=== PATIENT | male | born 1955 | race Caucasian/White ===

== ENCOUNTER 2023-11-10 10:32 | Outpatient (RCR) | payer MEDICARE, OTHER, SELFPAY ==
[2023-10-20 09:09] VITALS: BP 113/46
[2023-10-20 09:33] VITALS: BP 116/47
[2023-10-20 12:27] VITALS: BP 119/51
[2023-10-25 10:07] LABS: % Basophils 0.5 % (0-2); Absolute Eosinophils 0.1 10^3/uL (0-0.7); Absolute Monocytes 0.4 10^3/uL (0.1-0.6); Nucleated Red Blood Cells % 0 % (-)
[2023-10-25 10:10] LABS: % Eosinophils 4.1 % (0-6); % Immature Granulocytes 3.6 % (0-0.5); % Lymphocytes 13.8 % (20.5-51.1); Absolute Immature Granulocytes 0.1 10^3/uL (0-0.05); Absolute Lymphocytes 0.3 10^3/uL (1.2-3.4); Absolute Neutrophils 1.2 10^3/uL (1.4-6.5); Hematocrit 21.3 % (39.0-52.0); Hemoglobin 7.5 g/dL (13.0-18.0); Mean Corp Hgb Conc. 35.2 g/dL (33.0-37.0); Mean Corpuscular Hgb 30.7 pg (27.0-31.0); Mean Corpuscular Volume 87.3 fL (80.0-94.0); Mean Platelet Volume 8.3 fL (7.4-10.4); Platelet Count 105 10^3/uL (130-400); Red Blood Cell Count 2.44 10^6/uL (4.70-6.10); Red Cell Dist. Width 17.2 % (11.5-14.5)
[2023-10-26 08:22] VITALS: BP 114/45
[2023-10-26 08:42] VITALS: BP 116/48
[2023-10-26 11:40] VITALS: BP 131/52
[2023-11-09 08:55] LABS: Hematocrit 22.6 % (39.0-52.0); Hemoglobin 7.7 g/dL (13.0-18.0); Mean Corp Hgb Conc. 34.1 g/dL (33.0-37.0); Mean Corpuscular Hgb 30.4 pg (27.0-31.0); Mean Corpuscular Volume 89.3 fL (80.0-94.0); Mean Platelet Volume 8.2 fL (7.4-10.4); Nucleated Red Blood Cells % 0 % (-); Platelet Count 107 10^3/uL (130-400); Red Blood Cell Count 2.53 10^6/uL (4.70-6.10); Red Cell Dist. Width 17.7 % (11.5-14.5); White Blood Cell Count 1.8 10^3/uL (4.8-10.8)
[2023-11-09 09:47] LABS: Band Neutrophils 1 % (0-3); Eosinophils 3 % (0-6); Lymphocytes 24 % (20-51); Monocytes 10 % (2-9); Segmented Neutrophils 56 % (42-75)
[2023-11-09 09:48] LABS: Atypical Lymphocytes 1 %; Metamyelocytes 5 % (-); Normal RBC Morphology Yes; Platelets Checked Yes; Total Cells Counted 100
[2023-11-09 09:59] LABS: Albumin 2.9 g/dl (3.5-5.0); Blood Urea Nitrogen 97 mg/dl (9-20); Calcium 8.6 mg/dl (8.4-10.2); Carbon Dioxide 25 mmol/L (22-30); Chloride 96 mmol/L (98-107); Glucose 148 mg/dl (70-99); Phosphorus 5.3 mg/dl (2.5-4.5); Potassium 5.1 mmol/L (3.5-5.1); Sodium 131 mmol/L (135-145); eGFR 10.24
[2023-11-10 11:19] VITALS: BP 120/45
[2023-11-10 11:37] VITALS: BP 118/45
[2023-11-10 15:06] VITALS: BP 160/58
== END 2023-11-15 23:59 | disposition home or self-care (01) ==
LOC: OID 10:32
PROVIDERS: ATTENDING PHYSICIAN Internal Medicine Hematology & Oncology; FAMILY PHYSICIAN Family Medicine
DX: N18.4 Chronic kidney disease, stage 4 (severe) (principal); D63.1 Anemia in chronic kidney disease; D50.9 Iron deficiency anemia, unspecified
CPT/HCPCS: 36415; 36430; 80069; 82306; 83735; 85025; 86850; 86900; 86901; 86920; P9016

== ENCOUNTER 2023-11-16 15:25 | Inpatient (IN) | payer MEDICARE, OTHER, SELFPAY ==
[2023-11-16] VITALS (12 sets, daily range): BP systolic 122–180; BP diastolic 54–80; BMI 23.0; BMI 22.9
[2023-11-16 11:58] LABS: Hematocrit 21.2 % (39.0-52.0); Hemoglobin 7.3 g/dL (13.0-18.0); Mean Corp Hgb Conc. 34.4 g/dL (33.0-37.0); Mean Corpuscular Hgb 29.9 pg (27.0-31.0); Mean Corpuscular Volume 86.9 fL (80.0-94.0); Nucleated Red Blood Cells % 0 % (-); Platelet Count 90 10^3/uL (130-400); Red Blood Cell Count 2.44 10^6/uL (4.70-6.10)
[2023-11-16 12:09] LABS: COVID-19 Antigen Negative (Negative)
[2023-11-16 12:15] LABS: ALT (SGPT) 10 U/L (0-50); AST (SGOT) 18 U/L (17-59); Albumin 3.4 g/dl (3.5-5.0); Alkaline Phosphatase 74 U/L (38-126); Blood Urea Nitrogen 94 mg/dl (9-20); Carbon Dioxide 27 mmol/L (22-30); Chloride 93 mmol/L (98-107); Estimated Creatinine Clearance 11 ml/min; Glucose 133 mg/dl (70-99); Potassium 4.8 mmol/L (3.5-5.1); Sodium 126 mmol/L (135-145); Total Bilirubin 0.7 mg/dl (0.2-1.3); Total Protein 5.9 g/dl (6.3-8.2)
[2023-11-16 12:22] LABS: White Blood Cell Count 1.4 10^3/uL (4.8-10.8)
[2023-11-16 12:48] LABS: Band Neutrophils 1 % (0-3); Eosinophils 4 % (0-6); Lymphocytes 27 % (20-51); Metamyelocytes 2 % (-); Monocytes 21 % (2-9); Segmented Neutrophils 45 % (42-75)
[2023-11-16 12:49] LABS: Absolute Neutrophils -Man Diff 0.6 10^3/uL (1.4-6.5); Anisocytosis 2+; Hypochromasia 1+; Normal RBC Morphology No; Platelets Checked Yes; Total Cells Counted 100
--- NOTE | 2023-11-16 13:28 | ED.GENMED ---
History of Present Illness
General
Chief Complaint: Breathing Problem
Time Seen by Provider: 11/16/23 11:07
Travel History
Have you had any contact with someone who has COVID-19?: No
Do you have any symptoms of coronavirus? Fever > 100 degrees, chills, cough, shortness of breath, sore throat, loss of taste or smell, muscle aches, or headache?: Yes
Symptoms:: SOB
History of Present Illness
History of Present Illness:
Progressive shortness of breath over the last few weeks. Also feels rundown. History of GI bleed. Stools have also been dark.
Past History
Past History
ED Past Medical History: HTN, NIDDM and Other (Liver transplant)
ED Past Surgical History: Other (Liver transplant)
Phy Exam
Physical Exam
Physical Exam:
GENERAL: Alert and oriented mild tachypnea shunt left arm
EYE: Orbits normal.
NECK: Supple, no significant adenopathy.
ENT: Pharynx without erythema
CARDIAC: Regular rate and rhythm without any obvious murmurs.
LUNGS: Mild tachypnea. Rales in both bases
ABDOMEN: Soft, without focal tenderness or distention. Brown but test positive
NEUROLOGICAL: Alert and oriented , grossly non-focal
SKIN: Warm and dry, no rash or lesion, no discoloration, skin intact.
MUSCULOSKELETAL: Mild bilateral lower extremity edema
PSYCH: Normal and appropriate interaction.
Scores
Heart Failure Risk
Heart Failure Risk Score: Yes
History of Stroke or TIA: No
History of intubation for respiratory distress: No
Heart rate on ED arrival >/= 110: No
SaO2 <90% on arrival on room air: Yes
HR >/=110 during 3min walk test (or too ill to perform test): Yes
ECG has acute ischemic changes: No
Urea >/=12mmol/L (BUN 33.6mg/dL): Yes
Serum CO2>/=35mmol/L: No
Troponin I or T elevated to MN Level (0.4mg/dL): No
NT-proBNP >/=5,000ng/L (5,000pg/ml): Yes
HF Risk Score: 5
Admission Status: VERY HIGH RISK 39.8% Consider admission to hospital
Course
Orders/Labs/Results
Orders:
Orders
11/16/23 10:28
Electrocardiogram (*1) Urgent
Reason for Study: Shortness of Breath
EKG- Treatment ONCE
11/16/23 11:19
Cardiac Monitoring- Treatment ONCE
IV Insert/Care/Rem.- Treatment PRN
CR Chest - 2 Views Urgent
Comment:
Reason For Exam: sob
Pulse Ox/cont/shift [RESP] Stat
Quantity: 1
11/16/23 11:43
COVID-19 Antigen Urgent
Source: Nasal Swab
Complete Blood Count/With Diff Urgent
Comprehensive Metabolic Panel Urgent
Manual Differential Urgent
Influenza A+B Rapid Molecular Urgent
TABATHA Source: Nasal Swab
Specimen Description:
11/16/23 13:30
Pantoprazole [Protonix IV] 40 mg IV NOW STA
11/16/23 13:33
Furosemide [Lasix] 40 mg IV NOW STA
11/16/23 13:35
Add On- LAB Urgent
Tests Added?: probnp
Abnormal Lab Results
11/16/23
11:43
WBC 1.4 L* 10^3/uL
(4.8-10.8)
RBC 2.44 L 10^6/uL
(4.70-6.10)
Hgb 7.3 L g/dL
(13.0-18.0)
Hct 21.2 L %
(39.0-52.0)
RDW 18.0 H %
(11.5-14.5)
Plt Count 90 L 10^3/uL
(130-400)
Abs Neuts (Manual) 0.6 L* 10^3/uL
(1.4-6.5)
Monocytes (Manual) 21 H %
(2-9)
Sodium 126 L mmol/L
(135-145)
Chloride 93 L mmol/L
(98-107)
BUN 94 H mg/dl
(9-20)
Creatinine 5.2 H* mg/dL
(0.7-1.3)
Glucose 133 H mg/dl
(70-99)
Calcium 8.0 L mg/dl
(8.4-10.2)
Total Protein 5.9 L g/dl
(6.3-8.2)
Albumin 3.4 L g/dl
(3.5-5.0)
11/16/23 11:43
11/16/23 11:43
Vital Signs
Initial and Last Documented VS:
Initial Vital Signs
Temp Pulse Resp BP Pulse Ox
97.3 F 58 18 123/54 93
11/16/23 10:23 11/16/23 10:23 11/16/23 10:23 11/16/23 10:23 11/16/23 10:23
Last Documented Vital Signs
Temp Pulse Resp BP Pulse Ox
97.3 F 59 10 153/69 100
11/16/23 10:23 11/16/23 12:45 11/16/23 12:45 11/16/23 12:00 11/16/23 12:45
MDM/Problems Addressed
Differential Diagnosis Includes:
Patient with multiple issues including CHF, hyponatremia, fluid overload, chronic significant renal insufficiency, GI bleed. Nephrology contacted. Hospitalist contacted.
*Radiology
Radiology exam reviewed: preliminary read by ED provider (CHF)
*Pulse Oximetry
Patient hypoxic: yes
*EKG
Interpreted by ED Provider?: Yes
Interpretation: abnormal
Comparison EKG: changes noted
Heart Rate: 61
Rate: normal
Rhythm: sinus
Ramona: normal axis
Interval: normal interval
QRS Pattern: normal QRS
Ischemia: non-specific ST changes
*Web Marketing Specialist Interpretation
Rate: normal
Interpretation: normal
Heart Rate: 62
Rhythm: sinus
*Critical Care Note
Total Time (30-74mins, 75-104mins- exclusive of procedures): Not Applicable
Data Reviewed
Review of Other/Old Records Reveals: Labs, Records, Radiology Studies, Testing and Discharge Summary
Update Note
Update Note:
Discussed with nephrology. Will give a dose of Lasix. Referred to hospitalist.
ED Attending Note
-
Portions of this chart may have been created with voice recognition software.� Occasional wrong word or��sound alike� substitutions may have occurred due to the inherent limitations of voice recognition software.
Discharge Plan
Departure
Patient Disposition: Admit
Date of Disposition: 11/16/23
Time of Disposition: 13:36
Presentation/result/management discussed w/ accepting MD/DO: Hospitalist
Discharge Problem:
CHF, Renal failure, Hyponatremia, Anemia, GI bleed
Prescriptions:
No Action
tacrolimus 1 mg Capsule
2 mg PO DAILY
carvedilol 25 mg Tablet
25 mg PO BID
atorvastatin 20 mg Tablet
20 mg PO QPM
mycophenolate mofetil 500 mg Tablet
500 mg PO BID
Rx Instructions:
11/16/2023, take with 250 mg for a total of 750 mg.
Centrum Adult 50 Plus 80 mcg Tablet,Chewable
1 tab PO DAILY
ascorbic acid (vitamin C) [Vitamin C] 500 mg Tablet
500 mg PO DAILY
mycophenolate mofetil [CellCept] 250 mg Capsule
250 mg PO BID
Rx Instructions:
11/16/2023, take with 500 mg for a total of 750 mg.
cyanocobalamin (vitamin B-12) [Vitamin B-12] 1,000 mcg Tablet
1,000 mcg PO DAILY
aspirin 81 mg Tablet,Delayed Release (Dr/Ec)
81 mg PO DAILY
tacrolimus [Prograf] 1 mg Capsule
1 mg PO QPM
torsemide 20 mg tablet
40 mg PO DAILY
torsemide 20 mg Tablet
20 mg PO QPM
amlodipine 5 mg Tablet
5 mg PO DAILY
omeprazole magnesium [Prilosec OTC] 20 mg Tablet,Delayed Release (Dr/Ec)
20 mg PO DAILY
cholecalciferol (vitamin D3) 50 mcg (2,000 unit) Tablet
50 mcg PO DAILY
magnesium oxide 400 mg magnesium Tablet
400 mg PO BID
calcium acetate 667 mg Tablet
667 mg PO MEALS
Referrals:
Pepe Hi MD [Family Provider] -
Interventions
Interventions:
*Risk Screen - Suicide Last Done: 11/16/23 11:11
*General Assessment Last Done: 11/16/23 10:23
*Neglect/Abuse Screening Last Done: 11/16/23 11:11
ED- Fall Risk Assessment Last Done: 11/16/23 11:50
*ED COVID-19 Vaccine History Last Done: 11/16/23 10:23
ED- Cardiac Assessment Last Done: 11/16/23 11:09
ED- Pulmonary Assessment Last Done: 11/16/23 11:09
[2023-11-16] MEDS: PROTONIX IV 40 MG IV (14:19)
[2023-11-16] MEDS: LASIX 40 MG IV ×2 (14:20→15:41)
[2023-11-16 15:22] LABS: NT-proBNP 10100 pg/ml
--- NOTE | 2023-11-16 15:28 | HPS.HSE ---
Family Physician
-
Family Physician: Pepe Hi
Chief Complaint
-
Shortness of breath
History of Present Illness
Patient is a 68 years old male with extensive medical history including chronic diastolic CHF, chronic kidney disease stage V, paroxysmal atrial fibrillation, status post liver transplant for hepatitis C and hepatocellular carcinoma on
immunosuppression, chronic pancytopenia presents to the emergency room with worsening of shortness of breath over the last few weeks. Patient reports dyspnea with minimal exertion, not able to sleep at night with attempt to assume upright position.
With chronic anemia and requiring weekly transfusions he did not report improvement of dyspnea with recent PRBC transfusion. He denies syncope, palpitations, chest pain. Denies fever. While his hemoglobin noted trending down to sevens, patient
reports dark stools.
Medical History
Past Medical History
Past Medical History: Reports CHF, NIDDM and Other (CKD, liver transplant on immunosuppression, chronic pancytopenia)
Past Surgical History: Reports Other (Liver transplant. Left upper extremity AV fistula)
Social History
Tobacco: Non-smoker
Alcohol: None
Drug: None
Personal:
Living: With Family
Employment: Not Employed
Family History
Family History: Not pertinent
Allergies / Home Medications
Allergies reflects when Allergies were last updated in [facility].
Home Medications with original date entered in [facility]
Allergy/Medication List:
Allergies
Allergy/AdvReac Type Severity Reaction Status Date / Time
oxycodone AdvReac GI upset Verified 11/16/23 10:27
Home Medications
ascorbic acid (vitamin C) 500 mg tablet (Vitamin C) 500 mg PO DAILY Supplement 05/05/23
atorvastatin 20 mg tablet 20 mg PO QPM High Cholesterol 05/05/23
carvedilol 25 mg tablet 25 mg PO BID Blood Pressure 05/05/23
multivitamin with minerals-folic acid 80 mcg chewable tablet (Centrum Adult 50 Plus) 1 tab PO DAILY Supplement 05/05/23
mycophenolate mofetil 500 mg tablet 500 mg PO BID Transplant 05/05/23
tacrolimus 1 mg capsule, immediate-release 2 mg PO DAILY Transplant 05/05/23
aspirin 81 mg tablet,delayed release 81 mg PO DAILY Blood Clot Prevention/Tx 06/20/23
cyanocobalamin (vitamin B-12) 1,000 mcg tablet (Vitamin B-12) 1,000 mcg PO DAILY Supplement 06/20/23
mycophenolate mofetil 250 mg capsule (CellCept) 250 mg PO BID Transplant 06/20/23
tacrolimus 1 mg capsule, immediate-release (Prograf) 1 mg PO QPM Transplant 06/20/23
torsemide 20 mg tablet 40 mg PO DAILY Fluid Retention/Swelling 07/21/23
amlodipine 5 mg tablet 5 mg PO DAILY Blood Pressure 11/16/23
calcium acetate 667 mg tablet 667 mg PO MEALS Kidney Disease 11/16/23
cholecalciferol (vitamin D3) 50 mcg (2,000 unit) tablet 50 mcg PO DAILY Supplement 11/16/23
magnesium oxide 400 mg PO BID Supplement 11/16/23
omeprazole magnesium 20 mg tablet,delayed release (Prilosec OTC) 20 mg PO DAILY Gastrointestinal Issue 11/16/23
torsemide 20 mg tablet 20 mg PO QPM Fluid Retention/Swelling 11/16/23
Review of Systems
-
A 12 point ROS was completed and negative except as noted: Yes
Physical Exam
Vital Signs
Vital Signs
Temp Pulse Resp BP Pulse Ox
97.3 F 60 12 134/80 100
11/16/23 10:23 11/16/23 14:15 11/16/23 14:15 11/16/23 14:00 11/16/23 14:15
Physical Exam
General: Well Developed, Well Nourished and No Apparent Distress
HEENT: NormoCephalic, Moist mucous membranes and Atraumatic
Respiratory: Wheezes and Rales
Cardiac: S1/S2, Regular Rhythm and JVD; No Murmur or Rub
GI: Soft, Non Tender, Non Distended and Normal Bowel Sounds; No Organomegaly
Rectal: Deferred by Provider
Musculoskeletal: No Clubbing, No Cyanosis and No Edema
Skin: No Rash
Neuro: Awake, Alert, Oriented and Nonfocal/grossly intact
Laboratory Results
-
11/16/23 11:43
11/16/23 11:43
Laboratory Results
Total Bilirubin 0.7 mg/dl (0.2-1.3) 11/16/23 11:43
AST 18 U/L (17-59) 11/16/23 11:43
ALT 10 U/L (0-50) 11/16/23 11:43
Alkaline Phosphatase 74 U/L (38-126) 11/16/23 11:43
Impression/Plan
-
IMPRESSION:
Acute CHF preserved EF.
Acute pulmonary edema
Acute hypoxic respiratory failure due to above.
Acute on chronic anemia
CKD 5
Conditions prior to admission:
Chronic diastolic CHF
� Echocardiogram 09/07 with LVEF of 55% mitral stenosis severe.
Paroxysmal atrial fibrillation
Hypertension.
CKD stage V.
Status post left upper extremity AV fistula placed.
Chronic pancytopenia
Transfusion dependent anemia of chronic disease/CKD
Liver cancer status post transplant 2019 at [facility]
Hepatitis C treated.
Diabetes, currently diet controlled
PLAN:
Presents with dyspnea and acute hypoxic respiratory failure likely multifactorial in the settings of decompensated diastolic CHF and volume overload with progressive CKD 5 as well as worsening of chronic anemia.
Continue oxygen supplementation
Currently on 2 L of nasal cannula comfortable, although noted JVD and increased work of breathing.
Acute CHF preserved EF.
Acute pulmonary edema secondary to above.
Attempt of diuresis Lasix 80 mg IV twice daily.
Continue Coreg and amlodipine
CKD 5.
Nephrology evaluation.
Given marked volume overload may required initiation of hemodialysis for volume control if not responding to IV f IV diuresis
Follow BMP
Pancytopenia, chronic
Acute on chronic anemia. Anemia of chronic disease, transfusion dependent. Also suspect chronic bone marrow suppression with antirejection regimen.
Reports dark stool.
Rectal examination heme positive brown stool.
No clinical evidence of acute brisk blood loss.
Transfuse 1 unit of packed red blood cells and follow hemoglobin
IV PPI
GI evaluation
Status post liver transplant patient
Compensated
Monitor closely
Continue immunosuppression including mycophenolate, tacrolimus
Type 2 diabetes.
Currently not on insulin or oral glucose lowering medication
Update hemoglobin A1c
Basal bolus protocol with serial Accu-Cheks
--- NOTE | 2023-11-16 16:45 | CON.GI ---
Addendum entered and electronically signed by Candelaria Baird MD 11/16/23 20:21:
I saw and examined the patient.
The UI PROGRAMMER or PA's note was reviewed and I agree with the note.
Comment: 68-year-old male with history of hepatitis C status posttreatment, history of HCC with liver transplant at [facility] in 2019, currently on immunosuppression-follows with Dr. Box, followed by Dr. Webster
[place],history of A-fib, CHF, pancytopenia, chronic kidney disease presenting with increasing shortness of breath, ? Dark stool and GI consult was called in. In the ER he had brown heme positive stool without any hemodynamic instability. He does
take omeprazole on a daily basis. Does not take any NSAIDs.He does follow-up with [facility] and gets periodic PRBC transfusions. Recently had issues with diarrhea as well but flexible sigmoidoscopy In June 2023 without any
evidence of CMV with history of immunocompromised state. He has had history of chronic elevation in his creatinine between 3 and 4.5 but now it is rising and is about 5.2.
In the ER, chest x-ray showing mild pulmonary edema with moderate bilateral pleural effusions.
-Anemia with heme positive stool
Multiple etiologies for anemia including chronic renal insufficiency, pancytopenia
No evidence of overt GI bleeding at this time.
Has been on PPI.
At this time, with shortness of breath, pancytopenia, not a candidate for upper endoscopy.
Once he is optimized from a medical standpoint, consider upper endoscopy if hemoglobin continues to drop.
Continue PPI and monitor H&H closely.
Will check abdominal ultrasound to rule out ascites
-History of HCC status post liver transplant with underlying history of hepatitis C
Currently does not seem to be decompensated
Follows up with Dr. Box at [place]
Continue immunosuppression
-Acute on chronic renal insufficiency
Nephrology following, noted possible need for hemodialysis
Will follow
Original Note:
Consultation
-
Date/Time Consultation Requested: 11/16/23 1600
Date/Time Consultation Performed: 11/16/23 1645
Requesting Provider: Charles Garcia MD
Performing Provider: KELLEN Pedersen, Candelaria Baird MD
Reason for Consultation: anemia
Medical History
Chief Complaint / HPI
Chief Complaint: anemia
History of Present Illness:
Pt is a 68yo with hx hep C with prior treatment/ HCC with prior liver transplant at [facility] around 2019 with chronic immunosuppression, skin CA with radiation, CHF, Afib Pt recall hx EV and ascites pre transplant. He was seen in
hospital a few months ago with diarrhea with flex sig completed with hemorrhoids and erythema in sigmoid with normal rectum. Noted acute colitis and CMV and lymphocytic colitis neg . He now presents with worsening shortness of breath. He has
been dealing with worsening renal issues with discussion of dialysis and effusion with thoracentesis in August. In ER he also states recent black stool for a few days with several stools per day. In ER heme + brown stool and hbg 7.3 with
pancytopenia and asked to evaluate. Last full colonoscopy with Dr. Webster [id number] recall as ? normal with EGD around that time.
Pt admits to constipation a few days ago. He otherwise denies dysphagia, odynophagia, GERD, nausea, vomiting, abdominal pain, diarrhea, or red blood in stool. follow with Dr. Box.
Past Medical History
Past Medical History: Arrhythmias (PAF), Cancer (skin CA with radiation), CHF, NIDDM, Renal Failure (CKD) and Other (OTLT for hep C and HCC on chronic immunosuppression, chronic pancytopenia)
Past Surgical History: Other (liver transplant, b/l hernia repair)
Social History
Tobacco: Former Smoker
Alcohol: Other (social years ago)
Drug: Marijuana (in s)
Personal:
Living: With Family
Employment: Retired
Family History
Family History: Other (no family hx colon cA or polyps)
Allergies / Home Medications
Allergy/AdvReac Type Severity Reaction Status Date / Time
oxycodone AdvReac GI upset Verified 11/16/23 10:27
Medication Instructions Recorded
ascorbic acid (vitamin C) 500 mg 500 mg PO DAILY Supplement 05/05/23
tablet (Vitamin C)
atorvastatin 20 mg tablet 20 mg PO QPM High Cholesterol 05/05/23
carvedilol 25 mg tablet 25 mg PO BID Blood Pressure 05/05/23
multivitamin with minerals-folic 1 tab PO DAILY Supplement 05/05/23
acid 80 mcg chewable tablet
(Centrum Adult 50 Plus)
mycophenolate mofetil 500 mg tablet 500 mg PO BID Transplant 05/05/23
tacrolimus 1 mg capsule, 2 mg PO DAILY Transplant 05/05/23
immediate-release
aspirin 81 mg tablet,delayed 81 mg PO DAILY Blood Clot 06/20/23
release Prevention/Tx
cyanocobalamin (vitamin B-12) 1,000 mcg PO DAILY Supplement 06/20/23
1,000 mcg tablet (Vitamin B-12)
mycophenolate mofetil 250 mg 250 mg PO BID Transplant 06/20/23
capsule (CellCept)
tacrolimus 1 mg capsule, 1 mg PO QPM Transplant 06/20/23
immediate-release (Prograf)
torsemide 20 mg tablet 40 mg PO DAILY Fluid 07/21/23
Retention/Swelling
amlodipine 5 mg tablet 5 mg PO DAILY Blood Pressure 11/16/23
calcium acetate 667 mg tablet 667 mg PO MEALS Kidney Disease 11/16/23
cholecalciferol (vitamin D3) 50 50 mcg PO DAILY Supplement 11/16/23
mcg (2,000 unit) tablet
magnesium oxide 400 mg PO BID Supplement 11/16/23
omeprazole magnesium 20 mg 20 mg PO DAILY Gastrointestinal 11/16/23
tablet,delayed release (Prilosec Issue
OTC)
torsemide 20 mg tablet 20 mg PO QPM Fluid 11/16/23
Retention/Swelling
Review of Systems
-
History Source: Patient
Constitutional: Reports Weight Gain
EENT: Reports No Symptoms
Respiratory: Reports Trouble Breathing (on current O2 in ER)
Cardiac: Reports No Symptoms
Abdomen/GI: Reports Constipated (few days ago) and Black Stools
: Reports No Symptoms
Musculoskeletal: Reports No Symptoms
Neurological: Reports Weakness
Endocrine: Reports No Symptoms
Hematologic/Lymphatic: Reports No Symptoms
Vital Signs
Temp Pulse Resp BP Pulse Ox
97.3 F 71 17 147/59 97
11/16/23 10:23 11/16/23 16:00 11/16/23 16:00 11/16/23 15:00 11/16/23 16:00
Physical Exam
Exam
General: Well Developed, Well Nourished and Other (some distress with shortness of breath )
HEENT: Normocephalic and Anicteric
Respiratory: Clear
Cardiac: Regular Rhythm
GI: Soft, Non Tender, Distended (mild) and Other (old umbilical hernia with scarring around site )
Musculoskeletal: No Clubbing, No Cyanosis and Edema
Skin: Warm and Dry
Neuro: Awake, Alert and AO x 3
Psych: Calm
Results
WBC 1.4 10^3/uL (4.8-10.8) L* 11/16/23 11:43
Hgb 7.3 g/dL (13.0-18.0) L 11/16/23 11:43
Hct 21.2 % (39.0-52.0) L 11/16/23 11:43
MCV 86.9 fL (80.0-94.0) 11/16/23 11:43
Plt Count 90 10^3/uL (130-400) L 11/16/23 11:43
Sodium 126 mmol/L (135-145) L 11/16/23 11:43
Potassium 4.8 mmol/L (3.5-5.1) 11/16/23 11:43
Chloride 93 mmol/L (98-107) L 11/16/23 11:43
Carbon Dioxide 27 mmol/L (22-30) 11/16/23 11:43
BUN 94 mg/dl (9-20) H 11/16/23 11:43
Creatinine 5.2 mg/dL (0.7-1.3) H* 11/16/23 11:43
Calcium 8.0 mg/dl (8.4-10.2) L 11/16/23 11:43
Total Bilirubin 0.7 mg/dl (0.2-1.3) 11/16/23 11:43
AST 18 U/L (17-59) 11/16/23 11:43
ALT 10 U/L (0-50) 11/16/23 11:43
Alkaline Phosphatase 74 U/L (38-126) 11/16/23 11:43
Diagnostic Image Results:
Prior GI Procedures:
EGD: last 2019 recall normal
Colonoscopy: last 2019 recall normal
06/22/23 flex sig do� - Hemorrhoids found on perianal exam.
�� � � � � � � � � � � - Erythematous mucosa in the sigmoid colon. Biopsied.
�� � � � � � � � � � � - The rectum is normal. Biopsied.
�� � � � � � � � � � � - The descending colon is normal. Biopsied.
bx neg
Assessment / Plan
-
Pt is a 68yo with hx hep C with prior treatment/ HCC with prior liver transplant at [facility] around 2019 with chronic immunosuppression, skin CA with radiation, CHF, Afib Pt recall hx EV and ascites pre transplant. He was seen in
hospital a few months ago with diarrhea with flex sig completed with hemorrhoids and erythema in sigmoid with normal rectum. Noted acute colitis and CMV and lymphocytic colitis neg . He now presents with worsening shortness of breath. He has
been dealing with worsening renal issues with discussion of dialysis and effusion with thoracentesis in August. In ER he also states recent black stool for a few days with several stools per day. In ER heme + brown stool and hbg 7.3 with
pancytopenia and asked to evaluate. Last full colonoscopy with Dr. Webster [id number] recall as ? normal with EGD around that time.
06/22 flex hemorrhoids, erythema in sigmoid colon, rectum and descending colon normal
-worsening dypsnea on admission -- multifactorial with CHF, CKD, anemia
-heme + brown stool with recent black stools
-pancytopenia
-neutropenia
-worsening chronic renal disease
-pleural effusion
-hx liver Ca with transplant [facility] with chronic immunosuppression
-hyponatremia
other medical problems:
-skin CA
-afib
-CHF
-DM
PLAN:
etiology of anemia multifactorial with pancytopenia, worsening renal function, heme + stools vs other
review with labs with hbg around recent baseline 7-8 over last few months
trend labs and stools
cont to optimize from medical standpoint with CHF, shortness of breath along with pancytopenia and neutropenia high risk for GI procedures
can consider EGD if continued black stool or sooner if signs of aggressive bleeding but will need to be optimized to proceed
OP follow up with Dr. Box who pt has spoke to today and aware of admission
check US abdomen to ensure no ascites with mild distention on exam
cont PPI
cont Immunosuppression
agree with heme eval for pancytopenia and renal with slowly worsening renal functio
updated family
-
-
Thank you for consultation and allowing me to participate in the patient's care. Please call the public relations sales marketing GI physician during the after hours with any questions or concerns.
--- NOTE | 2023-11-16 17:07 | CON.MD ---
Consultation - Medical
-
IMP:
Acute on chronic CHF preserved EF.
Acute hypoxic respiratory failure due to above.
Bilat pleural effusion, prior thoracentesis in Aug
Acute on chronic anemia
CKD 5
Hyponatremia
mitral stenosis severe.-no surg planned
Paroxysmal atrial fibrillation
Hypertension.
Status post left upper extremity AV fistula placed 10/18/23
Chronic pancytopenia
Transfusion dependent anemia of chronic disease/CKD
Orthotopic liver transplant 2020 at [facility]
Hepatitis C treated.
Diabetes, currently diet controlled
Hyperphosphatemia
Plan:
A/w sob multifactorial-CKD5, CHF, anemia
he probably approached ESRD and need of HD, he deferred decision to
CHF-cotn IV lasix 80 BID , FR 40ounces/day
BP are stable , hold BP meds pre HD
transfusion dependant anemia -heme follows, prn trasnfusion
heme +ve stool GI follows, cotn IS for liver txp
may benefit from thoracentesis
spoke with in detail on phone about all comorbidities and she understands the poor chcf prognosis
she is ok to start him on HD , AVF not mature yet hence place catheter -IR notified
we also reviewed that with severe MS and no surg plan in the future has risk of hemodynamic instability with HD
hope HD will give him some quality of life
knows if pt can not handle HD and we have nothing else to offer him
[id number]
[2023-11-16] MEDS: PHOSLO 667 MG PO (18:34)
[2023-11-16] MEDS: LIPITOR 20 MG PO (18:37)
[2023-11-16] MEDS: PROGRAF 1 MG PO (18:38)
[2023-11-16 18:45] LABS: Glucose - Point of Care 208 mg/dl (70-99)
[2023-11-16] MEDS: CELLCEPT 500 MG PO (19:34)
[2023-11-16] MEDS: COREG 25 MG PO (19:34)
[2023-11-16] MEDS: NOVOLOG FLEXPEN-LOW RESISTANCE 2 UNITS SC (19:35)
[2023-11-16] MEDS: CELLCEPT 250 MG PO (19:36)
[2023-11-17] VITALS (39 sets, daily range): BP systolic 68–146; BP diastolic 44–134; BMI 22.5
[2023-11-17 07:17] LABS: Glucose - Point of Care 135 mg/dl (70-99)
--- NOTE | 2023-11-17 08:32 | VNURNOTE ---
Patient is current with [facility] since 08/29 w/SN only, patient has refused PT/OT at home, will monitor progress and plan at discharge.
[2023-11-17] MEDS: THERAGRAN 1 TABLET PO (08:37)
[2023-11-17] MEDS: PROGRAF 2 MG PO (08:37)
[2023-11-17] MEDS: CELLCEPT 250 MG PO ×2 (08:37→20:07)
[2023-11-17] MEDS: CELLCEPT 500 MG PO ×2 (08:37→20:06)
[2023-11-17] MEDS: NOVOLOG FLEXPEN-LOW RESISTANCE SC ×3 (08:37→18:32)
[2023-11-17] MEDS: PHOSLO 667 MG PO ×2 (08:37→18:27)
[2023-11-17] MEDS: LASIX 80 MG IV ×2 (08:38→18:26)
[2023-11-17] MEDS: VITAMIN B-12 1000 MCG PO (08:38)
[2023-11-17] MEDS: ASPIR LOW (ENTERIC COATED) 81 MG PO (08:38)
[2023-11-17] MEDS: COREG 25 MG PO ×2 (08:38→20:07)
[2023-11-17] MEDS: PROTONIX IV 40 MG IV (08:39)
[2023-11-17 09:05] LABS: % Basophils 0.7 % (0-2); % Immature Granulocytes 7.1 % (0-0.5); % Lymphocytes 19.1 % (20.5-51.1); % Monocytes 17.7 % (1.7-9.3); % Neutrophils 50.4 % (42.2-75.2); Absolute Eosinophils 0.1 10^3/uL (0-0.7); Absolute Immature Granulocytes 0.1 10^3/uL (0-0.05); Absolute Lymphocytes 0.3 10^3/uL (1.2-3.4); Absolute Monocytes 0.3 10^3/uL (0.1-0.6); Hematocrit 24.7 % (39.0-52.0); Hemoglobin 8.3 g/dL (13.0-18.0); Mean Corp Hgb Conc. 33.6 g/dL (33.0-37.0); Mean Corpuscular Hgb 29.6 pg (27.0-31.0); Mean Corpuscular Volume 88.2 fL (80.0-94.0); Mean Platelet Volume 8.3 fL (7.4-10.4); Nucleated Red Blood Cells % 0 % (-); Platelet Count 85 10^3/uL (130-400); Red Cell Dist. Width 17.7 % (11.5-14.5)
[2023-11-17 09:07] LABS: White Blood Cell Count 1.4 10^3/uL (4.8-10.8)
[2023-11-17 09:08] LABS: PT 15.1 Sec (11.4-14.6)
[2023-11-17 09:31] LABS: ALT (SGPT) < 10 U/L (0-50); AST (SGOT) 20 U/L (17-59); Albumin 3.2 g/dl (3.5-5.0); Alkaline Phosphatase 73 U/L (38-126); Blood Urea Nitrogen 100 mg/dl (9-20); Calcium 7.9 mg/dl (8.4-10.2); Carbon Dioxide 25 mmol/L (22-30); Chloride 94 mmol/L (98-107); Direct Bilirubin 0.6 mg/dl (0.0-0.4); Estimated Creatinine Clearance 11 ml/min; Glucose 108 mg/dl (70-99); Potassium 5.1 mmol/L (3.5-5.1); Sodium 127 mmol/L (135-145); Total Bilirubin 1.1 mg/dl (0.2-1.3); Total Protein 5.6 g/dl (6.3-8.2); eGFR 10.24
[2023-11-17 09:53] LABS: Glucose - Point of Care 138 mg/dl (70-99)
[2023-11-17 10:05] LABS: Absolute Neutrophils 0.7 10^3/uL (1.4-6.5)
--- NOTE | 2023-11-17 10:16 | W.PN.HOSP.TC ---
Today's Communication/Plan
-
Episode of presyncope with transient hypoxia oxygen saturation at 89 and hypertension
Quickly recovered.
Interventional radiology consultation for chest ultrasound and therapeutic thoracentesis of the largest pleural effusion
Pending HD catheter placement and HD initiation
Monitor hemoglobin.
Continue antihypertensive regimen with Coreg/amlodipine
Continue Lasix.
Monitor in IMU.
Discussed with nursing.
Discussed with nephrology
Discussed with patient's spouse at the bedside.
Assessment / Plan
Assessment / Plan
IMPRESSION:
Acute CHF preserved EF.
Acute pulmonary edema
Acute hypoxic respiratory failure due to above.
Acute on chronic anemia
CKD 5
Conditions prior to admission:
Chronic diastolic CHF
� Echocardiogram 09/07 with LVEF of 55% mitral stenosis severe.
Paroxysmal atrial fibrillation
Hypertension.
CKD stage V.
Status post left upper extremity AV fistula placed.
Chronic pancytopenia
Transfusion dependent anemia of chronic disease/CKD
Liver cancer status post transplant 2019 at [facility] [place]
Hepatitis C treated.
Diabetes, currently diet controlled
PLAN:�
Presents with dyspnea and acute hypoxic respiratory failure likely multifactorial in the settings of decompensated diastolic CHF and volume overload with progressive CKD 5 as well as worsening of chronic anemia, bilateral pleural effusion
Continue oxygen supplementation
Currently on 2 L of nasal cannula comfortable, although noted JVD and increased work of breathing.
Bilateral pleural effusion.
Chest x-ray with at least moderate bilateral pleural effusion.
Interventional radiology consultation for therapeutic thoracentesis.
Acute CHF preserved EF.
Acute pulmonary edema secondary to above.
Attempt of diuresis Lasix 80 mg IV twice daily.
Continue Coreg and amlodipine with caution for hypotension
CKD 5.
Nephrology input appreciated.
Plan is for HD catheter placement and HD initiation
Pancytopenia, chronic
Acute on chronic anemia.� Anemia of chronic disease, transfusion dependent.� Also suspect chronic bone marrow suppression with antirejection regimen.
Reports dark stool.
Rectal examination heme positive brown stool.
No clinical evidence of acute brisk blood loss.
Status post 1 unit of PRBC transfused on 11/16 with appropriate response.
IV PPI
GI evaluation
Status post liver transplant patient
Compensated
Monitor closely
Continue immunosuppression including mycophenolate, tacrolimus
Type 2 diabetes.
Currently not on insulin or oral glucose lowering medication
Update hemoglobin A1c
Basal bolus protocol with serial Accu-Cheks
Anticipated Discharge: > 48 hours
Subjective/Interval History
-
Date of Service: November 17, 2023
Objective Data
-
Labs:
Laboratory Results
11/17/23
07:42
WBC 1.4 L*
Hgb 8.3 L
Hct 24.7 L
Plt Count 85 L
PT 15.1 H
INR 1.20
Sodium 127 L
Potassium 5.1
Chloride 94 L
Carbon Dioxide 25
BUN 100 H
Creatinine 5.6 H*
Glucose 108 H
Calcium 7.9 L
Total Bilirubin 1.1
AST 20
ALT < 10
Alkaline Phosphatase 73
Vital Signs:
Vital Signs
Temp Pulse Resp BP Pulse Ox
97.5 F 70 17 144/75 98
11/17/23 07:15 11/17/23 07:15 11/17/23 07:15 11/17/23 07:15 11/17/23 08:05
I&O
11/16/23 11/17/23 11/18/23
06:59 06:59 06:59
Intake Total 500 / 500
Output Total 100 / 100
Balance 400 / 400
Physical Exam
-
General: Well Developed and No Apparent Distress
HEENT: Normocephalic, Atraumatic and Moist Mucous Membranes
Respiratory: Clear to Auscultation
Cardiac: Regular Rhythm and S1/S2; Negative Murmur, Rub or Gallop
GI: Soft, Nontender, Nondistended and Normal Bowel Sounds; Negative Organomegaly
Rectal: Deferred by Provider
Musculoskeletal: No Clubbing, No Cyanosis and No Edema
Skin: Negative Rash
Neuro: Awake, Alert, Oriented and Nonfocal/Grossly Intact
--- NOTE | 2023-11-17 10:17 | W.PN.GI.CBS2 ---
Addendum entered and electronically signed by Amber Paige MD 11/17/23 16:59:
I saw and examined the patient.
The AREA SUPERVISOR's note was reviewed and I agree with the note.
Comment: Anemia likely multifactorial from GI blood loss and also likely related to CKD and anemia of chronic disease and immunosuppression/pancytopenia, as per he did have an episode of dark stools earlier today morning but he is high risk for
endoscopy given his multiple comorbidities discussed with at bedside she would like to hold off on endoscopy unless he has brisk bleeding. Continue supportive care with transfusions as needed and PPI. Noted events was started on hemodialysis
today and also had thoracenteses with 1800 cc drained from left.
Original Note:
Today's Communication / Plan
-
Monitor H/H. Monitor stools and for signs of bleeding. Continue PPI. Follow abdominal US.
Assessment / Plan
-
The pt is a 68yo with a PMG significant for Hepatitis C with prior treatment/HCC with prior liver transplant at [facility] ~2019 with chronic immunosuppression, skin CA with radiation, CHF, paroxysmla atrial fibrillation, hx EV and ascites
pre transplant. who presented to the ER with worsening shortness of breath. He has been dealing with worsening renal issues with discussion of dialysis and effusion with thoracentesis in August. In ER he also states recent black stool for a few
days with several stools per day. In ER heme + brown stool and hbg 7.3 with pancytopenia and asked to evaluate. Last full colonoscopy with Dr. Webster [phone] recall as ? normal with EGD around that time. No active bleeding upon admission.
S/p 1 unit PRBC. He is pending placement of a permacath for initiation of HD.
06/22 flex hemorrhoids, erythema in sigmoid colon, rectum and descending colon normal
Problem list:
-hypoxia/worsening dyspnea on admission -- multifactorial with CHF, CKD, anemia
-acute/chronic anemia
-heme + brown stool with recent black stools, none since admission
-near syncope, hypotension
-pancytopenia
-neutropenia
-worsening chronic renal disease
-pleural effusion
-hx liver Ca with transplant [facility] with chronic immunosuppression
-hyponatremia
Other pertinent medical problems:
-skin CA
-afib
-CHF
-DM
Recommendations:
-Etiology of anemia likely multifactorial with pancytopenia v worsening renal function v possible slow GI source of blood loss with heme + stools v other
--currently with no signs of bleeding and stable hgb. Rapid response events noted, improved at this time.
-Monitor for signs of bleeding
-Follow stool output
-Continue to trend H/H and transfuse as needed for hgb less than 7
-Needs to be optimized medically prior to endoscopic evaluation unless brisk bleeding were to occur. He is high risk for GI procedures at this time with his ongoing medical problems.
-Follow abdominal US imaging
-Continue PPI daily
-Heme evaluation
-Nephrology following pending initiation of HD
-Will follow
Subjective
Subjective
Date of Service: November 17, 2023
The pt was seen and examined at the bedside. A rapid response in progress at the time of my evaluation. Per nursing he had a low blood pressure in 80's/40's and he felt near syncopal. Also hypoxic in the upper 80's. Appeared pale on exam. No reports
of bleeding. The pt denies any pain or abdominal discomfort.
Objective
Data Reviewed
Laboratory Data:
Laboratory Results
11/17/23 07:42
11/17/23 07:42
Laboratory Results
PT 15.1 Sec (11.4-14.6) H 11/17/23 07:42
INR 1.20 11/17/23 07:42
Total Bilirubin 1.1 mg/dl (0.2-1.3) 11/17/23 07:42
AST 20 U/L (17-59) 11/17/23 07:42
ALT < 10 U/L (0-50) 11/17/23 07:42
Alkaline Phosphatase 73 U/L (38-126) 11/17/23 07:42
Vital Signs and I&O:
Vital Signs
Temp Pulse Resp BP Pulse Ox
97.5 F 70 17 144/75 98
11/17/23 07:15 11/17/23 07:15 11/17/23 07:15 11/17/23 07:15 11/17/23 08:05
I&O
11/16/23 11/17/23 11/18/23
06:59 06:59 06:59
Intake Total 500 / 500
Output Total 100 / 100
Balance 400 / 400
Physical Exam
Physical Exam
HEENT: Anicteric
Cardiology: S1, S2 and Irregular Rate/Rhythm
Pulmonary: Clear
GI: Soft, Non Distended, Non Tender and Normal Bowel Sounds
Awake, alert, pale appearing
--- NOTE | 2023-11-17 10:47 | CON.ONC ---
Addendum entered and electronically signed by Kamran Figueroa MD 11/17/23 12:02:
Hematology Addendum:
Patient seen and evaluated - agree w/ MANAGER CHINESE note and plan as outlined
-chronic pancytopenia in the setting of chronic immunosuppression s/p liver tx
-now w/ progressive renal failure - w/ HD planned
-check tacrolimus level
-hemoglobin improved - s/p 1 unit PRBCs
-plts stable at baseline
-neutropenic precautions - if spikes - james-culture/ cover w/ broad spectrum abx
-follow CBC and tranfuse prn
Original Note:
Impression
Impression
Hypoxia/worsening dyspnea
Pleural effusions
Acute on chronic multifactorial anemia
CKD stage V
Acute CHF, preserved EF
Hypotension, near syncope
Chronic pancytopenia - transfusion dependent
Liver transplant on chronic immunosuppression
Plan
Plan
Neutropenic precautions
CBC w/ diff daily. Trend H/H.
2/2 Hgb 8.3 s/p 1unit PRBCs
Bleeding precautions
Transfusion support as needed to maintain Hgb >7.5
1 unit is typically transfused for him over 4 hours
Last Aranesp administered: 10/19/23
Supportive care, monitor for fevers, initiate antibiotics if febrile
IR consult for therapeutic thoracentesis
GI and Nephrology following
HD tunneled cath placement and Abd US pending
We will follow.
Patient History
History of Present Illness
Tommy Long is a 68 year old well known to [place] who presented to the ER yesterday 11/16 with complaints of shortness of breath, generalized weakness, and dark stools. He requires weekly transfusions due to multifactorial anemia. His
shortness of breath did not improve following most recent transfusion. He states he needs to sleep in the upright position. It was recommended that he proceed to the ER for further evaluation. His stools were Heme+ in the ER with Hgb 7.3. He
received 1 unit of blood in the ER and no active bleeding was noted. He is pending placement of HD permacath.
Past-Medical/Surgical History
Chronic pancytopenia
Anemia of chronic disease
Transfusion dependent
Liver transplant on Tacrolimus (2020)
Hx HepC/HCC
Immunosuppression
CKD stage V
Former smoker (quit 2002)
Bilateral hernia repair
Hx GIB
Hypertension
Chronic diastolic CHF
Patient Medication
Medication Instructions Recorded Confirmed Last Taken Type
ascorbic acid (vitamin C) 500 mg 500 mg PO DAILY Supplement 05/05/23 11/16/23 11/16/23 History
tablet (Vitamin C)
atorvastatin 20 mg tablet 20 mg PO QPM High Cholesterol 05/05/23 11/16/23 11/15/23 History
carvedilol 25 mg tablet 25 mg PO BID Blood Pressure 05/05/23 11/16/23 11/16/23 History
multivitamin with minerals-folic 1 tab PO DAILY Supplement 05/05/23 11/16/23 11/16/23 History
acid 80 mcg chewable tablet
(Centrum Adult 50 Plus)
mycophenolate mofetil 500 mg tablet 500 mg PO BID Transplant 05/05/23 11/16/23 11/16/23 History
tacrolimus 1 mg capsule, 2 mg PO DAILY Transplant 05/05/23 11/16/23 11/16/23 History
immediate-release
aspirin 81 mg tablet,delayed 81 mg PO DAILY Blood Clot 06/20/23 11/16/23 11/16/23 History
release Prevention/Tx
cyanocobalamin (vitamin B-12) 1,000 mcg PO DAILY Supplement 06/20/23 11/16/23 11/16/23 History
1,000 mcg tablet (Vitamin B-12)
mycophenolate mofetil 250 mg 250 mg PO BID Transplant 06/20/23 11/16/23 11/16/23 History
capsule (CellCept)
tacrolimus 1 mg capsule, 1 mg PO QPM Transplant 06/20/23 11/16/23 11/15/23 History
immediate-release (Prograf)
torsemide 20 mg tablet 40 mg PO DAILY Fluid 07/21/23 11/16/23 11/16/23 History
Retention/Swelling
amlodipine 5 mg tablet 5 mg PO DAILY Blood Pressure 11/16/23 11/16/23 11/16/23 History
calcium acetate 667 mg tablet 667 mg PO MEALS Kidney Disease 11/16/23 11/16/23 11/16/23 History
cholecalciferol (vitamin D3) 50 50 mcg PO DAILY Supplement 11/16/23 11/16/23 11/16/23 History
mcg (2,000 unit) tablet
magnesium oxide 400 mg PO BID Supplement 11/16/23 11/16/23 11/16/23 History
omeprazole magnesium 20 mg 20 mg PO DAILY Gastrointestinal 11/16/23 11/16/23 11/16/23 History
tablet,delayed release (Prilosec Issue
OTC)
torsemide 20 mg tablet 20 mg PO QPM Fluid 11/16/23 11/16/23 11/15/23 History
Retention/Swelling
Active Medications
Generic Name Dose Route Start Last Admin
Trade Name Freq PRN Reason Stop Dose Admin
Amlodipine Besylate 5 mg 11/16/23 17:47 11/16/23 18:39
Amlodipine 5 Mg Tablet PO 12/14/23 17:46 Not Given
DAILY DICK
Aspirin 81 mg 11/17/23 08:00 11/17/23 08:38
Aspirin 81 Mg (Enteric Coated) Tablet PO 12/15/23 07:59 81 mg
DAILY DICK Administration
Atorvastatin Calcium 20 mg 11/16/23 18:00 11/16/23 18:37
Atorvastatin (Lipitor) 20 Mg Tablet PO 12/14/23 17:59 20 mg
QPM DICK Administration
Calcium Acetate 667 mg 11/16/23 17:47 11/17/23 08:37
Calcium Acetate 667 Mg Tablet PO 12/14/23 17:46 667 mg
MEALS DICK Administration
Carvedilol 25 mg 11/16/23 20:00 11/17/23 08:38
Carvedilol 25 Mg Tablet PO 25 mg
BID DICK Administration
Cyanocobalamin 1,000 mcg 11/17/23 08:00 11/17/23 08:38
Cyanocobalamin 1,000 Mcg Tablet PO 12/15/23 07:59 1,000 mcg
DAILY DICK Administration
Dextrose 12.5 grams 11/16/23 17:47
Dextrose 50% (0.5 Grams/Ml) 50 Ml Syringe IV 12/14/23 17:46
[id number] PRN
hypoglycemia
Protocol
Furosemide 80 mg 11/17/23 08:00 11/17/23 08:38
Furosemide 100 Mg (10 Mg/Ml) 10 Ml Vial IV 12/15/23 07:59 80 mg
BID AT 0800,1600 DICK Administration
Glucagon 1 mg 11/16/23 17:47
Glucagon 1 Mg Vial IM 12/14/23 17:46
PRN PRN
hypoglycemia
Protocol
Insulin Aspart 0 units 11/16/23 17:47 11/17/23 08:37
Insulin Aspart Low Resistance 300 Units/3 Ml Pen.Injctr SC 12/14/23 17:46 Not Given
AC DICK
Protocol
Multivitamins Therapeutic 1 tablet 11/17/23 08:00 11/17/23 08:37
Multivitamin Tablet PO 12/15/23 07:59 1 tablet
DAILY DICK Administration
Mycophenolate Mofetil 500 mg 11/16/23 20:00 11/17/23 08:37
Mycophenolate 500 Mg Tablet PO 12/14/23 19:59 500 mg
BID DICK Administration
Mycophenolate Mofetil 250 mg 11/16/23 20:00 11/17/23 08:37
Mycophenolate 250 Mg Capsule PO 12/14/23 19:59 250 mg
BID DICK Administration
Pantoprazole Sodium 40 mg 11/17/23 08:00 11/17/23 08:39
Pantoprazole Sodium 40 Mg/10 Ml Vial IV 12/15/23 07:59 40 mg
DAILY DICK Administration
Sodium Chloride 0 flush 11/16/23 18:00
Sodium Chloride 0.9% (Flush) Syringe IV 12/14/23 17:59
PER PROTOCOL DICK
Sodium Chloride 10 ml 11/18/23 08:00
Sodium Chloride 0.9% (Preservative Free) 10 Ml Vial IV 12/16/23 07:59
DAILY DICK
Tacrolimus 2 mg 11/17/23 08:00 11/17/23 08:37
Tacrolimus 1 Mg Capsule PO 12/15/23 07:59 2 mg
DAILY DICK Administration
Tacrolimus 1 mg 11/16/23 18:00 11/16/23 18:38
Tacrolimus 1 Mg Capsule PO 12/14/23 17:59 1 mg
QPM DICK Administration
Review of Systems
-
History Source: Patient, Family, Physician, Coordinated Provider and Records
Constitutional: Reports Fatigue; Denies Fever or Chills
EENT: Reports No Symptoms
Respiratory: Reports Trouble Breathing
Cardiac: Reports Orthopnea
GI: Reports Nausea
Breast: Reports N/A
: Reports No Symptoms
Musculoskeletal: Reports No Symptoms
Skin: Reports No Symptoms
Neuro: Reports No Symptoms
Endocrine: Reports No Symptoms
Hematologic/Lymphatic: Reports No Symptoms
Allergy / Immunology: Reports No Symptoms
Psych: Reports No Symptoms
Physical Exam
-
Upon entering the room this morning, patient was sitting in the chair next to the bed. His stated he 'doesn't look good'. Patient reported acute nausea and felt like he was going to vomit as well as trouble breathing and began to lean forward.
He appeared pale. Nursing was made aware and PROVIDER RELATIONS MANAGER was called. BP 86/43, pox 80s however recovered quickly on 4L. He reported feeling better lying flat with improvement of BP. Transferring to IMU when bed available. Patient denies acute pain.
General: Appears in Distress, Conversant, Appears Chronically Ill and Cachetic; Negative Fever
Cardiology: Normal Sinus Rhythm
Pulmonary: Other (coarse/diminished, nasal cannula )
GI: Normal Bowel Sounds
Genito-Urinary: Deferred by me
Musculoskeletal: No Edema
Extremities: Pulses Present
Skin: Warm, Dry, No Ecchymosis (scattered ecchymosis) and Other (pallor)
Hematologic / Lymphatic: No Lymphadenopathy
Psych: Anxious
Labs
Lab Results
WBC 1.4 10^3/uL (4.8-10.8) L* 11/17/23 07:42
RBC 2.80 10^6/uL (4.70-6.10) L 11/17/23 07:42
Hgb 8.3 g/dL (13.0-18.0) L 11/17/23 07:42
Hct 24.7 % (39.0-52.0) L 11/17/23 07:42
MCV 88.2 fL (80.0-94.0) 11/17/23 07:42
MCH 29.6 pg (27.0-31.0) 11/17/23 07:42
MCHC 33.6 g/dL (33.0-37.0) 11/17/23 07:42
RDW 17.7 % (11.5-14.5) H 11/17/23 07:42
Plt Count 85 10^3/uL (130-400) L 11/17/23 07:42
MPV 8.3 fL (7.4-10.4) 11/17/23 07:42
Abs Immat Gran (auto) 0.1 10^3/uL (0-0.05) H 11/17/23 07:42
Absolute Neuts (auto) 0.7 10^3/uL (1.4-6.5) L* 11/17/23 07:42
Absolute Lymphs (auto) 0.3 10^3/uL (1.2-3.4) L 11/17/23 07:42
Absolute Monos (auto) 0.3 10^3/uL (0.1-0.6) 11/17/23 07:42
Absolute Eos (auto) 0.1 10^3/uL (0-0.7) 11/17/23 07:42
Absolute Basos (auto) 0.0 10^3/uL (0-0.2) 11/17/23 07:42
Immature Gran % 7.1 % (0-0.5) H 11/17/23 07:42
Neutrophils % 50.4 % (42.2-75.2) 11/17/23 07:42
Lymphocytes % 19.1 % (20.5-51.1) L 11/17/23 07:42
Monocytes % 17.7 % (1.7-9.3) H 11/17/23 07:42
Eosinophils % 5.0 % (0-6) 11/17/23 07:42
Basophils % 0.7 % (0-2) 11/17/23 07:42
Creatinine 5.6 mg/dL (0.7-1.3) H* 11/17/23 07:42
11/16/23 CXR: Mild pulmonary edema with moderate bilateral pleural effusions larger on the left than the right
Vital Signs
Vital Signs
Temp Pulse Resp BP Pulse Ox
97.5 F 70 17 144/75 98
11/17/23 07:15 11/17/23 07:15 11/17/23 07:15 11/17/23 07:15 11/17/23 08:05
[2023-11-17 11:35] LABS: Glucose - Point of Care 133 mg/dl (70-99)
--- NOTE | 2023-11-17 11:40 | RR ---
Pt was sitting in chair and was looking very hypoxic, nearly tipping over while sitting up. Rapid response was called. Pt was then put back in bed, vitals read at 83/46, pulse 86, pulse ox 89% at 2L. EKG was done, blood sugar was checked resulting
in 138. BP was rechecked and it came back up to 102/55, pulse 89, respirations 18. Pt was bumped up to 4L of O2 which brought his sat levels back to 100%.Dr. Garcia ordered patient to be transferred to IMU for closer monitoring. Report called to
Dana and patient will transfer as soon as bed is ready. Pt is now stable and laying in bed and told to stay in bed.
[2023-11-17 12:29] LABS: Glycohemoglobin (HgbA1c) 5.1 % (4.0-5.6)
--- NOTE | 2023-11-17 13:06 | CM ---
CM following re: d/c planning
Chart reviewed
CM met with patient & his spouse at bedside; IA completed
Pt & his spouse reside in a [facility] with no CHITO and have 1st floor set up
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
Pt has no previous hx of SNF/DME and is [facility] with [facility] for [facility]
Pt does haver confirmed prescription coverage and rx's are filled at [facility] on [address] [place]
Pt PCP-Dr. Hi
Pt does not appear to have any skilled needs and anticipates d/c home when stable
Pt was just transferred to IMU secondary to rapid response call
CM will continue to follow patient and assist with any needs at d/c as indicated
PLAN; CM following for needs
[2023-11-17 13:25] LABS: Hepatitis B Surface Antigen Negative (Negative)
[2023-11-17 13:43] LABS: Hepatitis B Core Ab, Total Reactive (Negative); Hepatitis C Antibody Reactive (Negative)
[2023-11-17] MEDS: ANCEF 10 IV (14:06)
[2023-11-17 15:52] LABS: Hepatitis B Surface Antibody Indeterminate
--- NOTE | 2023-11-17 16:04 | W.PN.NEPH.HD ---
Assessment
-
Seen on HD. no new complaints. VSS, access tunnelled CVC
s/p 1800ml thoracentesis left
HD tomorrow
Progress Note - Hemodialysis
-
Date of Service: November 17, 2023
Duration: 15 minutes and 2 hours
Potassium Bath: 2
Calcium Bath: 2.5
Opti-Dialyzer: 160
Ultrafiltration: Other (1kg)
Blood Flow: 250
Dialysate Flow: 600
Heparin: no
EPO: 09014 units
[2023-11-17] MEDS: FLEXBUMIN 25% FOR HEMODIALYSIS 12.5 GRAMS IV ×2 (16:12→17:12)
[2023-11-17] MEDS: EPOGEN 10000 UNITS IV (16:12)
[2023-11-17] MEDS: MANNITOL 12.5 GRAMS IV ×2 (16:13→17:12)
[2023-11-17] MEDS: PROGRAF 1 MG PO (18:26)
[2023-11-17] MEDS: LIPITOR 20 MG PO (18:26)
[2023-11-17] MEDS: PHOSLO PO (18:27)
[2023-11-17 18:40] LABS: Glucose - Point of Care 102 mg/dl (70-99)
--- NOTE | 2023-11-17 19:31 | PTCARENOTE ---
Late entry : received from 4th floor but IRAD ready at that time so IMU monitors placed, remained on 4L NC, SR on tele BP noted and sent down to IRAD.
Returned this afternoon in AF (converted in IRAD and has hx PAF) Bandaid noted CDI left side, RCW HD cath intact- HD RN here ready to initiate.
He is AAO, drowsy- 100% on 4L NC. at bedside. This pm after HD he was able to tolerate dinner. Monitoring VS and some oozing on HD site dressing.
[2023-11-17 21:50] LABS: Glucose - Point of Care 139 mg/dl (70-99)
[2023-11-18] VITALS (50 sets, daily range): BP systolic 79–156; BP diastolic 49–83; BMI 21.9
--- NOTE | 2023-11-18 06:40 | PTCARENOTE ---
Pt AAOx2, but forgetful, frequently pulling at wires and sometimes removing oxygen tubing inadvertently. SaO2 maintained at 95-99% on 4L. Pt did c/o SOB throughout shift. This RN alerted [employer], who placed an order for nebs. Pt has been in and out of
afib overnight with only very short periods of rate up to 130. Rate mostly maintained 90-100 with SR 70s. N[employer] aware. HD catheter dressing saturated, pink. IVT assessed and denied replacing. Call watkins placed within reach. Bed alarm maintained for pt
safety.
[2023-11-18 07:54] LABS: Glucose - Point of Care 104 mg/dl (70-99)
[2023-11-18] MEDS: THERAGRAN 1 TABLET PO (09:13)
[2023-11-18] MEDS: LASIX 80 MG IV ×2 (09:13→18:11)
[2023-11-18] MEDS: PROGRAF 2 MG PO (09:13)
[2023-11-18] MEDS: PROTONIX IV 40 MG IV (09:14)
[2023-11-18] MEDS: NSS (PRESERVATIVE FREE) 10 ML IV (09:14)
[2023-11-18] MEDS: PHOSLO 667 MG PO ×2 (09:14→18:16)
[2023-11-18] MEDS: VITAMIN B-12 1000 MCG PO (09:15)
[2023-11-18] MEDS: COREG 25 MG PO ×2 (09:15→20:57)
[2023-11-18] MEDS: ASPIR LOW (ENTERIC COATED) 81 MG PO (09:15)
[2023-11-18] MEDS: CELLCEPT 500 MG PO ×2 (09:15→20:57)
[2023-11-18] MEDS: CELLCEPT 250 MG PO ×2 (09:15→20:57)
[2023-11-18] MEDS: NOVOLOG FLEXPEN-LOW RESISTANCE SC ×3 (09:15→18:15)
[2023-11-18 09:56] LABS: Hematocrit 21.4 % (39.0-52.0); Hemoglobin 7.4 g/dL (13.0-18.0); Mean Corp Hgb Conc. 34.6 g/dL (33.0-37.0); Mean Corpuscular Hgb 29.8 pg (27.0-31.0); Mean Corpuscular Volume 86.3 fL (80.0-94.0); Platelet Count 79 10^3/uL (130-400); Red Blood Cell Count 2.48 10^6/uL (4.70-6.10); Red Cell Dist. Width 18.1 % (11.5-14.5)
[2023-11-18 10:00] LABS: White Blood Cell Count 1.7 10^3/uL (4.8-10.8)
[2023-11-18 10:09] LABS: Carbon Dioxide 23 mmol/L (22-30); Chloride 96 mmol/L (98-107); Potassium 4.7 mmol/L (3.5-5.1); Sodium 128 mmol/L (135-145)
--- NOTE | 2023-11-18 10:38 | W.PN.GI.CBS2 ---
Today's Communication / Plan
-
Continue supportive care
Assessment / Plan
-
The pt is a 68yo with a PMG significant for Hepatitis C with prior treatment/HCC with prior liver transplant at [facility] ~2019 with chronic immunosuppression, skin CA with radiation, CHF, paroxysmla atrial fibrillation, hx EV and ascites
pre transplant. who presented to the ER with worsening shortness of breath. He has been dealing with worsening renal issues with discussion of dialysis and effusion with thoracentesis in August. In ER he also states recent black stool for a few
days with several stools per day. In ER heme + brown stool and hbg 7.3 with pancytopenia and asked to evaluate. Last full colonoscopy with Dr. Webster [phone] recall as ? normal with EGD around that time. No active bleeding upon admission.
S/p 1 unit PRBC. He is pending placement of a permacath for initiation of HD.
06/22 flex hemorrhoids, erythema in sigmoid colon, rectum and descending colon normal
Problem list:
-hypoxia/worsening dyspnea on admission -- multifactorial with CHF, CKD, anemia
-acute/chronic anemia
-heme + brown stool with recent black stools, none since admission
-near syncope, hypotension
-pancytopenia
-neutropenia
-worsening chronic renal disease
-pleural effusion
-hx liver Ca with transplant [facility] with chronic immunosuppression
-hyponatremia
Other pertinent medical problems:
-skin CA
-afib
-CHF
-DM
Recommendations:
-Etiology of anemia likely multifactorial with pancytopenia v worsening renal function v possible slow GI source of blood loss with heme + stools v other
--currently with no signs of bleeding and stable hgb. Rapid response events noted, improved at this time.
-Monitor for signs of bleeding
-Follow stool output
-Continue to trend H/H and transfuse as needed for hgb less than 7
-Needs to be optimized medically prior to endoscopic evaluation unless brisk bleeding were to occur. He is high risk for GI procedures at this time with his ongoing medical problems.
-Continue PPI daily
-he is high risk for endoscopy given his multiple comorbidities discussed with at bedside 11/17 she would like to hold off on endoscopy unless he has brisk bleeding.� Continue supportive care with transfusions as needed and PPI.� Noted events was
started on hemodialysis and also had thoracenteses with 1800 cc drained from left 11/17.
will s/o and will be available as needed.
Subjective
Subjective
Date of Service: November 18, 2023
No further bleeding since yesterday no bowel movement. Breathing has markedly improved since the thoracenteses and also received hemodialysis yesterday
Objective
Data Reviewed
Laboratory Data:
Laboratory Results
11/18/23 09:45
11/18/23 09:45
Laboratory Results
PT 15.1 Sec (11.4-14.6) H 11/17/23 07:42
INR 1.20 11/17/23 07:42
Total Bilirubin 1.1 mg/dl (0.2-1.3) 11/17/23 07:42
AST 20 U/L (17-59) 11/17/23 07:42
ALT < 10 U/L (0-50) 11/17/23 07:42
Alkaline Phosphatase 73 U/L (38-126) 11/17/23 07:42
Vital Signs and I&O:
Vital Signs
Temp Pulse Resp BP Pulse Ox
98.3 F 69 17 133/65 95
11/18/23 07:00 11/18/23 09:00 11/18/23 09:00 11/18/23 09:00 11/18/23 08:00
I&O
11/17/23 11/18/23 11/19/23
06:59 06:59 06:59
Intake Total 500 / 500 120 / 120
Output Total 100 / 100 100 / 100
Balance 400 / 400 120 / 120 -100 / -100
Physical Exam
Physical Exam
Cardiology: Normal Sinus Rhythm
Pulmonary: Clear and Other (Decreased breath sounds at bases)
GI: Soft, Non Distended, Non Tender and Normal Bowel Sounds
[2023-11-18 11:57] LABS: Glucose - Point of Care 251 mg/dl (70-99)
--- NOTE | 2023-11-18 11:59 | W.PN.HOSP.TC ---
Today's Communication/Plan
-
Monitor vitals
See plan
Another session of HD today
Would avoid transfusion unless hemoglobin less than 7
tac level pending
Assessment / Plan
Assessment / Plan
IMPRESSION:
Acute CHF preserved EF.
Acute pulmonary edema
Acute hypoxic respiratory failure due to above.
Acute on chronic anemia
CKD 5
Hyponatremia
Conditions prior to admission:
Chronic diastolic CHF
� Echocardiogram 09/07 with LVEF of 55% mitral stenosis severe.
Paroxysmal atrial fibrillation
Hypertension.
CKD stage V.
Status post left upper extremity AV fistula placed.
Chronic pancytopenia
Transfusion dependent anemia of chronic disease/CKD
Liver cancer status post transplant 2019 at [facility]
Hepatitis C treated.
Diabetes, currently diet controlled
PLAN:�
Presents with dyspnea and acute hypoxic respiratory failure likely multifactorial in the settings of decompensated diastolic CHF and volume overload with progressive CKD 5 as well as worsening of chronic anemia, bilateral pleural effusion
Continue oxygen supplementation
Currently on 4 L of nasal cannula; wean O2 as tolerated
Bilateral pleural effusion.
Chest x-ray with at least moderate bilateral pleural effusion.
Status post Thora 11/17. Removed 1800 cc
Acute CHF preserved EF.
Acute pulmonary edema secondary to above.
Attempt of diuresis Lasix 80 mg IV twice daily.
Continue Coreg and amlodipine with caution for hypotension
Now on HD
CKD 5.
Nephrology input appreciated.
Status post HD catheter placement, now on HD
Pancytopenia, chronic
Acute on chronic anemia.� Anemia of chronic disease, transfusion dependent.� Also suspect chronic bone marrow suppression with antirejection regimen.
Reports dark stool.
Rectal examination heme positive brown stool.
No clinical evidence of acute brisk blood loss.
Status post 1 unit of PRBC transfused on 11/16 with appropriate response.
IV PPI
GI following. No plans for for any scope at this time. Would only transfuse if hemoglobin less than 7. Avoid volume overload
Status post liver transplant patient
Compensated
Monitor closely
Continue immunosuppression including mycophenolate, tacrolimus
Type 2 diabetes.
Currently not on insulin or oral glucose lowering medication
hemoglobin A1c 5.1
Basal bolus protocol with serial Accu-Cheks
General: Well Developed and No Apparent Distress,frail
HEENT: Normocephalic, Atraumatic and Moist Mucous Membranes
Respiratory: Clear to Auscultation
Cardiac: Regular Rhythm and S1/S2; Negative Murmur, Rub or Gallop
GI: Soft, Nontender, Nondistended and Normal Bowel Sounds; Negative Organomegaly
Rectal: Deferred by Provider
Musculoskeletal: No Clubbing, No Cyanosis and No Edema
Skin: Negative Rash
Neuro: Awake, Alert, Oriented and Nonfocal/Grossly Intact
Anticipated Discharge: > 48 hours
Subjective/Interval History
-
Date of Service: November 18, 2023
denies pain
Objective Data
-
Labs:
Laboratory Results
11/18/23
09:45
WBC 1.7 L*
Hgb 7.4 L
Hct 21.4 L
Plt Count 79 L
Sodium 128 L
Potassium 4.7
Chloride 96 L
Carbon Dioxide 23
Vital Signs:
Vital Signs
Temp Pulse Resp BP Pulse Ox
98.3 F 69 17 133/65 95
11/18/23 11:00 11/18/23 09:00 11/18/23 09:00 11/18/23 09:00 11/18/23 08:00
I&O
11/17/23 11/18/23 11/19/23
06:59 06:59 06:59
Intake Total 500 / 500 120 / 120 240 / 240
Output Total 100 / 100 100 / 100
Balance 400 / 400 120 / 120 140 / 140
[2023-11-18] MEDS: HEPARIN 500 UNITS IV (12:15)
[2023-11-18] MEDS: MANNITOL 12.5 GRAMS IV ×2 (12:30→13:29)
[2023-11-18] MEDS: PHOSLO PO (12:36)
[2023-11-18] MEDS: LOPRESSOR 5 MG IV (14:26)
--- NOTE | 2023-11-18 14:31 | STATUS ---
SITUATION:
On HD, c/o chest 'heaviness' rates 02/22 telemetry shows frequent PAF BP 128/56
BACKGROUND:
New HD 2nd treatment, mm Hx.
ASSESSMENT:
Vague, apprehensive, pale. Tele rates AF 110-120s convert to SR 60-70s freq in/out. Bp 111/63
RECOMMENDATION:
EKG x2 completed 1 AF/ 1 SR. D/w Dr. Shipman/ Dr. Armstrong aware - Labs sent as ordered, IV Lopressor given very slowly over 5 min for sustained Af 110s. Also now has mild nausea- comes and goes- cool cloth placed on forehead and lying flatter.
Currently still c/o discomfort in his chest 02/22. HD treatment almost completed per HD RN.
[2023-11-18 14:36] LABS: Magnesium 2.6 mg/dl (1.6-2.3)
[2023-11-18 14:46] LABS: Troponin I 0.126 ng/ml
[2023-11-18] MEDS: NITROSTAT (SUBLINGUAL) 0.400000000000000022 MG SL (15:04)
--- NOTE | 2023-11-18 15:06 | W.PN.NEPH.HD ---
Assessment
-
Seen on HD. no complaints. VSS, access ok. limit UF if BP drops
Progress Note - Hemodialysis
-
Date of Service: November 18, 2023
Duration: 30 minutes and 2 hours
Potassium Bath: 2
Calcium Bath: 2.5
Opti-Dialyzer: 160
Ultrafiltration: Other (0.5kg)
Blood Flow: 250
Dialysate Flow: 600
Heparin: 500x1
EPO: no
[2023-11-18] MEDS: HEPARIN 4300 UNITS INTRACATH (15:17)
[2023-11-18] MEDS: DILAUDID 0.5 MG IV (15:18)
--- NOTE | 2023-11-18 15:51 | PTCARENOTE ---
SL NTG given at 1455 with no relief after 10min- remains 02/22. Relayed to Dr. Shipman- IV Dilaudid administered at 1518, currently sleeping, arousable and chest discomfort is currently gone. Tele shows SR 73, BP 96/63.
[2023-11-18 17:00] LABS: Glucose - Point of Care 142 mg/dl (70-99)
[2023-11-18] MEDS: LIPITOR 20 MG PO (18:15)
[2023-11-18] MEDS: PROGRAF 1 MG PO (18:16)
--- NOTE | 2023-11-18 19:13 | PTCARENOTE ---
Slept well after IV Dilaudid- woke up for pm meds and dinner. Chest discomfort completely resolved, currently in NSR 60s, BP 128/64. Sitting up eating dinner.
--- NOTE | 2023-11-18 19:45 | PTCARENOTE ---
aaox3 but forgetful at times. pt remains in nsr. vss. pulse ox 100% on 4l. pt ambulated to bathroom. no bm. pt updated on plan of care. Will monitor.
[2023-11-18 22:34] LABS: Glucose - Point of Care 233 mg/dl (70-99)
[2023-11-19] VITALS (48 sets, daily range): BP systolic 103–167; BP diastolic 39–78; BMI 21.4
[2023-11-19 04:18] LABS: Hemoglobin 7.2 g/dL (13.0-18.0); Mean Corp Hgb Conc. 32.7 g/dL (33.0-37.0); Mean Corpuscular Volume 91.7 fL (80.0-94.0); Mean Platelet Volume 8.1 fL (7.4-10.4); Platelet Count 71 10^3/uL (130-400); Red Cell Dist. Width 17.4 % (11.5-14.5)
[2023-11-19 04:19] LABS: White Blood Cell Count 1.3 10^3/uL (4.8-10.8)
[2023-11-19 04:33] LABS: Blood Urea Nitrogen 47 mg/dl (9-20); Calcium 7.8 mg/dl (8.4-10.2); Carbon Dioxide 30 mmol/L (22-30); Chloride 100 mmol/L (98-107); Estimated Creatinine Clearance 16 ml/min; Glucose 132 mg/dl (70-99); Sodium 131 mmol/L (135-145); eGFR 17.41
[2023-11-19 04:43] LABS: Troponin I 0.092 ng/ml
[2023-11-19 07:16] LABS: Band Neutrophils 3 % (0-3); Segmented Neutrophils 46 % (42-75)
[2023-11-19 07:17] LABS: Absolute Neutrophils -Man Diff 0.6 10^3/uL (1.4-6.5); Eosinophils 7 % (0-6); Lymphocytes 21 % (20-51); Monocytes 23 % (2-9); Platelets Checked Yes
[2023-11-19 07:18] LABS: Anisocytosis 1+; Normal RBC Morphology No; Total Cells Counted 100
[2023-11-19 07:19] LABS: Basophilic Stippling 1+; Hypochromasia 1+; Polychromasia Occasional; Target Cells Occasional
[2023-11-19 07:20] LABS: Ovalocytes Occasional
[2023-11-19] MEDS: HEPARIN 500 UNITS IV (07:50)
[2023-11-19 07:52] LABS: Glucose - Point of Care 137 mg/dl (70-99)
[2023-11-19] MEDS: PROGRAF 2 MG PO (08:03)
[2023-11-19] MEDS: CELLCEPT 250 MG PO ×2 (08:03→19:58)
[2023-11-19] MEDS: NOVOLOG FLEXPEN-LOW RESISTANCE SC ×2 (08:03→11:57)
[2023-11-19] MEDS: CELLCEPT 500 MG PO ×2 (08:03→19:58)
[2023-11-19] MEDS: EPOGEN 10000 UNITS IV (08:35)
--- NOTE | 2023-11-19 10:17 | W.PN.NEPH.HD ---
Assessment
-
Seen on HD. no complaints. VSS, access ok held coreg this am
Progress Note - Hemodialysis
-
Date of Service: November 19, 2023
Duration: 45 minutes and 2 hours
Potassium Bath: 2
Calcium Bath: 2.5
Opti-Dialyzer: 160
Ultrafiltration: Other (1kg)
Blood Flow: 400
Dialysate Flow: 600
Heparin: 500x1
EPO: [id number] units
[2023-11-19] MEDS: HEPARIN 4300 UNITS INTRACATH (10:28)
[2023-11-19] MEDS: PHOSLO PO (11:08)
[2023-11-19 11:42] LABS: Glucose - Point of Care 116 mg/dl (70-99)
--- NOTE | 2023-11-19 11:46 | W.PN.HOSP.TC ---
Today's Communication/Plan
-
Monitor vital signs and see plan
Wean oxygen as tolerated
HD per nephrology
Monitor hemoglobin
Transfuse hemoglobin less than 7
Monitor pancytopenia
Assessment / Plan
Assessment / Plan
IMPRESSION:
Acute CHF preserved EF.
Acute pulmonary edema
Acute hypoxic respiratory failure due to above.
Acute on chronic anemia
CKD 5
Hyponatremia
Suspect non-[place] related troponin elevation
Conditions prior to admission:
Chronic diastolic CHF
� Echocardiogram 09/07 with LVEF of 55% mitral stenosis severe.
Paroxysmal atrial fibrillation
Hypertension.
CKD stage V.
Status post left upper extremity AV fistula placed.
Chronic pancytopenia
Transfusion dependent anemia of chronic disease/CKD
Liver cancer status post transplant 2019 at [facility]
Hepatitis C treated.
Diabetes, currently diet controlled
PLAN:�
Presents with dyspnea and acute hypoxic respiratory failure likely multifactorial in the settings of decompensated diastolic CHF and volume overload with progressive CKD 5 as well as worsening of chronic anemia, bilateral pleural effusion
Continue oxygen supplementation
Currently on 4 L of nasal cannula; wean O2 as tolerated
new to HD; 3rd session today
Bilateral pleural effusion.
Chest x-ray with at least moderate bilateral pleural effusion.
Status post Thora 11/17. Removed 1800 cc
Goes in and out sometimes of afib
monitor
replete electrolytes
Acute CHF preserved EF.
Acute pulmonary edema secondary to above.
Attempt of diuresis Lasix 80 mg IV twice daily.
Continue Coreg and amlodipine with caution for hypotension
Now on HD
CKD 5.
Nephrology input appreciated.
Status post HD catheter placement, now on HD; 3rd session today
Pancytopenia, chronic
Acute on chronic anemia.� Anemia of chronic disease, transfusion dependent.� Also suspect chronic bone marrow suppression with antirejection regimen.
Reports dark stool.
Rectal examination heme positive brown stool.
No clinical evidence of acute brisk blood loss.
Status post 1 unit of PRBC transfused on 11/16 with appropriate response.
IV PPI
GI following. No plans for for any scope at this time. Would only transfuse if hemoglobin less than 7. Avoid volume overload
Status post liver transplant around 3 years ago
Compensated
Monitor closely
Continue immunosuppression including mycophenolate, tacrolimus
Type 2 diabetes.
Currently not on insulin or oral glucose lowering medication
hemoglobin A1c 5.1
Basal bolus protocol with serial Accu-Cheks
General: Well Developed and No Apparent Distress,frail
HEENT: Normocephalic, Atraumatic and Moist Mucous Membranes
Respiratory: Clear to Auscultation
Cardiac: Regular Rhythm and S1/S2; Negative Murmur, Rub or Gallop
GI: Soft, Nontender, Nondistended and Normal Bowel Sounds
Rectal: Deferred by Provider
Musculoskeletal: No Clubbing, No Cyanosis and No Edema
Skin: Negative Rash
Neuro: Awake, Alert, Oriented and Nonfocal/Grossly Intact
I spent a total of 52 minutes with the patient or on the floor. More than 50% of this time involved counseling and coordination of care.
Anticipated Discharge: > 48 hours
Subjective/Interval History
-
Date of Service: November 19, 2023
denies pain
Objective Data
-
Labs:
Laboratory Results
11/19/23
04:06
WBC 1.3 L*
Hgb 7.2 L
Hct 22.0 L
Plt Count 71 L
Sodium 131 L
Potassium 4.0
Chloride 100
Carbon Dioxide 30
BUN 47 H
Creatinine 3.6 H
Glucose 132 H
Calcium 7.8 L
Vital Signs:
Vital Signs
Temp Pulse Resp BP Pulse Ox
98.3 F 63 11 133/61 100
11/19/23 11:25 11/19/23 10:30 11/19/23 10:30 11/19/23 10:30 11/19/23 10:30
I&O
11/18/23 11/19/23 11/20/23
06:59 06:59 06:59
Intake Total 120 / 120 600 / 600
Output Total 100 / 100
Balance 120 / 120 500 / 500
[2023-11-19] MEDS: PROTONIX IV 40 MG IV (11:55)
[2023-11-19] MEDS: NSS (PRESERVATIVE FREE) 10 ML IV (11:55)
[2023-11-19] MEDS: VITAMIN B-12 1000 MCG PO (11:56)
[2023-11-19] MEDS: PHOSLO 667 MG PO ×2 (11:56→17:41)
[2023-11-19] MEDS: LASIX 80 MG IV ×2 (11:56→16:12)
[2023-11-19] MEDS: THERAGRAN 1 TABLET PO (11:56)
[2023-11-19] MEDS: COREG 25 MG PO ×2 (11:56→19:58)
[2023-11-19] MEDS: ASPIR LOW (ENTERIC COATED) 81 MG PO (11:56)
[2023-11-19] MEDS: NOVOLOG FLEXPEN-LOW RESISTANCE 2 UNITS SC (16:12)
[2023-11-19 16:25] LABS: Glucose - Point of Care 227 mg/dl (70-99)
--- NOTE | 2023-11-19 16:51 | PTCARENOTE ---
Patient AAOx3, occasionally forgetful, bed alarm on for safety. Attempted to wean off of oxygen but sats were 86% on RA, maintaining sats >92% on 1L NC. VSS. NSR on monitor. at bedside. Continuing to closely monitor patient.
--- NOTE | 2023-11-19 17:11 | CM ---
Patient with Dx Acute CHF, Acute pulmonary edema, Acute hypoxic respiratory failure due, Acute on chronic anemia, CKD 5. O2 1L. Patient initiated on HD.
Message from Dr Armstrong; patient's diagnosis for HD is ESRD.
Spoke with patient's Maxine; discussed outpatient HD - she agrees to a referral to [facility] and prefers M-W-F 2pm schedule, and says her will agree.
states patient has been struggling to walk while here ---> message to Dr Shipman requesting PT/OT.
Plan follow up after seen by PT/OT.
Plan referral to [facility] tomorrow for outpatient HD.
[2023-11-19] MEDS: LIPITOR 20 MG PO (17:38)
[2023-11-19] MEDS: PROGRAF 1 MG PO (17:41)
[2023-11-19] MEDS: LOPRESSOR 5 MG IV (19:31)
--- NOTE | 2023-11-19 19:45 | PTCARENOTE ---
aaox3. hr 120's @ times while resting in bed. In and out of afib. iv lopressor admin w/ + response. all of signs stable. pt denies cp/ palpitations. Will monitor.
[2023-11-19 22:34] LABS: Glucose - Point of Care 162 mg/dl (70-99)
[2023-11-20] VITALS (17 sets, daily range): BP systolic 99–166; BP diastolic 50–80; PULSE 62–65; O2SAT 92; BMI 21.5
[2023-11-20] MEDS: LOPRESSOR 5 MG IV (02:03)
[2023-11-20 04:49] LABS: Hematocrit 22.4 % (39.0-52.0); Hemoglobin 7.5 g/dL (13.0-18.0); Mean Corp Hgb Conc. 33.5 g/dL (33.0-37.0); Mean Corpuscular Hgb 30.1 pg (27.0-31.0); Mean Platelet Volume 8.5 fL (7.4-10.4); Platelet Count 90 10^3/uL (130-400); Red Blood Cell Count 2.49 10^6/uL (4.70-6.10); Red Cell Dist. Width 17.6 % (11.5-14.5)
[2023-11-20 04:52] LABS: White Blood Cell Count 1.8 10^3/uL (4.8-10.8)
[2023-11-20 05:20] LABS: Blood Urea Nitrogen 36 mg/dl (9-20); Carbon Dioxide 27 mmol/L (22-30); Chloride 98 mmol/L (98-107); Estimated Creatinine Clearance 20 ml/min; Glucose 138 mg/dl (70-99); Potassium 4.1 mmol/L (3.5-5.1); Sodium 132 mmol/L (135-145); eGFR 22.56
[2023-11-20 07:27] LABS: Band Neutrophils 0 % (0-3); Eosinophils 3 % (0-6); Lymphocytes 29 % (20-51); Monocytes 21 % (2-9); Normal RBC Morphology No; Platelets Checked Yes; Segmented Neutrophils 47 % (42-75)
[2023-11-20 07:28] LABS: Anisocytosis 1+; Hypochromasia 1+; Polychromasia 1+; Total Cells Counted 100
[2023-11-20 07:29] LABS: Absolute Neutrophils -Man Diff 0.8 10^3/uL (1.4-6.5)
[2023-11-20 08:14] LABS: Glucose - Point of Care 138 mg/dl (70-99)
[2023-11-20] MEDS: NOVOLOG FLEXPEN-LOW RESISTANCE SC (08:39)
[2023-11-20] MEDS: CELLCEPT 250 MG PO ×2 (08:39→19:50)
[2023-11-20] MEDS: VITAMIN B-12 1000 MCG PO (08:39)
[2023-11-20] MEDS: THERAGRAN 1 TABLET PO (08:39)
[2023-11-20] MEDS: PHOSLO 667 MG PO ×3 (08:39→16:31)
[2023-11-20] MEDS: PROGRAF 2 MG PO (08:40)
[2023-11-20] MEDS: LASIX 80 MG IV ×2 (08:40→16:31)
[2023-11-20] MEDS: PROTONIX IV 40 MG IV (08:40)
[2023-11-20] MEDS: CELLCEPT 500 MG PO ×2 (08:40→19:50)
[2023-11-20] MEDS: ASPIR LOW (ENTERIC COATED) 81 MG PO (08:40)
[2023-11-20] MEDS: NSS (PRESERVATIVE FREE) 10 ML IV (08:40)
[2023-11-20] MEDS: COREG 25 MG PO ×2 (08:41→19:50)
[2023-11-20] MEDS: FLUSH (NSS) 4 FLUSH IV (08:44)
--- NOTE | 2023-11-20 09:04 | W.PN.NEPH.PH ---
Today's Communication / Plan
-
Hd tomorrow
Assessment/Plan
-
IMP:
Acute on chronic CHF preserved EF.
Acute hypoxic respiratory failure due to above.
Bilateral pleural effusion, prior thoracentesis in Aug
Acute on chronic anemia
CKD 5
Hyponatremia
mitral stenosis severe.-no surgery planned
Paroxysmal atrial fibrillation
Hypertension.
Status post left upper extremity AV fistula placed 10/18/23
Chronic pancytopenia
Transfusion dependent anemia of chronic disease/CKD
Orthotopic liver transplant [address] [facility]
Hepatitis C treated.
Diabetes, currently diet controlled
Hyperphosphatemia
Plan:
A/w sob multifactorial-CKD5, CHF, anemia
d/c IV lasix ,little to no uop
BP are stable , holding BP meds pre HD
pancytopenia persists
transfusion dependant anemia -heme follows, prn transfusions
heme +ve stool GI follows
now on HD but AVF not mature yet hence placed catheter
it was also previously reviewed that with severe MS and no surgical plan in the future has risk of hemodynamic instability with HD
knows if pt can not handle HD and we have nothing else to offer him
Hd tomorrow, no heparin on HD
-
-
Date of Service: November 20, 2023
CC / HPI / ROS
-
Chief Complaint:
KURTIS/CKD
History of Present Illness:
now on HD for ESRD
hemodynamically labile
pancytopenia persists
remains on tacrolimus and MMF for liver transplant
Review of Systems:
oliguric
no fevers
no chest pain or sob
Labs
-
Labs:
WBC 1.8 10^3/uL (4.8-10.8) L* 11/20/23 04:24
RBC 2.49 10^6/uL (4.70-6.10) L 11/20/23 04:24
Hgb 7.5 g/dL (13.0-18.0) L 11/20/23 04:24
Hct 22.4 % (39.0-52.0) L 11/20/23 04:24
Plt Count 90 10^3/uL (130-400) L D 11/20/23 04:24
Sodium 132 mmol/L (135-145) L 11/20/23 04:24
Potassium 4.1 mmol/L (3.5-5.1) 11/20/23 04:24
Chloride 98 mmol/L (98-107) 11/20/23 04:24
Carbon Dioxide 27 mmol/L (22-30) 11/20/23 04:24
BUN 36 mg/dl (9-20) H 11/20/23 04:24
Creatinine 2.9 mg/dL (0.7-1.3) H 11/20/23 04:24
eGFR 22.56 11/20/23 04:24
Glucose 138 mg/dl (70-99) H 11/20/23 04:24
Calcium 8.0 mg/dl (8.4-10.2) L 11/20/23 04:24
Ukw-V-Xicmtmlhzkr Pept 86380 pg/ml 11/16/23 11:43
Albumin 3.2 g/dl (3.5-5.0) L 11/17/23 07:42
Physical Exam
-
Vital Signs:
Vital Signs
Temp Pulse Resp BP Pulse Ox
98.0 F 106 23 110/50 99
11/20/23 07:30 11/20/23 06:00 11/20/23 06:00 11/20/23 06:00 11/20/23 06:00
Cardiovascular:: Regular rate and rhythm
Respiratory:: Bilateral: Coarse
Lung Excursion:: Normal
Abdomen:: Nontender
Bowel Sounds:: Normal
Extremity Edema:: None: Bilateral:
Taveras Catheter: No
--- NOTE | 2023-11-20 11:10 | CM ---
Addendum entered by Leah Carlisle RN 11/20/23 14:08:
Received callback from Mariama [facility] [place]; she offered scheduled options and patient/ chose MWF 4:20pm.
Met with patient and ; offered T-Th Sat 6am, 12N, 12:15pm or MWF 4:20pm and they chose MWF 4:20pm.
Original Note:
Patient with Hx liver transplant with Dx Acute CHF, Acute pulmonary edema, Acute hypoxic respiratory failure, Acute on chronic anemia, CKD 5. Room air. Receiving IV Lasix. PT & OT recommend HH.
[email or web address] [place]; requested outpatient HD at [facility] with preferred schedule -- 2pm. Clinical info sent via [facility].
Plan follow up with [facility] for confirmation HD chair.
Plan watch for home O2 needs.
Plan offer VN to patient.
Plan home with outpatient HD, with VN.
[2023-11-20 12:05] LABS: Glucose - Point of Care 171 mg/dl (70-99)
[2023-11-20] MEDS: NOVOLOG FLEXPEN-LOW RESISTANCE 1 UNITS SC (12:34)
--- NOTE | 2023-11-20 12:40 | W.PN.ONC ---
Today's Communication / Plan
-
Neutropenic precautions: ANC 800
Follow CBC w/ diff daily
2/5 Hgb 7.5 s/p 1unit PRBCs
Transfusion support as needed to maintain Hgb >7.5, PLT >20 (1 unit over 4 hours)
Tacrolimus level pending
Supportive care
HD scheduled tomorrow
We will follow.
Impression
Impression
Pleural effusions s/p thoracentesis
Acute on chronic multifactorial anemia
CKD stage V s/p HD tunneled catheter placement
Acute CHF, preserved EF
Hypotension, near syncope
Chronic pancytopenia - transfusion dependent
Liver transplant on chronic immunosuppression
Subjective/Objective
Subjective/Objective
patient states he is doing much better today than he was last week. He states tolerated dialysis over the weekend.. notes he had low BP after lasix. He is requesting assistance to the bathroom to have a BM and eager to discharge home. denies
pain.
Vital Signs:
Vital Signs
Temp Pulse Resp BP Pulse Ox
98.0 F 62 21 114/55 93
11/20/23 07:30 11/20/23 10:00 11/20/23 10:00 11/20/23 10:00 11/20/23 09:17
physical exam
aaox3, pallor
Right IJ tunneled cath
HR irreg, lungs diminished
incontinent of stool
OOB x1 assist
Lab Results:
Laboratory Data
WBC 1.8 10^3/uL (4.8-10.8) L* 11/20/23 04:24
Hgb 7.5 g/dL (13.0-18.0) L 11/20/23 04:24
Plt Count 90 10^3/uL (130-400) L D 11/20/23 04:24
PT 15.1 Sec (11.4-14.6) H 11/17/23 07:42
INR 1.20 11/17/23 07:42
eGFR 22.56 11/20/23 04:24
2 CXR: Mild pulmonary edema with moderate bilateral pleural effusions larger on the left than the right.
2 IRAD: Successful ultrasound-guided left thoracentesis, yielding 1800 cc of clear donna pleural fluid.
--- NOTE | 2023-11-20 15:24 | VNURNOTE ---
VN resumption of care completed in [facility] after review of chart and discussion with patient's Maxine. Maxine confirmed having [facility] contact number.
--- NOTE | 2023-11-20 15:33 | W.PN.HOSP.TC ---
Today's Communication/Plan
-
HD.
Monitor CBC
Transfuse required
Neutropenic precautions
Assessment / Plan
Assessment / Plan
IMPRESSION:
Acute CHF preserved EF.
Acute pulmonary edema
Acute hypoxic respiratory failure due to above.
Acute on chronic anemia
CKD 5
Hyponatremia
Suspect non-[place] related troponin elevation
Conditions prior to admission:
Chronic diastolic CHF
� Echocardiogram 09/07 with LVEF of 55% mitral stenosis severe.
Paroxysmal atrial fibrillation
Hypertension.
CKD stage V.
Status post left upper extremity AV fistula placed.
Chronic pancytopenia
Transfusion dependent anemia of chronic disease/CKD
Liver cancer status post transplant 2019 at [facility]
Hepatitis C treated.
Diabetes, currently diet controlled
PLAN:�
Presents with dyspnea and acute hypoxic respiratory failure likely multifactorial in the settings of decompensated diastolic CHF and volume overload with progressive CKD 5 as well as worsening of chronic anemia, bilateral pleural effusion
Continue oxygen supplementation
Currently on 4 L of nasal cannula; wean O2 as tolerated
new to HD; 3rd session today
Bilateral pleural effusion.
Chest x-ray with at least moderate bilateral pleural effusion.
Status post Thora 11/17. Removed 1800 cc
Goes in and out sometimes of afib
monitor
replete electrolytes
Acute CHF preserved EF.
Acute pulmonary edema secondary to above.
Attempt of diuresis Lasix 80 mg IV twice daily.
Continue Coreg and amlodipine with caution for hypotension
Now on HD
CKD 5.
Nephrology input appreciated.
Status post HD catheter placement, now on HD; 3rd session today
Pancytopenia, chronic
Acute on chronic anemia.� Anemia of chronic disease, transfusion dependent.� Also suspect chronic bone marrow suppression with antirejection regimen.
Reports dark stool.
Rectal examination heme positive brown stool.
No clinical evidence of acute brisk blood loss.
Status post 1 unit of PRBC transfused on 11/16 with appropriate response.
IV PPI
GI following. No plans for for any scope at this time. Would only transfuse if hemoglobin less than 7. Avoid volume overload
Status post liver transplant around 3 years ago
Compensated
Monitor closely
Continue immunosuppression including mycophenolate, tacrolimus
Type 2 diabetes.
Currently not on insulin or oral glucose lowering medication
hemoglobin A1c 5.1
Basal bolus protocol with serial Accu-Cheks
Anticipated Discharge: > 48 hours
Subjective/Interval History
-
Date of Service: November 20, 2023
Objective Data
-
Labs:
Laboratory Results
11/20/23
04:24
WBC 1.8 L*
Hgb 7.5 L
Hct 22.4 L
Plt Count 90 L D
Sodium 132 L
Potassium 4.1
Chloride 98
Carbon Dioxide 27
BUN 36 H
Creatinine 2.9 H
Glucose 138 H
Calcium 8.0 L
Vital Signs:
Vital Signs
Temp Pulse Resp BP Pulse Ox
97.6 F 62 21 114/55 93
11/20/23 11:40 11/20/23 10:00 11/20/23 10:00 11/20/23 10:00 11/20/23 09:17
I&O
11/19/23 11/20/23 11/21/23
06:59 06:59 06:59
Intake Total 600 / 600 300 / 300 240 / 240
Output Total 100 / 100
Balance 500 / 500 300 / 300 240 / 240
Physical Exam
-
General: Well Developed and No Apparent Distress
HEENT: Normocephalic, Atraumatic and Moist Mucous Membranes
Respiratory: Clear to Auscultation
Cardiac: Regular Rhythm and S1/S2; Negative Murmur, Rub or Gallop
GI: Soft, Nontender, Nondistended and Normal Bowel Sounds; Negative Organomegaly
Rectal: Deferred by Provider
Musculoskeletal: No Clubbing, No Cyanosis and No Edema
Skin: Negative Rash
Neuro: Nonfocal/Grossly Intact
[2023-11-20 16:25] LABS: Glucose - Point of Care 258 mg/dl (70-99)
[2023-11-20] MEDS: LIPITOR 20 MG PO (16:31)
[2023-11-20] MEDS: NOVOLOG FLEXPEN-LOW RESISTANCE 3 UNITS SC (16:32)
[2023-11-20] MEDS: PROGRAF 1 MG PO (16:36)
--- NOTE | 2023-11-20 19:21 | PTCARENOTE ---
NSR/ SB on tele today, BP variable see flowsheet VS. OOB most of the day ambulated to bathroom with assistance. Small amt of urine produced today - not seen by this news writer stated by pt. +BM today as well. Appetite fair- following fluid
restriction/ diet well. RCW access CDI/ LAV fistula +B/T
[2023-11-20 21:58] LABS: Glucose - Point of Care 175 mg/dl (70-99)
[2023-11-21] VITALS (44 sets, daily range): BP systolic 76–176; BP diastolic 44–92; BMI 21.6
--- NOTE | 2023-11-21 02:32 | PTCARENOTE ---
No acute events overnight. Plan for HD at 0700 this am.
[2023-11-21 08:17] LABS: Hematocrit 21.3 % (39.0-52.0); Hemoglobin 7.2 g/dL (13.0-18.0)
[2023-11-21] MEDS: CELLCEPT 250 MG PO ×2 (08:19→19:58)
[2023-11-21] MEDS: CELLCEPT 500 MG PO ×2 (08:19→19:58)
[2023-11-21] MEDS: PROGRAF 2 MG PO (08:19)
[2023-11-21] MEDS: NOVOLOG FLEXPEN-LOW RESISTANCE SC ×2 (08:25→13:53)
[2023-11-21] MEDS: EPOGEN 10000 UNITS IV (08:31)
[2023-11-21 08:35] LABS: Glucose - Point of Care 126 mg/dl (70-99)
[2023-11-21 08:35] LABS: Blood Urea Nitrogen 48 mg/dl (9-20); Calcium 7.8 mg/dl (8.4-10.2); Carbon Dioxide 26 mmol/L (22-30); Chloride 98 mmol/L (98-107); Estimated Creatinine Clearance 14 ml/min; Glucose 124 mg/dl (70-99); Sodium 129 mmol/L (135-145); eGFR 15.34
[2023-11-21 08:46] LABS: Potassium 3.8 mmol/L (3.5-5.1)
--- NOTE | 2023-11-21 09:00 | PTCARENOTE ---
Addendum entered by Raza Melgar RN 11/21/23 16:02:
1015: During HD patient went in afib, HR 120s, accompanied by chest heaviness. PRN lopressor given. Symptoms progressed to nausea and hypotension. PRN compazine given, dilaudid given. Troponin drawn. Cardiology consulted. 1u PRBCs ordered and
currently transfusing. As of 1299 patient back in NSR, HR 60s and all prior symptoms resolved. VSS. Patient drowsy but arousable with some forgetfulness. Bed alarm activated for safety. at bedside. Continuing to closely monitor patient.
Original Note:
Patient AAOx3, on HD. RA 99%. VSS. NSR on monitor. No complaints. at bedside. Continuing to monitor patient.
--- NOTE | 2023-11-21 09:14 | W.PN.NEPH.HD ---
Assessment
-
Patient seen on HD
sbp 148 at current u/f ~1kg
O2 requirement dropping
Progress Note - Hemodialysis
-
Date of Service: November 21, 2023
Duration: 15 minutes and 3 hours
Potassium Bath: 3
Calcium Bath: 2.5
Opti-Dialyzer: 160
Ultrafiltration: Other (1kg)
Blood Flow: 400
Dialysate Flow: 600
Heparin: none
EPO: 10K
--- NOTE | 2023-11-21 09:43 | W.PN.ONC ---
Addendum entered and electronically signed by Jody Duron MD 11/21/23 16:27:
Agree w/ A&P as below
He's been getting Aranesp in our office, will likely transition to Mircera with HD moving forward
Original Note:
Today's Communication / Plan
-
Neutropenic precautions
Monitor CBC w/ diff daily
2/6 Hgb 7.2
s/p 1unit PRBCs
Transfusion support as needed to maintain Hgb >7 (1 unit over 4 hours)
Last Aranesp administered: 10/19/23
HD as scheduled
We will follow.
Impression
Impression
Pleural effusions s/p thoracentesis
Acute on chronic multifactorial anemia
CKD stage 5, dialysis
Acute CHF, preserved EF
Acute hypotension, near syncope (resolved)
Chronic pancytopenia - transfusion dependent
Liver transplant on chronic immunosuppression
Subjective/Objective
Subjective/Objective
Patient evaluated on HD. patient states he feels fine and tolerating it well.
Vital Signs:
Vital Signs
Temp Pulse Resp BP Pulse Ox
97.4 F 60 21 151/69 90
11/21/23 07:30 11/21/23 06:00 11/21/23 06:00 11/21/23 06:00 11/21/23 03:31
physical exam unchanged.
Lab Results:
Laboratory Data
WBC 1.8 10^3/uL (4.8-10.8) L* 11/20/23 04:24
Hgb 7.2 g/dL (13.0-18.0) L 11/21/23 07:40
Plt Count 90 10^3/uL (130-400) L D 11/20/23 04:24
PT 15.1 Sec (11.4-14.6) H 11/17/23 07:42
INR 1.20 11/17/23 07:42
eGFR 15.34 11/21/23 07:40
[2023-11-21] MEDS: LOPRESSOR 5 MG IV (10:21)
[2023-11-21] MEDS: COMPAZINE 10 MG IV (11:38)
[2023-11-21] MEDS: DILAUDID 0.25 MG IV (11:38)
[2023-11-21 12:15] LABS: Troponin I 0.031 ng/ml
[2023-11-21 12:46] LABS: Glucose - Point of Care 151 mg/dl (70-99)
[2023-11-21] MEDS: LASIX IV ×2 (13:51→15:28)
[2023-11-21] MEDS: PHOSLO PO (13:52)
[2023-11-21] MEDS: PROTONIX 40 MG PO (14:22)
[2023-11-21] MEDS: VITAMIN B-12 1000 MCG PO (14:23)
[2023-11-21] MEDS: PHOSLO 667 MG PO ×2 (14:23→18:08)
[2023-11-21] MEDS: COREG 25 MG PO ×2 (14:23→20:02)
[2023-11-21] MEDS: ASPIR LOW (ENTERIC COATED) 81 MG PO (14:23)
[2023-11-21] MEDS: THERAGRAN 1 TABLET PO (14:23)
--- NOTE | 2023-11-21 15:15 | CON.CAR ---
Addendum entered and electronically signed by Talia Singleton MD 11/21/23 17:12:
I saw and examined the patient.
The Tire Care Manager's note was reviewed and I agree with the note.
Comment: Tommy is known to me from recent outpatient visits after his last hospitalization. He has an extensive past medical history including hypertension, mhw-[id number] diabetes, hepatitis C and hepatocellular carcinoma status post
orthotopic liver transplant at [facility] in 2020 on chronic immunosuppression therapy, chronic pancytopenia, followed by hematology with recurrent need for transfusions, paroxysmal atrial fibrillation, not on full anticoagulation
due to chronic anemia, hyperlipidemia, severe mitral stenosis secondary to mitral annular calcification, last echocardiogram from August 2023 showing a transmitral mean gradient of 10 mmHg at a heart rate of 57 bpm, chronic heart failure with
preserved ejection fraction, recurrent pleural effusions status post multiple prior thoracentesis, most recently left-sided thoracentesis on November 17, 2023, end-stage renal disease now recently initiated on dialysis this admission. He tolerated
the first session well however with the last 2 dialysis session he goes into episode of rapid atrial fibrillation becoming extremely symptomatic with shortness of breath and hypotension limiting dialysis.
Lab work and vital signs reviewed. Discussed at length with at bedside. Exam notable for real gentleman who looks older than stated age, chronically ill-appearing, thin, sleeping comfortably in no acute distress, normal S1 and S2, 2 out of 6
diastolic murmur at the apex, reduced breath sounds at the right base, Rales on the other side, warm extremities with trace to 1+ edema, abdomen is soft, nontender with active bowel sounds, old scar well-healed.
Recommendations:
1. Given his significant comorbid conditions, very challenging situation with limited treatment options. Unfortunately patient is not deemed to be a good candidate in regards to surgical or percutaneous intervention for his mitral valve (mitral
stenosis secondary to MAC has very limited treatment options to begin with). As we have discussed with patient and his and multiple occasions now, his valve disease unfortunately is going to be progressive. They received similar input when
they used to follow with Dr. Bib Bee at [place] from cardiology that no interventions were possible for his mitral valve.
2. For now given paroxysmal atrial fibrillation episodes with RVR in the setting of dialysis and fluid shift, would focus on attempting rhythm control and maintaining sinus rhythm. Even with the options of antiarrhythmic medications, very limited
options are present. After discussion with my EP partners, we are recommending cautious use of low-dose amiodarone with very close monitoring of his liver function test. We have also reached out to his transplant team to help coordinate and have a
discussion with them and get their input. The goal of using this would be to try and maintain sinus rhythm especially during dialysis so he can tolerate his sessions to help maintain his fluid balance and electrolytes.
3. Patient remains not a candidate for anticoagulation given his pancytopenia.
Overall a very challenging case given his significant comorbid conditions with guarded prognosis. Discussed all of the above in detail with primary hospitalist team as well as with at bedside.
Talia Singleton MD, [facility], [facility]
Original Note:
Consultation
Consultation Request
Date/Time Consultation Requested: 11/21/2023
Date/Time Consultation Performed: 11/21/2023
Requesting Provider: Dr. Garcia
Performing Provider: Tatyana De La Vega PA-C for Dr. Ross
Reason for Consultation: Symptomatic atrial fibrillation
Medical History
-
History of Present Illness:
Patient is a 68-year-old gentleman with complex comorbid conditions including hypertension, iij-jwtmohn-etxlvczcl type 2 diabetes mellitus, hepatitis C and HCC status post orthotopic liver transplant at [facility] in 2020, chronic
immunosuppression therapy with chronic pancytopenia, follows with hematology, severe mitral stenosis, chronic heart failure with preserved ejection fraction, paroxysmal atrial fibrillation not on full anticoagulation due to pancytopenia from chronic
immunosuppressive therapy, hyperlipidemia, chronic kidney disease, ESRD now on HD, blood transfusions dependent anemia who presented 11/16/2023 with progressively worsening shortness of breath with minimal activity, orthopnea/PND. Shortness of breath
was felt to be multifactorial secondary to acute on chronic heart failure with preserved ejection fraction, bilateral pleural effusions, acute anemia, progressively worsening CKD stage V. Patient was noted to have progressively worsening renal
function and was initiated on hemodialysis. He was also noted to have acute anemia and underwent 1 unit of blood transfusion 11/16/2023 with repeat transfusion 11/21/2023. He underwent left-sided thoracentesis 11/17/2023. Patient's reports he has
had 3 dialysis sessions. During his 2nd dialysis session and again today and developed atrial fibrillation with rapid ventricular response associated with hypotension and chest pain during dialysis causing his session to be cut short. Cardiology
being consulted due to paroxysmal atrial fibrillation.
At time of this evaluation patient resting comfortably in bed on oxygen getting blood transfusion. He is now back in sinus rhythm. He currently denies chest pain or shortness of breath.
PMH:
Bilateral pleural effusions
s/p left thoracentesis 11/17/2023 1800 ml removed
prior thoracentesis August 2023
KURTIS/ESRD initiated dialysis
paroxysmal atrial fibrillation (does not appear chronically anticoagulated due to pancytopenia)
mitral stenosis, severe not surgical candidate
PAD
hypertension
hyperlipidemia
diabetes
Orthotopic liver cancer status post liver transplant 11/2020 at [place]
Hepatitis C, treated
pancytopenia
Transfusion dependent anemia of chronic disease
ESRD-HD started 11/16
s/p LUE AV fistula 10/18/23
chronic hyponatremia
History of L CEA
Former smoker
Hypoalbuminemia
Past Medical History
Past Medical History: Other (See HPI)
Past Surgical History: Other ((Liver transplant 2020. Left upper extremity AV fistula 10/2023. Thoracentesis. Bilateral hernia repair)
Social History
Tobacco: Former Smoker
Alcohol: None
Drug: None
Living: With Family
Allergies / Home Medications
Allergy/AdvReac Type Severity Reaction Status Date / Time
oxycodone Allergy GI upset Verified 11/17/23 21:44
Medication Instructions Recorded Confirmed Type
ascorbic acid (vitamin C) 500 mg 500 mg PO DAILY Supplement 05/05/23 11/16/23 History
tablet (Vitamin C)
atorvastatin 20 mg tablet 20 mg PO QPM High Cholesterol 05/05/23 11/16/23 History
carvedilol 25 mg tablet 25 mg PO BID Blood Pressure 05/05/23 11/16/23 History
multivitamin with minerals-folic 1 tab PO DAILY Supplement 05/05/23 11/16/23 History
acid 80 mcg chewable tablet
(Centrum Adult 50 Plus)
mycophenolate mofetil 500 mg tablet 500 mg PO BID Transplant 05/05/23 11/16/23 History
tacrolimus 1 mg capsule, 2 mg PO DAILY Transplant 05/05/23 11/16/23 History
immediate-release
aspirin 81 mg tablet,delayed 81 mg PO DAILY Blood Clot 06/20/23 11/16/23 History
release Prevention/Tx
cyanocobalamin (vitamin B-12) 1,000 mcg PO DAILY Supplement 06/20/23 11/16/23 History
1,000 mcg tablet (Vitamin B-12)
mycophenolate mofetil 250 mg 250 mg PO BID Transplant 06/20/23 11/16/23 History
capsule (CellCept)
tacrolimus 1 mg capsule, 1 mg PO QPM Transplant 06/20/23 11/16/23 History
immediate-release (Prograf)
torsemide 20 mg tablet 40 mg PO DAILY Fluid 07/21/23 11/16/23 History
Retention/Swelling
amlodipine 5 mg tablet 5 mg PO DAILY Blood Pressure 11/16/23 11/16/23 History
calcium acetate 667 mg tablet 667 mg PO MEALS Kidney Disease 11/16/23 11/16/23 History
cholecalciferol (vitamin D3) 50 50 mcg PO DAILY Supplement 11/16/23 11/16/23 History
mcg (2,000 unit) tablet
magnesium oxide 400 mg PO BID Supplement 11/16/23 11/16/23 History
omeprazole magnesium 20 mg 20 mg PO DAILY Gastrointestinal 11/16/23 11/16/23 History
tablet,delayed release (Prilosec Issue
OTC)
torsemide 20 mg tablet 20 mg PO QPM Fluid 11/16/23 11/16/23 History
Retention/Swelling
Review of Systems
-
History Source: Patient and Family ()
All other systems: Negative unless noted
Physical Exam
Vital Signs
Temp Pulse Resp BP Pulse Ox
98.0 F 68 14 154/55 98
11/21/23 14:35 11/21/23 14:35 11/21/23 14:35 11/21/23 14:35 11/21/23 14:35
GEN: No distress, awake, Ox3, lying in getting blood transfusion, appears chronically ill
HEENT: supple, anicteric, mmm
LUNGS:Absent breath sounds 1/2 way up on right, few crackles left base CTA; wearing oxygen
CV: Reg, S1/S2, 1/6 syst LSB, no rub or gallop
ABD: firm, BS+, NT/ND
EXT: No edema, clubbing, cyanosis; +thrill
NEURO: Gross non-focal
SKIN: No rash, warm, dry
Lab Results
11/21/23 07:40
11/21/23 07:40
Troponin I 0.031 ng/ml 11/21/23 11:20
Cws-A-Mknpwjbztbr Pept 61062 pg/ml 11/16/23 11:43
Impression / Plan
-
PCP: [facility]
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 Singleton
Impressions:
Presented 11/16/2023 with SOB, multifactorial
Acute on chronic heart failure with preserved ejection fraction
Bilateral pleural effusions
s/p left thoracentesis 11/17/2023 1800 ml removed
prior thoracentesis August 2023
KURTIS/ESRD initiated dialysis
Acute on chronic anemia
Symptomatic PAF
abnormal troponin, peaked 0.126 suspect non-ischemic myocardial injury to above (HF, anemia, CKD stageV, pleural effusions)
paroxysmal atrial fibrillation (does not appear chronically anticoagulated due to pancytopenia)
mitral stenosis, severe not surgical candidate
PAD
hypertension
hyperlipidemia
diabetes
Orthotopic liver cancer status post liver transplant 11/2020 at [place]
Hepatitis C, treated
pancytopenia
Transfusion dependent anemia of chronic disease
ESRD-HD started 11/16
s/p LUE AV fistula 10/18/23
chronic hyponatremia
History of L CEA
Former smoker
Hypoalbuminemia
ECHO 08/24/23: EF 55 to 60%, mild concentric LVH, stage II diastolic dysfunction, severely dilated left atrium, peak/mean gradient 25/10 mmHg, NIKKO 1.4 cm� consistent with severe MS, trace MR, trace TR, PAP 30 mmHg, small pericardial effusion, large
pleural effusion, large echodense mass of unclear etiology in pleural space
Plan:
Patient is a 68-year-old gentleman with complex comorbid conditions including hypertension, yva-gvxbiqy-gxsozxuha type 2 diabetes mellitus, hepatitis C and HCC status post orthotopic liver transplant at [facility] in 2020, chronic
immunosuppression therapy with chronic pancytopenia, follows with hematology, severe mitral stenosis, chronic heart failure with preserved ejection fraction, paroxysmal atrial fibrillation not on full anticoagulation due to pancytopenia from chronic
immunosuppressive therapy, hyperlipidemia, chronic kidney disease, ESRD now on HD, blood transfusions dependent anemia who presented 11/16/2023 with progressively worsening shortness of breath with minimal activity, orthopnea/PND. Shortness of breath
was felt to be multifactorial secondary to acute on chronic heart failure with preserved ejection fraction, bilateral pleural effusions, acute anemia, progressively worsening CKD stage V. Patient was noted to have progressively worsening renal
function and was initiated on hemodialysis. He was also noted to have acute anemia and underwent 1 unit of blood transfusion 11/16/2023 with repeat transfusion 11/21/2023. He underwent left-sided thoracentesis 11/17/2023. Patient's reports he has
had 3 dialysis sessions. During his 2nd dialysis session and again today and developed atrial fibrillation with rapid ventricular response associated with hypotension and chest pain during dialysis causing his session to be cut short. Cardiology
being consulted due to paroxysmal atrial fibrillation.
At time of this evaluation patient resting comfortably in bed on oxygen getting blood transfusion. He is now back in sinus rhythm. He currently denies chest pain or shortness of breath.
Presented 11/16/2023 with acute shortness of breath, acute hypoxic respiratory insufficiency likely multifactorial due to acute HF, CKD-5, anemia, bilateral pleural effusions
Acute on chronic heart failure with preserved ejection fraction, proBNP 10,100. Volume status has improved with initiation of dialysis. Weight down 8 lbs prior to 3rd dialysis session
Paroxysmal atrial fibrillation, currently in sinus rhythm/bradycardia and is asymptomatic but he has had symptomatic PAF w/ RVR associated with hypotension and chest pain on two different occasions this admission near end of dialysis session. He was
able to tolerate dialysis without chest pain or hypotension when he was in sinus rhythm.
-Very difficult situation as patient has underlying bradycardia. He has history of liver transplant and is on Tacrolimus which may limit use of anti-arrhythmic agents.
-Will have further discussion with electrophysiology regarding options.
-Continue Coreg 25 mg BID for now. May need to be adjusted with there is initiation of AAD.
-Not good candidate for OAC due to transfusion dependent anemia and pancytopenia
Bilateral Pleural effusions s/p left thoracentesis 11/17/23 1800 cc removed. Absent BS at base up 1/2 up on right. Consider repeating CXR at some point. T/c right thoracentesis
Transfusion dependent anemia of chronic disease, hgb 7.2. Goal is to keep hgb >8.
-s/p 1 u pRBC 11/16, additional unit pRBC 11/21/23
-Continue to monitor and trend hgb
Data Reviewed
-
EKG: Report Reviewed by me, Discussed with Physician, Discussed with Nurse, Discussed with Patient and Discussed with Family
Radiology: Report Reviewed by me, Discussed with Physician, Discussed with Nurse, Discussed with Patient and Discussed with Family
Labs: Labs Reviewed by me, Discussed with Physician, Discussed with Nurse, Discussed with Patient and Discussed with Family
Old Records: Reviewed
--- NOTE | 2023-11-21 15:33 | W.PN.HOSP.TC ---
Today's Communication/Plan
-
HD.
Transfuse to keep hemoglobin above 8.
Cardiology consultation.
Assessment / Plan
Assessment / Plan
IMPRESSION:
Acute CHF preserved EF.
Acute pulmonary edema
Acute hypoxic respiratory failure due to above.
Acute on chronic anemia
CKD 5
Hyponatremia
Suspect non-OH related troponin elevation
Conditions prior to admission:
Chronic diastolic CHF
� Echocardiogram 09/07 with LVEF of 55% mitral stenosis severe.
Paroxysmal atrial fibrillation
Hypertension.
CKD stage V.
Status post left upper extremity AV fistula placed.
Chronic pancytopenia
Transfusion dependent anemia of chronic disease/CKD
Liver cancer status post transplant 2019 at [facility]
Hepatitis C treated.
Diabetes, currently diet controlled
PLAN:�
Presents with dyspnea and acute hypoxic respiratory failure likely multifactorial in the settings of decompensated diastolic CHF and volume overload with progressive CKD 5 as well as worsening of chronic anemia, bilateral pleural effusion
Continue oxygen supplementation
Currently on 4 L of nasal cannula; wean O2 as tolerated
new to HD; 3rd session today
Bilateral pleural effusion.
Chest x-ray with at least moderate bilateral pleural effusion.
Status post Thora 11/17. Removed 1800 cc
Paroxysmal atrial fibrillation with rapid reticular response.
Rate remains fluctuant with blood pressure variations while on HD.
Patient complains of chest pain at that time.
Troponin in the negative range.
Cardiology consultation.
Continue Coreg and aspirin.
Monitor rate and rhythm closely in the settings of HD and hemodynamics.
Transfuse to keep hemoglobin above 8
Acute CHF preserved EF.
Acute pulmonary edema secondary to above.
Attempt of diuresis Lasix 80 mg IV twice daily.
Continue Coreg and amlodipine with caution for hypotension
Now on HD
CKD 5.
Nephrology input appreciated.
Status post HD catheter placement, now on HD; 3rd session today
Pancytopenia, chronic
Acute on chronic anemia.� Anemia of chronic disease, transfusion dependent.� Also suspect chronic bone marrow suppression with antirejection regimen.
Reports dark stool.
Rectal examination heme positive brown stool.
No clinical evidence of acute brisk blood loss.
Status post 1 unit of PRBC transfused on 11/16 with appropriate response.
IV PPI
GI following. No plans for for any scope at this time. Would only transfuse if hemoglobin less than 7. Avoid volume overload
Status post liver transplant around 3 years ago
Compensated
Monitor closely
Continue immunosuppression including mycophenolate, tacrolimus
Type 2 diabetes.
Currently not on insulin or oral glucose lowering medication
hemoglobin A1c 5.1
Basal bolus protocol with serial Accu-Cheks
Anticipated Discharge: > 48 hours
Subjective/Interval History
-
Date of Service: November 21, 2023
Objective Data
-
Labs:
Laboratory Results
11/21/23
07:40
Hgb 7.2 L
Hct 21.3 L
Sodium 129 L
Potassium 3.8
Chloride 98
Carbon Dioxide 26
BUN 48 H
Creatinine 4.0 H
Glucose 124 H
Calcium 7.8 L
Vital Signs:
Vital Signs
Temp Pulse Resp BP Pulse Ox
98.0 F 65 15 167/68 95
11/21/23 14:35 11/21/23 15:00 11/21/23 15:00 11/21/23 15:00 11/21/23 15:00
I&O
11/20/23 11/21/23 11/22/23
06:59 06:59 06:59
Intake Total 300 / 300 1080 / 1080 0 / 0
Output Total 0 / 0
Balance 300 / 300 1080 / 1080 0 / 0
Physical Exam
-
General: Well Developed and No Apparent Distress
HEENT: Normocephalic, Atraumatic and Moist Mucous Membranes
Respiratory: Clear to Auscultation
Cardiac: Regular Rhythm and S1/S2; Negative Murmur, Rub or Gallop
GI: Soft, Nontender, Nondistended and Normal Bowel Sounds; Negative Organomegaly
Rectal: Deferred by Provider
Musculoskeletal: No Clubbing, No Cyanosis and No Edema
Skin: Negative Rash
Neuro: Nonfocal/Grossly Intact
[2023-11-21] MEDS: NOVOLOG FLEXPEN-LOW RESISTANCE 2 UNITS SC (16:44)
[2023-11-21 16:53] LABS: Glucose - Point of Care 213 mg/dl (70-99)
[2023-11-21 17:15] LABS: ALT (SGPT) < 10 U/L (0-50); AST (SGOT) 22 U/L (17-59); Albumin 2.9 g/dl (3.5-5.0); Alkaline Phosphatase 55 U/L (38-126); Direct Bilirubin 0.6 mg/dl (0.0-0.4); Total Bilirubin 0.7 mg/dl (0.2-1.3); Total Protein 5.4 g/dl (6.3-8.2)
[2023-11-21] MEDS: PROGRAF 1 MG PO (18:08)
[2023-11-21] MEDS: LIPITOR 20 MG PO (18:08)
[2023-11-21 18:15] LABS: Free T4 0.61 ng/dl (0.78-2.19)
[2023-11-21 18:35] LABS: Tacrolimus (Prograft - FK506) 4.1 ng/mL
--- NOTE | 2023-11-21 20:00 | PTCARENOTE ---
Resumed care of pt laying in bed AAOx3. Pt drowsy, arousable to voice, slightly forgetful. HR in the 50's 60's in SB on the monitor. POX 95% on RA. Lungs with scattered ex wheezes t/o. [facility]/ Orthopneic. Left lower bandaid intact post thoracentesis.
Hyper bowel, round abd. Pt for HD in am, Oliguric. B/L UE with noted ecchymosis. LUE AV fistula in place with + B/T. Right IJ HD cath in place, dressing intact. Rt AC/ Rt forearm int capped. Palpable peripheral pulses present. Pt denies any
complaints at this time. Vital signs stable. Will continue to monitor.
[2023-11-21] MEDS: PACERONE 200 MG PO (20:03)
[2023-11-21 21:28] LABS: Glucose - Point of Care 170 mg/dl (70-99)
[2023-11-22] VITALS (23 sets, daily range): BP systolic 106–173; BP diastolic 54–84; PULSE 58; O2SAT 100; BMI 21.8
[2023-11-22 04:32] LABS: Hematocrit 25.6 % (39.0-52.0); Hemoglobin 8.6 g/dL (13.0-18.0); Mean Corp Hgb Conc. 33.6 g/dL (33.0-37.0); Mean Corpuscular Hgb 30.4 pg (27.0-31.0); Mean Corpuscular Volume 90.5 fL (80.0-94.0); Mean Platelet Volume 7.8 fL (7.4-10.4); Nucleated Red Blood Cells % 0 % (-); Platelet Count 135 10^3/uL (130-400); Red Blood Cell Count 2.83 10^6/uL (4.70-6.10); Red Cell Dist. Width 17.6 % (11.5-14.5)
[2023-11-22 04:45] LABS: White Blood Cell Count 1.3 10^3/uL (4.8-10.8)
[2023-11-22 05:05] LABS: Blood Urea Nitrogen 31 mg/dl (9-20); Calcium 7.8 mg/dl (8.4-10.2); Carbon Dioxide 29 mmol/L (22-30); Chloride 97 mmol/L (98-107); Estimated Creatinine Clearance 18 ml/min; Glucose 123 mg/dl (70-99); Sodium 133 mmol/L (135-145); eGFR 20.05
[2023-11-22 05:08] LABS: Eosinophils 8 % (0-6); Lymphocytes 24 % (20-51); Monocytes 20 % (2-9); Normal RBC Morphology Yes; Platelets Checked Yes; Segmented Neutrophils 48 % (42-75); Total Cells Counted 100
[2023-11-22 05:10] LABS: Band Neutrophils 0 % (0-3)
[2023-11-22 05:11] LABS: Absolute Neutrophils -Man Diff 0.6 10^3/uL (1.4-6.5)
--- NOTE | 2023-11-22 06:03 | PTCARENOTE ---
Pt desaturating overnight while sleeping pox 87% then up to 92%. 2 LO2 NC applied. No other changes noted overnight. Pt denies any complaints. Will continue to monitor.
[2023-11-22] MEDS: THERAGRAN 1 TABLET PO (08:41)
[2023-11-22] MEDS: PROTONIX 40 MG PO (08:41)
[2023-11-22] MEDS: PHOSLO 667 MG PO ×3 (08:41→17:03)
[2023-11-22] MEDS: NOVOLOG FLEXPEN-LOW RESISTANCE SC ×2 (08:41→19:02)
[2023-11-22] MEDS: COREG 25 MG PO ×2 (08:41→20:12)
[2023-11-22] MEDS: CELLCEPT 500 MG PO ×2 (08:42→20:12)
[2023-11-22] MEDS: CELLCEPT 250 MG PO ×2 (08:42→20:12)
[2023-11-22] MEDS: ASPIR LOW (ENTERIC COATED) 81 MG PO (08:42)
[2023-11-22] MEDS: VITAMIN B-12 1000 MCG PO (08:42)
[2023-11-22] MEDS: PROGRAF 2 MG PO (08:42)
[2023-11-22] MEDS: PACERONE 200 MG PO ×2 (08:42→20:12)
[2023-11-22 08:51] LABS: Glucose - Point of Care 127 mg/dl (70-99)
--- NOTE | 2023-11-22 09:30 | W.PN.CARDCBS ---
Addendum entered and electronically signed by Talia Singleton MD 11/22/23 17:37:
I saw and examined the patient.
The Room Service Manager's note was reviewed and I agree with the note.
Comment: Patient appears to be slightly better than yesterday. He is out of bed into a chair and tells me that his breathing has improved since admission. he denies any further chest pain.
Lab work and vital signs reviewed. Exam notable for real gentleman who looks older than stated age, chronically ill-appearing, thin, out of bed into a chair in no acute distress, normal S1 and S2, 2 out of 6 diastolic murmur at the apex, no breath
sounds appreciated over right and left lung bases, Rales in the mid younger, warm extremities with trace to 1+ edema, abdomen is soft, nontender with active bowel sounds, old scar well-healed.
Recommendations:
1.� Again, had a long discussion with patient and his . Given his significant comorbid conditions, very challenging situation with limited treatment options.� Unfortunately patient is not a good candidate in regards to surgical or percutaneous
intervention for his mitral valve (mitral stenosis secondary to MAC has very limited treatment options to begin with).� As we have discussed on multiple occasions now with patient and his , his valve disease unfortunately is going to be
progressive.� They tell me they received similar input when they used to follow with Dr. Bib Bee at [facility] that no interventions were possible for his mitral valve especially in the light of his significant other comorbid conditions.
2.� For now given paroxysmal atrial fibrillation episodes with RVR in the setting of dialysis and fluid shift, we are attempting rhythm control with goal of maintaining sinus rhythm.� We are cautiously using of low-dose amiodarone with close
monitoring of his liver function test.� We had also reached out to his transplant team at [facility] to help coordinate and have a discussion with them and get their input.� My PA heard from the human service coordinator at [facility] late this afternoon and was
updated in regards to ongoing issues that patient is dealing with this admission. Plan is for her to get input from transplant shadowgraph operator, Dr. Box and Dr. Bee from cardiology at [facility] and reach back out to us. One of the things we
will also discuss is given multitude of ongoing issues, most of them being chronic, being exacerbated by progressively worsening renal function and need for dialysis, to potentially discuss a transfer down there in case they are able to offer any
more interventions that we would be able to here.
3.� Patient remains not a candidate for anticoagulation given his chronic pancytopenia which is thought to be related to his immunosuppressive therapy for his transplanted liver.
Overall Tommy continues to be a very challenging case given his significant comorbid conditions with guarded prognosis.� Discussed all of the above in detail with patient and at bedside.
Talia Singleton MD, [facility], [facility]
Addendum entered and electronically signed by Tatyana De La Vega PA-C 11/22/23 17:06:
survey coordinator Bonnie Portillo called late this afternoon. Updated her on ongoing medical issues, concerns and treatment. She is reaching out to the transplant shadowgraph operator Dr. Box and Dr. Bee form tamper at [facility] to discuss and
get back to us.
Updated Dr. Singleton and Dr. Garcia
Original Note:
Today's Communication / Plan
-
New to Amiodarone 200 mg BID 11/21/2023
Monitor QTc
Check ECG
Obtain CXR
Phone call into [facility] transplant center awaiting call back
Impression / Plan
-
PCP: [facility]
Brine Purifier: Previously followed by Dr. Antoine Bee of [facility], now follows locally by Dr. Singleton
Impressions:
Presented 11/16/2023 with SOB, multifactorial
Acute on chronic heart failure with preserved ejection fraction
Bilateral pleural effusions
s/p left thoracentesis 11/17/2023 1800 ml removed
prior thoracentesis August 2023
KURTIS/ESRD initiated dialysis
Acute on chronic anemia
Symptomatic PAF
abnormal troponin, peaked 0.126 suspect non-ischemic myocardial injury to above (HF, anemia, CKD stageV, pleural effusions)
paroxysmal atrial fibrillation (does not appear chronically anticoagulated due to pancytopenia)
mitral stenosis, severe not surgical candidate
PAD
hypertension
hyperlipidemia
diabetes
Orthotopic liver cancer status post liver transplant 11/2020 at [facility]
Hepatitis C, treated
pancytopenia
Transfusion dependent anemia of chronic disease
ESRD-HD started 11/16
s/p LUE AV fistula 10/18/23
chronic hyponatremia
History of L CEA
Former smoker
Hypoalbuminemia
ECHO 08/24/23: EF 55 to 60%, mild concentric LVH, stage II diastolic dysfunction, severely dilated left atrium, peak/mean gradient 25/10 mmHg, NIKKO 1.4 cm� consistent with severe MS, trace MR, trace TR, PAP 30 mmHg, small pericardial effusion, large
pleural effusion, large echodense mass of unclear etiology in pleural space
Plan:
Presented 11/16/2023 with acute shortness of breath, acute hypoxic respiratory insufficiency likely multifactorial due to acute HF, CKD-5, anemia, bilateral pleural effusions
Acute on chronic heart failure with preserved ejection fraction, proBNP 10,100. Volume status has improving with initiation of dialysis. Weight down 7 lbs after 3rd dialysis session.
Paroxysmal atrial fibrillation, currently in sinus rhythm/bradycardia and is asymptomatic but he had symptomatic PAF w/ RVR associated with hypotension and chest pain on two different occasions this admission near end of dialysis session. He was
able to tolerate dialysis without chest pain or hypotension when he was in sinus rhythm.
-Very difficult situation as patient has underlying bradycardia, history of liver transplant and is on Tacrolimus which may limit use of anti-arrhythmic agents.
-Plan is to focus on attempting rhythm control and maintaining sinus rhythm so he can tolerate his sessions to help maintain his fluid balance and electrolytes.
-After discussion with EP patient started on low-dose amiodarone with 200 mg BID (started 11/21/2023 in PM).
-We have also reached out to his transplant team at [facility] (towel folder Bonnie Portillo and Dr. Cali Box, Transplant Rn Diabetes Educator [phone]) to help coordinate and have a discussion with them and get their input.�We are awaiting
call back from them
-Check LFTs 11/23/23
-Monitor QTc. Baseline QTc 453 ms on ECG 11/18/23. Will repeat.
-Continue Coreg 25 mg BID for now. May need to be adjusted with there is initiation of AAD.
-Not good candidate for OAC due to transfusion dependent anemia and pancytopenia
Severe mitral stenosis
-Unfortunately patient is not deemed to be a good candidate in regards to surgical or percutaneous intervention for his mitral valve (mitral stenosis secondary to MAC has very limited treatment options to begin with).�Multiple discussions with
patient and his that his valve disease unfortunately is going to be progressive.� They received similar input when they used to follow with Dr. Bib Bee at [facility] from cardiology that no interventions were possible for his mitral valve.
Bilateral Pleural effusions s/p left thoracentesis 11/17/23 1800 cc removed. Absent BS at base up / up on right and now absent again at left base. Repeat CXR today.
ESRD now on HD, had 3 sessions this admission; Next dialysis session for 11/23/23; nephro following; had ultrasound of AV fistula - pending
Transfusion dependent anemia of chronic disease, hgb 8.6. Goal is to keep hgb >8.
-s/p 1 u pRBC 11/16, s/p 1 unit pRBC 11/21/23
-Continue to monitor and trend hgb
I personally reached out to [facility] [phone] to review patient's complicated case. Awaiting callback from human service coordinator and/or Dr. Box. Discussed this with patient's whom is at bedside, attending form tamper,
hospitalist.
Admit data/HPI 11/21/2023:
Patient is a 68-year-old gentleman with complex comorbid conditions including hypertension, [id number] type 2 diabetes mellitus, hepatitis C and HCC status post orthotopic liver transplant at [facility] in 2020, chronic
immunosuppression therapy with chronic pancytopenia, follows with hematology, severe mitral stenosis, chronic heart failure with preserved ejection fraction, paroxysmal atrial fibrillation not on full anticoagulation due to pancytopenia from chronic
immunosuppressive therapy, hyperlipidemia, chronic kidney disease, ESRD now on HD, blood transfusions dependent anemia who presented 11/16/2023 with progressively worsening shortness of breath with minimal activity, orthopnea/PND. Shortness of breath
was felt to be multifactorial secondary to acute on chronic heart failure with preserved ejection fraction, bilateral pleural effusions, acute anemia, progressively worsening CKD stage V. Patient was noted to have progressively worsening renal
function and was initiated on hemodialysis. He was also noted to have acute anemia and underwent 1 unit of blood transfusion 11/16/2023 with repeat transfusion 11/21/2023. He underwent left-sided thoracentesis 11/17/2023. Patient's reports he has
had 3 dialysis sessions. During his 2nd dialysis session and again today and developed atrial fibrillation with rapid ventricular response associated with hypotension and chest pain during dialysis causing his session to be cut short. Cardiology
being consulted due to paroxysmal atrial fibrillation.
At time of this evaluation patient resting comfortably in bed on oxygen getting blood transfusion. He is now back in sinus rhythm. He currently denies chest pain or shortness of breath.
Progress Note - Brine Purifier
Subjective
Date of Service: November 22, 2023
Patient seen and examined. Patient sitting up in chair. Patient awake but falling asleep easily. He reports he is feeling tired but denies chest pain or shortness of breath.
at bedside. Reports he ate a very good breakfast but is tired as he had multiple test earlier today.
Objective
Labs:
11/22/23 04:19
11/22/23 04:19
Labs
Hgb 8.6 g/dL (13.0-18.0) L 11/22/23 04:19
Hct 25.6 % (39.0-52.0) L 11/22/23 04:19
Plt Count 135 10^3/uL (130-400) D 11/22/23 04:19
PT 15.1 Sec (11.4-14.6) H 11/17/23 07:42
INR 1.20 11/17/23 07:42
Sodium 133 mmol/L (135-145) L 11/22/23 04:19
Potassium 4.0 mmol/L (3.5-5.1) 11/22/23 04:19
BUN 31 mg/dl (9-20) H 11/22/23 04:19
Creatinine 3.2 mg/dL (0.7-1.3) H 11/22/23 04:19
Glucose 123 mg/dl (70-99) H 11/22/23 04:19
Troponins
11/21/23
11:20
Troponin I 0.031
Vital Signs and I&O:
Vital Signs
Temp Pulse Resp BP Pulse Ox
97.9 F 60 14 171/70 93
11/22/23 07:19 11/22/23 05:00 11/22/23 05:00 11/22/23 05:00 11/22/23 05:00
Vital Signs
Temp Pulse Resp BP Pulse Ox
97.9 F 60 14 171/70 93
11/22/23 07:19 11/22/23 05:00 11/22/23 05:00 11/22/23 05:00 11/22/23 05:00
Intake & Output
11/20/23 11/21/23 11/22/23 11/23/23
06:59 06:59 06:59 06:59
Intake Total 300 / 300 1080 / 1080 370 / 370
Output Total 0 / 0
Balance 300 / 300 1080 / 1080 370 / 370
Physical Exam
Physical Exam
GEN: No distress, awake, Ox3, appears chronically ill, sitting in chair
HEENT: supple, anicteric, mmm
LUNGS:Absent breath sounds 1/2 way up on right, absent at left base; wearing oxygen
CV: Reg, S1/S2, 1/6 syst LSB, no rub or gallop
ABD: firm, BS+, NT/ND
EXT: No edema, clubbing, cyanosis; +thrill
NEURO: Gross non-focal
SKIN: No rash, warm, dry
--- NOTE | 2023-11-22 09:43 | W.PN.NEPH.PH ---
Today's Communication / Plan
-
HD tomorrow
Assessment/Plan
-
IMP:
Acute on chronic CHF preserved EF.
Acute hypoxic respiratory failure due to above.
Bilateral pleural effusion, prior thoracentesis in Aug
Acute on chronic anemia
CKD 5
Hyponatremia
mitral stenosis severe.-no surgery planned
Paroxysmal atrial fibrillation
Hypertension.
Status post left upper extremity AV fistula placed 10/18/23
Chronic pancytopenia
Transfusion dependent anemia of chronic disease/CKD
Orthotopic liver transplant 2020 at [facility]
Hepatitis C treated.
Diabetes, currently diet controlled
Hyperphosphatemia
Plan:
-HD tomorrow
-for amiodarone
-it was also previously reviewed that with severe MS and no surgical plan in the future has risk of hemodynamic instability with HD
- knows if pt can not handle HD and we have nothing else to offer him
-
-
Date of Service: November 22, 2023
CC / HPI / ROS
-
Chief Complaint:
KURTIS/CKD
History of Present Illness:
now on HD for ESRD
hemodynamically labile
pancytopenia persists
remains on tacrolimus and MMF for liver transplant
CO/Afib on HD yesterday
Review of Systems:
oliguric
no fevers
no chest pain or sob
Labs
-
Labs:
WBC 1.3 10^3/uL (4.8-10.8) L* 11/22/23 04:19
RBC 2.83 10^6/uL (4.70-6.10) L 11/22/23 04:19
Hgb 8.6 g/dL (13.0-18.0) L 11/22/23 04:19
Hct 25.6 % (39.0-52.0) L 11/22/23 04:19
Plt Count 135 10^3/uL (130-400) D 11/22/23 04:19
Sodium 133 mmol/L (135-145) L 11/22/23 04:19
Potassium 4.0 mmol/L (3.5-5.1) 11/22/23 04:19
Chloride 97 mmol/L (98-107) L 11/22/23 04:19
Carbon Dioxide 29 mmol/L (22-30) 11/22/23 04:19
BUN 31 mg/dl (9-20) H 11/22/23 04:19
Creatinine 3.2 mg/dL (0.7-1.3) H 11/22/23 04:19
eGFR 20.05 11/22/23 04:19
Glucose 123 mg/dl (70-99) H 11/22/23 04:19
Calcium 7.8 mg/dl (8.4-10.2) L 11/22/23 04:19
Gvf-Z-Ybzqasulmzy Pept 38642 pg/ml 11/16/23 11:43
Albumin 2.9 g/dl (3.5-5.0) L 11/21/23 07:40
Physical Exam
-
Vital Signs:
Vital Signs
Temp Pulse Resp BP Pulse Ox
97.9 F 60 14 171/70 93
11/22/23 07:19 11/22/23 05:00 11/22/23 05:00 11/22/23 05:00 11/22/23 05:00
Cardiovascular:: Regular rate and rhythm
Respiratory:: Bilateral: Coarse
Lung Excursion:: Normal
Abdomen:: Nontender and Soft
Bowel Sounds:: Normal
Extremity Edema:: None: Bilateral:
[2023-11-22 11:41] LABS: Glucose - Point of Care 264 mg/dl (70-99)
[2023-11-22] MEDS: NOVOLOG FLEXPEN-LOW RESISTANCE 2 UNITS SC (13:33)
[2023-11-22 13:41] LABS: Glucose - Point of Care 206 mg/dl (70-99)
--- NOTE | 2023-11-22 14:33 | CM ---
patient has chosen [facility] in [facility] at 4:20pm. i have called facility to find out if patient has been officially accepted-
start date of .i have asked for a call back to confirm acceptance. patient is for hd tomorrow.patient is currently on 4 liters nc o2.he will have a home o2 eval before being dc home.he is being followed by [facility] for resumption of care.
Plan is for discharge home with [facility].patient may have home o2 needs.
--- NOTE | 2023-11-22 16:33 | W.PN.HOSP.TC ---
Today's Communication/Plan
-
Amiodarone as per cardiology for better A-fib rate/rhythm control.
Monitor hemoglobin and transfuse to keep above 8.
HD in a.m.
Assessment / Plan
Assessment / Plan
IMPRESSION:
Acute CHF preserved EF.
Acute pulmonary edema
Acute hypoxic respiratory failure due to above.
Acute on chronic anemia
CKD 5
Hyponatremia
Suspect non-RI related troponin elevation
Conditions prior to admission:
Chronic diastolic CHF
� Echocardiogram 09/07 with LVEF of 55% mitral stenosis severe.
Severe calcific mitral stenosis
Paroxysmal atrial fibrillation
Hypertension.
CKD stage V.
Status post left upper extremity AV fistula placed.
Chronic pancytopenia
Transfusion dependent anemia of chronic disease/CKD
Liver cancer status post transplant 2019 at [facility]
Hepatitis C treated.
Diabetes, currently diet controlled
PLAN:�
Presents with dyspnea and acute hypoxic respiratory failure likely multifactorial in the settings of decompensated diastolic CHF and volume overload with progressive CKD 5 as well as worsening of chronic anemia, bilateral pleural effusion
Continue oxygen supplementation
Currently on 4 L of nasal cannula; wean O2 as tolerated
new to HD; 3rd session today
Bilateral pleural effusion.
Chest x-ray with at least moderate bilateral pleural effusion.
Status post Thora 11/17. Removed 1800 cc
Paroxysmal atrial fibrillation with rapid reticular response.
Patient with severe mitral stenosis
Rate remains fluctuant with blood pressure variations while on HD.
Patient complains of chest pain at that time.
Troponin in the negative range.
Discussed with cardiology: Limited options for mitral stenosis treatment as well as for atrial fibrillation rhythm control given the multiple comorbidities.
Initiated on amiodarone with close monitoring of liver function in patient with liver transplant
Continue Coreg and aspirin.
Monitor rate and rhythm closely in the settings of HD and hemodynamics.
Transfuse to keep hemoglobin above 8
Acute CHF preserved EF.
Acute pulmonary edema secondary to above.
Attempt of diuresis Lasix 80 mg IV twice daily.
Continue Coreg and amlodipine with caution for hypotension
Now on HD
CKD 5.
Nephrology input appreciated.
Status post HD catheter placement, now on HD; 3rd session today
Pancytopenia, chronic
Acute on chronic anemia.� Anemia of chronic disease, transfusion dependent.� Also suspect chronic bone marrow suppression with antirejection regimen.
Reports dark stool.
Rectal examination heme positive brown stool.
No clinical evidence of acute brisk blood loss.
Status post 1 unit of PRBC transfused on 11/16 with appropriate response.
IV PPI
GI following. No plans for for any scope at this time. Would only transfuse if hemoglobin less than 7. Avoid volume overload
Status post liver transplant around 3 years ago
Compensated
Monitor closely
Continue immunosuppression including mycophenolate, tacrolimus
Type 2 diabetes.
Currently not on insulin or oral glucose lowering medication
hemoglobin A1c 5.1
Basal bolus protocol with serial Accu-Cheks
Anticipated Discharge: > 48 hours
Subjective/Interval History
-
Date of Service: November 22, 2023
Objective Data
-
Labs:
Laboratory Results
11/22/23
04:19
WBC 1.3 L*
Hgb 8.6 L
Hct 25.6 L
Plt Count 135 D
Sodium 133 L
Potassium 4.0
Chloride 97 L
Carbon Dioxide 29
BUN 31 H
Creatinine 3.2 H
Glucose 123 H
Calcium 7.8 L
Vital Signs:
Vital Signs
Temp Pulse Resp BP Pulse Ox
97.2 F 54 17 114/55 94
11/22/23 16:30 11/22/23 12:03 11/22/23 12:03 11/22/23 12:03 11/22/23 12:03
I&O
11/21/23 11/22/23 11/23/23
06:59 06:59 06:59
Intake Total 1080 / 1080 370 / 370
Output Total 0 / 0
Balance 1080 / 1080 370 / 370
Physical Exam
-
General: Well Developed and No Apparent Distress
HEENT: Normocephalic, Atraumatic and Moist Mucous Membranes
Respiratory: Clear to Auscultation
Cardiac: Regular Rhythm and S1/S2; Negative Murmur, Rub or Gallop
GI: Soft, Nontender, Nondistended and Normal Bowel Sounds; Negative Organomegaly
Rectal: Deferred by Provider
Musculoskeletal: No Clubbing, No Cyanosis and No Edema
Skin: Negative Rash
Neuro: Nonfocal/Grossly Intact
[2023-11-22] MEDS: PROGRAF 1 MG PO (17:03)
[2023-11-22] MEDS: LIPITOR 20 MG PO (17:03)
[2023-11-22 17:30] LABS: Glucose - Point of Care 215 mg/dl (70-99)
--- NOTE | 2023-11-22 20:57 | PTCARENOTE ---
Received pt from [facility]. Pt is AAOx3, forgetful @ times. Sinus adiel on the monitor. On 2L NC O2 sat 100%, lungs diminished. BRPx1, oliguric. VSS. Pt is laying comfortable in bed with call watkins in reach.
[2023-11-22 21:56] LABS: Glucose - Point of Care 176 mg/dl (70-99)
[2023-11-23] VITALS (31 sets, daily range): BP systolic 119–180; BP diastolic 48–125; BMI 21.9
[2023-11-23 07:35] LABS: Glucose - Point of Care 119 mg/dl (70-99)
[2023-11-23] MEDS: ASPIR LOW (ENTERIC COATED) 81 MG PO (07:40)
[2023-11-23] MEDS: PHOSLO PO ×2 (07:40→08:00)
[2023-11-23] MEDS: VITAMIN B-12 PO (07:40)
[2023-11-23] MEDS: CELLCEPT 500 MG PO ×2 (07:40→19:27)
[2023-11-23] MEDS: PROGRAF 2 MG PO (07:40)
[2023-11-23] MEDS: CELLCEPT 250 MG PO ×2 (07:40→19:27)
[2023-11-23] MEDS: NOVOLOG FLEXPEN-LOW RESISTANCE SC ×2 (07:40→12:50)
[2023-11-23] MEDS: COREG PO (07:41)
[2023-11-23] MEDS: PACERONE 200 MG PO ×2 (07:41→19:27)
[2023-11-23] MEDS: PROTONIX PO (07:41)
[2023-11-23] MEDS: THERAGRAN PO (07:41)
[2023-11-23 08:10] LABS: Hematocrit 23.5 % (39.0-52.0); Hemoglobin 7.9 g/dL (13.0-18.0); Mean Corp Hgb Conc. 33.6 g/dL (33.0-37.0); Mean Corpuscular Hgb 30.3 pg (27.0-31.0); Nucleated Red Blood Cells % 0 % (-); Red Blood Cell Count 2.61 10^6/uL (4.70-6.10); Red Cell Dist. Width 17.4 % (11.5-14.5)
[2023-11-23 08:16] LABS: White Blood Cell Count 1.3 10^3/uL (4.8-10.8)
[2023-11-23 08:30] LABS: ALT (SGPT) < 10 U/L (0-50); AST (SGOT) 21 U/L (17-59); Alkaline Phosphatase 57 U/L (38-126); Blood Urea Nitrogen 51 mg/dl (9-20); Calcium 7.8 mg/dl (8.4-10.2); Carbon Dioxide 25 mmol/L (22-30); Chloride 97 mmol/L (98-107); Estimated Creatinine Clearance 14 ml/min; Glucose 143 mg/dl (70-99); Potassium 4.1 mmol/L (3.5-5.1); Sodium 128 mmol/L (135-145); Total Bilirubin 0.8 mg/dl (0.2-1.3); Total Protein 5.5 g/dl (6.3-8.2); eGFR 14.47
[2023-11-23] MEDS: EPOGEN 10000 UNITS IV (08:55)
[2023-11-23 09:52] LABS: Band Neutrophils 0 % (0-3); Eosinophils 5 % (0-6); Lymphocytes 27 % (20-51); Monocytes 18 % (2-9); Normal RBC Morphology Yes; Platelet Count 96 10^3/uL (130-400); Platelets Checked Yes; Segmented Neutrophils 50 % (42-75); Total Cells Counted 100
[2023-11-23 09:53] LABS: Absolute Neutrophils -Man Diff 0.6 10^3/uL (1.4-6.5)
--- NOTE | 2023-11-23 10:36 | W.PN.UPDATE ---
Update Note
Progress Note Update
Asked to see patient and to discuss recommendations about transfer to [place], as I have had a long standing relationship with them over the years. Discussed with the at length, that cardiology believes likely not much else to offer here
given his complexity, in terms of treatment for his mitral stenosis. He has been tolerating dialysis today with no A-fib so far, after starting low-dose amiodarone. We discussed that liver stokes has been doing very well with no rejection of his
transplant and has been functioning well. We discussed that I would have no objection to him being transferred, though she needs to do which she feels comfortable with, and ultimately there may not be any specific right or wrong decision. I
discussed with the that I will reach out to Dr. Box, his primary warehouse attendant, to see if he has any differing opinions.
--- NOTE | 2023-11-23 10:47 | W.PN.UPDATE ---
Update Note
Progress Note Update
I discussed with Dr. Box, would have no reservation with him being at [facility]. He will reach out and discuss with the further. We will sign off for now, please call back with any further questions.
[2023-11-23] MEDS: HEPARIN 4200 UNITS INTRACATH (10:49)
--- NOTE | 2023-11-23 10:55 | W.PN.NEPH.HD ---
Assessment
-
Seen on HD. no complaints. VSS, access ok
potential transfer to [facility] transplant team to be determined
can try to UF more next HD
Progress Note - Hemodialysis
-
Date of Service: November 23, 2023
Duration: 15 minutes and 3 hours
Potassium Bath: 3
Calcium Bath: 2.5
Opti-Dialyzer: 160
Ultrafiltration: Other (1kg)
Blood Flow: 400
Dialysate Flow: 600
Heparin: no
EPO: 83515 units
[2023-11-23] MEDS: PROTONIX 40 MG PO (11:38)
[2023-11-23] MEDS: THERAGRAN 1 TABLET PO (11:38)
[2023-11-23] MEDS: VITAMIN B-12 1000 MCG PO (11:38)
[2023-11-23] MEDS: COREG 25 MG PO ×2 (11:39→19:28)
[2023-11-23] MEDS: PHOSLO 667 MG PO ×2 (11:41→16:15)
[2023-11-23 11:51] LABS: Glucose - Point of Care 113 mg/dl (70-99)
--- NOTE | 2023-11-23 12:09 | W.PN.ONC ---
Today's Communication / Plan
-
CBC w/ diff daily differential pending hemoglobin 7.9
Transfusion support as needed to maintain Hgb >7.5 with dialysis
Given erythropoietin 10,000 units w/ dialysis
Supportive care, monitor for fevers, initiate antibiotics if febrile
Impression
Impression
Pleural effusions s/p thoracentesis
Acute on chronic multifactorial anemia
CKD stage 5, dialysis
Acute CHF, preserved EF
Acute hypotension, near syncope (resolved)
Chronic pancytopenia - transfusion dependent
Liver transplant on chronic immunosuppression
Plan
Plan
Subjective/Objective
Subjective/Objective
Without new complaints
Vital Signs:
Vital Signs
Temp Pulse Resp BP Pulse Ox
97.6 F 57 14 164/57 100
11/23/23 07:25 11/23/23 11:00 11/23/23 11:00 11/23/23 11:00 11/23/23 11:00
Unchanged physical exam
Lab Results:
Laboratory Data
WBC 1.3 10^3/uL (4.8-10.8) L* 11/23/23 07:49
Hgb 7.9 g/dL (13.0-18.0) L 11/23/23 07:49
Plt Count 96 10^3/uL (130-400) L D 11/23/23 07:49
PT 15.1 Sec (11.4-14.6) H 11/17/23 07:42
INR 1.20 11/17/23 07:42
eGFR 14.47 11/23/23 07:49
--- NOTE | 2023-11-23 12:30 | W.PN.CARDCBS ---
Addendum entered and electronically signed by Theron Grey MD 11/23/23 13:19:
Patient feels well. Dyspnea is much improved. He had dialysis today which he tolerated well without atrial fibrillation
Business Management Analyst at [facility] had initially wanted patient transferred down. However after discussed with him, is agreed he will remain here since he is doing better.
allergies: Oxycodone
Outpatient meds amlodipine 5 mg a day, aspirin 81 mg a day, atorvastatin 20 mg a day, carvedilol 25 twice daily, magnesium, CellCept, tacrolimus, torsemide 40 mg a day a.m. and 20 p.m.
Inpatient medications: As per outpatient meds, plus amiodarone 200 mg twice daily just added, torsemide now DC'd
PMH/PSH/SH/FH: Reviewed
Review of systems: Negative except as above
164/57, 132/67, pulse 50s, afebrile, intake and output incomplete, weight is 59.7 kg which is stable
Lungs are relatively clear, head neck exam unremarkable, no distress, regular rate and rhythm, aortic stenosis murmur, neck veins are elevated, abdomen distended not much edema, neuro nonfocal
White count is 1.3, hemoglobin 7.9, overall fairly stable platelets are 96, sodium 128, potassium 4.1, BUN and creatinine 51 and 4.2, troponin had been 0.031 with proBNP 10,100 on November 16
Chest x-ray yesterday, effusions, vascular congestion, hemodialysis catheter
Thoracentesis on November 17 6 1.8 L from left
Impressions:
Acute on chronic heart failure with preserved ejection fraction
Bilateral pleural effusions
prior thoracentesis August 2023
s/p left thoracentesis 1800 ml removed 11/17/2023KI/ESRD initiated dialysis 11/17/23
Acute on chronic anemia
Symptomatic PAF
Elevated Troponin
Paroxysmal atrial fibrillation
Not chronically anticoagulated due to pancytopenia
mitral stenosis, severe not surgical candidate
PAD
HTN
hyperlipidemia
DM 2
Orthotopic liver cancer status post liver transplant 11/2020 at [facility]
Hepatitis C, treated
pancytopenia
Transfusion dependent anemia of chronic disease
ESRD-HD started 11/16
s/p LUE AV fistula 10/18/23chronic hyponatremia
History of L CEA
Former smoker
Hypoalbuminemia
ECHO 08/24/23: EF 55 to 60%, mild concentric LVH, stage II diastolic dysfunction, severely dilated left atrium, peak/mean gradient 25/10 mmHg, NIKKO 1.4 cm� consistent with severe MS, trace MR, trace TR, PAP 30 mmHg, small pericardial effusion, large
pleural effusion, large echodense mass of unclear etiology in pleural space
Plan:
Acute on chronic HFpEF related to mitral stenosis paroxysmal atrial fibrillation and CKD 5 progressing to end-stage renal disease: Patient is still volume overloaded but substantially improved. With continued hemodialysis, and provided that
paroxysmal atrial fibrillation prevented and heart rate remains controlled, it is likely that his heart failure will become compensated and he will be able to tolerate his mitral stenosis without heart failure.
Paroxysmal atrial fibrillation: Thus far tolerating low-dose
Mitral stenosis: No surgical options, with optimization of heart rate and control of atrial fibrillation it is likely that he will continue to tolerate
Agree that there is not a current indication to transfer to the [facility]
End-stage renal disease: Hemodialysis per nephrology suspect patient may still be 5 to 10 pounds above dry weight
Hypertensive, manage per nephrology
Anticipate discharge after next hemodialysis session. Defer to nephrology as to whether hemodialysis can be delayed for 48 hours.
Original Note:
Today's Communication / Plan
-
No recurrence of rapid Afib with HD thus far today
Holding off on transfer for now
Impression / Plan
-
PCP: Pepe Hi
Phthalic Acid Purifier: Previously followed by Dr. Antoine Bee of [facility], now follows locally by Dr. Singleton
Impressions:
Presented 11/16/2023 with SOB, multifactorial
Acute on chronic heart failure with preserved ejection fraction
Bilateral pleural effusions
prior thoracentesis August 2023
s/p left thoracentesis 1800 ml removed 11/17/2023
KURTIS/ESRD initiated dialysis 11/17/23
Acute on chronic anemia
Symptomatic PAF
Elevated Troponin
Paroxysmal atrial fibrillation
Not chronically anticoagulated due to pancytopenia
mitral stenosis, severe not surgical candidate
PAD
HTN
hyperlipidemia
DM 2
Orthotopic liver cancer status post liver transplant 11/2020 at [facility]
Hepatitis C, treated
pancytopenia
Transfusion dependent anemia of chronic disease
ESRD-HD started 11/16
s/p LUE AV fistula 10/18/23
chronic hyponatremia
History of L CEA
Former smoker
Hypoalbuminemia
ECHO 08/24/23: EF 55 to 60%, mild concentric LVH, stage II diastolic dysfunction, severely dilated left atrium, peak/mean gradient 25/10 mmHg, NIKKO 1.4 cm� consistent with severe MS, trace MR, trace TR, PAP 30 mmHg, small pericardial effusion, large
pleural effusion, large echodense mass of unclear etiology in pleural space
Plan:
-Patient seen earlier by Dr. Grey and cardiology team (Dr. Singleton primarily) has been communicating with patient's Business Management Analyst at [facility] since 11/22/23. The issue at hand is the patient's hemodynamic stability during HD with paroxysms of rapid Afib.
After discussion with EP the decision was made to add amiodarone 200 mg BID starting 11/21/23.
-Overall burden of Afib appears to be improving and no Afib during HD session 11/23/23.
-Given complexity of liver disease, ESRD with new HD and arrhythmia the patient was offered transfer to [facility]. Dr. Box reported to Dr. Singleton that he talked with patient's and that at this point will hold off on transfer as of 11/23/23.
-From a CV perspective, cont amiodarone 200 mg BID. Patient has received an 800 mg load as of 11/23/23 AM.
-QTc 429 ms by ECG 11/23/23 AM.
-HR and BP stable enough to continue with Coreg 25 mg BID.
-Patient is not a candidate for OAC due to transfusion dependent anemia and pancytopenia.
-Weight is down 6-7 lbs from admission with HD. Outpatient dose of torsemide has been stopped
-Patient is not a candidate for repair of known severe mitral stenosis and mitral stenosis secondary to MAC has very limited treatment options to begin with.�Valve disease is going to be progressive.�Previous evaluation at [facility] with Dr. Bee
with similar opinion that unfortunately no interventions were possible for his mitral valve.
-Troponin was 0.126 on admission and trended down thereafter. Will manage as a nonischemic myocardial injury Troponin elevation due to KURTIS, arrhythmia and HF.
HPI: Patient is a 68-year-old gentleman with complex comorbid conditions including hypertension, psm-rojvlvz-ckhlthbfb type 2 diabetes mellitus, hepatitis C and HCC status post orthotopic liver transplant at [facility] in 2020,
chronic immunosuppression therapy with chronic pancytopenia, follows with hematology, severe mitral stenosis, chronic heart failure with preserved ejection fraction, paroxysmal atrial fibrillation not on full anticoagulation due to pancytopenia from
chronic immunosuppressive therapy, hyperlipidemia, chronic kidney disease, ESRD now on HD, blood transfusions dependent anemia who presented 11/16/2023 with progressively worsening shortness of breath with minimal activity, orthopnea/PND. Shortness
of breath was felt to be multifactorial secondary to acute on chronic heart failure with preserved ejection fraction, bilateral pleural effusions, acute anemia, progressively worsening CKD stage V. Patient was noted to have progressively worsening
renal function and was initiated on hemodialysis. He was also noted to have acute anemia and underwent 1 unit of blood transfusion 11/16/2023 with repeat transfusion 11/21/2023. He underwent left-sided thoracentesis 11/17/2023. Patient's reports
he has had 3 dialysis sessions. During his 2nd dialysis session and again today and developed atrial fibrillation with rapid ventricular response associated with hypotension and chest pain during dialysis causing his session to be cut short.
Cardiology being consulted due to paroxysmal atrial fibrillation.
At time of this evaluation patient resting comfortably in bed on oxygen getting blood transfusion. He is now back in sinus rhythm. He currently denies chest pain or shortness of breath.
Progress Note - Phthalic Acid Purifier
Subjective
Date of Service: November 23, 2023
No Afib with HD so far today
Objective
Labs:
11/23/23 07:49
11/23/23 07:49
Labs
Hgb 7.9 g/dL (13.0-18.0) L 11/23/23 07:49
Hct 23.5 % (39.0-52.0) L 11/23/23 07:49
Plt Count 96 10^3/uL (130-400) L D 11/23/23 07:49
PT 15.1 Sec (11.4-14.6) H 11/17/23 07:42
INR 1.20 11/17/23 07:42
Sodium 128 mmol/L (135-145) L 11/23/23 07:49
Potassium 4.1 mmol/L (3.5-5.1) 11/23/23 07:49
BUN 51 mg/dl (9-20) H 11/23/23 07:49
Creatinine 4.2 mg/dL (0.7-1.3) H* 11/23/23 07:49
Glucose 143 mg/dl (70-99) H 11/23/23 07:49
Troponins
11/21/23
11:20
Troponin I 0.031
Vital Signs and I&O:
Vital Signs
Temp Pulse Resp BP Pulse Ox
97.6 F 57 14 164/57 100
11/23/23 07:25 11/23/23 11:00 11/23/23 11:00 11/23/23 11:00 11/23/23 11:00
Vital Signs
Temp Pulse Resp BP Pulse Ox
97.6 F 57 14 164/57 100
11/23/23 07:25 11/23/23 11:00 11/23/23 11:00 11/23/23 11:00 11/23/23 11:00
Intake & Output
11/21/23 11/22/23 11/23/23 11/24/23
06:59 06:59 06:59 06:59
Intake Total 1080 / 1080 370 / 370 780 / 780
Output Total 0 / 0
Balance 1080 / 1080 370 / 370 780 / 780
--- NOTE | 2023-11-23 15:30 | W.PN.HOSP.TC ---
Today's Communication/Plan
-
HD.
Monitor hemodynamics and tolerance with addition of amiodarone
Monitor CBC
Assessment / Plan
Assessment / Plan
IMPRESSION:
Acute CHF preserved EF.
Acute pulmonary edema
Acute hypoxic respiratory failure due to above.
Acute on chronic anemia
CKD 5
Hyponatremia
Suspect non-AR related troponin elevation
Conditions prior to admission:
Chronic diastolic CHF
� Echocardiogram 09/07 with LVEF of 55% mitral stenosis severe.
Severe calcific mitral stenosis
Paroxysmal atrial fibrillation
Hypertension.
CKD stage V.
Status post left upper extremity AV fistula placed.
Chronic pancytopenia
Transfusion dependent anemia of chronic disease/CKD
Liver cancer status post transplant 2019 at [facility]
Hepatitis C treated.
Diabetes, currently diet controlled
PLAN:�
Presents with dyspnea and acute hypoxic respiratory failure likely multifactorial in the settings of decompensated diastolic CHF and volume overload with progressive CKD 5 as well as worsening of chronic anemia, bilateral pleural effusion
Continue oxygen supplementation
Currently on 4 L of nasal cannula; wean O2 as tolerated
new to HD; 3rd session today
Bilateral pleural effusion.
Chest x-ray with at least moderate bilateral pleural effusion.
Status post Thora 11/17. Removed 1800 cc
Paroxysmal atrial fibrillation with rapid reticular response.
Patient with severe mitral stenosis
Rate remains fluctuant with blood pressure variations while on HD.
Patient complains of chest pain at that time.
Troponin in the negative range.
Discussed with cardiology: Limited options for mitral stenosis treatment as well as for atrial fibrillation rhythm control given the multiple comorbidities.
Initiated on amiodarone with close monitoring of liver function in patient with liver transplant
Continue Coreg and aspirin.
Monitor rate and rhythm closely in the settings of HD and hemodynamics.
Transfuse to keep hemoglobin above 8
Acute CHF preserved EF.
Acute pulmonary edema secondary to above.
Attempt of diuresis Lasix 80 mg IV twice daily.
Continue Coreg and amlodipine with caution for hypotension
Now on HD
CKD 5.
Nephrology input appreciated.
Status post HD catheter placement, now on HD; 3rd session today
Pancytopenia, chronic
Acute on chronic anemia.� Anemia of chronic disease, transfusion dependent.� Also suspect chronic bone marrow suppression with antirejection regimen.
Reports dark stool.
Rectal examination heme positive brown stool.
No clinical evidence of acute brisk blood loss.
Status post 1 unit of PRBC transfused on 11/16 with appropriate response.
IV PPI
GI following. No plans for for any scope at this time. Would only transfuse if hemoglobin less than 7. Avoid volume overload
Status post liver transplant around 3 years ago
Compensated
Monitor closely
Continue immunosuppression including mycophenolate, tacrolimus
Type 2 diabetes.
Currently not on insulin or oral glucose lowering medication
hemoglobin A1c 5.1
Basal bolus protocol with serial Accu-Cheks
Disposition:
Discussed extensively with cardiology, nephrology. 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. Given complexity of situation in patient with liver transplant, offered transfer to [facility] for close monitoring of the liver transplant
team. Patient's declined at this point. Will readdress as clinical progress.
Anticipated Discharge: > 48 hours
Subjective/Interval History
-
Date of Service: November 23, 2023
Objective Data
-
Labs:
Laboratory Results
11/23/23
07:49
WBC 1.3 L*
Hgb 7.9 L
Hct 23.5 L
Plt Count 96 L D
Sodium 128 L
Potassium 4.1
Chloride 97 L
Carbon Dioxide 25
BUN 51 H
Creatinine 4.2 H*
Glucose 143 H
Calcium 7.8 L
Total Bilirubin 0.8
AST 21
ALT < 10
Alkaline Phosphatase 57
Vital Signs:
Vital Signs
Temp Pulse Resp BP Pulse Ox
97.6 F 57 14 164/57 100
11/23/23 11:55 11/23/23 11:00 11/23/23 11:00 11/23/23 11:00 11/23/23 11:00
I&O
11/22/23 11/23/23 11/24/23
06:59 06:59 06:59
Intake Total 370 / 370 780 / 780
Balance 370 / 370 780 / 780
Physical Exam
-
General: Well Developed and No Apparent Distress
HEENT: Normocephalic, Atraumatic and Moist Mucous Membranes
Respiratory: Clear to Auscultation
Cardiac: Regular Rhythm and S1/S2; Negative Murmur, Rub or Gallop
GI: Soft, Nontender, Nondistended and Normal Bowel Sounds; Negative Organomegaly
Rectal: Deferred by Provider
Musculoskeletal: No Clubbing, No Cyanosis and No Edema
Skin: Negative Rash
Neuro: Awake, Alert, Oriented and Nonfocal/Grossly Intact
[2023-11-23 15:42] LABS: Glucose - Point of Care 264 mg/dl (70-99)
[2023-11-23] MEDS: NOVOLOG FLEXPEN-LOW RESISTANCE 3 UNITS SC (16:14)
[2023-11-23] MEDS: LIPITOR 20 MG PO (16:16)
[2023-11-23] MEDS: PROGRAF 1 MG PO (17:51)
[2023-11-23 23:01] LABS: Glucose - Point of Care 131 mg/dl (70-99)
[2023-11-24] VITALS (14 sets, daily range): BP systolic 117–187; BP diastolic 52–85; BMI 22.3
[2023-11-24 04:56] LABS: Hematocrit 23.2 % (39.0-52.0); Hemoglobin 7.8 g/dL (13.0-18.0); Mean Corp Hgb Conc. 33.6 g/dL (33.0-37.0); Mean Corpuscular Hgb 30.4 pg (27.0-31.0); Mean Corpuscular Volume 90.3 fL (80.0-94.0); Mean Platelet Volume 8.1 fL (7.4-10.4); Platelet Count 96 10^3/uL (130-400); Red Blood Cell Count 2.57 10^6/uL (4.70-6.10); Red Cell Dist. Width 17.5 % (11.5-14.5)
[2023-11-24 05:18] LABS: ALT (SGPT) < 10 U/L (0-50); AST (SGOT) 18 U/L (17-59); Albumin 2.7 g/dl (3.5-5.0); Alkaline Phosphatase 59 U/L (38-126); Blood Urea Nitrogen 36 mg/dl (9-20); Calcium 7.3 mg/dl (8.4-10.2); Carbon Dioxide 29 mmol/L (22-30); Chloride 98 mmol/L (98-107); Estimated Creatinine Clearance 19 ml/min; Glucose 114 mg/dl (70-99); Sodium 128 mmol/L (135-145); Total Bilirubin 0.8 mg/dl (0.2-1.3); eGFR 20.05
[2023-11-24 05:22] LABS: White Blood Cell Count 1.4 10^3/uL (4.8-10.8)
--- NOTE | 2023-11-24 08:25 | PTCARENOTE ---
Patient received from night clerk. Patient resting comfortably in bed. AAO, VSS. No events noted over night. No complaints of pain but of nausea, PRN Compazine. Call watkins in reach.
[2023-11-24] MEDS: COMPAZINE 10 MG IV (08:34)
[2023-11-24] MEDS: VITAMIN B-12 1000 MCG PO (08:42)
[2023-11-24] MEDS: COREG 25 MG PO (08:42)
[2023-11-24] MEDS: PROGRAF 2 MG PO (08:42)
[2023-11-24] MEDS: PHOSLO 667 MG PO ×3 (08:42→16:48)
[2023-11-24] MEDS: THERAGRAN 1 TABLET PO (08:42)
[2023-11-24] MEDS: CELLCEPT 500 MG PO ×2 (08:42→19:57)
[2023-11-24] MEDS: CELLCEPT 250 MG PO ×2 (08:43→19:57)
[2023-11-24] MEDS: PACERONE 200 MG PO ×2 (08:43→19:57)
[2023-11-24] MEDS: ASPIR LOW (ENTERIC COATED) 81 MG PO (08:43)
[2023-11-24] MEDS: NOVOLOG FLEXPEN-LOW RESISTANCE SC (08:43)
[2023-11-24] MEDS: PROTONIX 40 MG PO (08:43)
[2023-11-24 08:47] LABS: Band Neutrophils 0 % (0-3); Lymphocytes 30 % (20-51); Segmented Neutrophils 41 % (42-75)
[2023-11-24 08:48] LABS: Acanthocytes Occasional; Anisocytosis 1+; Atypical Lymphocytes 1 %; Eosinophils 7 % (0-6); Microcytosis 2+; Monocytes 20 % (2-9); Normal RBC Morphology No; Nucleated Red Blood Cells 1 (-); Ovalocytes 1+; Platelets Checked Yes; Poikilocytosis Occasional; Spherocytes 1+
[2023-11-24 08:49] LABS: Hypochromasia Slight; Smudge Cells Occasional; Total Cells Counted 100
[2023-11-24 08:50] LABS: Absolute Neutrophils -Man Diff 0.5 10^3/uL (1.4-6.5)
[2023-11-24 08:50] LABS: Glucose - Point of Care 126 mg/dl (70-99)
--- NOTE | 2023-11-24 10:44 | W.PN.CARDCBS ---
Today's Communication / Plan
-
Stable cardiac status
Hemodialysis tomorrow
Impression / Plan
-
PCP: Pepe Hi
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 Antoine Bee of [place], now follows locally by Dr. Singleton
Impressions:
Acute on chronic heart failure with preserved ejection fraction
Bilateral pleural effusions
prior thoracentesis August 2023
s/p left thoracentesis 1800 ml removed 11/17/2023
KURTIS/ESRD initiated dialysis 11/17/23
Acute on chronic anemia
Symptomatic PAF
Elevated Troponin
Paroxysmal atrial fibrillation
Not chronically anticoagulated due to pancytopenia
mitral stenosis, severe not surgical candidate
PAD
HTN
hyperlipidemia
DM 2
Orthotopic liver cancer status post liver transplant 11/2020 at [place]
Hepatitis C, treated
pancytopenia
Transfusion dependent anemia of chronic disease
ESRD-HD started 11/16
s/p LUE AV fistula 10/18/23
chronic hyponatremia
History of L CEA
Former smoker
Hypoalbuminemia
ECHO 08/24/23: EF 55 to 60%, mild concentric LVH, stage II diastolic dysfunction, severely dilated left atrium, peak/mean gradient 25/10 mmHg, NIKKO 1.4 cm� consistent with severe MS, trace MR, trace TR, PAP 30 mmHg, small pericardial effusion, large
pleural effusion, large echodense mass of unclear etiology in pleural space
Plan:
Acute on chronic HFpEF: Improved with hemodialysis, still volume overloaded, hopefully volume status will approach euvolemia over the next 3 to 5 days
Paroxysmal atrial fibrillation: Improved with amiodarone. If we are successful in preventing atrial fibrillation, mitral stenosis should not include successful management of HFpEF. Not a candidate for anticoagulation related to anemia and
thrombocytopenia
Mitral stenosis: Related to mitral annular calcification, no good options for therapy other than prevention of atrial fibrillation and control of ventricular rate. With prevention of atrial fibrillation, suspect patient will tolerate mitral
stenosis hemodynamically.
End-stage renal disease: Now on hemodialysis
Orthotopic hepatic transplantation 2020, Diabetes, hyperlipidemia, hypertension, PAD, hepatitis C, cerebral vascular disease: Noted
HPI: Patient is a 68-year-old gentleman with complex comorbid conditions including hypertension, cph-ymdygnn-ffeebhciw type 2 diabetes mellitus, hepatitis C and HCC status post orthotopic liver transplant at [facility] in 2020,
chronic immunosuppression therapy with chronic pancytopenia, follows with hematology, severe mitral stenosis, chronic heart failure with preserved ejection fraction, paroxysmal atrial fibrillation not on full anticoagulation due to pancytopenia from
chronic immunosuppressive therapy, hyperlipidemia, chronic kidney disease, ESRD now on HD, blood transfusions dependent anemia who presented 11/16/2023 with progressively worsening shortness of breath with minimal activity, orthopnea/PND. Shortness
of breath was felt to be multifactorial secondary to acute on chronic heart failure with preserved ejection fraction, bilateral pleural effusions, acute anemia, progressively worsening CKD stage V. Patient was noted to have progressively worsening
renal function and was initiated on hemodialysis. He was also noted to have acute anemia and underwent 1 unit of blood transfusion 11/16/2023 with repeat transfusion 11/21/2023. He underwent left-sided thoracentesis 11/17/2023. Patient's reports
he has had 3 dialysis sessions. During his 2nd dialysis session and again today and developed atrial fibrillation with rapid ventricular response associated with hypotension and chest pain during dialysis causing his session to be cut short.
Cardiology being consulted due to paroxysmal atrial fibrillation.
At time of this evaluation patient resting comfortably in bed on oxygen getting blood transfusion. He is now back in sinus rhythm. He currently denies chest pain or shortness of breath.
Progress Note - Tray Casting Machine Operator
Subjective
Date of Service: November 24, 2023:
Allergies: Oxycodone
Home medications: Amlodipine 5 mg a day, aspirin 81 mg a day, atorvastatin 20 mg a day, carvedilol 25 mg twice daily, magnesium, CellCept, omeprazole, tacrolimus, torsemide 40 mg a.m. and 20 mg p.m.
Inpatient medications: Amlodipine 5 mg a day, aspirin 81 mg a day, atorvastatin 20 mg a day, carvedilol 25 mg twice daily, CellCept, tacrolimus, amiodarone 200 twice daily, new, torsemide has been stopped
PMH/PSH/SH/FH: Reviewed
Review of systems negative except as above
White count 1.4, hemoglobin 7.8, hemoglobin had been 7.9, BUN and creatinine 36 and 3.2, troponin 0.031, peak had been 0.126, proBNP had been 10,100 on November 16
Objective
Labs:
11/24/23 04:17
11/24/23 04:17
Labs
Hgb 7.8 g/dL (13.0-18.0) L 11/24/23 04:17
Hct 23.2 % (39.0-52.0) L 11/24/23 04:17
Plt Count 96 10^3/uL (130-400) L 11/24/23 04:17
PT 15.1 Sec (11.4-14.6) H 11/17/23 07:42
INR 1.20 11/17/23 07:42
Sodium 128 mmol/L (135-145) L 11/24/23 04:17
Potassium 4.0 mmol/L (3.5-5.1) 11/24/23 04:17
BUN 36 mg/dl (9-20) H 11/24/23 04:17
Creatinine 3.2 mg/dL (0.7-1.3) H 11/24/23 04:17
Glucose 114 mg/dl (70-99) H 11/24/23 04:17
Troponins
11/21/23
11:20
Troponin I 0.031
Vital Signs and I&O:
Vital Signs
Temp Pulse Resp BP Pulse Ox
36.9 C 59 17 180/71 95
11/24/23 05:13 11/24/23 08:42 11/24/23 06:00 11/24/23 08:42 11/24/23 06:00
Vital Signs
Temp Pulse Resp BP Pulse Ox
36.9 C 59 17 180/71 95
11/24/23 05:13 11/24/23 08:42 11/24/23 06:00 11/24/23 08:42 11/24/23 06:00
Intake & Output
11/22/23 11/23/23 11/24/23 11/25/23
07:59 07:59 07:59 07:59
Intake Total 370 / 370 780 / 780 600 / 600
Balance 370 / 370 780 / 780 600 / 600
Physical Exam
Physical Exam
Pulse 60, 180/71, 140s/71 weight is 60.9 kg up 1.2 kg
Head neck exam unremarkable, lungs diminished right greater than left, still tachypneic, cardiac with aortic stenosis murmur JVD elevated, abdomen benign, remedies without much edema, neuro nonfocal, pulses palpable, musculoskeletal intact's
--- NOTE | 2023-11-24 11:15 | W.PN.NEPH.PH ---
Today's Communication / Plan
-
Hd tomorrow
will push u/f harder for reduction of volume status
Assessment/Plan
-
IMP:
Acute on chronic CHF preserved EF.
Acute hypoxic respiratory failure due to above.
Bilateral pleural effusion, prior thoracentesis in Aug
Acute on chronic anemia
CKD 5
Hyponatremia
mitral stenosis severe.-no surgery planned
Paroxysmal atrial fibrillation
Hypertension.
Status post left upper extremity AV fistula placed 10/18/23
Chronic pancytopenia
Transfusion dependent anemia of chronic disease/CKD
Orthotopic liver transplant 2020 at [facility]
Hepatitis C treated.
Diabetes, currently diet controlled
Hyperphosphatemia
Plan:
-HD tomorrow, orders provide
-Maintain fluid restriction in setting of hyponatremia
-We will attempt to lower dry weight on dialysis in setting of ongoing hyponatremia and hypertension, however hemodynamic instabililtyn may complicate more aggressive u/f
-it was also previously reviewed that with severe MS and no surgical plan in the future has risk of hemodynamic instability with HD
- knows if pt can not handle HD and we have nothing else to offer him
-
-
Date of Service: November 24, 2023
CC / HPI / ROS
-
Chief Complaint:
KURTIS/CKD
History of Present Illness:
now on HD for ESRD
hemodynamically stable, adiel on amiodarone
pancytopenia persists
remains on tacrolimus and MMF for liver transplant
CO/Afib on HD yesterday
Review of Systems:
oliguric
no fevers
no chest pain or sob
Labs
-
Labs:
WBC 1.4 10^3/uL (4.8-10.8) L* 11/24/23 04:17
RBC 2.57 10^6/uL (4.70-6.10) L 11/24/23 04:17
Hgb 7.8 g/dL (13.0-18.0) L 11/24/23 04:17
Hct 23.2 % (39.0-52.0) L 11/24/23 04:17
Plt Count 96 10^3/uL (130-400) L 11/24/23 04:17
Sodium 128 mmol/L (135-145) L 11/24/23 04:17
Potassium 4.0 mmol/L (3.5-5.1) 11/24/23 04:17
Chloride 98 mmol/L (98-107) 11/24/23 04:17
Carbon Dioxide 29 mmol/L (22-30) 11/24/23 04:17
BUN 36 mg/dl (9-20) H 11/24/23 04:17
Creatinine 3.2 mg/dL (0.7-1.3) H 11/24/23 04:17
eGFR 20.05 11/24/23 04:17
Glucose 114 mg/dl (70-99) H 11/24/23 04:17
Calcium 7.3 mg/dl (8.4-10.2) L 11/24/23 04:17
Rtw-Q-Plwcgyxiogg Pept 66745 pg/ml 11/16/23 11:43
Albumin 2.7 g/dl (3.5-5.0) L 11/24/23 04:17
Physical Exam
-
Vital Signs:
Vital Signs
Temp Pulse Resp BP Pulse Ox
98.4 F 59 17 180/71 95
11/24/23 05:13 11/24/23 08:42 11/24/23 06:00 11/24/23 08:42 11/24/23 06:00
Cardiovascular:: Regular rate and rhythm (adiel)
Respiratory:: Bilateral: Coarse (decreased breath sounds at bases)
Lung Excursion:: Normal
Abdomen:: Nontender and Soft
Bowel Sounds:: Decreased
Extremity Edema:: None: Bilateral:
Taveras Catheter: No
[2023-11-24] MEDS: NOVOLOG FLEXPEN-LOW RESISTANCE 2 UNITS SC (12:05)
[2023-11-24 12:08] LABS: Glucose - Point of Care 234 mg/dl (70-99)
--- NOTE | 2023-11-24 12:33 | W.HF.CON ---
Heart Failure
- LV Function
Left ventricular function study result: LV Ejection fraction >40% (ECHO 08/24/23)
Ejection Fraction Percentage: 55-60
- ARNI
Patient already on ARNI: No
Heart Failure ARNI Not Indicated: LV Ejection Fraction >/= 40%
- ACEI/ARB
Patient already on ACEI/ARB: No
Heart Failure ACEI/ARB Not Indicated: LV Ejection Fraction > 40%
- Beta Erlinda
Patient already on Evidence Based Beta Erlinda: Yes
- Mineralocorticord Receptor Antagonist
Patient already on MRA: No
Heart Failure MRA Not Indicated: LV Ejection Fraction > 40%
- SGLT-2 Inhibitor
Patient already on SGLT-2 Inhibitor: No
Heart Failure SGLT-2 Inhibitor Not Indicated: LV Ejection Fraction >40%
- Afib Anticoagulation
Patient already on Anticoagulation for Afib: No
Heart Failure Afib Anticoagulation Contraindication: Blood Dyscrasias (pancytopneia)
- NYHA CHF Classification
NYHA CHF Classification Level: Class III - Symptoms w/ min exertion, interferes w/ nml daily activity (initiated HD)
- ACC/AHA Stage
ACC/AHA Stage: Stage C: Symptomatic Heart Failure
--- NOTE | 2023-11-24 13:58 | W.PN.HOSP.TC ---
Addendum entered and electronically signed by Charles Garcia MD 11/24/23 17:26:
Per discussion with primary interventional pain physician due to potential of amiodarone hepatotoxicity and potential interaction with Lipitor and tacrolimus, plan is to monitor tacrolimus level as well as signs of myopathy with monitoring of CPK.
Original Note:
Today's Communication/Plan
-
Continue hemodialysis with close monitoring of hemodynamics in patient with severe mitral stenosis and A-fib.
Overall improved since addition of amiodarone.
Monitor LFTs in patient with liver transplantation while on amiodarone.
Physical therapy
Discharge planning likely home early next week if tolerates HD.
Assessment / Plan
Assessment / Plan
IMPRESSION:
Acute CHF preserved EF.
Acute pulmonary edema
Acute hypoxic respiratory failure due to above.
Acute on chronic anemia
CKD 5
Hyponatremia
Suspect non-[place] related troponin elevation
Conditions prior to admission:
Chronic diastolic CHF
� Echocardiogram 09/07 with LVEF of 55% mitral stenosis severe.
Severe calcific mitral stenosis
Paroxysmal atrial fibrillation
Hypertension.
CKD stage V.
Status post left upper extremity AV fistula placed.
Chronic pancytopenia
Transfusion dependent anemia of chronic disease/CKD
Liver cancer status post transplant 2019 at [facility]
Hepatitis C treated.
Diabetes, currently diet controlled
PLAN:�
Presents with dyspnea and acute hypoxic respiratory failure likely multifactorial in the settings of decompensated diastolic CHF and volume overload with progressive CKD 5 as well as worsening of chronic anemia, bilateral pleural effusion
Continue oxygen supplementation
Currently on 4 L of nasal cannula; wean O2 as tolerated
Nocturnal O2 assessment
Recurrent left pleural effusion
Status post Thora 11/17. Removed 1800 cc
Paroxysmal atrial fibrillation with rapid reticular response.
Patient with severe mitral stenosis
Rate remains fluctuant with blood pressure variations while on HD.
Patient complains of chest pain at that time.
Troponin in the negative range.
Discussed with cardiology: Limited options for mitral stenosis treatment as well as for atrial fibrillation rhythm control given the multiple comorbidities.
Initiated on amiodarone with close monitoring of liver function in patient with liver transplant
Continue Coreg and aspirin.
Monitor rate and rhythm closely in the settings of HD and hemodynamics.
Transfuse to keep hemoglobin above 8
Acute CHF preserved EF.
Acute pulmonary edema secondary to above.
Attempt of diuresis Lasix 80 mg IV twice daily.
Continue Coreg and amlodipine with caution for hypotension
Now on HD
CKD 5.
Nephrology input appreciated.
Status post HD catheter placement,
Continue HD monitoring hemodynamics.
Pancytopenia, chronic
Acute on chronic anemia.� Anemia of chronic disease, transfusion dependent.� Also suspect chronic bone marrow suppression with antirejection regimen.
Reports dark stool.
Rectal examination heme positive brown stool.
No clinical evidence of acute brisk blood loss.
Status post 1 unit of PRBC transfused on 11/16 with appropriate response.
IV PPI
GI following. No plans for for any scope at this time. Would only transfuse if hemoglobin less than 7. Avoid volume overload
Status post liver transplant around 3 years ago
Compensated
Monitor closely
Continue immunosuppression including mycophenolate, tacrolimus
Type 2 diabetes.
Currently not on insulin or oral glucose lowering medication
hemoglobin A1c 5.1
Basal bolus protocol with serial Accu-Cheks
Disposition:
Discussed extensively with cardiology, nephrology. Cardiology be in contact with patient's interventional pain physician from [facility]. Given complexity of situation in patient with liver transplant, offered transfer to [facility] for close monitoring of the liver transplant
team. Patient's declined at this point. Will readdress as clinical progress.
Anticipated Discharge: > 48 hours
Subjective/Interval History
-
Date of Service: November 24, 2023
Objective Data
-
Labs:
Laboratory Results
11/24/23
04:17
WBC 1.4 L*
Hgb 7.8 L
Hct 23.2 L
Plt Count 96 L
Sodium 128 L
Potassium 4.0
Chloride 98
Carbon Dioxide 29
BUN 36 H
Creatinine 3.2 H
Glucose 114 H
Calcium 7.3 L
Total Bilirubin 0.8
AST 18
ALT < 10
Alkaline Phosphatase 59
Vital Signs:
Vital Signs
Temp Pulse Resp BP Pulse Ox
97.7 F 59 17 180/71 99
11/24/23 11:20 11/24/23 08:42 11/24/23 06:00 11/24/23 08:42 11/24/23 11:38
I&O
11/23/23 11/24/23 11/25/23
06:59 06:59 06:59
Intake Total 780 / 780 600 / 600
Balance 780 / 780 600 / 600
Physical Exam
-
General: Well Developed and No Apparent Distress
HEENT: Normocephalic, Atraumatic and Moist Mucous Membranes
Respiratory: Clear to Auscultation
Cardiac: Regular Rhythm and S1/S2; Negative Murmur, Rub or Gallop
GI: Soft, Nontender, Nondistended and Normal Bowel Sounds; Negative Organomegaly
Rectal: Deferred by Provider
Musculoskeletal: No Clubbing, No Cyanosis and No Edema
Skin: Negative Rash
Neuro: Nonfocal/Grossly Intact
[2023-11-24 15:54] LABS: Glucose - Point of Care 262 mg/dl (70-99)
--- NOTE | 2023-11-24 16:47 | CM ---
Patient with Hx liver transplant with Dx Acute CHF, Acute pulmonary edema, Acute hypoxic respiratory failure, Acute on chronic anemia, CKD 5. O2 2L. PT & OT recommend HH.
Spoke with [facility]; she does not have the hepatitis labs that were previously faxed to [facility] ---> faxed to [phone].
Spoke with [place]; the patient is cleared to start HD at [facility] on 11/29- first day start time is 3:50pm. They will send schedule letter.
Spoke with Maxine, patient's ; provided update accepted to start at [facility] at 3:50pm next Mon. is aware that he was accepted by [facility]. She expressed concern whether patient might need home O2.
Plan watch for home O2 needs.
Plan home with outpatient [facility], with [facility].
[2023-11-24] MEDS: NOVOLOG FLEXPEN-LOW RESISTANCE 3 UNITS SC (16:48)
[2023-11-24] MEDS: LIPITOR 20 MG PO (17:10)
[2023-11-24] MEDS: PROGRAF 1 MG PO (17:10)
[2023-11-24 22:46] LABS: Glucose - Point of Care 141 mg/dl (70-99)
[2023-11-25] VITALS (27 sets, daily range): BP systolic 125–191; BP diastolic 56–138; BMI 22.4
[2023-11-25 04:34] LABS: ALT (SGPT) < 10 U/L (0-50); AST (SGOT) 20 U/L (17-59); Albumin 2.8 g/dl (3.5-5.0); Alkaline Phosphatase 62 U/L (38-126); Blood Urea Nitrogen 52 mg/dl (9-20); Calcium 7.8 mg/dl (8.4-10.2); Carbon Dioxide 24 mmol/L (22-30); Chloride 98 mmol/L (98-107); Creatine Phosphokinase 28 U/L (55-170); Estimated Creatinine Clearance 15 ml/min; Glucose 115 mg/dl (70-99); Sodium 126 mmol/L (135-145); Total Bilirubin 0.8 mg/dl (0.2-1.3); Total Protein 5.2 g/dl (6.3-8.2); eGFR 15.34
--- NOTE | 2023-11-25 05:44 | RESPNOTE ---
nocturnal study on ra completed. pulse oximeter #1 used in testing. data scanned into chart
--- NOTE | 2023-11-25 06:25 | PTCARENOTE ---
No acute events overnight. Plan for dialysis at 0700.
[2023-11-25] MEDS: ASPIR LOW (ENTERIC COATED) 81 MG PO (07:31)
[2023-11-25] MEDS: CELLCEPT 250 MG PO ×2 (07:31→20:03)
[2023-11-25] MEDS: NOVOLOG FLEXPEN-LOW RESISTANCE SC ×2 (07:31→11:37)
[2023-11-25] MEDS: CELLCEPT 500 MG PO ×2 (07:32→20:03)
[2023-11-25] MEDS: PROTONIX 40 MG PO (07:32)
[2023-11-25] MEDS: PROGRAF 2 MG PO (07:32)
[2023-11-25] MEDS: PACERONE 200 MG PO ×2 (07:32→20:03)
[2023-11-25] MEDS: PHOSLO 667 MG PO ×3 (07:32→16:44)
[2023-11-25 07:41] LABS: Glucose - Point of Care 125 mg/dl (70-99)
[2023-11-25 08:07] LABS: Hematocrit 25.7 % (39.0-52.0); Hemoglobin 8.7 g/dL (13.0-18.0)
--- NOTE | 2023-11-25 08:38 | PTCARENOTE ---
Patient received from maintenance supervisor 2nd shift. Patient resting comfortably in bed. AAO, VSS. No events noted over night. No complaints of pain or nausea this AM. To receive HD this AM. Nocturnal POX study performed overnight to assess possible need for
home O2 HS, currently on Room Air. Call watkins in reach.
[2023-11-25] MEDS: EPOGEN 10000 UNITS IV (08:59)
[2023-11-25] MEDS: MANNITOL 12.5 GRAMS IV ×2 (09:00→10:04)
--- NOTE | 2023-11-25 09:36 | W.PN.NEPH.HD ---
Assessment
-
Patient seen on HD
sbp 144, sinus adiel at current 2kg U/F
next Hd Monday (to change to [facility])
Progress Note - Hemodialysis
-
Date of Service: November 25, 2023
Duration: 30 minutes and 3 hours
Potassium Bath: 3
Calcium Bath: 2.5
Opti-Dialyzer: 160
Ultrafiltration: Other (2kg)
Blood Flow: 400
Dialysate Flow: 600
Heparin: none
EPO: 10K
--- NOTE | 2023-11-25 10:31 | W.PN.CARDCBS ---
Today's Communication / Plan
-
Heart rate better with discontinuation of carvedilol
Continue amiodarone, no recurrent A-fib
Volume status improved with hemodialysis
Tentative discharge Monday after hemodialysis
Impression / Plan
-
PCP: [facility]
Housing Manager: Previously followed by Dr. Antoine Bee of [place], now follows locally by Dr. Singleton
Impressions:
Acute on chronic heart failure with preserved ejection fraction
Bilateral pleural effusions
prior thoracentesis August 2023
s/p left thoracentesis 1800 ml removed 11/17/2023
KURTIS/ESRD initiated dialysis 11/17/23
Acute on chronic anemia
Symptomatic PAF
Elevated Troponin
Paroxysmal atrial fibrillation
Not chronically anticoagulated due to pancytopenia
mitral stenosis, severe not surgical candidate
PAD
HTN
hyperlipidemia
DM 2
Orthotopic liver cancer status post liver transplant 11/2020 at [place]
Hepatitis C, treated
pancytopenia
Transfusion dependent anemia of chronic disease
ESRD-HD started 11/16
s/p LUE AV fistula 10/18/23
chronic hyponatremia
History of L CEA
Former smoker
Hypoalbuminemia
ECHO 08/24/23: EF 55 to 60%, mild concentric LVH, stage II diastolic dysfunction, severely dilated left atrium, peak/mean gradient 25/10 mmHg, NIKKO 1.4 cm� consistent with severe MS, trace MR, trace TR, PAP 30 mmHg, small pericardial effusion, large
pleural effusion, large echodense mass of unclear etiology in pleural space
Plan:
Acute HFpEF: Volume status is continuing to improve. He appears well, currently on dialysis and tolerating it without evidence of recurrent A-fib. Hopefully will reach dry weight over the next 1-2 sessions.
Paroxysmal atrial fibrillation: Thus far controlled on low-dose amiodarone. He had been relatively bradycardic, carvedilol was stopped heart rate now around 60. Continue amiodarone 200 mg twice daily. Not anticoagulated
Hypertension: Defer to renal
Mitral stenosis related to mitral annular calcification: Currently not an active issue with control of heart rate with amiodarone
End-stage renal disease: On hemodialysis
Acute on chronic HFpEF: Improved with hemodialysis, still volume overloaded, hopefully volume status will approach euvolemia over the next 3 to 5 days
Paroxysmal atrial fibrillation: Improved with amiodarone. If we are successful in preventing atrial fibrillation, mitral stenosis should not include successful management of HFpEF. Not a candidate for anticoagulation related to anemia and
thrombocytopenia
Mitral stenosis: Related to mitral annular calcification, no good options for therapy other than prevention of atrial fibrillation and control of ventricular rate. With prevention of atrial fibrillation, suspect patient will tolerate mitral
stenosis hemodynamically.
End-stage renal disease: Now on hemodialysis
Orthotopic liver transplantation: Stable
Diabetes, hyperlipidemia, hypertension, PAD, hepatitis C, cerebral vascular disease: Noted
HPI: Patient is a 68-year-old gentleman with complex comorbid conditions including hypertension, fhk-wqffudz-miojpqlob type 2 diabetes mellitus, hepatitis C and HCC status post orthotopic liver transplant at [facility] in 2020,
chronic immunosuppression therapy with chronic pancytopenia, follows with hematology, severe mitral stenosis, chronic heart failure with preserved ejection fraction, paroxysmal atrial fibrillation not on full anticoagulation due to pancytopenia from
chronic immunosuppressive therapy, hyperlipidemia, chronic kidney disease, ESRD now on HD, blood transfusions dependent anemia who presented 11/16/2023 with progressively worsening shortness of breath with minimal activity, orthopnea/PND. Shortness
of breath was felt to be multifactorial secondary to acute on chronic heart failure with preserved ejection fraction, bilateral pleural effusions, acute anemia, progressively worsening CKD stage V. Patient was noted to have progressively worsening
renal function and was initiated on hemodialysis. He was also noted to have acute anemia and underwent 1 unit of blood transfusion 11/16/2023 with repeat transfusion 11/21/2023. He underwent left-sided thoracentesis 11/17/2023. Patient's reports
he has had 3 dialysis sessions. During his 2nd dialysis session and again today and developed atrial fibrillation with rapid ventricular response associated with hypotension and chest pain during dialysis causing his session to be cut short.
Cardiology being consulted due to paroxysmal atrial fibrillation.
At time of this evaluation patient resting comfortably in bed on oxygen getting blood transfusion. He is now back in sinus rhythm. He currently denies chest pain or shortness of breath.
Progress Note - Housing Manager
Subjective
Date of Service: November 25, 2023:
Patient currently on hemodialysis
allergies oxycodone
Outpatient meds: Amlodipine 5 mg a day, aspirin 81 mg a day atorvastatin 20 mg a day, carvedilol 25 mg twice daily, magnesium, CellCept, omeprazole, tacrolimus, torsemide 60 mg daily
Current medications: Amlodipine 5 mg daily on hold, aspirin 81 mg a day, atorvastatin 20 mg a day, vitamin B12, CellCept, tacrolimus, insulin, amiodarone 200 twice daily, carvedilol has been stopped
PMH/PSH/SH/FH: Reviewed
Review of systems: Negative except as above
Nocturnal pulse ox, numerous desaturations to low 80s
Hemoglobin 8.7
Sodium 126, potassium 4.0, BUN and creatinine 52 and 4
Objective
Labs:
11/25/23 07:39
11/25/23 03:37
Labs
Hgb 8.7 g/dL (13.0-18.0) L 11/25/23 07:39
Hct 25.7 % (39.0-52.0) L 11/25/23 07:39
Plt Count 96 10^3/uL (130-400) L 11/24/23 04:17
PT 15.1 Sec (11.4-14.6) H 11/17/23 07:42
INR 1.20 11/17/23 07:42
Sodium 126 mmol/L (135-145) L 11/25/23 03:37
Potassium 4.0 mmol/L (3.5-5.1) 11/25/23 03:37
BUN 52 mg/dl (9-20) H 11/25/23 03:37
Creatinine 4.0 mg/dL (0.7-1.3) H 11/25/23 03:37
Glucose 115 mg/dl (70-99) H 11/25/23 03:37
Vital Signs and I&O:
Vital Signs
Temp Pulse Resp BP Pulse Ox
36.8 C 63 17 188/73 93
11/25/23 07:19 11/25/23 07:32 11/25/23 06:00 11/25/23 07:32 11/25/23 09:24
Vital Signs
Temp Pulse Resp BP Pulse Ox
36.8 C 63 17 188/73 93
11/25/23 07:19 11/25/23 07:32 11/25/23 06:00 11/25/23 07:32 11/25/23 09:24
Intake & Output
11/23/23 11/24/23 11/25/23 11/26/23
07:59 07:59 07:59 07:59
Intake Total 780 / 780 600 / 600 870 / 870
Balance 780 / 780 600 / 600 870 / 870
Physical Exam
Physical Exam
188/73, pulse 63, respirate 17, afebrile, sats 93%'s, Weight is 61.1 kg, had been 59.7 kg on the eighth, head neck exam is unremarkable, aeration of lung bases is improved, occasional extrasystoles, aortic stenosis murmur, JVD is improving, abdomen
benign, no edema, neuro nonfocal
[2023-11-25] MEDS: HEPARIN 4300 UNITS INTRACATH (11:13)
[2023-11-25] MEDS: THERAGRAN 1 TABLET PO (11:36)
[2023-11-25] MEDS: VITAMIN B-12 1000 MCG PO (11:36)
[2023-11-25 11:46] LABS: Glucose - Point of Care 115 mg/dl (70-99)
--- NOTE | 2023-11-25 13:10 | W.PN.HOSP.TC ---
Today's Communication/Plan
-
HD per nephro
monitor LFT
earliest discharge on Mon after HD
Assessment / Plan
Assessment / Plan
IMPRESSION:
Acute CHF preserved EF.
Acute pulmonary edema
Acute hypoxic respiratory failure due to above.
Acute on chronic anemia
CKD 5
Hyponatremia
Suspect non-[place] related troponin elevation
Conditions prior to admission:
Chronic diastolic CHF
� Echocardiogram 09/07 with LVEF of 55% mitral stenosis severe.
Severe calcific mitral stenosis
Paroxysmal atrial fibrillation
Hypertension.
CKD stage V.
Status post left upper extremity AV fistula placed.
Chronic pancytopenia
Transfusion dependent anemia of chronic disease/CKD
Liver cancer status post transplant 2019 at [facility]
Hepatitis C treated.
Diabetes, currently diet controlled
PLAN:�
Presents with dyspnea and acute hypoxic respiratory failure likely multifactorial in the settings of decompensated diastolic CHF and volume overload with progressive CKD 5 as well as worsening of chronic anemia, bilateral pleural effusion
Continue oxygen supplementation, currently on 2L NC
Nocturnal o2 did not show any desaturation/apnea episode of 30sec
Recurrent left pleural effusion
Status post Thora 11/17. Removed 1800 cc - transudative in nature
Paroxysmal atrial fibrillation with rapid reticular response.
Patient with severe mitral stenosis
Rate remains fluctuant with blood pressure variations while on HD.
Patient complains of chest pain at that time.
Troponin in the negative range.
Discussed with cardiology: Limited options for mitral stenosis treatment as well as for atrial fibrillation rhythm control given the multiple comorbidities.
Initiated on amiodarone with close monitoring of liver function in patient with liver transplant
Monitor rate and rhythm closely in the settings of HD and hemodynamics.
LFT remains normal, continue monitoring.
Acute CHF preserved EF.
Acute pulmonary edema secondary to above.
Attempted of diuresis Lasix 80 mg IV twice daily.
Continue Coreg and amlodipine with caution for hypotension
Now on HD
CKD 5.
Nephrology input appreciated.
Status post HD catheter placement,
Continue HD monitoring hemodynamics.
Pancytopenia, chronic
Acute on chronic anemia.� Anemia of chronic disease, transfusion dependent.� Also suspect chronic bone marrow suppression with antirejection regimen.
Rectal examination heme positive brown stool.
No clinical evidence of acute brisk blood loss.
Status post 1 unit of PRBC transfused on 11/16 with appropriate response.
IV PPI
GI following. No plans for for any scope at this time. Would only transfuse if hemoglobin less than 7.
Status post liver transplant around 3 years ago
Compensated
Monitor closely
Continue immunosuppression including mycophenolate, tacrolimus
Type 2 diabetes.
Currently not on insulin or oral glucose lowering medication
hemoglobin A1c 5.1
Basal bolus protocol with serial Accu-Cheks
Patient HD chair time arranged starting next monday, patient could likely be discharged home post HD on Monday
Anticipated Discharge: 24 - 48 hours
Subjective/Interval History
-
Date of Service: November 25, 2023
resting comfortable in bed
no acute issues overnight
Objective Data
-
Labs:
Laboratory Results
11/25/23 11/25/23
03:37 07:39
Hgb 8.7 L
Hct 25.7 L
Sodium 126 L
Potassium 4.0
Chloride 98
Carbon Dioxide 24
BUN 52 H
Creatinine 4.0 H
Glucose 115 H
Calcium 7.8 L
Total Bilirubin 0.8
AST 20
ALT < 10
Alkaline Phosphatase 62
Vital Signs:
Vital Signs
Temp Pulse Resp BP Pulse Ox
98.2 F 59 17 148/69 95
11/25/23 07:19 11/25/23 11:00 11/25/23 11:00 11/25/23 11:00 11/25/23 11:00
I&O
11/24/23 11/25/23 11/26/23
06:59 06:59 06:59
Intake Total 600 / 600 870 / 870
Balance 600 / 600 870 / 870
Review of Systems
-
Respiratory: Reports No Symptoms
Cardiac: Reports No Symptoms
Abdomen/GI: Reports No Symptoms
Physical Exam
-
General: No Apparent Distress
HEENT: Oxygen (2L NC)
Respiratory: Clear to Auscultation
Cardiac: Regular Rhythm and S1/S2; Negative Murmur, Rub or Gallop
GI: Soft, Nontender and Nondistended
Musculoskeletal: No Edema
Skin: Negative Rash
Neuro: Awake, Alert, Oriented, No Motor Deficits and Nonfocal/Grossly Intact
[2023-11-25] MEDS: NOVOLOG FLEXPEN-LOW RESISTANCE 1 UNITS SC (16:43)
[2023-11-25 16:44] LABS: Glucose - Point of Care 169 mg/dl (70-99)
--- NOTE | 2023-11-25 18:13 | PTCARENOTE ---
Report given to Angelique ALSTON , 2S
[2023-11-25] MEDS: LIPITOR 20 MG PO (18:26)
[2023-11-25] MEDS: PROGRAF 1 MG PO (18:26)
[2023-11-25 21:44] LABS: Glucose - Point of Care 167 mg/dl (70-99)
--- NOTE | 2023-11-25 23:18 | PTCARENOTE ---
Addendum entered by Faina Pickett RN 11/26/23 03:44:
Patient's BP 198/94 HR 75. Pt asymptomatic. Adolfo FOREMAN notified via TT. Order received to adm Norvasc 5mg X1 NOW. See MAR.
Original Note:
Patient's manual BP 192/76 HR 77. NSR on nuclear monitoring technician. Pt asymptomatic. Adolfo FOREMAN notified. No new orders at this time. Plan of care ongoing.
[2023-11-26] VITALS (8 sets, daily range): BP systolic 128–199; BP diastolic 64–94; PULSE 62; O2SAT 94; BMI 22.2; BMI 22.1
[2023-11-26] MEDS: NORVASC 5 MG PO (03:40)
[2023-11-26 07:48] LABS: Glucose - Point of Care 124 mg/dl (70-99)
[2023-11-26] MEDS: THERAGRAN 1 TABLET PO (09:00)
[2023-11-26] MEDS: NOVOLOG FLEXPEN-LOW RESISTANCE SC ×2 (09:00→16:27)
[2023-11-26] MEDS: PHOSLO 667 MG PO ×3 (09:01→17:05)
[2023-11-26] MEDS: VITAMIN B-12 1000 MCG PO (09:01)
[2023-11-26] MEDS: PROTONIX 40 MG PO (09:02)
[2023-11-26] MEDS: CELLCEPT 250 MG PO ×2 (09:02→20:05)
[2023-11-26] MEDS: CELLCEPT 500 MG PO ×2 (09:02→20:05)
[2023-11-26] MEDS: PROGRAF 2 MG PO (09:03)
[2023-11-26] MEDS: ASPIR LOW (ENTERIC COATED) 81 MG PO (09:03)
[2023-11-26] MEDS: PACERONE 200 MG PO ×2 (09:04→20:00)
--- NOTE | 2023-11-26 11:06 | W.PN.NEPH.PH ---
Today's Communication / Plan
-
Dialysis tomorrow
Assessment/Plan
-
IMP:
Acute on chronic CHF preserved EF.
Acute hypoxic respiratory failure due to above.
Bilateral pleural effusion, prior thoracentesis in Aug
Acute on chronic anemia
CKD 5
Hyponatremia
mitral stenosis severe.-no surgery planned
Paroxysmal atrial fibrillation
Hypertension.
Status post left upper extremity AV fistula placed 10/18/23
Chronic pancytopenia
Transfusion dependent anemia of chronic disease/CKD
Orthotopic liver transplant 2020 at [facility]
Hepatitis C treated.
Diabetes, currently diet controlled
Hyperphosphatemia
Plan:
-HD tomorrow, orders provided, pushing u/f
-Maintain fluid restriction in setting of hyponatremia
-We will attempt to lower dry weight on dialysis in setting of ongoing hyponatremia and hypertension, however hemodynamic instability may complicate more aggressive u/f
-it was also previously reviewed that with severe MS and no surgical plan in the future has risk of hemodynamic instability with HD
-Patient for discharge after dialysis tomorrow to [facility] unit on Monday
-
-
Date of Service: November 26, 2023
CC / HPI / ROS
-
Chief Complaint:
KURTIS/CKD
History of Present Illness:
now on HD for ESRD
hemodynamically stable, adiel on amiodarone
pancytopenia persists
remains on tacrolimus and MMF for liver transplant
No issues with atrial fibrillation on dialysis 11/25/2023
Review of Systems:
oliguric
no fevers
no chest pain or sob
Labs
-
Labs:
WBC 1.4 10^3/uL (4.8-10.8) L* 11/24/23 04:17
RBC 2.57 10^6/uL (4.70-6.10) L 11/24/23 04:17
Hgb 8.7 g/dL (13.0-18.0) L 11/25/23 07:39
Hct 25.7 % (39.0-52.0) L 11/25/23 07:39
Plt Count 96 10^3/uL (130-400) L 11/24/23 04:17
eGFR 15.34 11/25/23 03:37
Cbj-A-Lsxvqobetju Pept 73860 pg/ml 11/16/23 11:43
Physical Exam
-
Vital Signs:
Vital Signs
Temp Pulse Resp BP Pulse Ox
97.7 F 112 16 128/78 98
11/26/23 07:27 11/26/23 09:04 11/26/23 07:27 11/26/23 09:04 11/26/23 09:11
Cardiovascular:: Regular rate and rhythm
Respiratory:: Bilateral: Coarse
Lung Excursion:: Normal
Abdomen:: Distended, Nontender and Soft
Bowel Sounds:: Normal
Extremity Edema:: None: Bilateral:
Taveras Catheter: No
--- NOTE | 2023-11-26 11:20 | W.PN.HOSP.TC ---
Today's Communication/Plan
-
home o2 arrangement
check LFT
discharge tomorrow after HD
Assessment / Plan
Assessment / Plan
IMPRESSION:
Acute CHF preserved EF.
Acute pulmonary edema
Acute hypoxic respiratory failure due to above.
Acute on chronic anemia
CKD 5
Hyponatremia
Suspect non-VT related troponin elevation
Conditions prior to admission:
Chronic diastolic CHF
� Echocardiogram 09/07 with LVEF of 55% mitral stenosis severe.
Severe calcific mitral stenosis
Paroxysmal atrial fibrillation
Hypertension.
CKD stage V.
Status post left upper extremity AV fistula placed.
Chronic pancytopenia
Transfusion dependent anemia of chronic disease/CKD
Liver cancer status post transplant 2019 at [facility]
Hepatitis C treated.
Diabetes, currently diet controlled
PLAN:�
Presents with dyspnea and acute hypoxic respiratory failure likely multifactorial in the settings of decompensated diastolic CHF and volume overload with progressive CKD 5 as well as worsening of chronic anemia, bilateral pleural effusion
Continue oxygen supplementation, currently on 2L NC
Nocturnal o2 did not show any desaturation/apnea episode of 30sec
Home o2 assessment ordered for discharge planning for tomorrow
Recurrent left pleural effusion
Status post Thora 11/17. Removed 1800 cc - transudative in nature
Paroxysmal atrial fibrillation with rapid reticular response.
Patient with severe mitral stenosis
Rate remains fluctuant with blood pressure variations while on HD.
Patient complains of chest pain at that time.
Troponin in the negative range.
Discussed with cardiology: Limited options for mitral stenosis treatment as well as for atrial fibrillation rhythm control given the multiple comorbidities.
Initiated on amiodarone with close monitoring of liver function in patient with liver transplant
Monitor rate and rhythm closely in the settings of HD and hemodynamics.
LFT remains normal, continue monitoring.
Acute CHF preserved EF.
Acute pulmonary edema secondary to above.
Attempted of diuresis Lasix 80 mg IV twice daily.
Continue Coreg and amlodipine with caution for hypotension
Now on HD
CKD 5.
Nephrology input appreciated.
Status post HD catheter placement,
Continue HD monitoring hemodynamics.
Pancytopenia, chronic
Acute on chronic anemia.� Anemia of chronic disease, transfusion dependent.� Also suspect chronic bone marrow suppression with antirejection regimen.
Rectal examination heme positive brown stool.
No clinical evidence of acute brisk blood loss.
Status post 1 unit of PRBC transfused on 11/16 with appropriate response.
IV PPI
GI following. No plans for for any scope at this time. Would only transfuse if hemoglobin less than 7.
Status post liver transplant around 3 years ago
Compensated
Monitor closely
Continue immunosuppression including mycophenolate, tacrolimus
Type 2 diabetes.
Currently not on insulin or oral glucose lowering medication
hemoglobin A1c 5.1
Basal bolus protocol with serial Accu-Cheks
Patient HD chair time arranged starting next monday, patient could likely be discharged home post HD on Monday
Anticipated Discharge: Within 24 hours
Subjective/Interval History
-
Date of Service: November 26, 2023
reported sob
on o2 through NC
Objective Data
-
Labs:
Laboratory Results
11/26/23
11:00
Sodium Pending
Potassium Pending
Chloride Pending
Carbon Dioxide Pending
BUN Pending
Creatinine Pending
Glucose Pending
Calcium Pending
Total Bilirubin Pending
AST Pending
ALT Pending
Alkaline Phosphatase Pending
Vital Signs:
Vital Signs
Temp Pulse Resp BP Pulse Ox
97.7 F 112 16 128/78 98
11/26/23 07:27 11/26/23 09:04 11/26/23 07:27 11/26/23 09:04 11/26/23 09:11
I&O
11/25/23 11/26/2324
06:59 06:59 06:59
Intake Total 870 / 870 240 / 240 300 / 300
Balance 870 / 870 240 / 240 300 / 300
Review of Systems
-
Respiratory: Reports Trouble Breathing; Denies Cough or Hemoptysis
Cardiac: Reports No Symptoms
Abdomen/GI: Reports No Symptoms
Physical Exam
-
General: No Apparent Distress
HEENT: Oxygen (2L NC)
Respiratory: Clear to Auscultation
Cardiac: Regular Rhythm and S1/S2; Negative Murmur, Rub or Gallop
GI: Soft, Nontender and Nondistended
Musculoskeletal: No Edema
Skin: Negative Rash
Neuro: Awake, Alert, Oriented, No Motor Deficits and Nonfocal/Grossly Intact
[2023-11-26 11:22] LABS: ALT (SGPT) < 10 U/L (0-50); AST (SGOT) 21 U/L (17-59); Albumin 2.6 g/dl (3.5-5.0); Alkaline Phosphatase 58 U/L (38-126); Blood Urea Nitrogen 44 mg/dl (9-20); Carbon Dioxide 28 mmol/L (22-30); Chloride 93 mmol/L (98-107); Estimated Creatinine Clearance 18 ml/min; Glucose 206 mg/dl (70-99); Potassium 3.7 mmol/L (3.5-5.1); Sodium 130 mmol/L (135-145); Total Bilirubin 0.8 mg/dl (0.2-1.3); eGFR 20.05
[2023-11-26 11:31] LABS: Glucose - Point of Care 221 mg/dl (70-99)
[2023-11-26] MEDS: NOVOLOG FLEXPEN-LOW RESISTANCE 2 UNITS SC (11:39)
[2023-11-26 16:18] LABS: Glucose - Point of Care 138 mg/dl (70-99)
--- NOTE | 2023-11-26 16:28 | VATNOTE ---
Upon routine assessment it was noted that both of pt's existing PIVs were leaking, this RN discontinued both IVs. Discussed need for Peripheral IV with Dr. Valladares via [employer]. Pt on telemetry but not receiving any medications IV. Per Dr. Valladares, OK
to discontinue telemetry and there is no need for additional PIV stick. Angelique Castro, RN (primary care nurse) aware.
[2023-11-26] MEDS: LIPITOR 20 MG PO (17:05)
[2023-11-26] MEDS: PROGRAF 1 MG PO (17:06)
--- NOTE | 2023-11-26 18:05 | W.PN.CARDCBS ---
Today's Communication / Plan
-
Thoracentesis tomorrow
Still not at dry weight
Impression / Plan
-
PCP: Pepe Hi
Grants Assistant: Previously followed by Dr. Antoine Bee of [place], now follows locally by Dr. Singleton
Impressions:
Acute on chronic heart failure with preserved ejection fraction
Bilateral pleural effusions
prior thoracentesis August 2023
s/p left thoracentesis 1800 ml removed 11/17/2023
KURTIS/ESRD initiated dialysis 11/17/23
Acute on chronic anemia
Symptomatic PAF
Elevated Troponin
Paroxysmal atrial fibrillation
Not chronically anticoagulated due to pancytopenia
mitral stenosis, severe not surgical candidate
PAD
HTN
hyperlipidemia
DM 2
Orthotopic liver cancer status post liver transplant 11/2020 at [place]
Hepatitis C, treated
pancytopenia
Transfusion dependent anemia of chronic disease
ESRD-HD started 11/16
s/p LUE AV fistula 10/18/23
chronic hyponatremia
History of L CEA
Former smoker
Hypoalbuminemia
ECHO 08/24/23: EF 55 to 60%, mild concentric LVH, stage II diastolic dysfunction, severely dilated left atrium, peak/mean gradient 25/10 mmHg, NIKKO 1.4 cm� consistent with severe MS, trace MR, trace TR, PAP 30 mmHg, small pericardial effusion, large
pleural effusion, large echodense mass of unclear etiology in pleural space
Plan:
Episode of what could have been PAF earlier today, now in sinus rhythm. Rate was not terribly high.
Patient for hemodialysis tomorrow. Still with some evidence of volume overload on exam.
Last chest x-ray on November 24 suggested large effusion.
Will repeat chest ultrasound tomorrow and consider thoracentesis prior to discharge.
Keep on telemetry for now to see if as needed metoprolol is needed.
Treatment of hypertension per nephrology. Hospitalist has ordered clonidine.
HPI: Patient is a 68-year-old gentleman with complex comorbid conditions including hypertension, [id number] type 2 diabetes mellitus, hepatitis C and HCC status post orthotopic liver transplant at [facility] in 2020,
chronic immunosuppression therapy with chronic pancytopenia, follows with hematology, severe mitral stenosis, chronic heart failure with preserved ejection fraction, paroxysmal atrial fibrillation not on full anticoagulation due to pancytopenia from
chronic immunosuppressive therapy, hyperlipidemia, chronic kidney disease, ESRD now on HD, blood transfusions dependent anemia who presented 11/16/2023 with progressively worsening shortness of breath with minimal activity, orthopnea/PND. Shortness
of breath was felt to be multifactorial secondary to acute on chronic heart failure with preserved ejection fraction, bilateral pleural effusions, acute anemia, progressively worsening CKD stage V. Patient was noted to have progressively worsening
renal function and was initiated on hemodialysis. He was also noted to have acute anemia and underwent 1 unit of blood transfusion 11/16/2023 with repeat transfusion 11/21/2023. He underwent left-sided thoracentesis 11/17/2023. Patient's reports
he has had 3 dialysis sessions. During his 2nd dialysis session and again today and developed atrial fibrillation with rapid ventricular response associated with hypotension and chest pain during dialysis causing his session to be cut short.
Cardiology being consulted due to paroxysmal atrial fibrillation.
At time of this evaluation patient resting comfortably in bed on oxygen getting blood transfusion. He is now back in sinus rhythm. He currently denies chest pain or shortness of breath.
Progress Note - Grants Assistant
Subjective
Date of Service: November 26, 2023:
Still some shortness of breath, tachycardic earlier today now in sinus rhythm
174/73 resp 16, afebrile
allergies: Oxycodone
Outpatient meds, amlodipine 5 mg a day, aspirin 81 mg a day, atorvastatin 20 mg a day, carvedilol 25 mg twice daily, magnesium, CellCept, tacrolimus, torsemide 40 mg a.m. and 20 p.m.
Inpatient Meds: Carvedilol has been stopped, amiodarone 200 twice daily is new, torsemide has been stopped
PMH/PSH/FH/SH: Reviewed
Review of systems: Negative except as above
Sodium 130, BUN and creatinine 44 and 3.2, glucose 206
Objective
Labs:
11/25/23 07:39
11/26/23 11:00
Labs
Hgb 8.7 g/dL (13.0-18.0) L 11/25/23 07:39
Hct 25.7 % (39.0-52.0) L 11/25/23 07:39
Plt Count 96 10^3/uL (130-400) L 11/24/23 04:17
PT 15.1 Sec (11.4-14.6) H 11/17/23 07:42
INR 1.20 11/17/23 07:42
Sodium 130 mmol/L (135-145) L 11/26/23 11:00
Potassium 3.7 mmol/L (3.5-5.1) 11/26/23 11:00
BUN 44 mg/dl (9-20) H 11/26/23 11:00
Creatinine 3.2 mg/dL (0.7-1.3) H 11/26/23 11:00
Glucose 206 mg/dl (70-99) H 11/26/23 11:00
Vital Signs and I&O:
Vital Signs
Temp Pulse Resp BP Pulse Ox
36.5 C 66 15 174/73 98
11/26/23 16:50 11/26/23 16:50 11/26/23 16:50 11/26/23 16:50 11/26/23 16:50
Vital Signs
Temp Pulse Resp BP Pulse Ox
36.5 C 66 15 174/73 98
11/26/23 16:50 11/26/23 16:50 11/26/23 16:50 11/26/23 16:50 11/26/23 16:50
Intake & Output
02/09/24 02/10/24 02/11/24 02/12/24
07:59 07:59 07:59 07:59
Intake Total 600 / 600 870 / 870 240 / 240 680 / 680
Balance 600 / 600 870 / 870 240 / 240 680 / 680
Physical Exam
Physical Exam
Head neck exam unremarkable, diminished breath sounds in bases, regular rate and rhythm with S4 and systolic murmur, not much edema, neck veins may be slightly elevated, abdomen benign
[2023-11-26] MEDS: CATAPRES 0.200000000000000011 MG PO (18:55)
--- NOTE | 2023-11-26 19:34 | PTCARENOTE ---
Pt BP 174/73. Notified yeast washer/hospitalist. replied to give Clonidine 0.2mg x1 PO. Returned Materials Inspector then came to floor asked for tele to be replaced. and ok'd medications but stated to contact nephrology for BP issues. BP 175/85 (70) at
time of administration 1954.
[2023-11-26 21:45] LABS: Glucose - Point of Care 155 mg/dl (70-99)
[2023-11-27] VITALS (9 sets, daily range): BP systolic 74–173; BP diastolic 60–75; BMI 22.6
--- NOTE | 2023-11-27 03:41 | PTCARENOTE ---
TT house PAINT COATING MACHINE OPERATOR regarding recent vitals; BP 170/75 manually HR 59. NO new orders at this time. Pt w/o complaints. Pt resting comfortably, respirations even, unlabored. Assessment ongoing.
[2023-11-27 06:26] LABS: NT-proBNP 18700 pg/ml
[2023-11-27 06:36] LABS: ALT (SGPT) < 10 U/L (0-50); AST (SGOT) 20 U/L (17-59); Albumin 2.7 g/dl (3.5-5.0); Alkaline Phosphatase 61 U/L (38-126); Blood Urea Nitrogen 54 mg/dl (9-20); Calcium 8.1 mg/dl (8.4-10.2); Carbon Dioxide 29 mmol/L (22-30); Chloride 92 mmol/L (98-107); Estimated Creatinine Clearance 14 ml/min; Glucose 122 mg/dl (70-99); Sodium 128 mmol/L (135-145); Total Bilirubin 0.8 mg/dl (0.2-1.3); Total Protein 5.1 g/dl (6.3-8.2); eGFR 14.47
[2023-11-27 06:46] LABS: Potassium 4.4 mmol/L (3.5-5.1)
[2023-11-27] MEDS: PACERONE 200 MG PO (07:45)
--- NOTE | 2023-11-27 08:35 | W.PN.CARDCBS ---
Today's Communication / Plan
-
Remains sinus rhythm. He is not anticoagulated due to hx of anemia and thrombocytopenia
Remains on Amiodarone. Coreg was stopped due to bradycardia this admit. Consider resuming as outpt.
With rate control effects of MS on HF are under control.
Cont HD for volume control.
Tx of HTN and HF with HD as per nephrology.
Hx liver transplant, stable.
Outpt follow up to be arranged.
Please recall if needed.
Impression / Plan
-
.
PCP: Pepe Hi
Puppy Trainer: Previously followed by Dr. Antoine Bee of [place], now follows locally by Dr. Singleton
Impressions:
Acute on chronic heart failure with preserved ejection fraction
Bilateral pleural effusions
prior thoracentesis August 2023
s/p left thoracentesis 1800 ml removed 11/17/2023
KURTIS/ESRD initiated dialysis 11/17/23
Acute on chronic anemia
Symptomatic PAF
Elevated Troponin
Paroxysmal atrial fibrillation
Not chronically anticoagulated due to pancytopenia
mitral stenosis, severe not surgical candidate
PAD
HTN
hyperlipidemia
DM 2
Orthotopic liver cancer status post liver transplant 11/2020 at [place]
Hepatitis C, treated
pancytopenia
Transfusion dependent anemia of chronic disease
ESRD-HD started 11/16
s/p LUE AV fistula 10/18/23
chronic hyponatremia
History of L CEA
Former smoker
Hypoalbuminemia
ECHO 08/24/23: EF 55 to 60%, mild concentric LVH, stage II diastolic dysfunction, severely dilated left atrium, peak/mean gradient 25/10 mmHg, NIKKO 1.4 cm� consistent with severe MS, trace MR, trace TR, PAP 30 mmHg, small pericardial effusion, large
pleural effusion, large echodense mass of unclear etiology in pleural space
Plan:
Remains sinus rhythm. He is not anticoagulated due to hx of anemia and thrombocytopenia
Remains on Amiodarone. Coreg was stopped due to bradycardia this admit. Consider resuming as outpt.
With rate control effects of MS on HF are under control.
Cont HD for volume control.
Tx of HTN and HF with HD as per nephrology.
Hx liver transplant, stable.
Outpt follow up to be arranged.
Please recall if needed.
HPI: Patient is a 68-year-old gentleman with complex comorbid conditions including hypertension, rnp-iiuspjc-pavzzndxs type 2 diabetes mellitus, hepatitis C and HCC status post orthotopic liver transplant at [facility] in 2020,
chronic immunosuppression therapy with chronic pancytopenia, follows with hematology, severe mitral stenosis, chronic heart failure with preserved ejection fraction, paroxysmal atrial fibrillation not on full anticoagulation due to pancytopenia from
chronic immunosuppressive therapy, hyperlipidemia, chronic kidney disease, ESRD now on HD, blood transfusions dependent anemia who presented 11/16/2023 with progressively worsening shortness of breath with minimal activity, orthopnea/PND. Shortness
of breath was felt to be multifactorial secondary to acute on chronic heart failure with preserved ejection fraction, bilateral pleural effusions, acute anemia, progressively worsening CKD stage V. Patient was noted to have progressively worsening
renal function and was initiated on hemodialysis. He was also noted to have acute anemia and underwent 1 unit of blood transfusion 11/16/2023 with repeat transfusion 11/21/2023. He underwent left-sided thoracentesis 11/17/2023. Patient's reports
he has had 3 dialysis sessions. During his 2nd dialysis session and again today and developed atrial fibrillation with rapid ventricular response associated with hypotension and chest pain during dialysis causing his session to be cut short.
Cardiology being consulted due to paroxysmal atrial fibrillation.
At time of this evaluation patient resting comfortably in bed on oxygen getting blood transfusion. He is now back in sinus rhythm. He currently denies chest pain or shortness of breath.
Progress Note - Puppy Trainer
Subjective
Date of Service: November 27, 2023
Pt seen and examined. No complaints. No chest pain or shortness of breath.
Objective
Labs:
11/25/23 07:39
11/27/23 05:23
Labs
Hgb 8.7 g/dL (13.0-18.0) L 11/25/23 07:39
Hct 25.7 % (39.0-52.0) L 11/25/23 07:39
Plt Count 96 10^3/uL (130-400) L 11/24/23 04:17
PT 15.1 Sec (11.4-14.6) H 11/17/23 07:42
INR 1.20 11/17/23 07:42
Sodium 128 mmol/L (135-145) L 11/27/23 05:23
Potassium 4.4 mmol/L (3.5-5.1) 11/27/23 05:23
BUN 54 mg/dl (9-20) H 11/27/23 05:23
Creatinine 4.2 mg/dL (0.7-1.3) H* 11/27/23 05:23
Glucose 122 mg/dl (70-99) H 11/27/23 05:23
Vital Signs and I&O:
Vital Signs
Temp Pulse Resp BP Pulse Ox
97.8 F 67 20 173/68 96
11/27/23 07:18 11/27/23 07:18 11/27/23 07:18 11/27/23 07:18 11/27/23 07:18
Vital Signs
Temp Pulse Resp BP Pulse Ox
97.8 F 67 20 173/68 96
11/27/23 07:18 11/27/23 07:18 11/27/23 07:18 11/27/23 07:18 11/27/23 07:18
Intake & Output
11/25/23 11/26/23 11/27/23 11/28/23
06:59 06:59 06:59 06:59
Intake Total 870 / 870 240 / 240 800 / 800
Balance 870 / 870 240 / 240 800 / 800
Physical Exam
Physical Exam
General: No acute distress, AAOX3
Neck: Negative JVD
Heart: Regular, Negative S3 positive S1/S2, Negative S4, No murmur
Lungs: CTA b/l, negative wheezes/rales/rhonchi
Abd: Positive BS, NT/ND, neg rebound/rigidity/guarding
Ext: Negative cyanosis/clubbing/edema
Neuro: nonfocal
[2023-11-27] MEDS: EPOGEN 10000 UNITS IV (08:36)
[2023-11-27] MEDS: NOVOLOG FLEXPEN-LOW RESISTANCE SC ×2 (08:42→11:42)
--- NOTE | 2023-11-27 10:57 | PTCARENOTE ---
Flipped into afib during HD, HR 80-100s. Asymptomatic. No cardiac or respiratory complaints. BP 134/70.
--- NOTE | 2023-11-27 11:07 | W.PN.HOSP.TC ---
Addendum entered and electronically signed by Charles Garcia MD 11/27/23 16:19:
Patient seen and examined
Discussed with resident
Discussed with patient's at the bedside.
Impression and plan:
Progressive CKD with initiation of hemodialysis.
Paroxysmal atrial fibrillation and severe mitral stenosis.
Status post liver transplant. Immunosuppressive
Recurrent bilateral pleural effusion.
Tolerance to HD improved with better A-fib rate control with introduction of amiodarone.
Tolerated HD over the past 2 sessions.
Follow-up chest ultrasound today with bilateral large pleural effusion
Status post right thoracentesis today 1900 mL removed.
Assess for home O2
Monitor respiratory status over the next 1 to 4 hours, may require thoracentesis on the left would be second over this admission
Original Note:
Today's Communication/Plan
-
- Monitor LFTs.
- Chest ultrasound indicated progressed bilateral pleural effusions.
- Likely needs another thoracentesis.
Assessment / Plan
Assessment / Plan
Impressions:
* Acute on chronic heart failure with preserved ejection fraction
* Bilateral pleural effusions
* Acute hypoxic respiratory failure
* Acute on chronic anemia
* End-stage renal disease
* Hyponatremia
* Suspect non-[place] related troponin elevation
* Paroxysmal atrial fibrillation with rapid reticular response
Conditions prior to admission:
* Heart failure with preserved ejection fraction
* Severe calcific mitral stenosis
* Paroxysmal atrial fibrillation
* Hypertension
* CKD
* Status post left upper extremity AV fistula placed.
* Chronic pancytopenia
* Transfusion dependent anemia of chronic disease
* Liver cancer status post orthotopic transplant 2019 at [facility]
* Hepatitis C treated
* Diabetes, currently diet controlled
Plan:
Acute hypoxic respiratory failure
- Presented to the emergency with dyspnea and acute hypoxic respiratory failure likely multifactorial in the settings of decompensated diastolic CHF and volume overload with progressive end-stage renal disease, as well as worsening of chronic anemia
and bilateral pleural effusion.
- Improved, and now on room air.
Recurrent bilateral pleural effusion
- Status post Thora 11/17.
- Removed 1800 cc - transudative in nature.
- Chest ultrasound on 11-27-23 showed 'large bilateral pleural effusions, both progressed.'.
- Likely needs another thoracentesis.
Paroxysmal atrial fibrillation with rapid reticular response.
- Patient with severe mitral stenosis
- Rate remains fluctuant with blood pressure variations while on HD.
- Patient complains of chest pain at that time.
- Troponin in the negative range.
- Discussed with cardiology: Limited options for mitral stenosis treatment as well as for atrial fibrillation rhythm control given the multiple comorbidities.
- Initiated on amiodarone with close monitoring of liver function in patient with liver transplant
- Monitor rate and rhythm closely in the settings of HD and hemodynamics.
- LFT remains normal, continue monitoring.
Acute on chronic heart failure with preserved ejection fraction
- Acute pulmonary edema secondary to above.
- Attempted of diuresis Lasix 80 mg IV twice daily.
- Continue amlodipine with caution for hypotension
End-stage renal disease
- Nephrology following.
- Status post HD catheter placement.
- Continue HD monitoring hemodynamics.
Pancytopenia, chronic
- Acute on chronic anemia.�
- Anemia of chronic disease, transfusion dependent.
- Also suspect chronic bone marrow suppression with antirejection regimen.
- No clinical evidence of acute brisk blood loss.
- Status post 1 unit of PRBC transfused on 11/16 with appropriate response.
- IV PPI; GI following; no plans for for any scope at this time.
- Would only transfuse if hemoglobin less than 7.
Status post liver transplant around 3 years ago
- Compensated.
- Monitor LFTs; have been unremarkable so far.
- Continue immunosuppression including mycophenolate, tacrolimus
Type 2 diabetes.
- Currently not on insulin or oral glucose lowering medication
- HbA1c 5.1 on 11-17-23.
- Basal bolus protocol with serial Accu-Cheks
Anticipated Discharge: 24 - 48 hours
Subjective/Interval History
-
Date of Service: November 27, 2023
Objective Data
-
Labs:
Laboratory Results
11/27/23
05:23
Sodium 128 L
Potassium 4.4
Chloride 92 L
Carbon Dioxide 29
BUN 54 H
Creatinine 4.2 H*
Glucose 122 H
Calcium 8.1 L
Total Bilirubin 0.8
AST 20
ALT < 10
Alkaline Phosphatase 61
Vital Signs:
Vital Signs
Temp Pulse Resp BP Pulse Ox
97.3 F 92 20 134/70 100
11/27/23 10:56 11/27/23 10:56 11/27/23 10:56 11/27/23 10:56 11/27/23 10:56
I&O
11/26/23 11/27/23 11/28/23
06:59 06:59 06:59
Intake Total 240 / 240 800 / 800
Balance 240 / 240 800 / 800
Review of Systems
-
History Source: Patient
Constitutional: Reports Fatigue
Respiratory: Reports No Symptoms
Cardiac: Reports No Symptoms
Abdomen/GI: Reports No Symptoms
Physical Exam
-
General: No Apparent Distress and Comfortable
HEENT: Normocephalic, Atraumatic and Moist Mucous Membranes
Respiratory: Clear to Auscultation
Cardiac: Regular Rhythm and S1/S2
GI: Soft, Nondistended and No Hepatosplenomegaly
Genito-urinary: No Costovertebral Tender
Musculoskeletal: No Clubbing, No Cyanosis and No Edema
Skin: IV Access / Catheter Site
Neuro: Other (somnolent)
--- NOTE | 2023-11-27 11:34 | W.PN.NEPH.HD ---
Assessment
-
planned for d/c today
no complaints on HD
tolerating UF well
Progress Note - Hemodialysis
-
Date of Service: November 27, 2023
Duration: 30 minutes and 3 hours
Potassium Bath: 3
Calcium Bath: 2.5
Opti-Dialyzer: 160
Ultrafiltration: Other
Blood Flow: 400
Dialysate Flow: 600
EPO: 10K
[2023-11-27 11:40] LABS: Glucose - Point of Care 106 mg/dl (70-99)
[2023-11-27] MEDS: VITAMIN B-12 1000 MCG PO (11:41)
[2023-11-27] MEDS: PROTONIX 40 MG PO (11:41)
[2023-11-27] MEDS: ASPIR LOW (ENTERIC COATED) 81 MG PO (11:41)
[2023-11-27] MEDS: PHOSLO 667 MG PO (11:41)
[2023-11-27] MEDS: CELLCEPT 500 MG PO (11:41)
[2023-11-27] MEDS: CELLCEPT 250 MG PO (11:41)
[2023-11-27] MEDS: PROGRAF 2 MG PO (11:41)
[2023-11-27] MEDS: THERAGRAN 1 TABLET PO (11:41)
[2023-11-27] MEDS: PHOSLO PO (12:00)
--- NOTE | 2023-11-27 12:36 | PTCARENOTE ---
Weaned to room air. SaO2 95% on room air at rest.
--- NOTE | 2023-11-27 16:17 | CM ---
[facility] faxed over instructions and chair time. Provided to .
Plan: Case management will continue to follow and assist with discharge planning. Home with dialysis.
--- NOTE | 2023-11-27 16:59 | W.DS.TRANS ---
DC Summary - [employer]
-
Discharge Instructions:
Discharge Diagnosis/Procedures IMPRESSION:
Acute CHF preserved EF.
Acute pulmonary edema
Acute hypoxic respiratory failure due to above.
Acute on chronic anemia
CKD 5
Hyponatremia
Suspect non-IN related troponin elevation
Conditions prior to admission:
Chronic diastolic CHF
� Echocardiogram 09/07 with LVEF of 55% mitral
stenosis severe.
Severe calcific mitral stenosis
Paroxysmal atrial fibrillation
Hypertension.
CKD stage V.
Status post left upper extremity AV fistula
placed.
Chronic pancytopenia
Transfusion dependent anemia of chronic disease/
CKD
Liver cancer status post transplant 2020 at [facility]
Hepatitis C treated.
Diabetes, currently diet controlled
Diet 2 Gram Sodium
Blood Work bmp in one week
Instructions: *[facility]CA Heart Failure Instructions
Stand-Alone Forms:
Changes to Home Medications: Yes
Discharge Medications:
DC Medications w/original date entered in [facility]
ascorbic acid (vitamin C) 500 mg tablet (Vitamin C) 500 mg PO DAILY Supplement 05/05/23
atorvastatin 20 mg tablet 20 mg PO QPM High Cholesterol 05/05/23
multivitamin with minerals-folic acid 80 mcg chewable tablet (Centrum Adult 50 Plus) 1 tab PO DAILY Supplement 05/05/23
mycophenolate mofetil 500 mg tablet 500 mg PO BID Transplant 05/05/23
tacrolimus 1 mg capsule, immediate-release 2 mg PO DAILY Transplant 05/05/23
aspirin 81 mg tablet,delayed release 81 mg PO DAILY Blood Clot Prevention/Tx 06/20/23
cyanocobalamin (vitamin B-12) 1,000 mcg tablet (Vitamin B-12) 1,000 mcg PO DAILY Supplement 06/20/23
mycophenolate mofetil 250 mg capsule (CellCept) 250 mg PO BID Transplant 06/20/23
tacrolimus 1 mg capsule, immediate-release (Prograf) 1 mg PO QPM Transplant 09/05/23
calcium acetate 667 mg tablet 667 mg PO MEALS Kidney Disease 11/16/23
cholecalciferol (vitamin D3) 50 mcg (2,000 unit) tablet 50 mcg PO DAILY Supplement 11/16/23
magnesium oxide 400 mg PO BID Supplement 11/16/23
omeprazole magnesium 20 mg tablet,delayed release (Prilosec OTC) 20 mg PO DAILY Gastrointestinal Issue 11/16/23
amiodarone 200 mg tablet (Pacerone) 200 mg PO BID #60 tabs 11/27/23
Home Medication Changes
Started on amiodarone
Coreg, Amlodipine, Torsemide stopped
Pending Results: No
--- NOTE | 2023-11-28 12:53 | CM ---
Received call from [facility] inquiring if patient discharged home- informed him d/c yesterday and gave Meron Shepherd CM as contact for additional questions.
== END 2023-11-27 17:42 | disposition home or self-care (01) | DRG 291 ==
LOC: 2 SOUTH 15:25
PROVIDERS: Hospitalist; Internal Medicine; Internal Medicine Cardiovascular Disease; Nurse Practitioner Adult Health; Physician Assistant Medical; Radiology Diagnostic Radiology; Radiology Vascular & Interventional Radiology; Specialist; Student in an Organized Health Care Education/Training Program; ADMITTING PHYSICIAN Internal Medicine; CONSULT PHYSICIAN Internal Medicine; CONSULT PHYSICIAN Internal Medicine Gastroenterology; EMERGENCY PHYSICIAN Emergency Medicine; FAMILY PHYSICIAN Family Medicine; OTHER PHYSICIAN Internal Medicine Hematology & Oncology; OTHER PHYSICIAN Internal Medicine Interventional Cardiology
PROC: 30233N1 Transfusion of Nonautologous Red Blood Cells into Peripheral Vein, Percutaneous Approach (ICD-10-PCS; 2023-11-16)
PROC: 05HM33Z Insertion of Infusion Device into Right Internal Jugular Vein, Percutaneous Approach (ICD-10-PCS; 2023-11-17)
PROC: 5A1D70Z Performance of Urinary Filtration, Intermittent, Less than 6 Hours Per Day (ICD-10-PCS; 2023-11-17)
PROC: 0W9B3ZX Drainage of Left Pleural Cavity, Percutaneous Approach, Diagnostic (ICD-10-PCS; 2023-11-17)
PROC: 0W993ZX Drainage of Right Pleural Cavity, Percutaneous Approach, Diagnostic (ICD-10-PCS; 2023-11-27)
DX: I13.2 Hypertensive heart and chronic kidney disease with heart failure and with stage 5 chronic kidney disease, or end stage renal disease (principal); D61.811 Other drug-induced pancytopenia; I50.33 Acute on chronic diastolic (congestive) heart failure; N18.6 End stage renal disease; J96.01 Acute respiratory failure with hypoxia; Z94.4 Liver transplant status; E87.1 Hypo-osmolality and hyponatremia; N17.9 Acute kidney failure, unspecified; D84.9 Immunodeficiency, unspecified; E11.22 Type 2 diabetes mellitus with diabetic chronic kidney disease; I48.0 Paroxysmal atrial fibrillation; Z87.891 Personal history of nicotine dependence; Z11.52 Encounter for screening for COVID-19; E83.39 Other disorders of phosphorus metabolism; E11.649 Type 2 diabetes mellitus with hypoglycemia without coma; E78.5 Hyperlipidemia, unspecified; D63.1 Anemia in chronic kidney disease; I05.0 Rheumatic mitral stenosis
CPT/HCPCS: 32555; 36415; 36558; 71045; 71046; 76604; 76705; 76937; 77001; 80048; 80051; 80053; 80197; 82248; 82550; 82962; 83036; 83735; 83880; 84439; 84443; 84484; 85014; 85018; 85025; 85027; 85610; 86704; 86706; 86803; 86850; 86900; 86901; 86920; 87340; 87502; 87811; 93005; 93990; 94762; 96374; 96375; 97116; 97162; 97167; 97530; 99152; 99153; 99285; C1750; G0257; J0885; P9016; P9047

== ENCOUNTER 2023-12-03 10:34 | Inpatient (IN) | payer MEDICARE, OTHER, SELFPAY ==
[2023-12-03] VITALS (63 sets, daily range): BP systolic 97–214; BP diastolic 55–101; BMI 22.9; BMI 22.3
[2023-12-03 08:14] LABS: Hematocrit 25.5 % (39.0-52.0); Hemoglobin 8.6 g/dL (13.0-18.0); Mean Corp Hgb Conc. 33.7 g/dL (33.0-37.0); Mean Corpuscular Hgb 30.2 pg (27.0-31.0); Mean Corpuscular Volume 89.5 fL (80.0-94.0); Mean Platelet Volume 7.7 fL (7.4-10.4); Nucleated Red Blood Cells % 0 % (-); Platelet Count 169 10^3/uL (130-400); Red Blood Cell Count 2.85 10^6/uL (4.70-6.10); Red Cell Dist. Width 17.4 % (11.5-14.5)
[2023-12-03 08:21] LABS: White Blood Cell Count 1.7 10^3/uL (4.8-10.8)
[2023-12-03] MEDS: NITROSTAT (SUBLINGUAL) 0.400000000000000022 MG SL (08:24)
--- NOTE | 2023-12-03 08:26 | ED.GENMED ---
History of Present Illness
General
Chief Complaint: Breathing Problem
Source: patient and spouse
Time Seen by Provider: 12/03/23 08:04
Travel History
Have you had any contact with someone who has COVID-19?: No
Do you have any symptoms of coronavirus? Fever > 100 degrees, chills, cough, shortness of breath, sore throat, loss of taste or smell, muscle aches, or headache?: Yes
Symptoms:: SOB, cough
History of Present Illness
History of Present Illness:
68-year-old male presents to the emergency room complaining of shortness of breath. Patient began feeling short of breath during the night and has become progressively worse. He has noted peripheral edema. Patient was hospitalized here recently
for worsening renal failure and pulmonary edema. He was here for several days and was started on dialysis. He was discharged with plan for dialysis Monday. He did receive dialysis 2 days ago. Patient states he 'tries' to
restrict his fluid intake. Patient also had a right-sided thoracentesis performed while he was in the hospital.
Past History
Past History
ED Past Medical History: HTN, NIDDM and Other (Liver transplant)
ED Past Surgical History: Other (Liver transplant)
Phy Exam
Physical Exam
Physical Exam:
General: Awake, Alert, Oriented X3. Chronically ill-appearing. Thin to cachectic
Vitals: Hypoxic on room air
Head: Atraumatic
Eyes: Pupils equal, EOMI
Throat: Airway intact, no exudates
Neck: Trachea midline
Lungs: Crackles bilaterally
Heart: Regular rate, no murmurs
Abd: Soft, Nontender, No pulsatile mass
Neuro: Grossly nonfocal
Skin: Warm, dry, no rash
Extremities: pulses equal b/l, 2+ edema
Scores
Heart Failure Risk
Heart Failure Risk Score: Yes
History of Stroke or TIA: No
History of intubation for respiratory distress: No
Heart rate on ED arrival >/= 110: Yes
SaO2 <90% on arrival on room air: Yes
HR >/=110 during 3min walk test (or too ill to perform test): Yes
ECG has acute ischemic changes: No
Urea >/=12mmol/L (BUN 33.6mg/dL): Yes
Serum CO2>/=35mmol/L: No
Troponin I or T elevated to IL Level (0.4mg/dL): No
NT-proBNP >/=5,000ng/L (5,000pg/ml): No
HF Risk Score: 4
Admission Status: HIGH RISK 26.1% Consider SNF treatment or admission to hospital
Course
Orders/Labs/Results
Orders:
Orders
12/03/23 07:29
Electrocardiogram (*1) Urgent
Reason for Study: Chest Pain
EKG- Treatment ONCE
12/03/23 07:32
CR Chest - 2 Views Urgent
Comment:
Reason For Exam: shortness of breath, audible wheezing.
12/03/23 08:03
COVID-19 Antigen Urgent
Source: Nasal Swab
Complete Blood Count/With Diff Urgent
Comprehensive Metabolic Panel Urgent
Manual Differential Urgent
Troponin I Urgent
Influenza A+B Rapid Molecular Urgent
TABATHA Source: Nasal Swab
Specimen Description:
12/03/23 08:20
Nitroglycerin 100 mg/250 ml [Nitroglycerin Premix] 100 mg in 250 ml .ROUTE .STK-MED
Nitroglycerin Sublingual [Nitrostat (Sublingual)] 0.4 mg .ROUTE .STK-MED ONE
12/03/23 08:23
Nitroglycerin Sublingual [Nitrostat (Sublingual)] 0.4 mg SL NOW STA
12/03/23 08:26
Nitroglycerin 100 mg/250 ml [Nitroglycerin Premix] 100 mg in 250 ml IV NOW
Initial dose in mcg/min, then titrate:: 100
Titrate to keep:: Other
Titrate to keep other:: SBP less than 140 mmHg
Titrate by mcg/min:: 20 mcg/min
Frequency of titrations (minutes):: every 1 minute (after initial bolus)
Additional Titration Instructions:: Bolus 400 mcg/min x 2 min. Decrease to 100 mcg/min & titrate
Maximum dose in mcg/min:: 200
Begin to taper infusion when:: Remained at goal for 2hrs
Taper by mcg/min:: 5 mcg/min
Frequency of taper (minutes) if patient maintains goal:: 30
Taper to off?: Yes
If infusion off & no longer maintaining goal:: Contact Provider
12/03/23 09:33
Albumin Human 25% 50 ml [Flexbumin 25% For Hemodialysis] 12.5 grams IV HD-Q1HPRN PRN
Mannitol 12.5 grams IV HD-Q1HPRN PRN
Hemodialysis treatment As Directed
Treatment date:: 12/03/23
Treatment type: Ultrafiltration only
Ultrafiltration (kg): 2
Treatment time (duration): 2 hours
Use dialysis access:: Tunneled Cath
Dialyzer:: Optiflux 160
Blood flow rate minimum: 350
Blood flow rate maximum: 400
12/03/23 Lunch
Cholesterol Lowering
At Your Request: Full Participation
Fluid Restriction: 1500 mL/day (50 oz)
Cholesterol Lowering: Sodium, 2 Gram
Potassium, 2 gram
12/03/23 10:11
Admit/Transfer Patient As Directed
Co-Sign Provider:
Level of Care: Inpatient admission
Assign to:: IMU- Intermediate Care
Physician / Group: hospitalist-Neal
Diagnosis: acute hypoxic resp failure
Reason for Hospitalization: needs urgent ultrafiltration, cards/pulm evals
Expected length of stay greater than two midnights?: Yes
ELOS- Estimated Length of Stay in days: 4
I certify the patient meets the requirements for IP care: Yes
12/03/23 10:16
Code Status As Directed
Resuscitation Status: Full Code
12/03/23 10:29
US Chest - Bilateral Routine
Comment:
Reason For Exam: see if needs thoracentesis with pleural effusion
12/03/23 12:30
Electrocardiogram (*1) Q6H
Reason for Study: Chest Pain
Comment: at admission and Q6H x 2 (3 total), to be done with each troponin
Acetaminophen [Tylenol] 650 mg PO Q6HPRN PRN
Calcium Acetate [Phoslo] 667 mg PO MEALS
Dextrose 50%-Water [Dextrose 50% Syringe] 12.5 grams IV M54THMI PRN
Glucagon [GlucaGen] 1 mg IM PRN PRN
Insulin Aspart Corrective Low [Novolog Flexpen-Low Resistance] See Protocol SC AC
Nitroglycerin 100 mg/250 ml [Nitroglycerin Premix] 100 mg in 250 ml IV PER PROTOCOL
Currently infusing. Continue current dose and titrate:: Yes
Titrate to keep:: MAP 70-100 mmHg
Titrate by mcg/min:: 5 mcg/min, may increase by 10 mcg/min if dose > 20 mcg/min
Frequency of titrations (minutes):: every 3-5 minutes
Maximum dose in mcg/min:: 200
Begin to taper infusion when:: Remained at goal for 2hrs
Taper by mcg/min:: 5 mcg/min
Frequency of taper (minutes) if patient maintains goal:: 30
Taper to off?: Yes
If infusion off & no longer maintaining goal:: Contact Provider
12/03/23 12:30
CARDIOLOGY CONSULT Routine
Consulting Provider: Dana Mejia
Was physician already notified: Yes
HF DIETARY CONSULT Routine
HF EDUCATOR CONSULT Routine
Comment:
NEPHROLOGY CONSULT Urgent
Consulting Provider: Shruti Bowman
Was physician already notified: Yes
PULMONARY CONSULT Routine
Consulting Provider: Scott Ashley
Was physician already notified: Yes
Activity As Directed
Activity Level: As Tolerated
Bedside Glucose Monitoring As Directed
Frequency: AC&HS
Comment: Change to q6h if pt on TPN, tube feeding or not eating
Intake/ Output As Directed
Frequency: Per unit guidelines
Patient Education As Directed
Type: CHF folder
Comment: give on admission. Document in Interdisciplinary Education record
Precautions As Directed
Type of Precautions: Neutropenic
Sleep Apnea Assessment by RN As Directed
Comment:
Physician Instructions:
Vital Signs As Directed
Frequency: Other
Additional Instructions:: Q12 or per unit guidelines if more frequent.
Weight As Directed
Frequency: Daily
Type of Scale: Standing Scale
Comment: Daily morning weight. If unable to stand, use balanced bed scale.
Weight As Directed
Frequency: Once
Type of Scale: Standing Scale
Comment: Upon Admission. If unable to stand, use balanced bed scale.
Pulse Ox/cont/shift [RESP] Routine
Quantity: 1
Special Instructions: Daily pulse oximetry at rest. If greater than 92% at rest also obtain pulse oximetry
while ambulating as tolerated.
Ot Eval And Treat Routine
Pt Eval And Treat Routine
Activity Level: Out of Bed-Early Mobility
DX Deep Vein Thrombosis Video Routine
12/03/23 12:39
Troponin I Q6H
Comment: at admission & every 6 hours x 2 (3 total), ECG to be done with each level
12/03/23 18:00
Atorvastatin [Lipitor] 20 mg PO QPM
Tacrolimus [Prograf] 1 mg PO QPM
12/03/23 18:30
Electrocardiogram (*1) Q6H
Reason for Study: Chest Pain
Comment: at admission and Q6H x 2 (3 total), to be done with each troponin
12/03/23 20:00
Amiodarone [Pacerone] 200 mg PO BID
Heparin 5,000 units SC Q12
Mycophenolate [Cellcept] 250 mg PO BID
12/04/23 00:30
Electrocardiogram (*1) Q6H
Reason for Study: Chest Pain
Comment: at admission and Q6H x 2 (3 total), to be done with each troponin
12/04/23 06:00
Echo 2D MMode Color/Doppler IN AM
Reason for Study: heart failure
Cardiovascular Evaluation IN AM
Complete Blood Count/With Diff IN AM
Comprehensive Metabolic Panel IN AM
Glycohemoglobin (HgbA1c) IN AM
Magnesium IN AM
TSH Reflex To Free T4 IN AM
12/04/23 08:00
Ascorbic Acid [Vitamin C] 500 mg PO DAILY
Aspirin Low Dose EC [Aspir Low (Enteric Coated)] 81 mg PO DAILY
Cholecalciferol (Vitamin D3) [VITAMIN D3 (cholecalciferol)] 50 mcg PO DAILY
Cyanocobalamin [Vitamin B-12] 1,000 mcg PO DAILY
Tacrolimus [Prograf] 2 mg PO DAILY
Abnormal Lab Results
12/03/23
08:03
WBC 1.7 L* 10^3/uL
(4.8-10.8)
RBC 2.85 L 10^6/uL
(4.70-6.10)
Hgb 8.6 L g/dL
(13.0-18.0)
Hct 25.5 L %
(39.0-52.0)
RDW 17.4 H %
(11.5-14.5)
Abs Neuts (Manual) 0.7 L* 10^3/uL
(1.4-6.5)
Segmented Neutrophils 37 L %
(42-75)
Band Neutrophils 5 H %
(0-3)
Monocytes (Manual) 15 H %
(2-9)
Sodium 129 L mmol/L
(135-145)
Chloride 91 L mmol/L
(98-107)
Carbon Dioxide 34 H mmol/L
(22-30)
BUN 24 H mg/dl
(9-20)
Creatinine 3.6 H mg/dL
(0.7-1.3)
Glucose 248 H mg/dl
(70-99)
Calcium 8.0 L mg/dl
(8.4-10.2)
Total Protein 6.2 L g/dl
(6.3-8.2)
12/03/23 08:03
12/03/23 08:03
Vital Signs
Initial and Last Documented VS:
Initial Vital Signs
Temp Pulse Resp BP Pulse Ox
98.3 F 91 22 157/78 84
12/03/23 07:23 12/03/23 07:23 12/03/23 07:23 12/03/23 07:23 12/03/23 07:23
Last Documented Vital Signs
Temp Pulse Resp BP Pulse Ox
98.3 F 71 17 152/78 100
12/03/23 12:54 12/03/23 13:15 12/03/23 13:15 12/03/23 13:15 12/03/23 13:15
MDM/Problems Addressed
Differential Diagnosis Includes:
Pneumonia, anemia, pulmonary edema
MDM/Problems Addressed:
Patient presents with increasing shortness of breath. Patient was started on dialysis recently. This is the first time he is going to days without dialysis as he is now scheduled for dialysis Monday. Patient arrives quite
hypertensive. Treated initially with nitrates. Nephrology contacted as I feel the patient needs emergent dialysis today for removal of fluid. Dr. Bowman came to the emergency room to evaluate the patient and agrees with dialysis. Dialysis nurse
called in. Patient admitted to the hospitalist service to IMU.
Chronic conditions affecting care: HTN and Kidney disease (End-stage renal disease)
Acute Exacerbation and/or Progression of Chronic Illness: Kidney disease (End-stage renal disease with pulmonary edema)
*Radiology
Radiology exam reviewed: preliminary read by ED provider (Bilateral pleural effusions with pulmonary edema)
*Pulse Oximetry
Patient hypoxic: yes
*EKG
Interpreted by ED Provider?: Yes
Heart Rate: 92
Rate: normal
Rhythm: sinus
[place]: normal axis
Interval: first degree heart block
QRS Pattern: normal QRS
Ischemia: no ischemia
*[employer] Interpretation
Rate: normal
Interpretation: normal
Rhythm: sinus
*Critical Care Note
Total Time (30-74mins, 75-104mins- exclusive of procedures): 40 min
comment:
Critical care statement: A total of 40 minutes of critical care time was provided for this patient. This includes management of unstable vital signs, evaluation of the patient at bedside, reviewing the patient's pertinent medical records, discussion
with consultants, review of old EKGs and review of pertinent medical records. This time with separate from time utilized to perform the aforementioned documented procedures
Data Reviewed
Review of Other/Old Records Reveals: Discharge Summary
Patient Management
Social determinants of health affecting care: Living situation
ED Attending Note
-
Portions of this chart may have been created with voice recognition software.� Occasional wrong word or��sound alike� substitutions may have occurred due to the inherent limitations of voice recognition software.
Discharge Plan
Departure
Patient Disposition: Admit
Date of Disposition: 12/03/23
Time of Disposition: 09:05
Presentation/result/management discussed w/ accepting MD/DO: Hospitalist
Condition: Fair
Discharge Problem:
Pulmonary edema, ESRD (end stage renal disease) on dialysis
Interventions
Interventions:
*Risk Screen - Suicide Last Done: 12/03/23 07:51
*General Assessment Last Done: 12/03/23 07:51
*Neglect/Abuse Screening Last Done: 12/03/23 07:51
ED- Fall Risk Assessment Last Done: 12/03/23 12:03
*ED COVID-19 Vaccine History Last Done: 12/03/23 12:46
*Nursing Disposition Last Done: 12/03/23 12:36
ED- Cardiac Assessment Last Done: 12/03/23 07:51
ED- Pulmonary Assessment Last Done: 12/03/23 07:51
Discharge Date and Time
Discharge Date/Time: 12/03/23 12:36
[2023-12-03] MEDS: NITROGLYCERIN PREMIX 250 IV (08:30)
[2023-12-03 08:32] LABS: ALT (SGPT) 10 U/L (0-50); AST (SGOT) 28 U/L (17-59); Albumin 3.5 g/dl (3.5-5.0); Alkaline Phosphatase 88 U/L (38-126); Blood Urea Nitrogen 24 mg/dl (9-20); Carbon Dioxide 34 mmol/L (22-30); Chloride 91 mmol/L (98-107); Estimated Creatinine Clearance 17 ml/min; Glucose 248 mg/dl (70-99); Potassium 4.6 mmol/L (3.5-5.1); Sodium 129 mmol/L (135-145); Total Bilirubin 0.7 mg/dl (0.2-1.3); Total Protein 6.2 g/dl (6.3-8.2); eGFR 17.41
[2023-12-03 08:36] LABS: COVID-19 Antigen Negative (Negative)
[2023-12-03 08:43] LABS: Troponin I 0.016 ng/ml
[2023-12-03 09:19] LABS: Band Neutrophils 5 % (0-3); Eosinophils 4 % (0-6); Lymphocytes 37 % (20-51); Monocytes 15 % (2-9); Segmented Neutrophils 37 % (42-75)
[2023-12-03 09:20] LABS: Anisocytosis Slight; Hypochromasia Slight; Metamyelocytes 1 % (-); Normal RBC Morphology No; Platelets Checked YES
[2023-12-03 09:22] LABS: Absolute Neutrophils -Man Diff 0.7 10^3/uL (1.4-6.5); Total Cells Counted 100
--- NOTE | 2023-12-03 09:37 | W.CON.NEPH ---
Consultation
-
Requesting Provider: Nandini De Jesus
Performing Provider: Shruti Bowman
Reason for Consultation: ESRD on HD
Medical History
-
Chief Complaint: ESRD on HD
History of Present Illness:
Mr. Long is a 68YOM with PMH of CKD 5 (now intitated on HD), CHF, orthotopic liver txp (2020 at [facility]), pAfib, hyperphos, anemia who presents to the hospital after being discharged on 11/27 with 7lb weight gain and shortness of breath.
Past Medical History
1. CKD V on HD
2. Orthotopic liver transplant 2020.
3. Hypertension.
4. Severe mitral stenosis.
5. Peripheral arterial disease.
6. Hypertension.
7. Hyperlipidemia.
8. History of liver cancer.
9. Pancytopenia, transfusion-dependent anemia.
10. Left carotid endarterectomy.
11. Hepatitis C treated.
12. Hyponatremia.
13. Hyperphosphatemia.
Past Surgical History: Other (liver txp 2020)
Social History
Tobacco: Former Smoker
Alcohol: None
Drug: None
Personal:
Living: With Family
Family History
Family History: Not Pertinent
Allergies / Home Medications
Allergy/AdvReac Type Severity Reaction Status Date / Time
oxycodone Allergy GI upset Verified 12/03/23 07:21
Medication Instructions Recorded Confirmed Type
ascorbic acid (vitamin C) 500 mg 500 mg PO DAILY Supplement 05/05/23 11/16/23 History
tablet (Vitamin C)
atorvastatin 20 mg tablet 20 mg PO QPM High Cholesterol 05/05/23 11/16/23 History
multivitamin with minerals-folic 1 tab PO DAILY Supplement 05/05/23 11/16/23 History
acid 80 mcg chewable tablet
(Centrum Adult 50 Plus)
mycophenolate mofetil 500 mg tablet 500 mg PO BID Transplant 05/05/23 11/16/23 History
tacrolimus 1 mg capsule, 2 mg PO DAILY Transplant 05/05/23 11/16/23 History
immediate-release
aspirin 81 mg tablet,delayed 81 mg PO DAILY Blood Clot 06/20/23 11/16/23 History
release Prevention/Tx
cyanocobalamin (vitamin B-12) 1,000 mcg PO DAILY Supplement 06/20/23 11/16/23 History
1,000 mcg tablet (Vitamin B-12)
mycophenolate mofetil 250 mg 250 mg PO BID Transplant 06/20/23 11/16/23 History
capsule (CellCept)
tacrolimus 1 mg capsule, 1 mg PO QPM Transplant 06/20/23 11/16/23 History
immediate-release (Prograf)
calcium acetate 667 mg tablet 667 mg PO MEALS Kidney Disease 11/16/23 11/16/23 History
cholecalciferol (vitamin D3) 50 50 mcg PO DAILY Supplement 11/16/23 11/16/23 History
mcg (2,000 unit) tablet
magnesium oxide 400 mg PO BID Supplement 11/16/23 11/16/23 History
omeprazole magnesium 20 mg 20 mg PO DAILY Gastrointestinal 11/16/23 11/16/23 History
tablet,delayed release (Prilosec Issue
OTC)
amiodarone 200 mg tablet (Pacerone) 200 mg PO BID #60 tabs 11/27/23 Rx
Review of Systems
-
History Source: Patient and Family
All other systems: Negative unless noted
Constitutional: Weight Gain (acutely gained 7lb), Weight Loss (over time) and Fatigue
EENT: No Symptoms
Respiratory: Cough and Trouble Breathing
Cardiac: No Symptoms
Abdomen/GI: No Symptoms
: No Symptoms
Musculoskeletal: Edema
Skin: No Symptoms
Neurological: No Symptoms
Endocrine: No Symptoms
Hematologic/Lymphatic: No Symptoms
Physical Exam
Vital Signs
Vital Signs
Temp Pulse Resp BP Pulse Ox
98.3 F 82 15 151/95 99
12/03/23 07:23 12/03/23 09:15 12/03/23 09:15 12/03/23 09:15 12/03/23 09:15
Lab Results
WBC 1.7 10^3/uL (4.8-10.8) L* 12/03/23 08:03
RBC 2.85 10^6/uL (4.70-6.10) L 12/03/23 08:03
Hgb 8.6 g/dL (13.0-18.0) L 12/03/23 08:03
Hct 25.5 % (39.0-52.0) L 12/03/23 08:03
Plt Count 169 10^3/uL (130-400) 12/03/23 08:03
Sodium 129 mmol/L (135-145) L 12/03/23 08:03
Potassium 4.6 mmol/L (3.5-5.1) 12/03/23 08:03
Chloride 91 mmol/L (98-107) L 12/03/23 08:03
Carbon Dioxide 34 mmol/L (22-30) H 12/03/23 08:03
BUN 24 mg/dl (9-20) H 12/03/23 08:03
Creatinine 3.6 mg/dL (0.7-1.3) H 12/03/23 08:03
eGFR 17.41 12/03/23 08:03
Glucose 248 mg/dl (70-99) H 12/03/23 08:03
Calcium 8.0 mg/dl (8.4-10.2) L 12/03/23 08:03
Albumin 3.5 g/dl (3.5-5.0) 12/03/23 08:03
Physical Exam
General: Awake, Alert and Oriented
HEENT: PERRL and EOMI
Respiratory: Wheezes, Crackels and Rhonchi
Cardiac: S1/S2 and Regular Rate/Rhythm
Breast: N/A
Abdomen: Soft, Nontender, Nondistended and Normal Bowel Sounds
Rectal: Deferred by Provider
Musculoskeletal: Edema
Skin: Other (bruising noted)
Neuro: Nonfocal/Grossly Intact
Psych: Mood/afflect pleasant and Insight/judgement good
Assessment/Plan
-
Assessment:
ESRD on HD MWF at [facility]/p E AVF (not matured), has TDC in place now
Acute on chronic heart failure with preserved ejection fraction
Bilateral pleural effusions
Acute hypoxic respiratory failure
Acute on chronic anemia
Hyponatremia
Paroxysmal atrial fibrillation
Pancyopenia (gets recurrent transfusions)
s/p Liver txp
hepatitis C (treated)
T2DM
hyperphos
Plan:
- plan for 2 hour, 2L UF today as patient appears to be volume overloaded
- plan for HD tomorrow as per usual schedule
- previously difficulty with volume removal due to hemodynamic lability
- Continue with calcium acetate, vitamin D 3 for hyperphos
Data Reviewed
-
Radiology: Image Personally Visualized and interpreted
Labs: Labs Reviewed by me, Discussed with Physician and Discussed with Patient
Old Records: Reviewed
--- NOTE | 2023-12-03 09:47 | HPS.HSE ---
Family Physician
-
Family Physician: Pepe Hi
Chief Complaint
-
Shortness of breath
History of Present Illness
Patient is a 68-year-old male with a history of severe mitral stenosis, chronic diastolic congestive heart failure, paroxysmal atrial fibrillation, liver transplant on chronic immunosuppressive therapy and end-stage renal disease progressing to
dialysis which was started on the last admission discharged on November 27. Patient had his usual dialysis session Monday but it is unknown how much fluid was taken off at that time. Since discharge, patient has been complaining of fluid buildup
along with labored shortness of breath. He denied chest pain. He does not wear oxygen but is requiring it here in the hospital. His weights are up normally he runs 130 to 133 pounds and he is up to 137 pounds at this time. Workup in the
emergency department finds him to be wheezing with mild respiratory distress and asynchronous breathing patterns with volume overload. Patient is being admitted for urgent ultrafiltration treatment.
Medical History
Past Medical History
Past Medical History: Reports Other
Additional Past Medical History:
Chronic diastolic congestive heart failure
End-stage renal disease started on dialysis
Paroxysmal atrial fibrillation
Liver transplant for hepatitis C and hepatocellular carcinoma on immunosuppression
Chronic pancytopenia
Past Surgical History: Reports Other
Additional Past Surgical History:
Double hernia repair
Liver transplant
Left upper extremity AV fistula
Social History
Tobacco: Former Smoker (Years ago)
Alcohol: None
Drug: None
Personal:
Living: With Family
Employment: Not Employed
Family History
Family History: Not pertinent
Allergies / Home Medications
Allergies reflects when Allergies were last updated in [employer].
Home Medications with original date entered in [employer]
Allergy/Medication List:
Allergies
Allergy/AdvReac Type Severity Reaction Status Date / Time
oxycodone Allergy GI upset Verified 12/03/23 07:21
Home Medications
ascorbic acid (vitamin C) 500 mg tablet (Vitamin C) 500 mg PO DAILY Supplement 05/05/23
atorvastatin 20 mg tablet 20 mg PO QPM High Cholesterol 05/05/23
multivitamin with minerals-folic acid 80 mcg chewable tablet (Centrum Adult 50 Plus) 1 tab PO DAILY Supplement 05/05/23
mycophenolate mofetil 500 mg tablet 500 mg PO BID Transplant 05/05/23
tacrolimus 1 mg capsule, immediate-release 2 mg PO DAILY Transplant 05/05/23
aspirin 81 mg tablet,delayed release 81 mg PO DAILY Blood Clot Prevention/Tx 06/20/23
cyanocobalamin (vitamin B-12) 1,000 mcg tablet (Vitamin B-12) 1,000 mcg PO DAILY Supplement 06/20/23
mycophenolate mofetil 250 mg capsule (CellCept) 250 mg PO BID Transplant 06/20/23
tacrolimus 1 mg capsule, immediate-release (Prograf) 1 mg PO QPM Transplant 06/20/23
calcium acetate 667 mg tablet 667 mg PO MEALS Kidney Disease 11/16/23
cholecalciferol (vitamin D3) 50 mcg (2,000 unit) tablet 50 mcg PO DAILY Supplement 11/16/23
magnesium oxide 400 mg PO BID Supplement 11/16/23
omeprazole magnesium 20 mg tablet,delayed release (Prilosec OTC) 20 mg PO DAILY Gastrointestinal Issue 11/16/23
amiodarone 200 mg tablet (Pacerone) 200 mg PO BID #60 tabs 11/27/23
Medication list not reconciled
However, will continue medications as they are not changed from his discharge medication list on November 27, 2023 as reviewed with his at bedside
If medication reconciliation has not been performed, why?: Other
If Other, explain: Unknown
Review of Systems
-
History Source: Patient and Family
A 12 point ROS was completed and negative except as noted: Yes
Constitutional: Reports Weight Gain (Baseline dry weight approximately 130 to 133 pounds--he tells me he is up to 137 pounds); Denies Fever or Chills
EENT: Reports No Symptoms
Respiratory: Reports Trouble Breathing
Cardiac: Denies Chest Pain
Abdomen/GI: Denies Abdominal Pain, Nausea, Vomiting or Diarrhea
: Denies Dysuria (Does make some urine)
Musculoskeletal: Reports Edema (Worsening since discharge)
Skin: Reports No Symptoms
Neurological: Reports Dizzy (Lightheaded)
Endocrine: Reports No Symptoms
Hematologic/Lymphatic: Reports No Symptoms
Psych: Reports No Symptoms
Physical Exam
Vital Signs
Vital Signs
Temp Pulse Resp BP Pulse Ox
98.3 F 83 16 134/71 98
12/03/23 07:23 12/03/23 09:30 12/03/23 09:30 12/03/23 09:30 12/03/23 09:30
Physical Exam
General: Well Developed, Well Nourished and Respiratory Distress (Mild with dyssynchronous breathing pattern)
HEENT: NormoCephalic, Anicteric, Atraumatic and Oxygen (2 L)
Respiratory: Wheezes (Diffuse and tight); No Rhonchi, Crackles or Non Labored Respirations (Labored)
Cardiac: S1/S2, Regular Rhythm and Murmur (Diastolic murmur- tight)
GI: Soft, Non Tender, Non Distended and Normal Bowel Sounds
Musculoskeletal: No Clubbing and No Cyanosis; No No Edema (4+ pitting in feet 2+ in calf--cannot see any further as pt has pajama pants on)
Skin: Warm and Dry
Neuro: Awake and Alert
Psych: Calm
Laboratory Results
-
12/03/23 08:03
12/03/23 08:03
Laboratory Results
Total Bilirubin 0.7 mg/dl (0.2-1.3) 12/03/23 08:03
AST 28 U/L (17-59) 12/03/23 08:03
ALT 10 U/L (0-50) 12/03/23 08:03
Alkaline Phosphatase 88 U/L (38-126) 12/03/23 08:03
Troponin I 0.016 ng/ml 12/03/23 08:03
Impression/Plan
-
Pt is a 68 year old male
acute hypoxemic respiratory insufficiency/failure due to volume overload needing HD along with presumed recurrent pleural effusion (my read of CXR)--ADMIT to IMU--consult renal for urgent ultrafiltration (UF)--wheezing likely from volume overload
but will consult pulm/cards-- may need IR to drain pleural fluid again--will check chest US
hyponatremia--likely from volume overload--adjust through HD/UF
new onset DM?--random BS 248, presumed fasting sugars from last admission also high > 126 but unclear what time labs actually drawn -- add low dose SSI and check HGB A1C
ESRD--new to HD last admission--not tolerating well--consult renal-- cont calcium acetate and vit D3
severe mitral stenosis--limiting success on HD--as per , nothing can be done--consult cards
liver transplant with neutropenia (ANC 0.7) and anemia (HGB 8.6 baseline?) but platelet count normal (not pancytopenia)-- follow counts--neutropenic precautions-- cont tacrolimus, cellcept, B12, MVI
chronic diastolic congestive heart failure-- unclear whether this is truly an exacerbation of this causing his SOB or just unable to tolerate volume due to failing kidneys--nevertheless--will try diuretics if OK with cards--was not discharged on any
last admission-- cont asa, atorvastatin
paroxysmal atrial fibrillation-- cont amiodarone
DVT prophylaxis
code status -- FULL CODE
--- NOTE | 2023-12-03 12:43 | CON.CAR ---
Consultation
Consultation Request
Date/Time Consultation Requested: December 03, 2023
Date/Time Consultation Performed: November 25, 2023
Requesting Provider: Hospitalist
Performing Provider: Dr. Jose Mejia
Reason for Consultation: Acute decompensated heart failure with preserved ejection fraction
Medical History
-
Chief Complaint: Shortness of breath and weight gain
History of Present Illness:
PCP: Pepe Hi
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 Singleton
Mr. Long is a 68YOM with PMH of CKD 5 (hemodialysis started last admission earlier this month), heart failure with preserved ejection fraction, orthotopic liver transplantation (2020 at [place] on tacro), paroxysmal atrial fibrillation,
hyperphos, anemia who presents to the hospital after being discharged on 11/27 with 7lb weight gain and shortness of breath.
Patient is being admitted for urgent ultrafiltration/volume removal as per renal recommendations.
Chest x-ray finds slight increase in the size of the right-sided pleural effusion. The left-sided pleural effusion is larger than the right. There is airspace disease at both lower lung lobes concerning for atelectasis or pneumonia.
Cardiology is also consulted.
Admission EKG demonstrates sinus rhythm at 92 bpm possible inferior infarct age undetermined, possible anterior infarct age undetermined. When compared to prior EKG the heart rate has increased but otherwise no significant change.
Initial troponin is 0.016.
PMH:
Acute on chronic heart failure with preserved ejection fraction
Bilateral pleural effusions
prior thoracentesis August 2023
s/p left thoracentesis 1800 ml removed 11/17/2023KI/ESRD initiated dialysis 11/17/23
Acute on chronic anemia
Symptomatic PAF
On Amiodarone
Elevated Troponin
Paroxysmal atrial fibrillation
Not chronically anticoagulated due to pancytopenia
mitral stenosis, severe not surgical candidate
PAD
HTN
hyperlipidemia
DM 2
Orthotopic liver cancer status post liver transplant 11/2020 at [place]
Hepatitis C, treated
pancytopenia
Transfusion dependent anemia of chronic disease
ESRD-HD started 11/16
s/p LUE AV fistula 10/18/23chronic hyponatremia
History of L CEA
Former smoker
Hypoalbuminemia
ECHO 08/24/23: EF 55 to 60%, mild concentric LVH, stage II diastolic dysfunction, severely dilated left atrium, peak/mean gradient 25/10 mmHg, NIKKO 1.4 cm� consistent with severe MS, trace MR, trace TR, PAP 30 mmHg, small pericardial effusion, large
pleural effusion, large echodense mass of unclear etiology in pleural space
Social History
Tobacco: Non-Smoker
Alcohol: None
Drug: None
Personal:
Living: With Family
Employment: Not Employed
Family History
Family History: Reviewed & Not Pertinent
Allergies / Home Medications
Allergy/AdvReac Type Severity Reaction Status Date / Time
oxycodone Allergy GI upset Verified 12/03/23 07:21
Medication Instructions Recorded Confirmed Type
ascorbic acid (vitamin C) 500 mg 500 mg PO DAILY Supplement 05/05/23 11/16/23 History
tablet (Vitamin C)
atorvastatin 20 mg tablet 20 mg PO QPM High Cholesterol 05/05/23 11/16/23 History
multivitamin with minerals-folic 1 tab PO DAILY Supplement 05/05/23 11/16/23 History
acid 80 mcg chewable tablet
(Centrum Adult 50 Plus)
mycophenolate mofetil 500 mg tablet 500 mg PO BID Transplant 05/05/23 11/16/23 History
tacrolimus 1 mg capsule, 2 mg PO DAILY Transplant 05/05/23 11/16/23 History
immediate-release
aspirin 81 mg tablet,delayed 81 mg PO DAILY Blood Clot 06/20/23 11/16/23 History
release Prevention/Tx
cyanocobalamin (vitamin B-12) 1,000 mcg PO DAILY Supplement 06/20/23 11/16/23 History
1,000 mcg tablet (Vitamin B-12)
mycophenolate mofetil 250 mg 250 mg PO BID Transplant 06/20/23 11/16/23 History
capsule (CellCept)
tacrolimus 1 mg capsule, 1 mg PO QPM Transplant 06/20/23 11/16/23 History
immediate-release (Prograf)
calcium acetate 667 mg tablet 667 mg PO MEALS Kidney Disease 11/16/23 11/16/23 History
cholecalciferol (vitamin D3) 50 50 mcg PO DAILY Supplement 11/16/23 11/16/23 History
mcg (2,000 unit) tablet
magnesium oxide 400 mg PO BID Supplement 11/16/23 11/16/23 History
omeprazole magnesium 20 mg 20 mg PO DAILY Gastrointestinal 11/16/23 11/16/23 History
tablet,delayed release (Prilosec Issue
OTC)
amiodarone 200 mg tablet (Pacerone) 200 mg PO BID #60 tabs 11/27/23 Rx
Review of Systems
-
History Source: Patient
All other systems: Negative unless noted
Constitutional: Weight Gain
EENT: No Symptoms
Respiratory: Trouble Breathing
Cardiac: No Symptoms
Abdomen/GI: No Symptoms
: No Symptoms
Musculoskeletal: No Symptoms
Neurological: No Symptoms
Hematologic/Lymphatic: No Symptoms
Physical Exam
Vital Signs
Temp Pulse Resp BP Pulse Ox
98.3 F 72 15 143/77 99
12/03/23 07:23 12/03/23 12:15 12/03/23 12:15 12/03/23 12:15 12/03/23 12:15
Lab Results
12/03/23 08:03
12/03/23 08:03
Troponin I 0.016 ng/ml 12/03/23 08:03
Physical Exam
General: Well Developed, Well Nourished and No Apparent Distress
HEENT: Normocephalic, Anicteric and Moist Mucous Membranes
Respiratory: Clear and Non Labored Respirations
Cardiac: S1/S2, Regular Rhythm and Murmur (2/6 diastolic rumble)
Breast: Deferred by me
GI: Soft, Non Tender and Non Distended
Rectal: Deferred by Provider
Musculoskeletal: No Clubbing, No Cyanosis and Edema (There is +2 pitting lower extremity edema bilaterally)
Skin: Warm and Dry
Neuro: Awake, Alert, Oriented and AO x 3
Psych: Calm
Impression / Plan
-
PCP: Pepe Hi
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 Singleton
Impression:
ESRD-HD started 11/16
s/p LUE AV fistula 10/18/23
Acute on chronic heart failure with preserved ejection fraction
Bilateral pleural effusions
prior thoracentesis August 2023
s/p left thoracentesis 1800 ml removed 11/17/2023KI/ESRD initiated dialysis 11/17/23
Acute on chronic anemia
Symptomatic PAF
On Amiodarone
Not chronically anticoagulated due to pancytopenia
mitral stenosis, severe not surgical candidate
chronic hyponatremia
PAD
HTN
hyperlipidemia
DM 2
Orthotopic liver cancer status post liver transplant 11/2020 at [place]
Hepatitis C, treated
pancytopenia
Transfusion dependent anemia of chronic disease
History of L CEA
Former smoker
Hypoalbuminemia
Recommendations:
Management of his heart failure with preserved ejection fraction acutely will center around removal of volume which is being accomplished with ultrafiltration.
Chronic management will also send around volume management via hemodialysis.
Blood pressures have been stable this admission.
He remains as not a candidate for intervention on his mitral valve disease.
From a cardiac standpoint nothing acutely to add.
Maintain amiodarone for rhythm control
Do not see the reason to follow troponin values. Will cancel troponin tests.
Please call us if needed
Data Reviewed
-
EKG: Tracing Personally Visualized and interpreted
Radiology: Report Reviewed by me
Medical Tests (Nuc Med, Echo etc): Report Reviewed by me
Labs: Labs Reviewed by me
Old Records: Reviewed
Total Time Spent with Patient (in minutes): 81
[2023-12-03 13:17] LABS: Troponin I 0.015 ng/ml
--- NOTE | 2023-12-03 13:21 | W.PN.NEPH.HD ---
Assessment
-
- patient overloaded
- planned for 2 hour, 2L
- blood pressures tolerating well thus far
Progress Note - Hemodialysis
-
Date of Service: December 03, 2023
Duration: 2 hours
Opti-Dialyzer: 160
Ultrafiltration: Other (2L)
--- NOTE | 2023-12-03 13:31 | PTCARENOTE ---
pt aaox3. states no pain and sob has improved since coming to the hospital. nc4l. breath sounds diminished course with ex wheezing. st 1 noted on sacrum pink blanchable. ntg gtt running as ordered. pt now on dialysis.
[2023-12-03] MEDS: PHOSLO PO (15:28)
[2023-12-03] MEDS: NOVOLOG FLEXPEN-LOW RESISTANCE SC (15:28)
[2023-12-03] MEDS: PHOSLO 667 MG PO (15:47)
--- NOTE | 2023-12-03 16:00 | CON.PUL ---
Addendum entered and electronically signed by Scott Ashley MD 12/03/23 21:05:
Given his wheezing, I will also check IgE level.
Original Note:
Consultation
Consultation Request
Date/Time Consultation Requested: 12/03/2023 - 1230
Date/Time Consultation Performed: 12/03/2023 - 1350
Requesting Provider: Dr. De Jesus
Performing Provider: Dr. Ashley
Reason for Consultation: SOB/wheezing
Medical History
-
Chief Complaint: SOB
History of Present Illness:
68-year-old male past med history of mitral stenosis, heart failure, ESRD on HD, A-fib and liver transplant secondary to hepatitis C on immunosuppressive medications who presents with shortness of breath. Patient says that he has buildup of fluid
and has a hard time breathing. He required 2 L/min nasal cannula in the ER. Labs showed hyponatremia, elevated creatinine 3.6, hyperglycemia to 248, leukopenia to 1.7, anemia to 8.6, a low absolute neutrophil count of 0.7, and COVID antigen
negative. He was started on a nitroglycerin drip. Patient transferred to the IMU for further care and pulmonary consulted for additional recommendations.
PMHx: A-fib, hypertension, hyperlipidemia, former tobacco use disorder, renal failure on HD, anemia, history of hepatitis C virus
PSHx: Liver transplant, hernia repair, left arm fistula
Past Medical History
Past Medical History: Other (Above as per HPI)
Past Surgical History: Other (Above as per HPI)
Social History
Tobacco: Former Smoker
Alcohol: None
Drug: None
Personal:
Living: With Family
Employment: Not Employed
Family History
Family History: Reviewed & Not Pertinent
Allergies / Home Medications
Allergies
Allergy/AdvReac Type Severity Reaction Status Date / Time
oxycodone Allergy GI upset Verified 12/03/23 07:21
Home Medications
Medication Instructions Recorded Confirmed Last Taken Type
ascorbic acid (vitamin C) 500 mg 500 mg PO DAILY Supplement 05/05/23 12/03/23 12/03/23 History
tablet (Vitamin C) 0800
atorvastatin 20 mg tablet 20 mg PO QPM High Cholesterol 05/05/23 12/03/23 12/02/23 20:00 History
multivitamin with minerals-folic 1 tab PO DAILY Supplement 05/05/23 12/03/23 12/03/23 History
acid 80 mcg chewable tablet 0800
(Centrum Adult 50 Plus)
mycophenolate mofetil 500 mg tablet 500 mg PO BID Transplant 05/05/23 12/03/23 12/03/23 History
0750
tacrolimus 1 mg capsule, 2 mg PO DAILY Transplant 05/05/23 12/03/23 12/03/23 History
immediate-release 0800
aspirin 81 mg tablet,delayed 81 mg PO DAILY Blood Clot 06/20/23 12/03/23 12/03/23 History
release Prevention/Tx 0800
cyanocobalamin (vitamin B-12) 1,000 mcg PO DAILY Supplement 06/20/23 12/03/23 12/03/23 History
1,000 mcg tablet (Vitamin B-12) 0800
mycophenolate mofetil 250 mg 250 mg PO BID Transplant 06/20/23 12/03/23 12/03/23 History
capsule (CellCept) 0800
tacrolimus 1 mg capsule, 1 mg PO QPM Transplant 06/20/23 12/03/23 12/02/23 20:00 History
immediate-release (Prograf)
calcium acetate 667 mg tablet 667 mg PO MEALS Kidney Disease 11/16/23 12/03/23 12/03/23 History
0800
cholecalciferol (vitamin D3) 50 50 mcg PO DAILY Supplement 11/16/23 12/03/23 12/03/23 History
mcg (2,000 unit) tablet 0800
magnesium oxide 400 mg PO BID Supplement 11/16/23 12/03/23 12/03/23 History
0800
omeprazole magnesium 20 mg 20 mg PO DAILY Gastrointestinal 11/16/23 12/03/23 12/03/23 History
tablet,delayed release (Prilosec Issue 0800
OTC)
amiodarone 200 mg tablet (Pacerone) 200 mg PO BID #60 tabs 11/27/23 12/03/23 12/03/23 Rx
0800
Review of Systems
-
History Source: Patient
All other systems: Negative unless noted (12 point ROS performed and is negative unless mentioned above.)
Vitals / Labs / Diagnostic Testing
Vital Signs
Temp Pulse Resp BP Pulse Ox
97.7 F 73 15 97/76 99
12/03/23 19:10 12/03/23 18:15 12/03/23 18:15 12/03/23 18:15 12/03/23 18:15
Lab Data
12/03/23 08:03
12/03/23 08:03
Microbiology
12/03/23 08:03 Nasal Swab Influenza Types A & B (BRET) - Final
Negative for Influenza A & B, NAAT
Negative results must be combined with clinical observations
and patient history.
Nucleic Acid Amplification test (NAAT)performed on the
[employer], [place] ID NOW platform.
Diagnostic Testing:
Physical Exam
-
HEENT: Normocephalic and Anicteric
Cardiovascular: S1/S2 and Peripheral Edema (+2 LE pitting edema)
Respiratory: Wheeze (bilaterally (L is more pronounced than R)), Rales (bibasilar), Rhonchi (n) and Non-Labored Respirations
GI: Soft, Non Distended and Non Tender
Neurology: Awake and Alert
Skin: Warm and Dry
General: Comfortable and Chills (n)
Assessment
-
Assessment: 68-year-old male past med history of mitral stenosis, heart failure, ESRD on HD, A-fib and liver transplant secondary to hepatitis C on immunosuppressive medications who presents with shortness of breath. Patient says that he has
buildup of fluid and has a hard time breathing. He required 2 L/min nasal cannula in the ER. Labs showed hyponatremia, elevated creatinine 3.6, hyperglycemia to 248, leukopenia to 1.7, anemia to 8.6, a low absolute neutrophil count of 0.7, and
COVID antigen negative. He was started on a nitroglycerin drip. Patient transferred to the IMU for further care and pulmonary consulted for additional recommendations.
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
Impression:
#Acute volume overload in setting of CKD/ESRD now on nitroglycerin drip
#Wheezing - suspect due to pulmonary edema but he is a former tobacco smoker (quit ~5 years ago), hence unable to rule out AECOPD
#Hyperglycemia
#Acute respiratory failure with hypoxemia with volume overload
#Hyponatremia
#Leukopenia with neutropenia
Plan:
- Urgent HD
- Wean off nitroglycerin drip
- Wheezing likely due to acute pulmonary edema --> if wheezing does not resolve with HD and improve BP then can consider starting systemic steroids
- In meantime, will start DuoNebs TID x 72 hrs with prn doses in between
- Maintain MAP >65
- Maintain euglycemia with goal BG 140�180
- Continue supplemental O2 to keep SpO2 >90-94%; check walking pulse ox prior to discharge unless he is on room air with sats >95%
- Replete K >4, Mg >2
- DVT prophylaxis: HSQ
Pulmonary will continue to follow along.
Data:
CXR 12-03-2023: There has been an interval worsening with a marked increase in the size of right-sided pleural effusion. Left-sided pleural effusion remains larger than the right. Airspace disease in both lower lobes may be atelectasis but pneumonia
cannot be excluded
Chest US 12-03-2023: Large bilateral pleural effusions.
[2023-12-03 16:24] LABS: Glucose - Point of Care 150 mg/dl (70-99)
[2023-12-03] MEDS: LIPITOR 20 MG PO (17:37)
[2023-12-03] MEDS: PROGRAF 1 MG PO (17:37)
[2023-12-03] MEDS: NOVOLOG FLEXPEN-LOW RESISTANCE 1 UNITS SC (17:37)
[2023-12-03] MEDS: CELLCEPT 500 MG PO (20:23)
[2023-12-03] MEDS: HEPARIN 5000 UNITS SC (20:23)
[2023-12-03] MEDS: MAG-TAB SR 84 MG PO (20:23)
[2023-12-03] MEDS: CELLCEPT 250 MG PO (20:24)
[2023-12-03] MEDS: PACERONE 200 MG PO (20:24)
[2023-12-03 21:43] LABS: Glucose - Point of Care 160 mg/dl (70-99)
[2023-12-03] MEDS: DUONEB 3 ML INH ×2 (21:50→22:22)
[2023-12-04] VITALS (53 sets, daily range): BP systolic 80–171; BP diastolic 49–101; PULSE 98–111; O2SAT 97–98; BMI 22.2
[2023-12-04] MEDS: MELATONIN 5 MG PO ×2 (01:19→21:19)
[2023-12-04 04:29] LABS: Hematocrit 24.4 % (39.0-52.0); Hemoglobin 8.1 g/dL (13.0-18.0); Mean Corp Hgb Conc. 33.2 g/dL (33.0-37.0); Mean Corpuscular Volume 90.4 fL (80.0-94.0); Mean Platelet Volume 7.9 fL (7.4-10.4); Nucleated Red Blood Cells % 0 % (-); Platelet Count 173 10^3/uL (130-400); Red Cell Dist. Width 16.6 % (11.5-14.5)
[2023-12-04 04:49] LABS: White Blood Cell Count 1.3 10^3/uL (4.8-10.8)
[2023-12-04 05:40] LABS: ALT (SGPT) < 10 U/L (0-50); AST (SGOT) 23 U/L (17-59); Albumin 3.1 g/dl (3.5-5.0); Alkaline Phosphatase 76 U/L (38-126); Blood Urea Nitrogen 37 mg/dl (9-20); Calcium 8.3 mg/dl (8.4-10.2); Carbon Dioxide 29 mmol/L (22-30); Chloride 90 mmol/L (98-107); Estimated Creatinine Clearance 13 ml/min; Glucose 151 mg/dl (70-99); HDL Cholesterol 53 mg/dl; LDL Cholesterol, Calculated 38 mg/dl; Magnesium 2.4 mg/dl (1.6-2.3); Potassium 5.4 mmol/L (3.5-5.1); Sodium 127 mmol/L (135-145); Total Bilirubin 0.7 mg/dl (0.2-1.3); Total Cholesterol 103 mg/dl (50-199); Total Protein 5.7 g/dl (6.3-8.2); Triglyceride 60 mg/dl (10-149); Very Low Density Lipoprotein 12 mg/dl (0-30); eGFR 13.68
[2023-12-04] MEDS: PACERONE 200 MG PO ×2 (05:49→19:38)
--- NOTE | 2023-12-04 06:00 | PTCARENOTE ---
Addendum entered by Cali Akbar RN 12/04/23 06:31:
Patient resumed on Nitro gtt with new IV, first BP following resulted at 90/62 MAP 72. Patient asymptomatic. Held nitro gtt at this time.
Original Note:
Patient converted from NSR to Afib, hx of PAF, medicated with AM dose of 200mg Amiodarone PO early, see MAR for documentation. Upon administration of new vial of IV nitro, patients IV noted to be out of arm. Patient denies removing IV from self, new
IV inserted and IV nitro resumed, see worklist for titration. VSS, call watkins within reach, care ongoing.
[2023-12-04] MEDS: NITROGLYCERIN PREMIX 250 IV (06:08)
[2023-12-04 06:27] LABS: Band Neutrophils 0 % (0-3); Lymphocytes 16 % (20-51); Monocytes 32 % (2-9); Normal RBC Morphology Yes; Platelets Checked Yes; Segmented Neutrophils 52 % (42-75)
[2023-12-04 06:29] LABS: Absolute Neutrophils -Man Diff 0.6 10^3/uL (1.4-6.5)
[2023-12-04] MEDS: PROTONIX 40 MG PO (07:49)
[2023-12-04] MEDS: MAG-TAB SR 84 MG PO ×2 (07:49→19:38)
[2023-12-04] MEDS: VITAMIN C 500 MG PO (07:49)
[2023-12-04] MEDS: PHOSLO 667 MG PO ×3 (07:49→16:12)
[2023-12-04] MEDS: VITAMIN B-12 1000 MCG PO (07:49)
[2023-12-04] MEDS: CELLCEPT 250 MG PO ×2 (07:50→19:38)
[2023-12-04] MEDS: CELLCEPT 500 MG PO ×2 (07:50→19:38)
[2023-12-04] MEDS: VITAMIN D3 (cholecalciferol) 50 MCG PO (07:50)
[2023-12-04] MEDS: ASPIR LOW (ENTERIC COATED) 81 MG PO (07:50)
[2023-12-04] MEDS: THERAGRAN 1 TABLET PO (07:50)
[2023-12-04] MEDS: HEPARIN 5000 UNITS SC ×2 (07:51→19:38)
[2023-12-04] MEDS: PROGRAF 2 MG PO (07:51)
[2023-12-04] MEDS: NOVOLOG FLEXPEN-LOW RESISTANCE 1 UNITS SC ×2 (07:55→12:22)
[2023-12-04] MEDS: DUONEB 3 ML INH ×3 (07:57→19:44)
[2023-12-04 07:58] LABS: Glucose - Point of Care 164 mg/dl (70-99)
--- NOTE | 2023-12-04 08:25 | W.PN.PUL3 ---
Today's Communication / Plan
-
O2
HD
BDs
Observe of systemic CS
Assessment
-
Assessment: 68-year-old male past med history of mitral stenosis, heart failure, ESRD on HD, A-fib and liver transplant secondary to hepatitis C on immunosuppressive medications who presents with shortness of breath. Patient says that he has
buildup of fluid and has a hard time breathing. He required 2 L/min nasal cannula in the ER. Labs showed hyponatremia, elevated creatinine 3.6, hyperglycemia to 248, leukopenia to 1.7, anemia to 8.6, a low absolute neutrophil count of 0.7, and
COVID antigen negative. He was started on a nitroglycerin drip. Patient transferred to the IMU for further care and pulmonary consulted for additional recommendations.
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
Impression:
#Acute volume overload in setting of CKD/ESRD
#Wheezing - suspect due to pulmonary edema but he is a former tobacco smoker (quit ~5 years ago), hence unable to rule out AECOPD
#Hyperglycemia
#Acute respiratory failure with hypoxemia with volume overload
#Hyponatremia
#Leukopenia with neutropenia
R thoracentesis 11-27-23, 1.9L, clear yellow. 08-27-23 (1.65L)
L thoracentesis 11-17-23, 1.8L, clear donna. 08-26-23 (1.45L)
Liver transplant 2020, on tacrolimus, mycophenolate follows at [place]
ESRD, new onset HD 11-16-23
Plan:
- Urgent HD 12-03 done, for HD today
- Wheezing likely due to acute pulmonary edema
Chronic bilateral pleural effusions, multifactorial etiology including HFpEF, severe MS, CKD on HD, amiodarone, atorvastatin, tacrolimus, mycophenolate
Will rec to retap if indicated by size of effusions and significance of symptoms attributed to effusions per se as the effusions are multifactorial as mentioned above, rec reexplore addressing effusions with [facility] where he has received his care
At time of my visit does not appears in AECOPD
- For now continue DuoNebs TID with prn doses in between
- Continue supplemental O2 to keep SpO2 >90-94%; check walking pulse ox prior to discharge unless he is on room air with sats >95%
- DVT prophylaxis: HSQ
Data:
CXR 12-03-2023: There has been an interval worsening with a marked increase in the size of right-sided pleural effusion. Left-sided pleural effusion remains larger than the right. Airspace disease in both lower lobes may be atelectasis but pneumonia
cannot be excluded
Chest US 12-03-2023: Large bilateral pleural effusions.
Subjective Data
-
Date of Service:
Date of Service: December 04, 2023
Chief Complaint: Pulmonary Follow Up
Subjective:
No major events reported overnight
Suspected hemodialysis session today
at bedside, they have following the past with weaning, they were told that the pleural effusions could not be resolved due to number of issues including severe mitral stenosis
Review of Systems
General: Fever (n), Sweats (n), Chills (n) and Satisfactory Appetite (n)
HEENT: Epistaxis (n) and Dysphagia (n)
Cardiopulmonary: Dyspnea, Cough (n), Wheezing (n), Chest Pain (n), Edema and Hemoptysis (n)
GI: Abdominal Pain (n), Nausea (n) and Vomiting
Neuro: Weakness
Objective Data
Data Reviewed
Vital Signs / I&O / Oxygen:
Vital Signs
Temp Pulse Resp BP Pulse Ox
98.5 F 110 22 90/62 91
12/04/23 03:20 12/04/23 08:00 12/04/23 08:00 12/04/23 06:21 12/04/23 08:00
Intake and Output
12/03/23 12/04/23 12/05/23
06:59 06:59 06:59
Intake Total 295 / 295
Output Total
Balance 270 / 270
SaO2 91
Nasal Cannula flow liters per 4
minute
Physical Exam
General: Respiratory Distress (mild)
HEENT: Normocephalic and Moist Mucous Membranes
Cardiovascular: Regular Rhythm, Murmur (MS), Peripheral Edema (FRANKY) and Calf Tenderness (n)
Respiratory: Clear (decreased at bases), Non-Labored Respirations and Stridor (n)
GI: Soft, Non Distended and Non Tender
Neurology: Awake, AO x 3 and No Motor Deficits
Skin: Dry
Labs/Micro/Reports
Lab Data
12/04/23 04:09
12/04/23 04:09
Microbiology
12/03/23 08:03 Nasal Swab Influenza Types A & B (BRET) - Final
Negative for Influenza A & B, NAAT
Negative results must be combined with clinical observations
and patient history.
Nucleic Acid Amplification test (NAAT)performed on the
[employer] platform.
--- NOTE | 2023-12-04 10:15 | PTCARENOTE ---
Pt received from perfusionist RN. Michelet. Afib on hall monitor. Remains on 4L midflow sating 95% at rest. Assessment documented. Plan for IR today for thoracentesis and HD after. Pt without complain at this time.
--- NOTE | 2023-12-04 11:13 | W.PN.HOSP.TC ---
Addendum entered and electronically signed by Charles Garcia MD 12/04/23 16:45:
Patient seen and examined
Discussed with resident
Discussed with nephrology.
Discussed with patient's at the bedside.
Impression
Acute hypoxic respiratory failure secondary to CHF and reaccumulating bilateral pleural effusions.
Acute CHF preserved EF secondary to severe mitral stenosis.
Bilateral pleural effusion.
Paroxysmal atrial fibrillation.
End-stage renal disease recently on HD.
Persistent hypotension.
Status post liver transplant on immunosuppression with CellCept and Prograf
Anemia of chronic disease with stable hemoglobin
Plan:
Acute hypoxic respiratory failure secondary to decompensated CHF and reaccumulating pleural effusion
Attempt to wean off oxygen as tolerates.
Acute CHF preserved EF.
Severe mitral stenosis.
Volume control with HD.
Status post right thoracentesis on 12/04 with 2 L
Reassess for left thoracentesis on 12/05
Wean off oxygen as tolerated
Paroxysmal atrial fibrillation.
Noted paroxysms with rapid ventricular response during HD likely related to severe mitral stenosis and intolerance to volume shift.
Currently off of AV hu blocking agents
Initiated on amiodarone recent admission.
Not on anticoagulation due to prior history of hemorrhagic complication.
Chronic anemia
Hemoglobin stable
Monitor hemoglobin closely.
Liver transplant
Continue immunosuppression with CellCept and Prograf.
Monitor LFT while on amiodarone
Type 2 diabetes
Recent hemoglobin A1c 5.1
Not on insulin or glucose lowering medications prior to this admission.
Basal bolus protocol
Monitor serial blood glucose.
Original Note:
Today's Communication/Plan
-
See A/P
Assessment / Plan
Assessment / Plan
IMPRESSION:
Acute CHF preserved EF.
Acute pulmonary edema
Acute hypoxic respiratory failure due to above.
Acute on chronic anemia
CKD 5
Hyponatremia
Conditions prior to admission:
Chronic diastolic CHF
� Echocardiogram 12/04 with LVEF of 55% - 65% mitral stenosis severe.
Severe calcific mitral stenosis
Paroxysmal atrial fibrillation
Hypertension.
CKD stage V.
Chronic pancytopenia
Liver cancer status post transplant 2019 at [facility]
Hepatitis C treated.
Diabetes, currently diet controlled
PLAN:�
Presents with dyspnea and acute hypoxic respiratory failure likely multifactorial in the settings of decompensated diastolic CHF and volume overload with progressive CKD 5, bilateral pleural effusion
Continue oxygen supplementation
wean O2 as tolerated
Nocturnal O2 assessment
Recurrent Bilateral pleural effusion
Status post Thora 12/04.� Removed 2000 cc from the right side
Will Consult IR for Ultrasound-guided thoracocentesis, Left side AM.
Paroxysmal atrial fibrillation with rapid reticular response.
Patient with severe mitral stenosis
Continue amiodarone and aspirin.
Monitor rate and rhythm closely in the settings of HD and hemodynamics.
CKD 5.
HD done today.
Continue HD monitoring hemodynamics.
Status post liver transplant around 3 years ago
Compensated
Monitor closely
Continue immunosuppression including mycophenolate, tacrolimus
Type 2 diabetes.
Currently not on insulin or oral glucose lowering medication
�hemoglobin A1c 5.1
Code Status: Full Code.
Anticipated Discharge: > 48 hours
Subjective/Interval History
-
Date of Service: December 04, 2023
Objective Data
-
Labs:
Laboratory Results
12/04/23
04:09
WBC 1.3 L*
Hgb 8.1 L
Hct 24.4 L
Plt Count 173
Sodium 127 L
Potassium 5.4 H
Chloride 90 L
Carbon Dioxide 29
BUN 37 H
Creatinine 4.4 H*
Glucose 151 H
Calcium 8.3 L
Total Bilirubin 0.7
AST 23
ALT < 10
Alkaline Phosphatase 76
Vital Signs:
Vital Signs
Temp Pulse Resp BP Pulse Ox
97.7 F 96 19 128/69 96
12/04/23 07:25 12/04/23 10:00 12/04/23 10:00 12/04/23 10:00 12/04/23 10:00
I&O
12/03/23 12/04/23 12/05/23
06:59 06:59 06:59
Intake Total 295 / 295
Output Total
Balance 270 / 270
Physical Exam
-
General: Respiratory Distress
HEENT: Normocephalic and Atraumatic
Cardiac: Regular Rhythm
GI: Soft, Nontender and Nondistended
Neuro: Awake and Alert
[2023-12-04 12:32] LABS: Glucose - Point of Care 156 mg/dl (70-99)
--- NOTE | 2023-12-04 13:20 | W.PN.NEPH.HD ---
Assessment
-
pt seen during HD
vitals stable
s/p 2lit right thoracentesis today
UF as allows
high dose ELIGH
reviewed with in detail
will give more time on HD to see if pt QOL will improve if it is not in next few weeks likely need GOC discussion
aware of poor prognosis
d/w primary
Progress Note - Hemodialysis
-
Date of Service: December 04, 2023
Duration: 30 minutes and 3 hours
Potassium Bath: 2
Calcium Bath: 2.5
Opti-Dialyzer: 160
Ultrafiltration: Other (1.5-2kg)
Blood Flow: 400
Dialysate Flow: 600
Heparin: no
EPO: [id number]
[2023-12-04] MEDS: RETACRIT 4000 UNITS IV (13:24)
[2023-12-04] MEDS: MANNITOL 12.5 GRAMS IV (13:25)
[2023-12-04] MEDS: FLEXBUMIN 25% FOR HEMODIALYSIS 12.5 GRAMS IV (13:25)
[2023-12-04] MEDS: RETACRIT 6000 UNITS IV (13:49)
[2023-12-04 14:28] LABS: Body Fluid Mononuclear 90.9 %; Body Fluid Polymorphonuclear 9.1 %; Body Fluid WBC 176 /CUMM
[2023-12-04 15:01] LABS: Total Cells Counted 100
[2023-12-04 15:03] LABS: Body Fluid Second Tech SD
--- NOTE | 2023-12-04 15:36 | CM ---
Patient who is readmitted with Hx ESRD on HD with Dx acute hypoxemic respiratory insufficiency/failure due to volume overload with presumed recurrent pleural effusion. O2 4L midflow. PT & OT recommend HH.
Spoke with Maxine, patient's ;
the patient resides with his in a 2 story house with no CHITO.
He has remained independent with ADLs and ambulation since his recent d/c home.
provides stand by assist for patient when he is on the stairs.
Patient uses new shower chair. No other DME.
Current with [facility]- seen twice by nurse prior to readmit.
No prior SNF.
PCP - [facility]
Pharmacy - [facility]
Patient goes to [facility] - MWF 4:20pm.
Referral placed to resume [facility].
Plan watch for home O2 needs.
Plan home with outpatient [facility] HD, with [facility].
[2023-12-04] MEDS: TYLENOL 650 MG PO (16:13)
[2023-12-04] MEDS: NOVOLOG FLEXPEN-LOW RESISTANCE SC (16:15)
[2023-12-04 16:25] LABS: Glucose - Point of Care 129 mg/dl (70-99)
[2023-12-04] MEDS: LIPITOR 20 MG PO (17:24)
[2023-12-04] MEDS: PROGRAF 1 MG PO (17:24)
[2023-12-04] MEDS: RETACRIT IV (19:38)
[2023-12-04 21:29] LABS: Glucose - Point of Care 200 mg/dl (70-99)
[2023-12-05] VITALS (16 sets, daily range): BP systolic 63–163; BP diastolic 39–73; PULSE 79; O2SAT 97; BMI 21.3
[2023-12-05 05:14] LABS: Hematocrit 22.4 % (39.0-52.0); Hemoglobin 7.3 g/dL (13.0-18.0); Mean Corp Hgb Conc. 32.6 g/dL (33.0-37.0); Mean Corpuscular Hgb 29.4 pg (27.0-31.0); Mean Corpuscular Volume 90.3 fL (80.0-94.0); Mean Platelet Volume 8.1 fL (7.4-10.4); Platelet Count 175 10^3/uL (130-400); Red Blood Cell Count 2.48 10^6/uL (4.70-6.10); Red Cell Dist. Width 17.2 % (11.5-14.5)
[2023-12-05 05:41] LABS: Blood Urea Nitrogen 22 mg/dl (9-20); Calcium 7.7 mg/dl (8.4-10.2); Carbon Dioxide 31 mmol/L (22-30); Chloride 94 mmol/L (98-107); Estimated Creatinine Clearance 18 ml/min; Glucose 126 mg/dl (70-99); Potassium 4.6 mmol/L (3.5-5.1); Sodium 127 mmol/L (135-145); eGFR 20.83
[2023-12-05 05:42] LABS: White Blood Cell Count 1.3 10^3/uL (4.8-10.8)
--- NOTE | 2023-12-05 06:27 | PTCARENOTE ---
Cared for pt overnight. aaox3, but gets slightly confused at night at times. continues on 4LNC, became SOB at one point in the middle of the night and bumped to 6L to recover, unclear why this happened, pt was trying to get up. Denies pain. Afib on
monitor. HD cath & AVF in good condition. B's steady, maps all >65. Bed alarm on. Call watkins in reach. Will monitor.
[2023-12-05] MEDS: DUONEB 3 ML INH (07:23)
[2023-12-05 07:52] LABS: Band Neutrophils 0 % (0-3); Eosinophils 1 % (0-6); Lymphocytes 34 % (20-51); Monocytes 19 % (2-9); Normal RBC Morphology No; Platelets Checked Yes; Segmented Neutrophils 46 % (42-75)
[2023-12-05 07:53] LABS: Hypochromasia Slight; Polychromasia Slight; Total Cells Counted 100
[2023-12-05 07:55] LABS: Absolute Neutrophils -Man Diff 0.5 10^3/uL (1.4-6.5)
[2023-12-05] MEDS: NOVOLOG FLEXPEN-LOW RESISTANCE 2 UNITS SC (09:14)
[2023-12-05] MEDS: PROGRAF 2 MG PO (09:15)
[2023-12-05] MEDS: VITAMIN B-12 1000 MCG PO (09:15)
[2023-12-05] MEDS: CELLCEPT 250 MG PO ×2 (09:15→20:08)
[2023-12-05] MEDS: THERAGRAN 1 TABLET PO (09:16)
[2023-12-05] MEDS: PROTONIX 40 MG PO (09:16)
[2023-12-05] MEDS: PHOSLO 667 MG PO ×3 (09:16→16:56)
[2023-12-05] MEDS: VITAMIN C 500 MG PO (09:16)
[2023-12-05] MEDS: ASPIR LOW (ENTERIC COATED) 81 MG PO (09:16)
[2023-12-05] MEDS: PACERONE 200 MG PO ×2 (09:16→20:10)
[2023-12-05] MEDS: VITAMIN D3 (cholecalciferol) 50 MCG PO (09:16)
[2023-12-05] MEDS: CELLCEPT 500 MG PO ×2 (09:16→20:09)
[2023-12-05] MEDS: MAG-TAB SR 84 MG PO ×2 (09:16→20:10)
[2023-12-05] MEDS: HEPARIN 5000 UNITS SC ×2 (09:17→20:09)
[2023-12-05 09:21] LABS: Glucose - Point of Care 218 mg/dl (70-99)
[2023-12-05 11:16] LABS: Glucose - Point of Care 193 mg/dl (70-99)
[2023-12-05] MEDS: NOVOLOG FLEXPEN-LOW RESISTANCE 1 UNITS SC (11:32)
--- NOTE | 2023-12-05 11:49 | W.PN.PUL3 ---
Today's Communication / Plan
-
Intermitted thoracentesis
HD
TRT
O2
GOC
Assessment
-
Assessment: 68-year-old male past med history of mitral stenosis, heart failure, ESRD on HD, A-fib and liver transplant secondary to hepatitis C on immunosuppressive medications who presents with shortness of breath. Patient says that he has
buildup of fluid and has a hard time breathing. He required 2 L/min nasal cannula in the ER. Labs showed hyponatremia, elevated creatinine 3.6, hyperglycemia to 248, leukopenia to 1.7, anemia to 8.6, a low absolute neutrophil count of 0.7, and
COVID antigen negative. He was started on a nitroglycerin drip. Patient transferred to the IMU for further care and pulmonary consulted for additional recommendations.
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
Impression:
#Acute volume overload in setting of CKD/ESRD
#Wheezing - suspect due to pulmonary edema but he is a former tobacco smoker (quit ~5 years ago), hence unable to rule out AECOPD
#Hyperglycemia
#Acute respiratory failure with hypoxemia with volume overload
#Hyponatremia
#Leukopenia with neutropenia
R thoracentesis 11-27-23, 1.9L, clear yellow. 08-27-23 (1.65L), transudate, M predominant, cx/cyto negative
L thoracentesis 11-17-23, 1.8L, clear donna. 08-26-23 (1.45L), transudate, M predominant, cx/cyto negative
Liver transplant 2020, on tacrolimus, mycophenolate follows at [facility]
ESRD, new onset HD 11-16-23
Plan:
Continue O2 protocol
Home O2 evaluation PTD
Keep asp precs
- Urgent HD 12-03 done
HD 12-04
For HD 12-06
- Wheezing on adm likely due to acute pulmonary edema
Chronic bilateral pleural effusions, multifactorial etiology including HFpEF, severe MS, CKD on HD, amiodarone, atorvastatin, tacrolimus, mycophenolate
Will rec to retap if indicated by size of effusions and significance of symptoms attributed to effusions per se, rec reexplore addressing effusions with [facility] where he has received his care
I see no clear cut benefit from tunnelized pleural cath at this juncture
High TSH level identified, amiodarone discontinued 12-05
Though discontinuation of amiodarone could contribute to improve his pleural effusions, other potential causes remain an issue (CKD, severe MS, other meds mentioned above)
Potentially management of amiodarone induced hypothyroidism may benefit his management of pleural effusion, agree with initiation of TRT
Repeat R thoracentesis 12-04: 2L, CXR markedly improved R PF
Enlarging L PF, thoracentesis ordered 12-05, 1.4L drained, no PF analysis needed
CXR post tap with marked improvement of L PF, but also noted return of moderate size R PF
No evidence of AECOPD
- Change DuoNebs to prn
Per Cards, no candidate for MS intervention
- DVT prophylaxis: HSQ
D/w and Mrs Long on a daily basis
Data:
CXR 12-03-2023: There has been an interval worsening with a marked increase in the size of right-sided pleural effusion. Left-sided pleural effusion remains larger than the right. Airspace disease in both lower lobes may be atelectasis but pneumonia
cannot be excluded
Chest US 12-03-2023: Large bilateral pleural effusions.
Subjective Data
-
Date of Service:
Date of Service: December 05, 2023
Chief Complaint: Pulmonary Follow Up
Subjective:
No major events reported
2L R thoracentesis 12-04
Review of Systems
General: Fever (n), Sweats (n), Chills (n) and Satisfactory Appetite
HEENT: Epistaxis (n) and Dysphagia
Cardiopulmonary: Dyspnea (n at rest), Cough (n), Wheezing (n) and Chest Pain
GI: Abdominal Pain (n), Nausea (n) and Vomiting (n)
Neuro: Weakness
Objective Data
Data Reviewed
Vital Signs / I&O / Oxygen:
Vital Signs
Temp Pulse Resp BP Pulse Ox
97.8 F 79 19 131/71 97
12/05/23 11:37 12/05/23 09:41 12/05/23 09:41 12/05/23 09:41 12/05/23 09:41
Intake and Output
12/04/23 12/05/23 12/06/23
06:59 06:59 06:59
Intake Total 295 / 295 600 / 600 660 / 660
Output Total 25 / 25
Balance 270 / 270 600 / 600 660 / 660
SaO2 97
Nasal Cannula flow liters per 2
minute
Physical Exam
General: Respiratory Distress (n at rest on O2)
HEENT: Normocephalic and Moist Mucous Membranes
Cardiovascular: Regular Rhythm, Murmur (MS), Peripheral Edema (FRANKY) and Calf Tenderness (n)
Respiratory: Clear (decreased at bases), Non-Labored Respirations and Stridor (n)
GI: Soft, Non Distended and Non Tender
Neurology: Awake, AO x 3 and No Motor Deficits
Skin: Dry
Labs/Micro/Reports
Lab Data
12/05/23 05:00
12/05/23 05:00
Microbiology
12/04/23 11:46 Pleural Fluid Body Fluid Culture - Preliminary
No Growth After 18-24 Hours
12/04/23 11:46 Pleural Fluid Gram Stain - Preliminary
12/03/23 16:57 Nose MRSA Screen - Final
No Methicillin Resistant Staphylococcus aureus isolated.
12/03/23 08:03 Nasal Swab Influenza Types A & B (BRET) - Final
Negative for Influenza A & B, NAAT
Negative results must be combined with clinical observations
and patient history.
Nucleic Acid Amplification test (NAAT)performed on the
[employer] platform.
--- NOTE | 2023-12-05 12:20 | CM ---
CM reviewed chart- pt remains in IMU with no set ADC ay this time
Pt accepted by [facility] for [facility] on dc
Continues with O2 needs- 2L currently
Plan for home with [facility] and [facility] out[facility] HD at [facility]
Watch for home O2 needs- will likely benefit from home eval prior to dc
Discharge Disposition- home with [facility] and [facility], watch for O2 needs
[facility] Fax- [phone]
--- NOTE | 2023-12-05 13:31 | PTCARENOTE ---
Pt presents as assessed. Aox3. NSR/Afib on tele monitor. VSS. Sating mid 90's on 4L NC. OOB to chair with PT. To IR via stretcher.
--- NOTE | 2023-12-05 14:14 | W.PN.HOSP.TC ---
Addendum entered and electronically signed by Charles Garcia MD 12/05/23 16:27:
Correction:
Given amiodarone induced hypothyroidism and no more better options to control A-fib in patient with severe mitral stenosis plan is to continue amiodarone, start Levothyroid supplementation levothyroxine 75 mcg with follow-up TFTs in 2 to 3 weeks.
Addendum entered and electronically signed by Charles Garcia MD 12/05/23 15:59:
Patient seen and examined
Discussed with resident.
Discussed with nephrology and cardiology
Discussed with patient's at the bedside.
Impression/plan:
Acute hypoxic respiratory failure secondary to CHF and rapidly reaccumulating bilateral pleural effusions.
Status post bilateral thoracentesis.
Respiratory status stable.
Will obtain CT chest as a baseline after a left thoracentesis on 11/04.
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
TSH climbing above 30.
Stop amiodarone.
May need rate control medications while off amiodarone given mitral stenosis and A-fib with hemodynamic instability particularly while on HD.
Discussed with cardiology
HD in AM.
Goals of care discussion with at the bedside.
Original Note:
Today's Communication/Plan
-
Left thoracocentesis
Wean off oxygen as tolerated
Monitor Hemoglobin
Monitor LFT while on Amiodarone.
Serial glucose monitoring.
Assessment / Plan
Assessment / Plan
IMPRESSION:
Acute hypoxic respiratory failure secondary to CHF and reaccumulating bilateral pleural effusions.
Acute CHF preserved EF secondary to severe mitral stenosis.
Bilateral pleural effusion.
Paroxysmal atrial fibrillation.
End-stage renal disease recently on HD.
Persistent hypotension.
Status post liver transplant on immunosuppression with CellCept and Prograf
Anemia of chronic disease with stable hemoglobin
Conditions prior to admission:
Chronic diastolic CHF
� Echocardiogram 12/04 with LVEF of 55% - 65% mitral stenosis severe.
Severe calcific mitral stenosis
Paroxysmal atrial fibrillation
Hypertension.
CKD stage V.
Chronic pancytopenia
Liver cancer status post transplant 2019 at [facility]
Hepatitis C treated.
Diabetes, currently diet controlled
PLAN:�
Acute hypoxic respiratory failure secondary to decompensated CHF and reaccumulating pleural effusion
Attempt to wean off oxygen as tolerates.
Acute CHF preserved EF.
Severe mitral stenosis.
Volume control with HD.
Status post right thoracentesis on 12/04 with 2 L
Reassess for left thoracentesis on 12/05
Wean off oxygen as tolerated
Paroxysmal atrial fibrillation.
Noted paroxysms with rapid ventricular response during HD likely related to severe mitral stenosis and intolerance to volume shift.
Currently off of AV hu blocking agents
Initiated on amiodarone recent admission.
Not on anticoagulation due to prior history of hemorrhagic complication.
Chronic anemia
Hemoglobin stable
Monitor hemoglobin closely.
Liver transplant
Continue immunosuppression with CellCept and Prograf.
Monitor LFT while on amiodarone
Type 2 diabetes
Recent hemoglobin A1c 5.1
Not on insulin or glucose lowering medications prior to this admission.
Basal bolus protocol
Monitor serial blood glucose.
Code Status: Full Code.
Anticipated Discharge: > 48 hours
Subjective/Interval History
-
Date of Service: December 05, 2023
Objective Data
-
Labs:
Laboratory Results
12/05/23
05:00
WBC 1.3 L*
Hgb 7.3 L
Hct 22.4 L
Plt Count 175
Sodium 127 L
Potassium 4.6
Chloride 94 L
Carbon Dioxide 31 H
BUN 22 H
Creatinine 3.1 H
Glucose 126 H
Calcium 7.7 L
Vital Signs:
Vital Signs
Temp Pulse Resp BP Pulse Ox
97.6 F 63 26 124/57 98
12/05/23 13:30 12/05/23 13:55 12/05/23 13:55 12/05/23 13:55 12/05/23 13:55
I&O
12/04/23 12/05/23 12/06/23
06:59 06:59 06:59
Intake Total 295 / 295 600 / 600 660 / 660
Output Total
Balance 270 / 270 600 / 600 660 / 660
Physical Exam
-
General: Respiratory Distress
HEENT: Normocephalic and Atraumatic
Cardiac: Regular Rhythm
GI: Soft, Nontender and Nondistended
Neuro: Awake and Alert
--- NOTE | 2023-12-05 15:02 | W.PN.NEPH.PH ---
Today's Communication / Plan
-
HD tomorrow
Assessment/Plan
-
Assessment:
ESRD on HD MWF at [facility]/p JERZYE AVF (not matured), has TDC in place now
Acute on chronic heart failure with preserved ejection fraction
Bilateral pleural effusions
Acute hypoxic respiratory failure
Acute on chronic anemia
Hyponatremia
Paroxysmal atrial fibrillation
Pancyopenia (gets recurrent transfusions)
s/p Liver txp
hepatitis C (treated)
T2DM
hyperphos
Plan:
s/p left thoracentesis today 1.5lit, wean O2 as able
right 2lit on 12/04
HD tomorrow-
- previously difficulty with volume removal due to hemodynamic lability
- Continue with calcium acetate, vitamin D 3 for hyperphos
hb decreasing, prn transfusions and high dose LEIGH
TSH is high on Amio-FT4 ok-mgt per primary
-
-
Date of Service: December 05, 2023
CC / HPI / ROS
-
Chief Complaint:
ESRD
History of Present Illness:
s/p left thoracentesis 1.5lit 12/05
right thora 2lit 12/04
BP stable, hb decreasing to 7.3
sodium low 127
wt decreasing
Review of Systems:
feels well, less sob
no cp. no UOP
Labs
-
Labs:
WBC 1.3 10^3/uL (4.8-10.8) L* 12/05/23 05:00
RBC 2.48 10^6/uL (4.70-6.10) L 12/05/23 05:00
Hgb 7.3 g/dL (13.0-18.0) L 12/05/23 05:00
Hct 22.4 % (39.0-52.0) L 12/05/23 05:00
Plt Count 175 10^3/uL (130-400) 12/05/23 05:00
Sodium 127 mmol/L (135-145) L 12/05/23 05:00
Potassium 4.6 mmol/L (3.5-5.1) 12/05/23 05:00
Chloride 94 mmol/L (98-107) L 12/05/23 05:00
Carbon Dioxide 31 mmol/L (22-30) H 12/05/23 05:00
BUN 22 mg/dl (9-20) H 12/05/23 05:00
Creatinine 3.1 mg/dL (0.7-1.3) H 12/05/23 05:00
eGFR 20.83 12/05/23 05:00
Glucose 126 mg/dl (70-99) H 12/05/23 05:00
Calcium 7.7 mg/dl (8.4-10.2) L 12/05/23 05:00
Albumin 3.1 g/dl (3.5-5.0) L 12/04/23 04:09
Physical Exam
-
Vital Signs:
Vital Signs
Temp Pulse Resp BP Pulse Ox
97.6 F 64 27 132/57 98
12/05/23 13:30 12/05/23 14:21 12/05/23 14:21 12/05/23 14:21 12/05/23 13:55
Cardiovascular:: Regular rate and rhythm
Respiratory:: Bilateral: Rales
Lung Excursion:: Normal
Abdomen:: Nontender and Soft
Extremity Edema:: None: Bilateral: (trace)
Taveras Catheter: No
--- NOTE | 2023-12-05 15:14 | PN.CDI ---
CDI
- -
CDI:
Physician Documentation Request
Admit Date: 12/03/23 10:34
Dear Doctor Jose,
Please review the following and provide your response in the progress notes.
Clinical Indicators:
- 12/03 RN skin assessment indicates Stage 1 sacrum pressure injury, POA
Physician documentation of the type and location of wounds is required for compliant documentation. Based on the above clinical findings and your assessment, please provide the following in your progress note:
1. Location of the ulcer/wound, including laterality.
2. Type (etiology) of ulcer/wound:
- Diabetic ulcer
- Arterial (ischemic) ulcer
- Traumatic wound
- Venous stasis ulcer
- Pressure (decubitus) ulcer
- Non-healing surgical wound
- Other
- Unable to determine
Use of terms such as suspected, likely, concern for, or probable (associated with a specific diagnosis that is being evaluated, monitored, or treated as if it exists) are acceptable and can be coded in the inpatient setting, when documented at the
time of discharge.
Thank you,
Devin Nelson RN
CDI Specialist
Please use your independent medical judgment in providing your response.
*Source: National Pressure Ulcer Advisory Panel (NPUAP)
[2023-12-05 16:11] LABS: Glucose - Point of Care 142 mg/dl (70-99)
[2023-12-05] MEDS: NOVOLOG FLEXPEN-LOW RESISTANCE SC (16:49)
[2023-12-05] MEDS: LIPITOR 20 MG PO (16:56)
[2023-12-05] MEDS: SYNTHROID 75 MCG PO (16:56)
[2023-12-05] MEDS: PROGRAF 1 MG PO (16:56)
--- NOTE | 2023-12-05 17:26 | W.PN.CARDCBS ---
Today's Communication / Plan
-
Recommendations:
1. We were asked to reconsult on the patient given his TSH is elevated at 30 and in the setting, I would be reasonable to discontinue amiodarone.
2. Given this, we recommend starting Lopressor 25 mg twice daily to help with rate control in case he has an episode of atrial fibrillation and slowly uptitrating as needed however for now patient is maintaining sinus rhythm.
3. Patient continues to remain very complex from a medical standpoint with multiple significant comorbid conditions with limited options available to treat underlying severe mitral stenosis.
4. Continue supportive measures and dialysis as tolerated. Agree with goals of care discussion given overall prognosis continues to remain guarded.
Talia Singleton MD, [facility], [facility]
Impression / Plan
-
PCP: Pepe Hi
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 Antoine Bee of [place], now follows locally by Dr. Singleton
Impression:
ESRD-HD started 11/16
s/p LUE AV fistula 10/18/23
Acute on chronic heart failure with preserved ejection fraction
Bilateral pleural effusions
prior thoracentesis August 2023
s/p left thoracentesis 1800 ml removed 11/17/2023KI/ESRD initiated dialysis 11/17/23
Acute on chronic anemia
Symptomatic PAF
On Amiodarone
Not chronically anticoagulated due to pancytopenia
mitral stenosis, severe not surgical candidate
chronic hyponatremia
PAD
HTN
hyperlipidemia
DM 2
Orthotopic liver cancer status post liver transplant 11/2020 at [place]
Hepatitis C, treated
pancytopenia
Transfusion dependent anemia of chronic disease
History of L CEA
Former smoker
Hypoalbuminemia
Recommendations:
1. We were asked to reconsult on the patient given his TSH is elevated at 30 and in the setting, I would be reasonable to discontinue amiodarone.
2. Given this, we recommend starting Lopressor 25 mg twice daily to help with rate control in case he has an episode of atrial fibrillation and slowly uptitrating as needed however for now patient is maintaining sinus rhythm.
3. Patient continues to remain very complex from a medical standpoint with multiple significant comorbid conditions with limited options available to treat underlying severe mitral stenosis.
4. Continue supportive measures and dialysis as tolerated. Agree with goals of care discussion given overall prognosis continues to remain guarded.
Talia Singleton MD, [facility], [facility]
Progress Note - Golf Course Superintendent
Subjective
Date of Service: December 05, 2023
We are called back to see patient given there is evidence of possible thyroid toxicity related to amiodarone which was newly started.
Objective
Labs:
12/05/23 05:00
12/05/23 05:00
Labs
Hgb 7.3 g/dL (13.0-18.0) L 12/05/23 05:00
Hct 22.4 % (39.0-52.0) L 12/05/23 05:00
Plt Count 175 10^3/uL (130-400) 12/05/23 05:00
Sodium 127 mmol/L (135-145) L 12/05/23 05:00
Potassium 4.6 mmol/L (3.5-5.1) 12/05/23 05:00
BUN 22 mg/dl (9-20) H 12/05/23 05:00
Creatinine 3.1 mg/dL (0.7-1.3) H 12/05/23 05:00
Glucose 126 mg/dl (70-99) H 12/05/23 05:00
Troponins
12/03/23 12/03/23 12/03/23
08:03 12:39 18:30
Troponin I 0.016 0.015 Cancelled
Vital Signs and I&O:
Vital Signs
Temp Pulse Resp BP Pulse Ox
97.9 F 68 21 132/57 98
12/05/23 15:38 12/05/23 16:00 12/05/23 16:00 12/05/23 14:21 12/05/23 13:55
Vital Signs
Temp Pulse Resp BP Pulse Ox
97.9 F 68 21 132/57 98
12/05/23 15:38 12/05/23 16:00 12/05/23 16:00 12/05/23 14:21 12/05/23 13:55
Intake & Output
12/03/23 12/04/23 12/05/23 12/06/23
06:59 06:59 06:59 06:59
Intake Total 295 / 295 600 / 600 660 / 660
Output Total 25 / 25
Balance 270 / 270 600 / 600 660 / 660
Physical Exam
Physical Exam
General: No acute distress, AAOX3
Neck: Negative JVD
Heart: Regular, Negative S3 positive S1/S2, Negative S4, No murmur
Lungs: CTA b/l, negative wheezes/rales/rhonchi
Abd: Positive BS, NT/ND, neg rebound/rigidity/guarding
Ext: Negative cyanosis/clubbing/edema
Neuro: nonfocal
[2023-12-05] MEDS: LOPRESSOR 25 MG PO (20:09)
[2023-12-05 21:35] LABS: Glucose - Point of Care 137 mg/dl (70-99)
[2023-12-05] MEDS: MELATONIN 5 MG PO (21:46)
[2023-12-06] VITALS (70 sets, daily range): BP systolic 80–160; BP diastolic 44–98; PULSE 103; O2SAT 97; BMI 21.4
--- NOTE | 2023-12-06 04:17 | DOWNTIME ---
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 Downtime documentation of patient's care, including medication administrations, has been reconciled in the electronic record per guidelines. Refer to the
patient's paper chart under the miscellaneous tab to see printed paper medication records and downtime forms.
[2023-12-06] MEDS: SYNTHROID 75 MCG PO (05:53)
[2023-12-06 06:40] LABS: IgE 72 kU/L (<=214)
[2023-12-06 07:46] LABS: Glucose - Point of Care 131 mg/dl (70-99)
[2023-12-06] MEDS: NOVOLOG FLEXPEN-LOW RESISTANCE SC ×2 (07:52→12:29)
[2023-12-06] MEDS: CELLCEPT 250 MG PO ×2 (07:53→20:23)
[2023-12-06] MEDS: CELLCEPT 500 MG PO ×2 (07:53→20:23)
[2023-12-06] MEDS: PACERONE 200 MG PO (07:53)
[2023-12-06] MEDS: PROGRAF 2 MG PO (07:55)
[2023-12-06] MEDS: ProAmatine 5 MG PO (07:55)
[2023-12-06 08:26] LABS: Hematocrit 21.8 % (39.0-52.0); Hemoglobin 7.4 g/dL (13.0-18.0); Mean Corp Hgb Conc. 33.9 g/dL (33.0-37.0); Mean Corpuscular Hgb 30.8 pg (27.0-31.0); Mean Corpuscular Volume 90.8 fL (80.0-94.0); Mean Platelet Volume 7.9 fL (7.4-10.4); Platelet Count 164 10^3/uL (130-400); Red Cell Dist. Width 17.2 % (11.5-14.5)
[2023-12-06 08:27] LABS: White Blood Cell Count 1.1 10^3/uL (4.8-10.8)
[2023-12-06] MEDS: RETACRIT 10000 UNITS IV (09:02)
[2023-12-06 09:03] LABS: Blood Urea Nitrogen 40 mg/dl (9-20); Calcium 8.2 mg/dl (8.4-10.2); Carbon Dioxide 28 mmol/L (22-30); Chloride 89 mmol/L (98-107); Estimated Creatinine Clearance 14 ml/min; Glucose 132 mg/dl (70-99); Potassium 4.6 mmol/L (3.5-5.1); Sodium 125 mmol/L (135-145); eGFR 14.89
--- NOTE | 2023-12-06 09:31 | W.PN.PUL3 ---
Today's Communication / Plan
-
Intermittent thoracentesis
Assessment
-
Assessment: 68-year-old male past med history of mitral stenosis, heart failure, ESRD on HD, A-fib and liver transplant secondary to hepatitis C on immunosuppressive medications who presents with shortness of breath. Patient says that he has
buildup of fluid and has a hard time breathing. He required 2 L/min nasal cannula in the ER. Labs showed hyponatremia, elevated creatinine 3.6, hyperglycemia to 248, leukopenia to 1.7, anemia to 8.6, a low absolute neutrophil count of 0.7, and
COVID antigen negative. He was started on a nitroglycerin drip. Patient transferred to the IMU for further care and pulmonary consulted for additional recommendations.
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
Impression:
#Acute volume overload in setting of CKD/ESRD
#Wheezing - suspect due to pulmonary edema but he is a former tobacco smoker (quit ~5 years ago), hence unable to rule out AECOPD
#Hyperglycemia
#Acute respiratory failure with hypoxemia with volume overload
#Hyponatremia
#Leukopenia with neutropenia
R thoracentesis 11-27-23, 1.9L, clear yellow. 08-27-23 (1.65L), transudate, M predominant, cx/cyto negative
L thoracentesis 11-17-23, 1.8L, clear donna. 08-26-23 (1.45L), transudate, M predominant, cx/cyto negative
Liver transplant 2020, on tacrolimus, mycophenolate follows at [place]
ESRD, new onset HD 11-16-23
Plan:
Continue O2 protocol
Home O2 evaluation PTD
Keep asp precs
- Urgent HD 12-03 done
HD 12-04
For HD 12-06
- Wheezing on adm likely due to acute pulmonary edema
Chronic bilateral pleural effusions, multifactorial etiology including HFpEF, severe MS, CKD on HD, amiodarone, atorvastatin, tacrolimus, mycophenolate
Will rec to retap if indicated by size of effusions and significance of symptoms attributed to effusions per se, rec reexplore addressing effusions with [facility] where he has received his care
I see no clear cut benefit from tunnelized pleural cath at this juncture but certainly technically feasible: discussed with patient and a number of times
Given R chest tunnelized HD cath will prefer not to start tunn cath in R but L chest once patient and decide
For now they prefer to continue intermittent bilateral thoracentesis
High TSH level identified, amiodarone discontinued 12-05
Though discontinuation of amiodarone could contribute to improve his pleural effusions, other potential causes remain an issue (CKD, severe MS, other meds mentioned above)
Potentially management of amiodarone induced hypothyroidism may benefit his management of pleural effusion, agree with initiation of TRT
Repeat R thoracentesis 12-04: 2L, CXR markedly improved R PF
Enlarging L PF, thoracentesis ordered 12-05, 1.4L drained, no PF analysis needed
CXR post tap with marked improvement of L PF, but also noted return of moderate size R PF
No evidence of AECOPD
- Change DuoNebs to prn
Per Cards, no candidate for MS intervention
- DVT prophylaxis: HSQ
D/w Mr and Mrs Long on a daily basis
Mrs Mora aware of rec to DNR but states patient has adamantly refused, she will try to talk to Mr Mora as she realizes his clinical condition has continued deteriorating in spite of efforts
Data:
CXR 12-03-2023: There has been an interval worsening with a marked increase in the size of right-sided pleural effusion. Left-sided pleural effusion remains larger than the right. Airspace disease in both lower lobes may be atelectasis but pneumonia
cannot be excluded
Chest US 12-03-2023: Large bilateral pleural effusions.
Subjective Data
-
Date of Service:
Date of Service: December 06, 2023
Chief Complaint: Pulmonary Follow Up
Subjective:
On HD this morning, denies major complaints
Review of Systems
General: Fever (n), Sweats (n), Chills and Satisfactory Appetite (n)
HEENT: Epistaxis (n) and Dysphagia (n)
Cardiopulmonary: Dyspnea (n), Cough (n), Wheezing, Chest Pain (n) and Hemoptysis (n)
GI: Abdominal Pain (n), Nausea (n) and Vomiting
Neuro: Weakness
Objective Data
Data Reviewed
Vital Signs / I&O / Oxygen:
Vital Signs
Temp Pulse Resp BP Pulse Ox
97.8 F 60 21 151/62 95
12/06/23 07:15 12/06/23 06:00 12/06/23 06:00 12/06/23 06:00 12/06/23 04:00
Intake and Output
12/05/23 12/06/23 12/07/23
06:59 06:59 06:59
Intake Total 600 / 600 900 / 900
Balance 600 / 600 900 / 900
SaO2 95
Nasal Cannula flow liters per 3
minute
Physical Exam
General: Respiratory Distress (n at rest on O2)
HEENT: Normocephalic and Moist Mucous Membranes
Cardiovascular: Regular Rhythm, Murmur (MS), Peripheral Edema (FRANKY) and Calf Tenderness (n)
Respiratory: Clear (decreased at R base), Non-Labored Respirations and Stridor (n)
GI: Soft, Non Distended and Non Tender
Neurology: Awake, AO x 3 and No Motor Deficits
Skin: Dry
Labs/Micro/Reports
Lab Data
12/06/23 08:00
12/06/23 08:00
Microbiology
12/04/23 11:46 Pleural Fluid Body Fluid Culture - Preliminary
No Growth After 18-24 Hours
12/04/23 11:46 Pleural Fluid Gram Stain - Preliminary
12/03/23 16:57 Nose MRSA Screen - Final
No Methicillin Resistant Staphylococcus aureus isolated.
12/03/23 08:03 Nasal Swab Influenza Types A & B (BRET) - Final
Negative for Influenza A & B, NAAT
Negative results must be combined with clinical observations
and patient history.
Nucleic Acid Amplification test (NAAT)performed on the
[employer] platform.
--- NOTE | 2023-12-06 09:36 | W.PN.CARDCBS ---
Today's Communication / Plan
-
Stop amiodarone due to hypothyroidism
Continue metoprolol for rate control
We will sign off, please recall as needed
Impression / Plan
-
PCP: Pepe Hi
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 Antoine Bee of [place], now follows locally by Dr. Singleton
Impression:
ESRD-HD started 11/16
s/p LUE AV fistula 10/18/23
Acute on chronic heart failure with preserved ejection fraction
Bilateral pleural effusions
prior thoracentesis August 2023
s/p left thoracentesis 1800 ml removed 11/17/2023
Acute on chronic anemia
Symptomatic PAF
On Amiodarone
Not chronically anticoagulated due to pancytopenia
mitral stenosis, severe not surgical candidate
chronic hyponatremia
PAD
HTN
hyperlipidemia
DM 2
Orthotopic liver cancer status post liver transplant 11/2020 at [place]
Hepatitis C, treated
pancytopenia
Transfusion dependent anemia of chronic disease
History of L CEA
Former smoker
Hypoalbuminemia
Recommendations:
We were asked to reconsult on the patient given his TSH is significantly elevated in the setting of amiodarone
Agree with discontinuing amiodarone and monitor TSH going forward
Started on Lopressor 25 mg twice daily for rate control
Not chronically anti-coagulated due to pancytopenia
Patient is very complex from a medical standpoint with multiple significant comorbid conditions with limited options available to treat underlying severe mitral stenosis
We will sign off, please recall as needed
Progress Note - Surveillance Operator
Subjective
Date of Service: December 06, 2023
NAOE. Resting comfortably in IMU, currently on HD. No chest pain or SOB. No edema.
Objective
Labs:
12/06/23 08:00
12/06/23 08:00
Labs
Hgb 7.4 g/dL (13.0-18.0) L 12/06/23 08:00
Hct 21.8 % (39.0-52.0) L 12/06/23 08:00
Plt Count 164 10^3/uL (130-400) 12/06/23 08:00
Sodium 125 mmol/L (135-145) L 12/06/23 08:00
Potassium 4.6 mmol/L (3.5-5.1) 12/06/23 08:00
BUN 40 mg/dl (9-20) H 12/06/23 08:00
Creatinine 4.1 mg/dL (0.7-1.3) H* 12/06/23 08:00
Glucose 132 mg/dl (70-99) H 12/06/23 08:00
Troponins
12/03/23 12/03/23
12:39 18:30
Troponin I 0.015 Cancelled
Vital Signs and I&O:
Vital Signs
Temp Pulse Resp BP Pulse Ox
97.8 F 60 21 151/62 95
12/06/23 07:15 12/06/23 06:00 12/06/23 06:00 12/06/23 06:00 12/06/23 04:00
Vital Signs
Temp Pulse Resp BP Pulse Ox
97.8 F 60 21 151/62 95
12/06/23 07:15 12/06/23 06:00 12/06/23 06:00 12/06/23 06:00 12/06/23 04:00
Intake & Output
12/04/23 12/05/23 12/06/23 12/07/23
06:59 06:59 06:59 06:59
Intake Total 295 / 295 600 / 600 900 / 900
Output Total 25 / 25
Balance 270 / 270 600 / 600 900 / 900
Physical Exam
Physical Exam
Gen: NAD, AAOx3
HEENT: NC/AT, sclera anicteric
Neck: No JVD, tunneled HD line in place
CV: RRR, NL s1/s2
Lungs: No increased WOB on 3L NC
Abd: S/ND
Ext: No LE edema
Skin: Warm, dry
Neuro: Non-focal
[2023-12-06] MEDS: MANNITOL 12.5 GRAMS IV (10:53)
[2023-12-06] MEDS: PHOSLO 667 MG PO ×3 (12:20→17:28)
[2023-12-06] MEDS: VITAMIN D3 (cholecalciferol) 50 MCG PO (12:21)
[2023-12-06] MEDS: MAG-TAB SR 84 MG PO ×2 (12:21→20:23)
[2023-12-06] MEDS: ASPIR LOW (ENTERIC COATED) 81 MG PO (12:21)
[2023-12-06] MEDS: PROTONIX 40 MG PO (12:21)
[2023-12-06] MEDS: HEPARIN 5000 UNITS SC ×2 (12:22→20:23)
[2023-12-06] MEDS: VITAMIN B-12 1000 MCG PO (12:22)
[2023-12-06] MEDS: VITAMIN C 500 MG PO (12:22)
[2023-12-06] MEDS: LOPRESSOR PO (12:28)
[2023-12-06] MEDS: THERAGRAN 1 TABLET PO (12:29)
[2023-12-06 12:38] LABS: Glucose - Point of Care 98 mg/dl (70-99)
--- NOTE | 2023-12-06 14:21 | W.PN.HOSP.TC ---
Addendum entered and electronically signed by Charles Garcia MD 12/06/23 16:02:
Patient seen and examined
Discussed with resident
Impression/plan
Acute hypoxic respiratory failure secondary to rapidly reaccumulating bilateral pleural effusions
Status post bilateral thoracentesis right 2000 cc left 1400 cc.
Respiratory status improved.
Not on home oxygen prior to admission
Increase activity with attempt to wean off oxygen/home oxygen assessment test.
Obtaining baseline CT scan of the chest today.
Atrial fibrillation
Severe mitral stenosis.
Hypotension especially during HD sessions limiting volume management.
Recently initiated on amiodarone now with worsening hypothyroidism (subclinical).
Attempt to reintroduce beta-bernice, monitor closely for blood pressure tolerance.
Other option would be continuation of amiodarone along with levothyroxine replacement with careful monitoring of TFTs.
Initiated on low-dose of levothyroxine 50 mcg daily. Will need to follow-up with TSH in 2 to 4 weeks for adjustment. If remains off amiodarone eventually hope to wean off levothyroxine, although likely pre-existing hypothyroidism given elevated
TSH at 8.9 on 06/20/23 prior to amiodarone therapy.
Original Note:
Today's Communication/Plan
-
Status post right thoracentesis on 12/05 with 1400cc
Continue metoprolol for rate control
monitor improvement on BB Bernice.
Assessment / Plan
Assessment / Plan
IMPRESSION:
Acute hypoxic respiratory failure secondary to CHF and reaccumulating bilateral pleural effusions.
Acute CHF preserved EF secondary to severe mitral stenosis.
Bilateral pleural effusion.
Paroxysmal atrial fibrillation.
End-stage renal disease recently on HD.
Persistent hypotension.
Status post liver transplant on immunosuppression with CellCept and Prograf
Anemia of chronic disease with stable hemoglobin
Conditions prior to admission:
Chronic diastolic CHF
� Echocardiogram 12/04 with LVEF of 55% - 65% mitral stenosis severe.
Severe calcific mitral stenosis
Paroxysmal atrial fibrillation
Hypertension.
CKD stage V.
Chronic pancytopenia
Liver cancer status post transplant 2019 at [facility]
Hepatitis C treated.
Diabetes, currently diet controlled
PLAN:�
Acute hypoxic respiratory failure secondary to decompensated CHF and reaccumulating pleural effusion
Attempt to wean off oxygen as tolerates.
Acute CHF preserved EF.
Severe mitral stenosis.
Volume control with HD.
Status post right thoracentesis on 12/04 with 2 L
Reassess for left thoracentesis on 12/05
Wean off oxygen as tolerated
Paroxysmal atrial fibrillation.
Noted paroxysms with rapid ventricular response during HD likely related to severe mitral stenosis and intolerance to volume shift.
Currently off of AV hu blocking agents
Initiated on amiodarone recent admission.
Not on anticoagulation due to prior history of hemorrhagic complication.
Chronic anemia
Hemoglobin stable
Monitor hemoglobin closely.
Liver transplant
Continue immunosuppression with CellCept and Prograf.
Monitor LFT while on amiodarone
Type 2 diabetes
Recent hemoglobin A1c 5.1
Not on insulin or glucose lowering medications prior to this admission.
Basal bolus protocol
Monitor serial blood glucose.
Code Status: Full Code.
Anticipated Discharge: 24 - 48 hours
Subjective/Interval History
-
Date of Service: December 06, 2023
Objective Data
-
Labs:
Laboratory Results
12/06/23
08:00
WBC 1.1 L*
Hgb 7.4 L
Hct 21.8 L
Plt Count 164
Sodium 125 L
Potassium 4.6
Chloride 89 L
Carbon Dioxide 28
BUN 40 H
Creatinine 4.1 H*
Glucose 132 H
Calcium 8.2 L
Vital Signs:
Vital Signs
Temp Pulse Resp BP Pulse Ox
97.6 F 101 23 108/45 99
12/06/23 11:13 12/06/23 11:15 12/06/23 11:15 12/06/23 11:15 12/06/23 11:15
I&O
12/05/23 12/06/23 12/07/23
06:59 06:59 06:59
Intake Total 600 / 600 900 / 900
Balance 600 / 600 900 / 900
Physical Exam
-
General: No Apparent Distress
HEENT: Normocephalic and Atraumatic
Respiratory: Clear to Auscultation
Cardiac: Regular Rhythm and S1/S2
GI: Soft, Nontender and Nondistended
Neuro: Awake and Alert
--- NOTE | 2023-12-06 15:04 | W.PN.NEPH.HD ---
Progress Note - Hemodialysis
-
Date of Service: December 06, 2023
Duration: 30 minutes and 3 hours
Potassium Bath: 3
Calcium Bath: 2.5
Opti-Dialyzer: 160
Ultrafiltration: Other
Blood Flow: 400
Dialysate Flow: 600
Heparin: none
EPO: 10K
--- NOTE | 2023-12-06 17:00 | PTCARENOTE ---
Patient ambulated with assistance x1 to BR. Patient felt light headed and dizzy while in the BR and was unsteady on his feet. Patient was told that he needs to use the commode for the rest of the day. Sacrum is pink but blanchable, calazime
cream, applied.
--- NOTE | 2023-12-06 17:12 | CM ---
Patient who is readmitted with Hx ESRD on HD with Dx acute hypoxemic respiratory insufficiency/failure due to volume overload with presumed recurrent pleural effusion. O2 4L. PT recommends home PT v skilled rehab. OT recommends HH.
Plan watch for home O2 needs.
Plan home with resumption outpatient [facility], with [facility].
[2023-12-06] MEDS: NOVOLOG FLEXPEN-LOW RESISTANCE 2 UNITS SC (17:27)
[2023-12-06] MEDS: PROGRAF 1 MG PO (17:29)
[2023-12-06] MEDS: LIPITOR 20 MG PO (17:29)
[2023-12-06 17:42] LABS: Glucose - Point of Care 212 mg/dl (70-99)
[2023-12-06] MEDS: LOPRESSOR 25 MG PO (20:23)
[2023-12-06] MEDS: MELATONIN 5 MG PO (20:23)
[2023-12-06 21:46] LABS: Glucose - Point of Care 120 mg/dl (70-99)
[2023-12-07] VITALS (13 sets, daily range): BP systolic 104–161; BP diastolic 50–76; PULSE 57; O2SAT 94; BMI 21.1
[2023-12-07] MEDS: SYNTHROID 50 MCG PO (06:17)
[2023-12-07 06:35] LABS: Hematocrit 24.7 % (39.0-52.0); Hemoglobin 8.2 g/dL (13.0-18.0); Mean Corp Hgb Conc. 33.2 g/dL (33.0-37.0); Mean Corpuscular Hgb 29.5 pg (27.0-31.0); Mean Corpuscular Volume 88.8 fL (80.0-94.0); Mean Platelet Volume 7.7 fL (7.4-10.4); Platelet Count 188 10^3/uL (130-400); Red Blood Cell Count 2.78 10^6/uL (4.70-6.10); Red Cell Dist. Width 17.4 % (11.5-14.5)
[2023-12-07 06:40] LABS: White Blood Cell Count 1.3 10^3/uL (4.8-10.8)
[2023-12-07 06:47] LABS: Blood Urea Nitrogen 33 mg/dl (9-20); Calcium 7.9 mg/dl (8.4-10.2); Carbon Dioxide 29 mmol/L (22-30); Chloride 95 mmol/L (98-107); Estimated Creatinine Clearance 15 ml/min; Glucose 113 mg/dl (70-99); Potassium 4.4 mmol/L (3.5-5.1); Sodium 126 mmol/L (135-145); eGFR 16.85
[2023-12-07 08:14] LABS: Glucose - Point of Care 110 mg/dl (70-99)
[2023-12-07] MEDS: NOVOLOG FLEXPEN-LOW RESISTANCE SC (08:43)
[2023-12-07] MEDS: MAG-TAB SR 84 MG PO (08:55)
[2023-12-07] MEDS: VITAMIN C 500 MG PO (08:55)
[2023-12-07] MEDS: THERAGRAN 1 TABLET PO (08:55)
[2023-12-07] MEDS: LOPRESSOR 25 MG PO (08:55)
[2023-12-07] MEDS: CELLCEPT 250 MG PO (08:55)
[2023-12-07] MEDS: VITAMIN B-12 1000 MCG PO (08:55)
[2023-12-07] MEDS: PROTONIX 40 MG PO (08:55)
[2023-12-07] MEDS: VITAMIN D3 (cholecalciferol) 50 MCG PO (08:55)
[2023-12-07] MEDS: PROGRAF 2 MG PO (08:55)
[2023-12-07] MEDS: ASPIR LOW (ENTERIC COATED) 81 MG PO (08:55)
[2023-12-07] MEDS: CELLCEPT 500 MG PO (08:56)
[2023-12-07] MEDS: HEPARIN 5000 UNITS SC (08:56)
[2023-12-07] MEDS: PHOSLO 667 MG PO ×2 (08:56→11:39)
--- NOTE | 2023-12-07 09:04 | W.PN.PUL3 ---
Today's Communication / Plan
-
O2
Intermittent thoracentesis
GOC
Assessment
-
Assessment: 68-year-old male past med history of mitral stenosis, heart failure, ESRD on HD, A-fib and liver transplant secondary to hepatitis C on immunosuppressive medications who presents with shortness of breath. Patient says that he has
buildup of fluid and has a hard time breathing. He required 2 L/min nasal cannula in the ER. Labs showed hyponatremia, elevated creatinine 3.6, hyperglycemia to 248, leukopenia to 1.7, anemia to 8.6, a low absolute neutrophil count of 0.7, and
COVID antigen negative. He was started on a nitroglycerin drip. Patient transferred to the IMU for further care and pulmonary consulted for additional recommendations.
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
Impression:
#Acute volume overload in setting of CKD/ESRD
#Wheezing - suspect due to pulmonary edema but he is a former tobacco smoker (quit ~5 years ago), hence unable to rule out AECOPD
#Hyperglycemia
#Acute respiratory failure with hypoxemia with volume overload
#Hyponatremia
#Leukopenia with neutropenia
R thoracentesis 11-27-23, 1.9L, clear yellow. 08-27-23 (1.65L), transudate, M predominant, cx/cyto negative
L thoracentesis 11-17-23, 1.8L, clear donna. 08-26-23 (1.45L), transudate, M predominant, cx/cyto negative
Liver transplant 2020, on tacrolimus, mycophenolate follows at [facility]
ESRD, new onset HD 11-16-23
Plan:
Continue O2 protocol
Home O2 evaluation PTD
Keep asp precs
- Urgent HD 12-03 done
HD 12-04 and 12-06
- Wheezing on adm likely due to acute pulmonary edema
Chronic bilateral pleural effusions, multifactorial etiology including HFpEF, severe MS, CKD on HD, amiodarone, atorvastatin, tacrolimus, mycophenolate
Will rec to retap if indicated by size of effusions and significance of symptoms attributed to effusions per se, rec reexplore addressing effusions with [facility] where he has received his care
I see no clear cut benefit from tunnelized pleural cath at this juncture but certainly technically feasible: discussed with patient and a number of times
Given R chest tunnelized HD cath will prefer not to start tunn cath in R but L chest once patient and decide: they are aware of modest chance of success with this intervention but may be willing to try in the future
For now they prefer to continue intermittent bilateral thoracentesis
Repeat R thoracentesis 12-04: 2L, CXR markedly improved R PF
Enlarging L PF, thoracentesis ordered 12-05, 1.4L drained, no PF analysis needed
CXR post tap with marked improvement of L PF, but also noted return of moderate size R PF
Chest CT s/c 12-07 with large bilateral PF and compressive atelectasis of RLL and LLL
I see no role for bronchoscopy at this juncture, d/w Dr Garcia
High TSH level identified, amiodarone started in early Nov 2022 adm, discontinued 12-05
Noted preexisting ^TSH prior to amiodarone therapy in Jun 2023, on no threrapy
Though discontinuation of amiodarone could contribute to improve his pleural effusions, other potential causes remain an issue (CKD, severe MS, other meds mentioned above)
Noted that his severe and progressive mitral stenosis is not amenable to intervention as has been already discussed with [facility] and [facility]
Potentially management of amiodarone induced hypothyroidism may to some extent benefit his management of pleural effusion, agree with initiation of TRT
No evidence of AECOPD
- Change DuoNebs to prn
- DVT prophylaxis: HSQ
D/w and Mrs Long on a daily basis
Mrs Mora aware of rec to DNR but states patient has adamantly refused, she will try to talk to Mr Meisenzhal as she realizes his clinical condition has continued deteriorating in spite of efforts
12-07, discussed GOC with Mr and Mrs Long at bedside, they will have a private conversation to decide code status, he seems now more willing to reconsider current full code status
Data:
CXR 12-03-2023: There has been an interval worsening with a marked increase in the size of right-sided pleural effusion. Left-sided pleural effusion remains larger than the right. Airspace disease in both lower lobes may be atelectasis but pneumonia
cannot be excluded
Chest US 12-03-2023: Large bilateral pleural effusions.
Subjective Data
-
Date of Service:
Date of Service: December 07, 2023
Chief Complaint: Pulmonary Follow Up
Subjective:
No major events reported
Sitting in chair, denies dyspnea at rest
Review of Systems
General: Fever (n), Sweats (n), Chills (n) and Satisfactory Appetite
HEENT: Epistaxis (n) and Dysphagia (n)
Cardiopulmonary: Dyspnea on Exertion, Cough (n), Wheezing, Chest Pain (n) and Hemoptysis (n)
GI: Abdominal Pain (n), Nausea (n) and Vomiting
Neuro: Weakness
Objective Data
Data Reviewed
Vital Signs / I&O / Oxygen:
Vital Signs
Temp Pulse Resp BP Pulse Ox
97.6 F 70 18 104/50 91
12/07/23 07:20 12/07/23 07:20 12/07/23 07:20 12/07/23 07:20 12/07/23 07:20
Intake and Output
12/06/23 12/07/23 12/08/23
06:59 06:59 06:59
Intake Total 900 / 900 1000 / 1000
Balance 900 / 900 1000 / 1000
SaO2 91
Nasal Cannula flow liters per 2
minute
Physical Exam
General: Respiratory Distress (n at rest on O2)
HEENT: Normocephalic and Moist Mucous Membranes
Cardiovascular: Regular Rhythm, Murmur (MS), Peripheral Edema (FRANKY) and Calf Tenderness (n)
Respiratory: Clear (decreased at both bases), Non-Labored Respirations and Stridor (n)
GI: Soft, Non Distended and Non Tender
Neurology: Awake, AO x 3 and No Motor Deficits
Skin: Dry
Labs/Micro/Reports
Lab Data
12/07/23 06:24
12/07/23 06:24
Microbiology
12/04/23 11:46 Pleural Fluid Body Fluid Culture - Preliminary
No Growth After 48 Hours
12/04/23 11:46 Pleural Fluid Gram Stain - Preliminary
12/03/23 16:57 Nose MRSA Screen - Final
No Methicillin Resistant Staphylococcus aureus isolated.
--- NOTE | 2023-12-07 10:22 | PTCARENOTE ---
Assumed care of patient at beginning of this shift from previous RN. Patient Ox3 but forgetful; bed/chair alarm in use for patient safety. See worklist for full assessment and vital signs; see MAR for med documentation.
--- NOTE | 2023-12-07 11:16 | W.PN.HOSP.TC ---
Today's Communication/Plan
-
DC planning
Assessment / Plan
Assessment / Plan
IMPRESSION:
Acute hypoxic respiratory failure secondary to CHF and reaccumulating bilateral pleural effusions.
Acute CHF preserved EF secondary to severe mitral stenosis.
Bilateral pleural effusion.
Paroxysmal atrial fibrillation.
End-stage renal disease recently on HD.
Persistent hypotension.
Status post liver transplant on immunosuppression with CellCept and Prograf
Anemia of chronic disease with stable hemoglobin
Conditions prior to admission:
Chronic diastolic CHF
� Echocardiogram 12/04 with LVEF of 55% - 65% mitral stenosis severe.
Severe calcific mitral stenosis
Paroxysmal atrial fibrillation
Hypertension.
CKD stage V.
Chronic pancytopenia
Liver cancer status post transplant 2019 at [facility]
Hepatitis C treated.
Diabetes, currently diet controlled
PLAN:�
Acute hypoxic respiratory failure secondary to decompensated CHF and reaccumulating pleural effusion
Patient is in need of oxygen on exertion due to pulse oximetry of 92% on room air at rest; 87% on room air with exertion. Patient noted with rapidly increase work of breathing with short distance ambulation.
Patient was placed on 2L O2 via nasal cannula with saturation of 95%. Oxygen will help to improve hypoxemia.
Patient is mobile within the home. Albuterol therapy has been discussed and is ineffective in treating hypoxemia-related symptoms.
Oxygen will improve the patient's symptoms. .
Acute CHF preserved EF.
Severe mitral stenosis.
Volume control with HD.
Status post right thoracentesis on 12/04 with 2 L
Reassess for left thoracentesis on 12/[address] chest findings cs with rapidly accumulating BL pleural effusion and BL atelectasis.
Paroxysmal atrial fibrillation.
Noted paroxysms with rapid ventricular response during HD likely related to severe mitral stenosis and intolerance to volume shift.
Currently off of AV hu blocking agents
Initiated on amiodarone recent admission.
Not on anticoagulation due to prior history of hemorrhagic complication.
Chronic anemia
Hemoglobin stable
Monitor hemoglobin closely.
Liver transplant
Continue immunosuppression with CellCept and Prograf.
Monitor LFT while on amiodarone
Type 2 diabetes
Recent hemoglobin A1c 5.1
Not on insulin or glucose lowering medications prior to this admission.
Basal bolus protocol
Monitor serial blood glucose.
Code Status: Full Code.
Ongoing GOC discussion with patient and . Suggesting palliative care consult as OP, and given severe co-morbilities not limited to critical mitral stenosis, ESRD, respiratory failure with risk of recurrent re-hospitalization and ultimately
cardiorespiratory arrest consideration of hospice transition.
Anticipated Discharge: Within 24 hours
Subjective/Interval History
-
Date of Service: December 07, 2023
Objective Data
-
Labs:
Laboratory Results
12/07/23
06:24
WBC 1.3 L*
Hgb 8.2 L
Hct 24.7 L
Plt Count 188
Sodium 126 L
Potassium 4.4
Chloride 95 L
Carbon Dioxide 29
BUN 33 H
Creatinine 3.7 H
Glucose 113 H
Calcium 7.9 L
Vital Signs:
Vital Signs
Temp Pulse Resp BP Pulse Ox
97.6 F 54 18 123/55 100
12/07/23 07:20 12/07/23 10:05 12/07/23 10:05 12/07/23 10:05 12/07/23 10:05
I&O
12/06/23 12/07/23 12/08/23
06:59 06:59 06:59
Intake Total 900 / 900 1000 / 1000
Balance 900 / 900 1000 / 1000
Physical Exam
-
General: Well Developed and No Apparent Distress
HEENT: Normocephalic, Atraumatic and Moist Mucous Membranes
Respiratory: Decreased Breath Sounds (Bilaterally at the bases)
Cardiac: Regular Rhythm, S1/S2, Irregular Rhythm and Murmur; Negative Rub or Gallop
GI: Soft, Nontender, Nondistended and Normal Bowel Sounds; Negative Organomegaly
Rectal: Deferred by Provider
Musculoskeletal: No Clubbing, No Cyanosis and No Edema
Skin: Negative Rash
Neuro: Awake, Alert, Oriented and Nonfocal/Grossly Intact
[2023-12-07] MEDS: NOVOLOG FLEXPEN-LOW RESISTANCE 1 UNITS SC (11:39)
[2023-12-07 11:42] LABS: Glucose - Point of Care 168 mg/dl (70-99)
--- NOTE | 2023-12-07 14:37 | W.DS.TRANS ---
DC Summary - Inspector Exhaust Emissions
-
Discharge Instructions:
Sleep Apnea Risk Intermediate
Discharge Diagnosis/Procedures Heart failure
Respiratory failure
Severe mitral stenosis
ESRD
Diet 2 Gram Sodium
Stop these medications: Amiodarone
Instructions: *DCA Heart Failure Instructions
Stand-Alone Forms:
Changes to Home Medications: Yes
Discharge Medications:
DC Medications w/original date entered in [employer]
ascorbic acid (vitamin C) 500 mg tablet (Vitamin C) 500 mg PO DAILY Supplement 05/05/23
atorvastatin 20 mg tablet 20 mg PO QPM High Cholesterol 05/05/23
multivitamin with minerals-folic acid 80 mcg chewable tablet (Centrum Adult 50 Plus) 1 tab PO DAILY Supplement 05/05/23
mycophenolate mofetil 500 mg tablet 500 mg PO BID Transplant 05/05/23
tacrolimus 1 mg capsule, immediate-release 2 mg PO DAILY Transplant 05/05/23
aspirin 81 mg tablet,delayed release 81 mg PO DAILY Blood Clot Prevention/Tx 06/20/23
cyanocobalamin (vitamin B-12) 1,000 mcg tablet (Vitamin B-12) 1,000 mcg PO DAILY Supplement 06/20/23
mycophenolate mofetil 250 mg capsule (CellCept) 250 mg PO BID Transplant 06/20/23
tacrolimus 1 mg capsule, immediate-release (Prograf) 1 mg PO QPM Transplant 06/20/23
calcium acetate 667 mg tablet 667 mg PO MEALS Kidney Disease 11/16/23
cholecalciferol (vitamin D3) 50 mcg (2,000 unit) tablet 50 mcg PO DAILY Supplement 11/16/23
magnesium oxide 400 mg PO BID Supplement 11/16/23
omeprazole magnesium 20 mg tablet,delayed release (Prilosec OTC) 20 mg PO DAILY Gastrointestinal Issue 11/16/23
levothyroxine 50 mcg tablet 50 mcg PO DAILY AT 0700 #30 tabs 12/07/23
metoprolol tartrate 25 mg tablet 25 mg PO BID #60 tabs 12/07/23
Home Medication Changes
Amiodarone stopped
Metoprolol and levothyroxine initiated
Pending Results: No
--- NOTE | 2023-12-07 14:55 | W.PN.NEPH.PH ---
Today's Communication / Plan
-
- plan for HD tomorrow if patient is not discharged
Assessment/Plan
-
Assessment:
ESRD on HD MWF at [facility]/p JERZYE AVF (not matured), has TDC in place now
Acute on chronic heart failure with preserved ejection fraction
Bilateral pleural effusions
Acute hypoxic respiratory failure
Acute on chronic anemia
Hyponatremia
Paroxysmal atrial fibrillation
Pancyopenia (gets recurrent transfusions)
s/p Liver txp
hepatitis C (treated)
T2DM
hyperphos
Plan:
right 2lit on 12/07
HD tomorrow-
- previously difficulty with volume removal due to hemodynamic lability
- Continue with calcium acetate, vitamin D 3 for hyperphos
hb decreasing, prn transfusions and high dose LEIGH
TSH is high on Amio-FT4 ok-mgt per primary
-
-
Date of Service: December 07, 2023
CC / HPI / ROS
-
Chief Complaint:
ESRD
History of Present Illness:
s/p left thoracentesis 1.5lit 12/05
right thora 2lit 12/04
BP stable, Hgb improved to 8.3
sodium low 126
wt decreasing
Review of Systems:
feels well, less sob
no cp. no UOP
Labs
-
Labs:
WBC 1.3 10^3/uL (4.8-10.8) L* 12/07/23 06:24
RBC 2.78 10^6/uL (4.70-6.10) L 12/07/23 06:24
Hgb 8.2 g/dL (13.0-18.0) L 12/07/23 06:24
Hct 24.7 % (39.0-52.0) L 12/07/23 06:24
Plt Count 188 10^3/uL (130-400) 12/07/23 06:24
Sodium 126 mmol/L (135-145) L 12/07/23 06:24
Potassium 4.4 mmol/L (3.5-5.1) 12/07/23 06:24
Chloride 95 mmol/L (98-107) L 12/07/23 06:24
Carbon Dioxide 29 mmol/L (22-30) 12/07/23 06:24
BUN 33 mg/dl (9-20) H 12/07/23 06:24
Creatinine 3.7 mg/dL (0.7-1.3) H 12/07/23 06:24
eGFR 16.85 12/07/23 06:24
Glucose 113 mg/dl (70-99) H 12/07/23 06:24
Calcium 7.9 mg/dl (8.4-10.2) L 12/07/23 06:24
Albumin 3.1 g/dl (3.5-5.0) L 12/04/23 04:09
Physical Exam
-
Vital Signs:
Vital Signs
Temp Pulse Resp BP Pulse Ox
97.6 F 53 17 140/68 97
12/07/23 07:20 12/07/23 12:00 12/07/23 12:00 12/07/23 12:00 12/07/23 12:41
Cardiovascular:: Regular rate and rhythm
Respiratory:: Bilateral: Coarse
Lung Excursion:: Normal
Abdomen:: Nontender and Soft
Bowel Sounds:: Normal
Extremity Edema:: +1: Bilateral:
Taveras Catheter: No
--- NOTE | 2023-12-07 15:06 | PTCARENOTE ---
Pt discharged. Instructions read to pt and pt's . All questions answered.
--- NOTE | 2023-12-07 16:37 | CM ---
Patient who is readmitted with Hx ESRD on HD with Dx acute hypoxemic respiratory insufficiency/failure due to volume overload with presumed recurrent pleural effusion. Home O2 Assessment done today.
Message from Dr Garcia; he would like patient to go home on O2 2L continuous. He would like Palliative Care referral- he spoke with patient/.
Request to [facility] for home O2 concentrator and POC/Portable O2 Concentrator unit, for d/c today. Referral sent and POC delivered to room by [facility]- patient/ instructed by [facility] in use.
Met with patient & mukund; both agree to d/c home today - offered to order POC through [employer] to maximize patient's ability to get around easily and patient/ agree. They are aware that [facility] is in place.
Plan home today with home O2, with resumption outpatient [facility], with [facility].
== END 2023-12-07 15:52 | disposition home health service (06) | DRG 186 ==
LOC: IMU 10:34
PROVIDERS: Internal Medicine; Nurse Practitioner Gerontology; Radiology Vascular & Interventional Radiology; ADMITTING PHYSICIAN Internal Medicine; ATTENDING PHYSICIAN Internal Medicine; CONSULT PHYSICIAN Internal Medicine Cardiovascular Disease; CONSULT PHYSICIAN Internal Medicine Critical Care Medicine; CONSULT PHYSICIAN Student in an Organized Health Care Education/Training Program; EMERGENCY PHYSICIAN Emergency Medicine; FAMILY PHYSICIAN Family Medicine
PROC: 5A1D70Z Performance of Urinary Filtration, Intermittent, Less than 6 Hours Per Day (ICD-10-PCS; 2023-12-03)
PROC: 0W993ZZ Drainage of Right Pleural Cavity, Percutaneous Approach (ICD-10-PCS; 2023-12-04)
PROC: 0W9B3ZZ Drainage of Left Pleural Cavity, Percutaneous Approach (ICD-10-PCS; 2023-12-05)
DX: J90 Pleural effusion, not elsewhere classified (principal); I50.33 Acute on chronic diastolic (congestive) heart failure; J96.01 Acute respiratory failure with hypoxia; N18.6 End stage renal disease; I13.2 Hypertensive heart and chronic kidney disease with heart failure and with stage 5 chronic kidney disease, or end stage renal disease; E87.1 Hypo-osmolality and hyponatremia; D84.821 Immunodeficiency due to drugs; D61.818 Other pancytopenia; Z94.4 Liver transplant status; Z11.52 Encounter for screening for COVID-19; Z99.2 Dependence on renal dialysis; E11.22 Type 2 diabetes mellitus with diabetic chronic kidney disease; Z87.891 Personal history of nicotine dependence; Z79.82 Long term (current) use of aspirin; I48.0 Paroxysmal atrial fibrillation; I08.1 Rheumatic disorders of both mitral and tricuspid valves; E11.65 Type 2 diabetes mellitus with hyperglycemia; D63.8 Anemia in other chronic diseases classified elsewhere; E03.9 Hypothyroidism, unspecified; E78.00 Pure hypercholesterolemia, unspecified; E88.09 Other disorders of plasma-protein metabolism, not elsewhere classified; L89.151 Pressure ulcer of sacral region, stage 1; E87.70 Fluid overload, unspecified
CPT/HCPCS: 32555; 71045; 71046; 71250; 76604; 80048; 80053; 80061; 82785; 82962; 83735; 84439; 84443; 84484; 85025; 85027; 87015; 87070; 87205; 87502; 87811; 89051; 93005; 93306; 94640; 96374; 97116; 97162; 97167; 97530; 99291; G0257; P9047; Q5106

== ENCOUNTER 2023-12-15 11:55 | Inpatient (IN) | payer MEDICARE, OTHER, SELFPAY ==
[2023-12-15] VITALS (24 sets, daily range): BP systolic 74–154; BP diastolic 36–105; BMI 23.1
--- NOTE | 2023-12-15 09:19 | ED.GENMED ---
History of Present Illness
General
Chief Complaint: Breathing Problem
Time Seen by Provider: 12/15/23 09:05
Travel History
Have you had any contact with someone who has COVID-19?: No
Do you have any symptoms of coronavirus? Fever > 100 degrees, chills, cough, shortness of breath, sore throat, loss of taste or smell, muscle aches, or headache?: No
History of Present Illness
History of Present Illness:
68-year-old male with history of A-fib, hypertension, hyperlipidemia, end-stage renal disease on dialysis, hepatitis C with prior liver transplant, recurrent pleural effusions emergency department for evaluation of increasing dyspnea and lower
extremity swelling over the past several days. Just discharged this hospital 8 days ago, during that hospital stay he did require bilateral thoracentesis. He is scheduled for dialysis later today. Denies any fevers or chills, does report coughing
particular when supine.
Past History
Past History
ED Past Medical History: HTN, NIDDM and Other (Liver transplant)
ED Past Surgical History: Other (Liver transplant)
Review of Systems
Review of Systems
Allergies reviewed?: Yes
All Other Systems: ROS reviewed and negative except as documented in HPI and ROS
Phy Exam
Physical Exam
Physical Exam:
GEN: Well appearing, NAD, WDWN
Eyes: PERRLA, EOMs intact, no scleral icterus
HENT: NCAT, oral mucosa moist, no JVD, no cervical adenopathy.
Lungs: Bilateral upper field crackles with profoundly diminished bilateral lower field lung sounds, slightly tachypneic with no accessory muscle use
Chest: Dialysis catheter right upper chest wall
Cardiac: RRR, no M/R/G, 4+ pitting edema bilateral lower extremities radial pulses 2+ bilat
Abdomen: S, NT, ND, NABS, no masses or hepatosplenomegaly
Neuro: AO x 3
MSK: No gross deformity or ecchymosis.
Skin: No rashes, petechiae. Normal color, no pallor or jaundice.
Psych: Calm, cooperative, proper hygiene
Scores
Heart Failure Risk
Heart Failure Risk Score: Not Applicable
Course
Orders/Labs/Results
Orders:
Orders
12/15/23 09:18
Electrocardiogram (*1) Urgent
Reason for Study: Shortness of Breath
EKG- Treatment ONCE
CR Chest - 2 Views Urgent
Comment:
Reason For Exam: SOB, weight gain
12/15/23 09:50
Complete Blood Count/With Diff Urgent
Comprehensive Metabolic Panel Urgent
Magnesium Urgent
Manual Differential Urgent
NT-proBNP Urgent
Prothrombin Time Urgent
12/15/23 10:48
Furosemide [Lasix] 40 mg IV ONCE ONE
12/15/23 11:37
Admit/Transfer Patient As Directed
Co-Sign Provider:
Level of Care: Inpatient admission
Assign to:: IMU- Intermediate Care
Physician / Group: Osiel
Diagnosis: Fluid overload
Reason for Hospitalization: SOB and fluid overload
Expected length of stay greater than two midnights?: Yes
ELOS- Estimated Length of Stay in days: 3
I certify the patient meets the requirements for IP care: Yes
12/15/23 11:39
Code Status As Directed
Resuscitation Status: Full Code
12/15/23 11:43
Body Fluid Cell Count Routine
What is the Body Fluid: pleural fluid
Comment: post procedure
Body Fluid Protein Routine
Fluid Source: Pleural
Fluid Culture with Gram Stain Routine
TABATHA Source: Pleural Fluid
Specimen Description:
Comment: post procedure
12/15/23 11:44
IRAD CONSULT Routine
Consulting Provider: Jeramie Melendez
Was physician already notified: Yes
Reason for consult: bila. Large pleural effusion, plz elav. for bilat. thoracentesis
12/15/23 11:54
Albumin Human 25% 50 ml [Flexbumin 25% For Hemodialysis] 12.5 grams IV HD-Q1HPRN PRN
Epoetin Chris-Epbx [Retacrit] 10,000 units IV HD-ONCE ONE
Heparin See Dose Instructions INTRACATH HD-ONCE ONE
Mannitol 12.5 grams IV HD-Q1HPRN PRN
Sodium Chloride [Sodium Chloride 4 Meq/ml For Hemodialysis] 10 ml IV HD-Q1HPRN PRN
Hemodialysis treatment As Directed
Treatment date:: 12/15/23
Treatment type: Hemodialysis
Ultrafiltration (kg): 3kg
Treatment time (duration): 3 hours 30 minutes
Use dialysis access:: Tunneled Cath
Dialyzer:: Optiflux 160
Blood flow rate minimum: 350
Blood flow rate maximum: 400
Dialysis flow rate: 600 mL/min
Dialysate temperature: 35 degrees Celsius
Sodium (Na): 140
Potassium (K): 2
Calcium (Ca): 2.5
Bicarbonate (HCO3): 35
12/17/23 11:00
DC Protocol for Telemetry ONCE
Abnormal Lab Results
12/15/23
09:50
WBC 1.3 L* 10^3/uL
(4.8-10.8)
RBC 2.81 L 10^6/uL
(4.70-6.10)
Hgb 8.1 L g/dL
(13.0-18.0)
Hct 25.1 L %
(39.0-52.0)
MCHC 32.3 L g/dL
(33.0-37.0)
RDW 16.0 H %
(11.5-14.5)
Abs Neuts (Manual) 0.7 L* 10^3/uL
(1.4-6.5)
Band Neutrophils 9 H %
(0-3)
Lymphocytes (Manual) 17 L %
(20-51)
Monocytes (Manual) 20 H %
(2-9)
PT 15.2 H Sec
(11.4-14.6)
Sodium 128 L mmol/L
(135-145)
Potassium 5.5 H mmol/L
(3.5-5.1)
Chloride 91 L mmol/L
(98-107)
Carbon Dioxide 32 H mmol/L
(22-30)
BUN 23 H mg/dl
(9-20)
Creatinine 3.8 H mg/dL
(0.7-1.3)
Glucose 177 H mg/dl
(70-99)
Calcium 8.3 L mg/dl
(8.4-10.2)
Albumin 3.4 L g/dl
(3.5-5.0)
12/15/23 09:50
12/15/23 09:50
Vital Signs
Initial and Last Documented VS:
Initial Vital Signs
Temp Pulse Resp BP Pulse Ox
98.3 F 99 18 113/71 95
12/15/23 08:55 12/15/23 08:55 12/15/23 08:55 12/15/23 08:55 12/15/23 08:55
Last Documented Vital Signs
Temp Pulse Resp BP Pulse Ox
98.3 F 96 22 126/79 100
12/15/23 08:55 12/15/23 11:53 12/15/23 11:53 12/15/23 11:53 12/15/23 11:53
MDM/Problems Addressed
MDM/Problems Addressed:
68-year-old male with end-stage renal disease presents acutely volume overloaded. He is likely in need of dialysis however is noted to be mildly hypoxic on his baseline O2 requirement. He is found to have recurrent bilateral pleural effusions and
will likely need to undergo thoracentesis. Will also need dialysis due to mild hyperkalemia and hypervolemia. He is not an uric thus IV Lasix is administered to reduce potassium as a temporizing measure. He will be admitted to the hospitalist
service with nephrology for consultation
Comment
Comment:
EKG independently interpreted by me shows rate controlled atrial fibrillation at a rate of [address] changes concerning for ischemia, lateral leads are affected by patient motion
*Critical Care Note
Total Time (30-74mins, 75-104mins- exclusive of procedures): Not Applicable
ED Attending Note
-
Portions of this chart may have been created with voice recognition software.� Occasional wrong word or��sound alike� substitutions may have occurred due to the inherent limitations of voice recognition software.
Discharge Plan
Departure
Patient Disposition: Admit
Date of Disposition: 12/15/23
Time of Disposition: 10:49
Admit to: Telemetry
Presentation/result/management discussed w/ accepting MD/DO: Hospitalist
Discharge Problem:
Bilateral pleural effusion, ESRD on dialysis, Hypervolemia, Acute hyperkalemia
Interventions
Interventions:
*Risk Screen - Suicide Last Done: 12/15/23 08:55
*General Assessment Last Done: 12/15/23 08:55
*Neglect/Abuse Screening Last Done: 12/15/23 08:55
ED- Fall Risk Assessment Last Done: 12/15/23 09:33
*ED COVID-19 Vaccine History Last Done: 12/15/23 09:32
ED- Cardiac Assessment Last Done: 12/15/23 09:50
ED- Pulmonary Assessment Last Done: 12/15/23 09:50
[2023-12-15 10:09] LABS: Hematocrit 25.1 % (39.0-52.0); Hemoglobin 8.1 g/dL (13.0-18.0); Mean Corp Hgb Conc. 32.3 g/dL (33.0-37.0); Mean Corpuscular Hgb 28.8 pg (27.0-31.0); Mean Corpuscular Volume 89.3 fL (80.0-94.0); Mean Platelet Volume 7.9 fL (7.4-10.4); Platelet Count 168 10^3/uL (130-400); Red Blood Cell Count 2.81 10^6/uL (4.70-6.10)
[2023-12-15 10:16] LABS: White Blood Cell Count 1.3 10^3/uL (4.8-10.8)
[2023-12-15 10:18] LABS: ALT (SGPT) < 10 U/L (0-50); AST (SGOT) 24 U/L (17-59); Albumin 3.4 g/dl (3.5-5.0); Alkaline Phosphatase 77 U/L (38-126); Blood Urea Nitrogen 23 mg/dl (9-20); Calcium 8.3 mg/dl (8.4-10.2); Carbon Dioxide 32 mmol/L (22-30); Chloride 91 mmol/L (98-107); Estimated Creatinine Clearance 16 ml/min; Glucose 177 mg/dl (70-99); Magnesium 2.2 mg/dl (1.6-2.3); Potassium 5.5 mmol/L (3.5-5.1); Sodium 128 mmol/L (135-145); Total Bilirubin 0.6 mg/dl (0.2-1.3); Total Protein 6.3 g/dl (6.3-8.2); eGFR 16.31
[2023-12-15 10:27] LABS: NT-proBNP > 27000 pg/ml
[2023-12-15 10:32] LABS: INR 1.22; PT 15.2 Sec (11.4-14.6)
[2023-12-15 10:56] LABS: Band Neutrophils 9 % (0-3); Segmented Neutrophils 45 % (42-75)
[2023-12-15 10:57] LABS: Anisocytosis 1+; Basophilic Stippling Occasional; Eosinophils 5 % (0-6); Hypochromasia 2+; Lymphocytes 17 % (20-51); Metamyelocytes 1 % (-); Microcytosis 1+; Monocytes 20 % (2-9); Normal RBC Morphology No; Ovalocytes Occasional; Platelets Checked Yes; Poikilocytosis Occasional; Toxic Granulation 1+
[2023-12-15 10:58] LABS: Total Cells Counted 100
[2023-12-15 10:59] LABS: Absolute Neutrophils -Man Diff 0.7 10^3/uL (1.4-6.5)
--- NOTE | 2023-12-15 11:45 | EDRN ---
Dr. Armstrong in room w/ pt at this time.
--- NOTE | 2023-12-15 11:48 | HPS.HSE ---
Family Physician
-
Family Physician: Pepe Hi
Chief Complaint
-
Shortness of breath and hypoxia
History of Present Illness
68-year-old male with history of end-stage renal disease on hemodialysis, status post liver transplant and chronic neutropenia, Presented to the hospital with the for evaluation of the shortness of breath and hypoxia for the last 4 days, he is
having oxygen at home as needed while the last 4-day discharged on 2 L and chronic drip eventually at 4 L while initially was in mid 80s and on 4 L was maintaining around 94 to 95%. He has been having shortness of breath worse with exertion and
gaining some weight and worsening lower extremity edema, no chest pain or nausea or vomiting or any fever or chill no headache or any weakness or numbness in extremities no any other discomfort.
Workup in the ER show evidence of fluid overload and worsening bilateral pleural effusion.
Given a dose of Lasix and seen by nephrology planning dialysis today which is his due date, also IR consulted for thoracentesis evaluation.
He is urinating and denies missing any dialysis
.
Accompanied by the at the bedside.
On his medication list. Metformin if sugar above 180, as discussed with the they still have it and was told if sugars going above 180 need to take it, she is not supposed to be on because of chronic kidney disease and being on dialysis.
His condition discussed with applier Dr. Armstrong
Medical History
Past Medical History
Past Medical History: Reports Other
Additional Past Medical History:
Past medical history Reviewed:
Chronic kidney disease, diabetes off medication other than been having as needed metformin according
History of hepatitis C and hepatocellular carcinoma status post liver transplant
Chronic neutropenia
Chronic anemia
Hypertension
Diastolic CHF
Chronic immunosuppression.
History of A-fib no anticoagulation
Surgical history:
Bilateral hernia repair
Retransplant
Hemodialysis catheter placement
Fistula creation.
Social history: Lives at home with a , no smoking alcohol use.
Family history: Positive for hypertension, diabetes and heart disease.
Past Surgical History: Reports Other
Social History
Tobacco: Other
Family History
Family History: Other
Allergies / Home Medications
Allergies reflects when Allergies were last updated in [facility].
Home Medications with original date entered in [facility]
Allergy/Medication List:
Allergies
Allergy/AdvReac Type Severity Reaction Status Date / Time
oxycodone Allergy GI upset Verified 12/15/23 08:55
Home Medications
ascorbic acid (vitamin C) 500 mg tablet (Vitamin C) 500 mg PO DAILY Supplement 05/05/23
atorvastatin 20 mg tablet 20 mg PO QPM High Cholesterol 05/05/23
multivitamin with minerals-folic acid 80 mcg chewable tablet (Centrum Adult 50 Plus) 1 tab PO DAILY Supplement 05/05/23
mycophenolate mofetil 500 mg tablet 500 mg PO BID Transplant 05/05/23
tacrolimus 1 mg capsule, immediate-release 2 mg PO DAILY Transplant 05/05/23
aspirin 81 mg tablet,delayed release 81 mg PO DAILY Blood Clot Prevention/Tx 06/20/23
cyanocobalamin (vitamin B-12) 1,000 mcg tablet (Vitamin B-12) 1,000 mcg PO DAILY Supplement 06/20/23
mycophenolate mofetil 250 mg capsule (CellCept) 250 mg PO BID Transplant 06/20/23
tacrolimus 1 mg capsule, immediate-release (Prograf) 1 mg PO QPM Transplant 06/20/23
calcium acetate 667 mg tablet 667 mg PO MEALS Kidney Disease 11/16/23
cholecalciferol (vitamin D3) 50 mcg (2,000 unit) tablet 50 mcg PO DAILY Supplement 11/16/23
magnesium oxide 400 mg PO BID Supplement 11/16/23
omeprazole magnesium 20 mg tablet,delayed release (Prilosec OTC) 20 mg PO DAILY Gastrointestinal Issue 11/16/23
levothyroxine 50 mcg tablet 50 mcg PO DAILY@0700 12/15/23
metformin 500 mg tablet 500 mg PO TIDWMEAL PRN if BS 180-200 12/15/23
metoprolol tartrate 25 mg tablet 12.5 mg PO BID 12/15/23
Review of Systems
-
A 12 point ROS was completed and negative except as noted: Yes
Physical Exam
Vital Signs
Vital Signs
Temp Pulse Resp BP Pulse Ox
98.3 F 106 23 113/71 100
12/15/23 08:55 12/15/23 11:30 12/15/23 11:30 12/15/23 08:55 12/15/23 11:30
physical exam:
General: Pale looking, mildly tachypneic awake, alert and oriented x3, not in distress and holds appropriate conversation.
HEENT: On nasal cannula, no active discharge, ecchymosis or bruising, moist lips, tongue and mucous membrane.
Eyes: No discharge or red conjunctiva, no nystagmus, pupils are reactive and equal
Neck:Supple, no JVD no bruit no goiter.
Respiratory: Normal AP contour and diameter, normal chest wall movement, normal respiratory effort, no respiratory distress,
Lungs: Good air entry bilaterally in upper zone, overall decreasing in lower lung zones, no wheezing or rhonchi, no rales, coarse crackles
Heart: S1, S2 regular, normal rate, no added sound. Gross bilateral lower extremity pitting edema
Gastrointestinal: Positive bowel sounds, soft, nontender, no guarding or rigidity or organomegaly
Musculoskeletal: , no chest wall abnormality or tenderness. All joints and extremities have good range of motion, no muscle tenderness or any joint swelling or tenderness.
Extremities: No pitting edema, good peripheral pulses, good range of motion
Skin: Warm and dry, no ulceration, normal color.
Neurological: Awake, alert and oriented x3, , speech clear and comprehensive, good muscle tone, normal sensory and motor function
Psychiatric: Normal mood, normal thought and judgment, normal affect,
Physical Exam
General: Other
Laboratory Results
-
12/15/23 09:50
12/15/23 09:50
Laboratory Results
PT 15.2 Sec (11.4-14.6) H 12/15/23 09:50
INR 1.22 12/15/23 09:50
Total Bilirubin 0.6 mg/dl (0.2-1.3) 12/15/23 09:50
AST 24 U/L (17-59) 12/15/23 09:50
ALT < 10 U/L (0-50) 12/15/23 09:50
Alkaline Phosphatase 77 U/L (38-126) 12/15/23 09:50
CXR: Opacification compatible at least in part to moderate to large right pleural effusion without significant change from prior chest radiograph December 05, 2023.
Opacification compatible at least in part with moderate to large left pleural effusion likely increased in comparison to recent prior chest radiograph, but without significant interval change in comparison to recent prior Chest CT.
Pulmonary vascularity within the limits of normal.
No pneumothorax.
EKG show A-fib with rate around 92, QTc 474, otherwise no acute abnormalities
Data Reviewed
-
Diagnostic Radiology: Image Personally Visualized and interpreted, Discussed with Physician, Discussed with Patient and Discussed with Family
Medical Tests (Nuc Med, Echo, EKG etc): Image Personally Visualized and interpreted, Discussed with Physician, Discussed with Patient and Discussed with Family
Lab Data: Labs Reviewed by me, Discussed with Physician, Discussed with Patient and Discussed with Family
Old Records: Reviewed
Impression/Plan
-
IMPRESSION:
5-year-old male with history of end-stage renal disease and liver transplant, presented to the hospital for evaluation of shortness of hypoxia likely secondary to fluid overload and large bilateral pleural effusion.
Acute hypoxic respiratory failure
Fluid overload
Bilateral large pleural effusion
Chronic kidney disease on hemodialysis
Status post liver transplant
Immunocompromise
Chronic neutropenia
Chronic anemia
History of A-fib, off anticoagulation
Diabetes mellitus schedule medication only takes metformin at needed which she should not be because of the renal disease.
PLAN:
Admitted intermediate care
Discussed with nephrology and planning dialysis soon also IR consulted and discussed with IR for evaluation of thoracentesis.
Oxygen and try to wean off
MIR Crump is on Lasix
Recheck labs
Monitor vital sign
He is absolute neutrophils 0.7 therefore he does not need reverse isolation at this stage.
As discussed with the and the patient does not he cannot be on metformin. Which discussed with nephrology as well.
Will do Glucoscan if he needs some as needed medications that could be addressed at the time of discharge for his blood sugar
Continue tacrolimus and mycophenolate.
Continue levothyroxine
All discussed with the patient and the
Discussed with applier
CODE STATUS full code
DVT prophylaxis is heparin subcu
[2023-12-15] MEDS: LASIX 40 MG IV (11:52)
--- NOTE | 2023-12-15 11:58 | W.CON.NEPH ---
Consultation
-
Date/Time Consultation Requested: 12/15/23 1100
Date/Time Consultation Performed: 12/15/23 1200
Requesting Provider: Dr. Cartagena
Performing Provider: Dr. Armstrong
Reason for Consultation: ESRD
Medical History
-
Chief Complaint: ESRD on HD
History of Present Illness:
Mr. Long is a 68YOM with PMH of CKD 5 (now intitated on HD), CHF, orthotopic liver txp (2020 at [place] on [place]), pAfib, hyperphos, anemia who presents to the hospital after being discharged on 11/27 with 7lb weight gain and shortness of breath.
Past Medical History
1. CKD V on HD
2. Orthotopic liver transplant 2020.
3. Hypertension.
4. Severe mitral stenosis.
5. Peripheral arterial disease.
6. Hypertension.
7. Hyperlipidemia.
8. History of liver cancer.
9. Pancytopenia, transfusion-dependent anemia.
10. Left carotid endarterectomy.
11. Hepatitis C treated.
12. Hyponatremia.
13. Hyperphosphatemia.
Past Surgical History: Other (liver txp 2020)
Social History
Tobacco: Former Smoker
Alcohol: None
Drug: None
Personal:
Living: With Family
Family History
Family History: Not Pertinent
Allergies / Home Medications
Allergy/AdvReac Type Severity Reaction Status Date / Time
oxycodone Allergy GI upset Verified 12/15/23 08:55
Medication Instructions Recorded Confirmed Type
ascorbic acid (vitamin C) 500 mg 500 mg PO DAILY Supplement 05/05/23 12/15/23 History
tablet (Vitamin C)
atorvastatin 20 mg tablet 20 mg PO QPM High Cholesterol 05/05/23 12/15/23 History
multivitamin with minerals-folic 1 tab PO DAILY Supplement 05/05/23 12/15/23 History
acid 80 mcg chewable tablet
(Centrum Adult 50 Plus)
mycophenolate mofetil 500 mg tablet 500 mg PO BID Transplant 05/05/23 12/15/23 History
tacrolimus 1 mg capsule, 2 mg PO DAILY Transplant 05/05/23 12/15/23 History
immediate-release
aspirin 81 mg tablet,delayed 81 mg PO DAILY Blood Clot 06/20/23 12/15/23 History
release Prevention/Tx
cyanocobalamin (vitamin B-12) 1,000 mcg PO DAILY Supplement 06/20/23 12/15/23 History
1,000 mcg tablet (Vitamin B-12)
mycophenolate mofetil 250 mg 250 mg PO BID Transplant 06/20/23 12/15/23 History
capsule (CellCept)
tacrolimus 1 mg capsule, 1 mg PO QPM Transplant 06/20/23 12/15/23 History
immediate-release (Prograf)
calcium acetate 667 mg tablet 667 mg PO MEALS Kidney Disease 11/16/23 12/15/23 History
cholecalciferol (vitamin D3) 50 50 mcg PO DAILY Supplement 11/16/23 12/15/23 History
mcg (2,000 unit) tablet
magnesium oxide 400 mg PO BID Supplement 11/16/23 12/15/23 History
omeprazole magnesium 20 mg 20 mg PO DAILY Gastrointestinal 11/16/23 12/15/23 History
tablet,delayed release (Prilosec Issue
OTC)
levothyroxine 50 mcg tablet 50 mcg PO DAILY@0700 12/15/23 12/15/23 History
metformin 500 mg tablet 500 mg PO TIDWMEAL PRN if BS 12/15/23 12/15/23 History
180-200
metoprolol tartrate 25 mg tablet 12.5 mg PO BID 12/15/23 12/15/23 History
Review of Systems
-
SOB
worsening edema
All other systems: Negative unless noted
Physical Exam
Vital Signs
Vital Signs
Temp Pulse Resp BP Pulse Ox
98.3 F 96 22 126/79 100
12/15/23 08:55 12/15/23 11:53 12/15/23 11:53 12/15/23 11:53 12/15/23 11:53
Lab Results
WBC 1.3 10^3/uL (4.8-10.8) L* 12/15/23 09:50
RBC 2.81 10^6/uL (4.70-6.10) L 12/15/23 09:50
Hgb 8.1 g/dL (13.0-18.0) L 12/15/23 09:50
Hct 25.1 % (39.0-52.0) L 12/15/23 09:50
Plt Count 168 10^3/uL (130-400) 12/15/23 09:50
Sodium 128 mmol/L (135-145) L 12/15/23 09:50
Potassium 5.5 mmol/L (3.5-5.1) H 12/15/23 09:50
Chloride 91 mmol/L (98-107) L 12/15/23 09:50
Carbon Dioxide 32 mmol/L (22-30) H 12/15/23 09:50
BUN 23 mg/dl (9-20) H 12/15/23 09:50
Creatinine 3.8 mg/dL (0.7-1.3) H 12/15/23 09:50
eGFR 16.31 12/15/23 09:50
Glucose 177 mg/dl (70-99) H 12/15/23 09:50
Calcium 8.3 mg/dl (8.4-10.2) L 12/15/23 09:50
Tae-R-Ayzzjcmchqy Pept > 02749 pg/ml 12/15/23 09:50
Albumin 3.4 g/dl (3.5-5.0) L 12/15/23 09:50
Physical Exam
General: AOx3
HEENT: PERRL, EOMI, Ear/Nose Intact, Oropharynx Clear/Moist, Neck Supple, Trachea Midline and No Thyromegaly
Respiratory: Other (decreased bases bilaterally)
Cardiac: Regular Rate/Rhythm
Abdomen: Soft, Nontender, Nondistended, Normal Bowel Sounds and No Hepatosplenomegaly
Musculoskeletal: Edema
Skin: No Rash and Normal Turgor
Psych: Mood/afflect pleasant and Insight/judgement good
Assessment/Plan
-
Assessment:
ESRD on HD MWF at [facility] s/p LUE AVF (not matured), has CVC in place now
chronic heart failure with preserved ejection fraction
Bilateral pleural effusions
Acute hypoxic respiratory failure
chronic anemia
Hyponatremia
Paroxysmal atrial fibrillation
Pancytopenia (gets recurrent transfusions)
s/p Liver txp
hepatitis C (treated)
T2DM
hyperphos
Plan:
HD today, will try to UF 3kg
eval for thoracentesis
may need to consider additional UF if BP limits dialysis
(had episodes of afib on dialysis previously)
d/w pt and
Data Reviewed
-
Radiology: Image Personally Visualized and interpreted (CXR)
Labs: Labs Reviewed by me
Old Records: Reviewed
--- NOTE | 2023-12-15 12:00 | EDRN ---
Dr. Montiel in room w/pt at this time.
[2023-12-15] MEDS: PHOSLO PO (14:43)
--- NOTE | 2023-12-15 14:58 | PTCARENOTE ---
Pt more alert throughout the day. Transitioned to 4L NC by RT. Sats in the low to mid 90's at this time. Pt more conversant but forgetful and confused to situation-reoriented. Bed alarm remains in place.
[2023-12-15] MEDS: RETACRIT 10000 UNITS IV (15:50)
[2023-12-15] MEDS: MANNITOL 12.5 GRAMS IV (16:03)
[2023-12-15] MEDS: FLEXBUMIN 25% FOR HEMODIALYSIS 12.5 GRAMS IV (16:03)
--- NOTE | 2023-12-15 16:23 | PTCARENOTE ---
Addendum entered by Wendy Fang 12/15/23 17:42:
Hospitalist and Cardiology MD's at bedside. Medication orders placed by providers- administered as ordered, see MAR. Mas infusing as ordered.
Original Note:
Pt in afib with bursts of tachycardia to the 130's while on HD. Asymptomatic. EKG obtained and placed in chart with tele strip. Dr. Cartagena notified and at bedside; awaiting further orders.
[2023-12-15] MEDS: ProAmatine 10 MG PO (16:37)
[2023-12-15] MEDS: LOPRESSOR 25 MG PO ×2 (16:37→20:09)
[2023-12-15] MEDS: HEPARIN 5000 UNITS SC ×2 (16:37→23:18)
--- NOTE | 2023-12-15 16:59 | CON.CAR ---
Addendum entered and electronically signed by Talia Singleton MD 12/15/23 17:30:
I saw and examined the patient.
The Amplifier Mechanic's note was reviewed and I agree with the note.
Comment: Patient is known well to me from outpatient setting and recent recurrent admissions. He has an extensive past medical history including hypertension, gbj-enydckp-gbtcdvpua diabetes, hepatitis C and hepatocellular carcinoma status post
orthotopic liver transplant at [facility] in 2020 on chronic immunosuppression therapy, chronic pancytopenia, followed by hematology with recurrent need for transfusions, paroxysmal atrial fibrillation, not on full anticoagulation
due to chronic anemia, hyperlipidemia, severe mitral stenosis secondary to mitral annular calcification, last echocardiogram from August 2023 showing a transmitral mean gradient of 10 mmHg at a heart rate of 57 bpm, chronic heart failure with
preserved ejection fraction, recurrent pleural effusions status post multiple prior thoracentesis, most recently left-sided thoracentesis on November 17, 2023, end-stage renal disease now recently initiated on dialysis.� Similar to recent dialysis
sessions, he went into rapid atrial fibrillation, at times with aberrant conduction associated with hypotension for which we were asked to reconsult from a cardiac standpoint.
Lab work and vital signs reviewed.� Discussed at length with at bedside.� Exam notable for a gentleman who looks older than stated age, chronically ill-appearing, thin, sleeping comfortably in no acute distress, normal S1 and S2, 2 out of 6
diastolic murmur at the apex, reduced breath sounds at the right base, Rales on the other side, warm extremities with 2 despite + edema, abdomen is soft, nontender with active bowel sounds, old scar well-healed.
Recommendations:
1.� Given his significant comorbid conditions, very challenging situation with limited treatment options.� Unfortunately patient is not deemed to be a good candidate in regards to surgical or percutaneous intervention for his mitral valve (mitral
stenosis secondary to MAC has very limited treatment options to begin with).� As we have discussed with patient and his and multiple occasions now, his valve disease unfortunately is going to be progressive.� They received similar input when
they used to follow with Dr. Bib Bee at [facility] from cardiology that no interventions were possible for his mitral valve.
2.� For now given paroxysmal atrial fibrillation episodes with RVR in the setting of dialysis and fluid shift, the rise in TSH on recent admission, best option from a cardiac standpoint would be to reinitiate amiodarone. We placed an urgent consult
to endocrinology and discussed the situation with them and they are in agreement given his toxicity from amiodarone was that of hypothyroidism with plan to just replenish using Synthroid.
3.� From a cardiac standpoint we will place him back on an amiodarone drip and plan to switch to p.o. starting tomorrow with hopes to maintain sinus rhythm. Patient remains not a candidate for anticoagulation given his pancytopenia.
4 from an endocrine standpoint, the message we will relayed by endocrinology was to recheck TSH tonight. If there has been significant improvement with TSH going from. 30 previously to ~10, their recommendation would be to continue 50 mcg of the
Synthroid. If it still significantly elevated the recommendation would be to increase Synthroid to 75 mcg daily. Defer management of Synthroid dosing to primary team and endocrinology. TSH was added for labs tonight.
Overall a very challenging case given his significant comorbid conditions with guarded prognosis.� Discussed all of the above in detail with nursing and at bedside.
Talia Singleton MD, [facility], [facility]
Original Note:
Consultation
Consultation Request
Date/Time Consultation Performed: 12/15/23
Requesting Provider: Dr. Cartagena
Performing Provider: Cara Lind PA-C for Dr. Singleton
Reason for Consultation: afib
Medical History
-
Chief Complaint: SOB, LE edema
History of Present Illness:
Patient is a 68-year-old male with complex past medical history including severe mitral stenosis, not felt to be a surgical candidate, history of liver cancer status post liver transplant in 2020 at [facility], anemia/pancytopenia and therefore not
candidate for anticoagulation for paroxysmal atrial fibrillation, worsening heart failure with preserved EF requiring thoracenteses, recently started on dialysis 11/16/2023. Last admission was noted to have thyroid toxicity on amiodarone with TSH up
to 30 and therefore Amio was stopped. He was placed on Lopressor 25 mg twice daily, which need to be decreased in the outpatient setting to 12.5 mg twice daily due to hypotension particularly with dialysis. He presents back with worsening
shortness of breath and lower extremity edema and is grossly volume overloaded. He is presently receiving dialysis. He is noted to be in atrial fibrillation with rapid ventricular response as well as hypotensive with blood pressure in the 80s at
times. He is relatively asymptomatic with this. Cardiology consulted for evaluation
PMH:
ESRD-HD started 11/16
s/p LUE AV fistula 10/18/23
Chronic heart failure with preserved ejection fraction
Bilateral pleural effusions
prior thoracentesis August 2023
s/p left thoracentesis 1800 ml removed 11/17/2023
Chronic anemia/pancytopenia
Symptomatic PAF
Not chronically anticoagulated due to pancytopenia
Previously on amiodarone, stopped 11/2023 due to thyroid toxicity
mitral stenosis, severe not surgical candidate
chronic hyponatremia
PAD
HTN
hyperlipidemia
DM 2
Orthotopic liver cancer status post liver transplant 11/2020 at [facility]
Hepatitis C, treated
pancytopenia
Transfusion dependent anemia of chronic disease
History of L CEA
Former smoker
Hypoalbuminemia
Past Medical History
Past Medical History: Other (in HPI)
Social History
Personal:
Living: With Family
Employment: Retired
Allergies / Home Medications
Allergy/AdvReac Type Severity Reaction Status Date / Time
oxycodone Allergy GI upset Verified 12/15/23 08:55
Medication Instructions Recorded Confirmed Type
ascorbic acid (vitamin C) 500 mg 500 mg PO DAILY Supplement 05/05/23 12/15/23 History
tablet (Vitamin C)
atorvastatin 20 mg tablet 20 mg PO QPM High Cholesterol 05/05/23 12/15/23 History
multivitamin with minerals-folic 1 tab PO DAILY Supplement 05/05/23 12/15/23 History
acid 80 mcg chewable tablet
(Centrum Adult 50 Plus)
mycophenolate mofetil 500 mg tablet 500 mg PO BID Transplant 05/05/23 12/15/23 History
tacrolimus 1 mg capsule, 2 mg PO DAILY Transplant 05/05/23 12/15/23 History
immediate-release
aspirin 81 mg tablet,delayed 81 mg PO DAILY Blood Clot 06/20/23 12/15/23 History
release Prevention/Tx
cyanocobalamin (vitamin B-12) 1,000 mcg PO DAILY Supplement 06/20/23 12/15/23 History
1,000 mcg tablet (Vitamin B-12)
mycophenolate mofetil 250 mg 250 mg PO BID Transplant 06/20/23 12/15/23 History
capsule (CellCept)
tacrolimus 1 mg capsule, 1 mg PO QPM Transplant 06/20/23 12/15/23 History
immediate-release (Prograf)
calcium acetate 667 mg tablet 667 mg PO MEALS Kidney Disease 11/16/23 12/15/23 History
cholecalciferol (vitamin D3) 50 50 mcg PO DAILY Supplement 11/16/23 12/15/23 History
mcg (2,000 unit) tablet
magnesium oxide 400 mg PO BID Supplement 11/16/23 12/15/23 History
omeprazole magnesium 20 mg 20 mg PO DAILY Gastrointestinal 11/16/23 12/15/23 History
tablet,delayed release (Prilosec Issue
OTC)
levothyroxine 50 mcg tablet 50 mcg PO DAILY@0700 12/15/23 12/15/23 History
metformin 500 mg tablet 500 mg PO TIDWMEAL PRN if BS 12/15/23 12/15/23 History
180-200
metoprolol tartrate 25 mg tablet 12.5 mg PO BID 12/15/23 12/15/23 History
Review of Systems
-
History Source: Patient and Family
All other systems: Negative unless noted
Physical Exam
Vital Signs
Temp Pulse Resp BP Pulse Ox
98.1 F 125 21 82/55 100
12/15/23 14:10 12/15/23 15:45 12/15/23 15:45 12/15/23 16:15 12/15/23 15:45
Lab Results
12/15/23 09:50
12/15/23 09:50
Zao-H-Aibgckynwfu Pept > 16695 pg/ml 12/15/23 09:50
Physical Exam
General: No Apparent Distress and Comfortable
HEENT: Normocephalic, Anicteric and Moist Mucous Membranes
Respiratory: Non Labored Respirations and Other (decreased breath sounds B/L)
Cardiac: S1/S2, Irregular Rhythm and Murmur
GI: Soft, Non Tender, Non Distended and Normal Bowel Sounds
Musculoskeletal: No Clubbing, No Cyanosis and Edema (3+ edema of B/L LE)
Skin: Warm and Dry
Neuro: AO x 3
Impression / Plan
-
Primary Cfa: Dr. Singleton
Assessment:
Presentation with SOB, LE edema
Acute on chronic HFpEF
ESRD-HD started 11/16/23
s/p LUE AV fistula 10/18/23
Recurrent bilateral pleural effusions
prior thoracentesis August 2023
s/p left thoracentesis 1800 ml removed 11/17/2023
Chronic anemia/pancytopenia
Symptomatic PAF
Not chronically anticoagulated due to pancytopenia
Previously on amiodarone, stopped 11/2023 due to thyroid toxicity
mitral stenosis, severe, not surgical candidate
chronic hyponatremia
PAD
HTN
hyperlipidemia
DM 2
Orthotopic liver cancer status post liver transplant 11/2020 at [facility]
Hepatitis C, treated
pancytopenia
Transfusion dependent anemia of chronic disease
History of L CEA
Former smoker
Hypoalbuminemia
Hyperkalemia
Hyponatremia
ECHO 12/04/23: EF 55 to 60%, mild septal hypertrophy, severe MS with mean gradient 16 mmHg, mild to moderate TR, PAP 65 mmHg, large pleural effusion present, echodensities in pleural effusion measuring as large as 5.7 cm x 4.7 cm, possible
loculations, trace pericardial effusion
Plan:
-Patient is a 68-year-old male with complex past medical history as detailed above recently admitted to [facility] 11/2023. During that admission was noted to be in atrial fibrillation and noted to have thyroid toxicity felt to be related
to amiodarone with TSH up to 30 on 12/04/23. Amiodarone was stopped during that admission and was placed on Lopressor 25 mg twice daily for rate control. He is not on anticoagulation candidate due to history of pancytopenia, limiting options for
treatment. He is also hypotensive, particularly with dialysis, limiting rate control therapies. His renal disease also makes him a suboptimal candidate for digoxin.
-Discussed limited options with patient and at bedside. At present we will start IV Amio drip at 0.5 for 12 hours, then transition to p.o. amio 200 mg twice daily in AM. Will need endocrine consult for assistance with managing thyroid in
setting of this.
-BP improved. continue po lopressor 12.5mg BID with hold parameters.
-on review of tele, patient also with intermittent brief episodes of wide complex tachycardia felt to be aberrancy rather than VT due to similar axis and patient's stability with this rhythm. follow K/mag
-given a dose of IV lasix 40mg in ER earlier today as still urinates some. Continue volume removal through dialysis. May also require repeat thoracentesis once stable
-electrolyte correction through HD
-remains a full code at this time.
-d/w floor and HD nurse. d/w patient and at bedside.
Data Reviewed
-
EKG: Tracing Personally Visualized and interpreted
Radiology: Report Reviewed by me
Medical Tests (Nuc Med, Echo etc): Report Reviewed by me
Labs: Labs Reviewed by me
Old Records: Reviewed
[2023-12-15 17:12] LABS: Glucose - Point of Care 129 mg/dl (70-99)
--- NOTE | 2023-12-15 17:17 | W.PN.NEPH.HD ---
Assessment
-
Seen on HD. no complaints. VSS, low on treatment, midodrine given. Access ok.
Progress Note - Hemodialysis
-
Date of Service: December 15, 2023
Duration: 30 minutes and 3 hours
Potassium Bath: 2
Calcium Bath: 2.5
Opti-Dialyzer: 160
Ultrafiltration: Other (3kg as allowed)
Blood Flow: 400
Dialysate Flow: 600
Heparin: 0
EPO: 15110 units
[2023-12-15] MEDS: NOVOLOG FLEXPEN-LOW RESISTANCE SC (17:20)
[2023-12-15] MEDS: CORDARONE 518 MG IV (17:29)
[2023-12-15] MEDS: HEPARIN 4300 UNITS INTRACATH (17:42)
[2023-12-15] MEDS: PROGRAF 1 MG PO (18:23)
[2023-12-15] MEDS: PHOSLO 667 MG PO (18:23)
[2023-12-15] MEDS: LIPITOR 20 MG PO (18:24)
[2023-12-15] MEDS: CELLCEPT 500 MG PO (20:09)
[2023-12-15] MEDS: MAGNESIUM OXIDE 500 MG PO (20:09)
[2023-12-15] MEDS: CELLCEPT 250 MG PO (20:09)
[2023-12-15 22:43] LABS: Glucose - Point of Care 187 mg/dl (70-99)
[2023-12-16] VITALS (19 sets, daily range): BP systolic 65–196; BP diastolic 52–91; BMI 22.3
[2023-12-16] MEDS: LOPRESSOR 2.5 MG IV (02:50)
--- NOTE | 2023-12-16 02:57 | PTCARENOTE ---
Pt AAOx3, noted to be forgetful and impulsive at times. Bed alarm in place for patient safety. Pt prefers to sleep with HOB elevated d/t orthopnea. Pt requested a fan and states it 'helps me breathe better.' Pt table to void very small amount in the
urinal. BP elevated to 170s-180s systolic, KELLEN Madrigal notified and PRN medication provided per order. Pt does state that his BP is high sometimes. Call watkins placed within reach.
[2023-12-16 04:32] LABS: Hematocrit 23.2 % (39.0-52.0); Hemoglobin 7.4 g/dL (13.0-18.0); Mean Corp Hgb Conc. 31.9 g/dL (33.0-37.0); Mean Platelet Volume 8.3 fL (7.4-10.4); Platelet Count 173 10^3/uL (130-400); Red Blood Cell Count 2.55 10^6/uL (4.70-6.10); Red Cell Dist. Width 16.1 % (11.5-14.5)
[2023-12-16 04:51] LABS: White Blood Cell Count 1.3 10^3/uL (4.8-10.8)
[2023-12-16 04:57] LABS: Blood Urea Nitrogen 20 mg/dl (9-20); Calcium 8.6 mg/dl (8.4-10.2); Carbon Dioxide 32 mmol/L (22-30); Chloride 94 mmol/L (98-107); Estimated Creatinine Clearance 23 ml/min; Glucose 120 mg/dl (70-99); Magnesium 2.2 mg/dl (1.6-2.3); Potassium 4.9 mmol/L (3.5-5.1); Sodium 132 mmol/L (135-145); eGFR 25.72
[2023-12-16] MEDS: SYNTHROID 50 MCG PO (06:15)
[2023-12-16 07:50] LABS: Glucose - Point of Care 150 mg/dl (70-99)
[2023-12-16] MEDS: NOVOLOG FLEXPEN-LOW RESISTANCE 1 UNITS SC ×2 (08:00→13:15)
[2023-12-16 08:10] LABS: Band Neutrophils 2 % (0-3); Eosinophils 3 % (0-6); Lymphocytes 43 % (20-51); Monocytes 7 % (2-9); Normal RBC Morphology No; Platelets Checked Yes; Segmented Neutrophils 45 % (42-75)
[2023-12-16 08:11] LABS: Anisocytosis 1+; Hypochromasia 1+; Polychromasia 1+; Total Cells Counted 100
[2023-12-16 08:12] LABS: Absolute Neutrophils -Man Diff 0.6 10^3/uL (1.4-6.5)
[2023-12-16] MEDS: VITAMIN B-12 1000 MCG PO (08:50)
[2023-12-16] MEDS: VITAMIN D3 (cholecalciferol) 50 MCG PO (08:50)
[2023-12-16] MEDS: ASPIR LOW (ENTERIC COATED) 81 MG PO (08:50)
[2023-12-16] MEDS: LOPRESSOR 25 MG PO ×2 (08:50→19:57)
[2023-12-16] MEDS: PACERONE 200 MG PO (08:50)
[2023-12-16] MEDS: MAGNESIUM OXIDE 500 MG PO ×2 (08:50→19:57)
[2023-12-16] MEDS: VITAMIN C 500 MG PO (08:50)
[2023-12-16] MEDS: PHOSLO 667 MG PO ×3 (08:51→17:00)
[2023-12-16] MEDS: PROTONIX 40 MG PO (08:51)
[2023-12-16] MEDS: HEPARIN 5000 UNITS SC ×3 (08:52→23:00)
[2023-12-16] MEDS: CELLCEPT 250 MG PO ×2 (08:52→19:57)
[2023-12-16] MEDS: PROGRAF 2 MG PO (08:53)
[2023-12-16] MEDS: CELLCEPT 500 MG PO ×2 (08:53→19:57)
--- NOTE | 2023-12-16 09:26 | CM ---
Discussed d/c with Dr. Obrien. Patient will need to stay one more night due to starting new medication late Monday.
Plan to go back to [facility] under straight [facility] so no auth needed.
CM spoke to Nsg Brush Material Preparer at SNF to update plan d/c tomorrow back to SNF.
Patient on oxygen and will need to go via ambulance. Medical necessity and ambulance transport forms on chart.
Call [phone] and ask for nursing tumblers supervisor to alert to discharge and to call report.
FAX [phone]
PHarmacy for SNF on chart.
--- NOTE | 2023-12-16 09:30 | PTCARENOTE ---
sinus rhythm verified by EKG. per cardiology, ok to d/c amiodarone drip. oral amiodarone initiated. continuing to monitor
[2023-12-16 09:44] LABS: Free T4 0.91 ng/dl (0.78-2.19)
--- NOTE | 2023-12-16 09:58 | W.PN.NEPH.PH ---
Today's Communication / Plan
-
thoracentesis
Assessment/Plan
-
Assessment:
ESRD on HD MWF at [facility] s/p JERZYE AVF (not matured), has CVC in place now
chronic heart failure with preserved ejection fraction
Bilateral pleural effusions
Acute hypoxic respiratory failure
chronic anemia
Hyponatremia
Paroxysmal atrial fibrillation
Pancytopenia (gets recurrent transfusions)
s/p Liver txp
hepatitis C (treated)
T2DM
hyperphos
Plan:
eval for thoracentesis
may need to consider additional UF if thoracentesis does not help SOB
reviewed with patient the predicament that he is in given the CHF/hypotension/PAfib/pleural effusions
high risk situation
-
-
Date of Service: December 16, 2023
CC / HPI / ROS
-
Chief Complaint:
ESRD
History of Present Illness:
HD yesterday complicated by hypotension, UF limited
still very SOB, awaiting thoracentesis
BP high
remains leukopenic
Review of Systems:
no CP
SOB
Labs
-
Labs:
WBC 1.3 10^3/uL (4.8-10.8) L* 12/16/23 04:16
RBC 2.55 10^6/uL (4.70-6.10) L 12/16/23 04:16
Hgb 7.4 g/dL (13.0-18.0) L 12/16/23 04:16
Hct 23.2 % (39.0-52.0) L 12/16/23 04:16
Plt Count 173 10^3/uL (130-400) 12/16/23 04:16
Sodium 132 mmol/L (135-145) L 12/16/23 04:16
Potassium 4.9 mmol/L (3.5-5.1) 12/16/23 04:16
Chloride 94 mmol/L (98-107) L 12/16/23 04:16
Carbon Dioxide 32 mmol/L (22-30) H 12/16/23 04:16
BUN 20 mg/dl (9-20) 12/16/23 04:16
Creatinine 2.6 mg/dL (0.7-1.3) H 12/16/23 04:16
eGFR 25.72 12/16/23 04:16
Glucose 120 mg/dl (70-99) H 12/16/23 04:16
Calcium 8.6 mg/dl (8.4-10.2) 12/16/23 04:16
Ldq-H-Goldfhrmvcz Pept > 73453 pg/ml 12/15/23 09:50
Albumin 3.4 g/dl (3.5-5.0) L 12/15/23 09:50
Physical Exam
-
Vital Signs:
Vital Signs
Temp Pulse Resp BP Pulse Ox
98.6 F 73 19 196/91 99
12/16/23 07:00 12/16/23 08:50 12/16/23 06:07 12/16/23 08:50 12/16/23 06:07
Cardiovascular:: Regular rate and rhythm
Respiratory:: Bilateral: Coarse (decreased BS)
Lung Excursion:: Normal
Abdomen:: Nontender and Soft
Bowel Sounds:: Normal
Extremity Edema:: None: Bilateral:
--- NOTE | 2023-12-16 10:25 | CM ---
CM following re: d/c planning
Chart reviewed
CM met with patient & his spouse at bedside; IA completed
Pt & his spouse reside in a [facility] with no [facility] and have 1st floor set up
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
Pt current with WINNIEVNA RN only and Palliative care plans to call and discuss services later next week.
Patient has oxygen at home from [employer].
PRescription coverage and rx's are filled at [facility] on [address] [place]
Pt PCP-Dr. Hi
Pt does not appear to have any skilled needs and anticipates d/c home with EMMY EASTONNA RN only when stable
CM will continue to follow patient and assist with any needs at d/c as indicated
PLAN; CM following for needs
--- NOTE | 2023-12-16 10:51 | W.PN.HOSP.TC ---
Today's Communication/Plan
-
Thoracentesis. Dialysis per renal. Continue cardiac monitoring.
Assessment / Plan
Assessment / Plan
Physical exam:
General: Acutely ill
HEENT: Normocephalic, Atraumatic and Moist Mucous Membranes
Respiratory: Decreased breath sounds bilateral, few crackles in the bases; Negative Wheezes or Rhonchi
Cardiac: Regular Rhythm and S1/S2. Systolic murmur and a diastolic murmur as well.
GI: Soft, Nontender and Nondistended
Musculoskeletal: Bilateral edema. No Clubbing, No Cyanosis
Neuro: Awake, Alert and Oriented, no gross neuro-deficits.
Psych: Calm
A/P:
Acute hypoxic respiratory failure
Fluid overload--> acute on chronic diastolic congestive heart failure and end-stage renal disease related.
Bilateral large pleural effusions
Paroxysmal atrial fibrillation with rapid ventricular response-->NSR today
Hypotension
Pancytopenia (only thrombocytopenia improved)
Hyponatremia
Hypothyroidism -->Elevated TSH
Conditions prior to presentation:
Chronic diastolic CHF
End-stage renal disease on hemodialysis
Status post orthotopic liver transplant 2020 at [facility] on immunosuppression
Diabetes mellitus type II
History hepatitis C (status posttreatment)
Paroxysmal A-fib not on anticoagulation due to pancytopenia (also had thyroid toxicity from Amio before)
Pancytopenia, transfusion dependent
Peripheral vascular disease status post left CEA
Hypertension
Hyperlipidemia
Severe mitral stenosis (not a surgical candidate)
Recurrent pleural effusions in the past
PLAN:
Status post left thoracentesis today 2 L on 12/15
Continue hemodialysis to help with volume status
Reevaluate if needed other side down the road.
On IV amiodarone transition to 200 mg of oral amiodarone daily
Neutropenic precautions
Appreciated cardiology and nephrology input
On CellCept and Prograf
Off metformin and on insulin sliding scale
On Toprol tartrate 25 mg twice a day.
Repeat TSH tomorrow and if it is still elevated increase Synthroid
PT OT eval in a.m. if respiratory status stable
DVT prophylaxis heparin SQ
CODE STATUS full code
Total time spent on today's encounter was 52 minutes which included time spent in counseling the patient/family regarding diagnosis and treatment plan as listed above, goals of care, and symptom management. Case was discussed with nursing staff,
specialists, and care coordinators/case management. All labs and imaging personally reviewed by me. Remainder the time spent in detailed review of previous records, lab data, imaging, and other medical provider documentation.
Anticipated Discharge: > 48 hours
Subjective/Interval History
-
Date of Service: December 16, 2023
Patient feels less short of breath today. Blood pressure better. No palpitations. No chest pain. Looks frail overall. Afebrile
Objective Data
-
Labs:
Laboratory Results
12/16/23
04:16
WBC 1.3 L*
Hgb 7.4 L
Hct 23.2 L
Plt Count 173
Sodium 132 L
Potassium 4.9
Chloride 94 L
Carbon Dioxide 32 H
BUN 20
Creatinine 2.6 H
Glucose 120 H
Calcium 8.6
Vital Signs:
Vital Signs
Temp Pulse Resp BP Pulse Ox
98.6 F 73 19 196/91 99
12/16/23 07:00 12/16/23 08:50 12/16/23 06:07 12/16/23 08:50 12/16/23 06:07
I&O
12/15/23 12/16/23 12/17/23
06:59 06:59 06:59
Intake Total 480 / 480 120 / 120
Balance 480 / 480 120 / 120
Review of Systems
-
All other systems: Reviewed and negative
--- NOTE | 2023-12-16 11:05 | W.PN.CARDCBS ---
Today's Communication / Plan
-
Rhythm control strategy preferred with known atrial fibrillation
Transition IV to oral amiodarone
Synthroid management per endocrine and medicine while on amiodarone
Volume management per dialysis
Impression / Plan
-
Primary Peanut Shaker: Dr. Singleton
Assessment:
Presentation with SOB, LE edema
Acute on chronic HFpEF
ESRD-HD started 11/16/23
s/p LUE AV fistula 10/18/23
Recurrent bilateral pleural effusions
prior thoracentesis August 2023
s/p left thoracentesis 1800 ml removed 11/17/2023
Chronic anemia/pancytopenia
Symptomatic PAF
Not chronically anticoagulated due to pancytopenia
Previously on amiodarone, stopped 11/2023 due to thyroid toxicity
mitral stenosis, severe, not surgical candidate
chronic hyponatremia
PAD
HTN
hyperlipidemia
DM 2
Orthotopic liver cancer status post liver transplant 11/2020 at [facility]
Hepatitis C, treated
pancytopenia
Transfusion dependent anemia of chronic disease
History of L CEA
Former smoker
Hypoalbuminemia
Hyperkalemia
Hyponatremia
ECHO 12/04/23: EF 55 to 60%, mild septal hypertrophy, severe MS with mean gradient 16 mmHg, mild to moderate TR, PAP 65 mmHg, large pleural effusion present, echodensities in pleural effusion measuring as large as 5.7 cm x 4.7 cm, possible
loculations, trace pericardial effusion
Plan:
Paroxysmal atrial fibrillation presented with rapid ventricular response and hypotension
-Improved hemodynamics with conversion to sinus rhythm on IV amiodarone
-Historically not anticoagulated due to pancytopenia now with improved platelets
-Currently on aspirin
-Given significant comorbid conditions prefer to maintain rhythm control
-Stop IV amiodarone and transition to oral amiodarone. Blood pressures have improved so we will continue oral Lopressor with hold parameters
-Appreciate endocrine input and recommendations on Synthroid management
Volume overload with acute on chronic heart failure with preserved ejection fraction on dialysis
-Thoracentesis planned
-Nephrology consulted
-Volume removal and electrolyte correction through dialysis. Left upper extremity AV fistula not mature and has a CVC in place
Severe mitral stenosis, not a surgical candidate
Hypothyroidism on Synthroid
-Appreciate endocrine input
Liver cancer status post liver transplant November 2020 at [facility]/transfusion dependent anemia and leukopenia.
Progress Note - Peanut Shaker
Subjective
Date of Service: December 16, 2023
Patient seen and examined with family at bedside. Overall feels better but tired. No specific complaints
Objective
Labs:
12/16/23 04:16
12/16/23 04:16
Labs
Hgb 7.4 g/dL (13.0-18.0) L 12/16/23 04:16
Hct 23.2 % (39.0-52.0) L 12/16/23 04:16
Plt Count 173 10^3/uL (130-400) 12/16/23 04:16
PT 15.2 Sec (11.4-14.6) H 12/15/23 09:50
INR 1.22 12/15/23 09:50
Sodium 132 mmol/L (135-145) L 12/16/23 04:16
Potassium 4.9 mmol/L (3.5-5.1) 12/16/23 04:16
BUN 20 mg/dl (9-20) 12/16/23 04:16
Creatinine 2.6 mg/dL (0.7-1.3) H 12/16/23 04:16
Glucose 120 mg/dl (70-99) H 12/16/23 04:16
Vital Signs and I&O:
Vital Signs
Temp Pulse Resp BP Pulse Ox
97.8 F 65 19 178/74 96
12/16/23 10:56 12/16/23 10:56 12/16/23 10:56 12/16/23 10:56 12/16/23 10:56
Vital Signs
Temp Pulse Resp BP Pulse Ox
97.8 F 65 19 178/74 96
12/16/23 10:56 12/16/23 10:56 12/16/23 10:56 12/16/23 10:56 12/16/23 10:56
Intake & Output
12/14/23 12/15/23 12/16/23 12/17/23
06:59 06:59 06:59 06:59
Intake Total 480 / 480 120 / 120
Balance 480 / 480 120 / 120
Physical Exam
Physical Exam
Gen: NAD, AAOx3
HEENT: NC/AT, sclera anicteric
Neck: No JVD, tunneled HD line in place
CV: RRR, NL s1/s2
Lungs: Bronchovesicular breath sounds significantly decreased at bases bilaterally
Abd: Soft, nontender positive bowel sounds
Ext: No LE edema
--- NOTE | 2023-12-16 12:05 | PTCARENOTE ---
pt returned from [facility] sleeping, resp 15/min. pox 99% on 6L nc. resp even and non-labored. b/p 139/63, hr 50's bpm, sinus rhythm on telemetry. continuing to monitor
[2023-12-16 12:09] LABS: Body Fluid WBC 156 /CUMM
[2023-12-16 12:10] LABS: Body Fluid Mononuclear 90.4 %; Body Fluid Polymorphonuclear 9.6 %; Body Fluid Second Tech EM
[2023-12-16 12:24] LABS: Body Fluid Protein < 2.0 g/dl
[2023-12-16 12:25] LABS: Glucose - Point of Care 184 mg/dl (70-99)
[2023-12-16] MEDS: NOVOLOG FLEXPEN-LOW RESISTANCE 2 UNITS SC (16:54)
[2023-12-16] MEDS: PROGRAF 1 MG PO (17:01)
[2023-12-16] MEDS: LIPITOR 20 MG PO (17:01)
[2023-12-16 17:05] LABS: Glucose - Point of Care 206 mg/dl (70-99)
--- NOTE | 2023-12-16 20:20 | PTCARENOTE ---
Addendum entered by Sb Walters RN 12/17/23 04:30:
Pt's SBP has been int the 160-180's. TECHNICAL EDUCATION TEACHER social media content manager made aware. Pt give his metoprolol PO early per TECHNICAL EDUCATION TEACHER.
Original Note:
Assume care from AM RN. AAOx3, gen weakness, SNOQUALMIE forgetful anxious at times. NSR w/ 1 degree block. +2 BLLE edema. Lung sounds are crackly at the bases, but mostly diminished with some expiratory wheezing. SaO2 97% 6L. Will wean O2. Moist
nonproductive cough. Shallow breathing. Abr round and firm. Oliguric. pt appears comfortable in bed and call watkins within reach.
[2023-12-16 22:05] LABS: Glucose - Point of Care 134 mg/dl (70-99)
[2023-12-16 22:18] LABS: Glucose - Point of Care 124 mg/dl (70-99)
[2023-12-17] VITALS (16 sets, daily range): BP systolic 103–187; BP diastolic 56–93; PULSE 60–70; O2SAT 94–96; BMI 21.9
[2023-12-17] MEDS: SYNTHROID 50 MCG PO (04:08)
[2023-12-17 04:14] LABS: Blood Urea Nitrogen 35 mg/dl (9-20); Calcium 7.9 mg/dl (8.4-10.2); Carbon Dioxide 30 mmol/L (22-30); Chloride 93 mmol/L (98-107); Estimated Creatinine Clearance 17 ml/min; Glucose 125 mg/dl (70-99); Sodium 126 mmol/L (135-145); eGFR 18.01
[2023-12-17 04:26] LABS: Hematocrit 24.3 % (39.0-52.0); Hemoglobin 7.8 g/dL (13.0-18.0); Mean Corp Hgb Conc. 32.1 g/dL (33.0-37.0); Mean Corpuscular Hgb 28.7 pg (27.0-31.0); Mean Corpuscular Volume 89.3 fL (80.0-94.0); Mean Platelet Volume 8.1 fL (7.4-10.4); Platelet Count 199 10^3/uL (130-400); Red Blood Cell Count 2.72 10^6/uL (4.70-6.10)
[2023-12-17] MEDS: LOPRESSOR 25 MG PO ×2 (04:28→20:16)
[2023-12-17 04:43] LABS: White Blood Cell Count 1.3 10^3/uL (4.8-10.8)
[2023-12-17] MEDS: NOVOLOG FLEXPEN-LOW RESISTANCE 5 UNITS SC (08:05)
[2023-12-17] MEDS: ASPIR LOW (ENTERIC COATED) 81 MG PO (08:07)
[2023-12-17] MEDS: CELLCEPT 500 MG PO ×2 (08:07→20:15)
[2023-12-17] MEDS: MAGNESIUM OXIDE 500 MG PO ×2 (08:07→20:15)
[2023-12-17] MEDS: PROGRAF 2 MG PO (08:08)
[2023-12-17] MEDS: VITAMIN D3 (cholecalciferol) 50 MCG PO (08:08)
[2023-12-17] MEDS: VITAMIN C 500 MG PO (08:09)
[2023-12-17] MEDS: CELLCEPT 250 MG PO ×2 (08:09→20:15)
[2023-12-17] MEDS: VITAMIN B-12 1000 MCG PO (08:09)
[2023-12-17] MEDS: PROTONIX 40 MG PO (08:10)
[2023-12-17] MEDS: PHOSLO 667 MG PO ×3 (08:10→16:25)
[2023-12-17] MEDS: HEPARIN 5000 UNITS SC ×2 (08:11→16:23)
[2023-12-17] MEDS: PACERONE 200 MG PO (08:11)
[2023-12-17 08:12] LABS: Glucose - Point of Care 378 mg/dl (70-99)
--- NOTE | 2023-12-17 08:45 | W.PN.HOSP.TC ---
Today's Communication/Plan
-
Hemodialysis per renal. Increase Synthroid.
Assessment / Plan
Assessment / Plan
Physical exam:
General: Acutely ill
HEENT: Normocephalic, Atraumatic and Moist Mucous Membranes
Respiratory: Decreased breath sounds bilateral, few crackles in the bases; Negative Wheezes or Rhonchi
Cardiac: Regular Rhythm and S1/S2. Systolic murmur and a diastolic murmur as well.
GI: Soft, Nontender and Nondistended
Musculoskeletal: Bilateral edema. No Clubbing, No Cyanosis
Neuro: Awake, Alert and Oriented, no gross neuro-deficits.
Psych: Calm
A/P:
Acute hypoxic respiratory failure
Fluid overload--> acute on chronic diastolic congestive heart failure and end-stage renal disease related.
Bilateral large pleural effusions
Paroxysmal atrial fibrillation with rapid ventricular response-->NSR today
Hypotension
Pancytopenia (only thrombocytopenia improved)
Hyponatremia
Hypothyroidism -->Elevated TSH
Conditions prior to presentation:
Chronic diastolic CHF
End-stage renal disease on hemodialysis
Status post orthotopic liver transplant 2020 at [facility] on immunosuppression
Diabetes mellitus type II
History hepatitis C (status posttreatment)
Paroxysmal A-fib not on anticoagulation due to pancytopenia (also had thyroid toxicity from [facility] before)
Pancytopenia, transfusion dependent
Peripheral vascular disease status post left CEA
Hypertension
Hyperlipidemia
Severe mitral stenosis (not a surgical candidate)
Recurrent pleural effusions in the past
PLAN:
Status post left thoracentesis today 2 L on 3/
Continue hemodialysis to help with volume status
Reevaluate if needed other side down the road.
On IV amiodarone transition to 200 mg of oral amiodarone daily
Neutropenic precautions
Appreciated cardiology and nephrology input
On CellCept and Prograf
Off metformin and on insulin sliding scale
On Toprol tartrate 25 mg twice a day.
Increase Synthroid to 75 mcg daily (tsh elevated at 20)
PT OT eval in a.m. if respiratory status stable
DVT prophylaxis heparin SQ
CODE STATUS full code
Total time spent on today's encounter was 52 minutes which included time spent in counseling the patient/family regarding diagnosis and treatment plan as listed above, goals of care, and symptom management. Case was discussed with nursing staff,
specialists, and care coordinators/case management. All labs and imaging personally reviewed by me. Remainder the time spent in detailed review of previous records, lab data, imaging, and other medical provider documentation.
Anticipated Discharge: > 48 hours
Subjective/Interval History
-
Date of Service: December 17, 2023
Patient still short of breath although overall less. Looks frail overall. No chest pain
Objective Data
-
Labs:
Laboratory Results
12/17/23
03:40
WBC 1.3 L*
Hgb 7.8 L
Hct 24.3 L
Plt Count 199
Sodium 126 L
Potassium 5.0
Chloride 93 L
Carbon Dioxide 30
BUN 35 H
Creatinine 3.5 H
Glucose 125 H
Calcium 7.9 L
Vital Signs:
Vital Signs
Temp Pulse Resp BP Pulse Ox
98.3 F 65 16 159/74 98
12/17/23 03:25 12/17/23 08:11 12/17/23 06:00 12/17/23 08:11 12/17/23 06:00
I&O
12/16/23 12/17/23 12/18/23
06:59 06:59 06:59
Intake Total 480 / 480 1380 / 1380 180 / 180
Output Total 60 / 60
Balance 480 / 480 1320 / 1320 180 / 180
[2023-12-17 08:48] LABS: Anisocytosis 1+; Band Neutrophils 0 % (0-3); Eosinophils 16 % (0-6); Hypochromasia 1+; Lymphocytes 26 % (20-51); Monocytes 10 % (2-9); Normal RBC Morphology No; Platelets Checked Yes; Polychromasia 1+; Segmented Neutrophils 48 % (42-75)
[2023-12-17 08:49] LABS: Acanthocytes FEW; Ovalocytes FEW; Stomatocytes 1+; Total Cells Counted 100
[2023-12-17 08:50] LABS: Absolute Neutrophils -Man Diff 0.6 10^3/uL (1.4-6.5)
--- NOTE | 2023-12-17 11:24 | W.PN.NEPH.PH ---
Today's Communication / Plan
-
HD tomorrow
Assessment/Plan
-
Assessment:
ESRD on HD MWF at [facility] s/p LUE AVF (not matured), has CVC in place now
chronic heart failure with preserved ejection fraction
Bilateral pleural effusions
Acute hypoxic respiratory failure
chronic anemia
Hyponatremia
Paroxysmal atrial fibrillation
Pancytopenia (gets recurrent transfusions)
s/p Liver txp
hepatitis C (treated)
T2DM
hyperphos
Plan:
eval for right thoracentesis
HD tomorrow
amiodarone per cardiology
-
-
Date of Service: December 17, 2023
CC / HPI / ROS
-
Chief Complaint:
ESRD
History of Present Illness:
SOB better after left thoracentesis 2L 12/15
BP high
remains leukopenic
Review of Systems:
no CP
SOB
Labs
-
Labs:
WBC 1.3 10^3/uL (4.8-10.8) L* 12/17/23 03:40
RBC 2.72 10^6/uL (4.70-6.10) L 12/17/23 03:40
Hgb 7.8 g/dL (13.0-18.0) L 12/17/23 03:40
Hct 24.3 % (39.0-52.0) L 12/17/23 03:40
Plt Count 199 10^3/uL (130-400) 12/17/23 03:40
Sodium 126 mmol/L (135-145) L 12/17/23 03:40
Potassium 5.0 mmol/L (3.5-5.1) 12/17/23 03:40
Chloride 93 mmol/L (98-107) L 12/17/23 03:40
Carbon Dioxide 30 mmol/L (22-30) 12/17/23 03:40
BUN 35 mg/dl (9-20) H 12/17/23 03:40
Creatinine 3.5 mg/dL (0.7-1.3) H 12/17/23 03:40
eGFR 18.01 12/17/23 03:40
Glucose 125 mg/dl (70-99) H 12/17/23 03:40
Calcium 7.9 mg/dl (8.4-10.2) L 12/17/23 03:40
Kxl-H-Mrkguejgoch Pept > 95062 pg/ml 12/15/23 09:50
Albumin 3.4 g/dl (3.5-5.0) L 12/15/23 09:50
Physical Exam
-
Vital Signs:
Vital Signs
Temp Pulse Resp BP Pulse Ox
98.2 F 64 22 153/62 99
12/17/23 07:35 12/17/23 09:11 12/17/23 09:11 12/17/23 09:11 12/17/23 08:00
Cardiovascular:: Regular rate and rhythm
Respiratory:: Bilateral: Coarse
Lung Excursion:: Normal
Abdomen:: Nontender and Soft
Bowel Sounds:: Normal
Extremity Edema:: None: Bilateral:
[2023-12-17 12:06] LABS: Glucose - Point of Care 230 mg/dl (70-99)
[2023-12-17] MEDS: NOVOLOG FLEXPEN-LOW RESISTANCE 2 UNITS SC (12:11)
[2023-12-17] MEDS: ZOFRAN 4 MG IV (12:16)
--- NOTE | 2023-12-17 14:56 | PTCARENOTE ---
Pt observed eating paper, staes he was cleaning his teeth
[2023-12-17] MEDS: NOVOLOG FLEXPEN-LOW RESISTANCE 1 UNITS SC (16:23)
[2023-12-17] MEDS: LIPITOR 20 MG PO (16:25)
[2023-12-17] MEDS: PROGRAF 1 MG PO (16:25)
[2023-12-17 16:32] LABS: Glucose - Point of Care 173 mg/dl (70-99)
--- NOTE | 2023-12-17 20:00 | PTCARENOTE ---
Resumed care of pt sitting up in bed AAOx3. pt assisted to stand at bedside to use urinal. Pt able to void 25ml donna urine. pt assisted back to bed and positioned per comfort. HR in the low 100's in Afib on the monitor.Once at rest HR in the 50's
SB with prolonged QT. POX 98% on 5LO2 NC. Lungs dec t/o with audible ex wheezes with activity. Occas non productive cough. PENN/Tachypnea. + bowel, pt passing gas. Round firm dist abd. Bandaid in place from previous thoracentesis site. Back foam in
place for protection. Sacral foam in place. + 2 pitting B/L LE edema noted. Palpable peripheral pulses present. Right AC int capped. Right chest wall HD cath in place. LUE AV fistula +B/T. Pt denies any complaints at this time. Will continue to
monitor.
--- NOTE | 2023-12-17 21:18 | W.PN.CARDCBS ---
Today's Communication / Plan
-
Continue amiodarone
Monitor telemetry
Repeat EKG in the morning
Impression / Plan
-
Primary Wood Machinist Apprentice: Dr. Singleton
Assessment:
Presentation with SOB, LE edema
Acute on chronic HFpEF
ESRD-HD started 11/16/23
s/p LUE AV fistula 10/18/23
Recurrent bilateral pleural effusions
prior thoracentesis August 2023
s/p left thoracentesis 1800 ml removed 11/17/2023
Chronic anemia/pancytopenia
Symptomatic PAF
Not chronically anticoagulated due to pancytopenia
Previously on amiodarone, stopped 11/2023 due to thyroid toxicity
mitral stenosis, severe, not surgical candidate
chronic hyponatremia
PAD
HTN
hyperlipidemia
DM 2
Orthotopic liver cancer status post liver transplant 11/2020 at [place]
Hepatitis C, treated
pancytopenia
Transfusion dependent anemia of chronic disease
History of L CEA
Former smoker
Hypoalbuminemia
Hyperkalemia
Hyponatremia
ECHO 12/04/23: EF 55 to 60%, mild septal hypertrophy, severe MS with mean gradient 16 mmHg, mild to moderate TR, PAP 65 mmHg, large pleural effusion present, echodensities in pleural effusion measuring as large as 5.7 cm x 4.7 cm, possible
loculations, trace pericardial effusion
Plan:
Paroxysmal atrial fibrillation presented with rapid ventricular response and hypotension
-Improved hemodynamics with conversion to sinus rhythm on IV amiodarone
-Transition to oral amiodarone and resumed oral Lopressor with hold parameters
-Check EKG in the a.m.
-Historically not anticoagulated due to pancytopenia now with improved platelets
-Currently on aspirin
-Given significant comorbid conditions prefer to maintain rhythm control
-Appreciate endocrine input and recommendations on Synthroid management
Volume overload with acute on chronic heart failure with preserved ejection fraction on dialysis
-Status post left thoracentesis 12/16/2023 with 2 L removed
-Evaluate need for right-sided thoracentesis
-Dialysis tomorrow
-Nephrology consulted
Severe mitral stenosis, not a surgical candidate
Hypothyroidism on Synthroid
-Appreciate endocrine input
Liver cancer status post liver transplant November 2020 at [place]/transfusion dependent anemia and leukopenia.
-Neutropenic precautions
-On CellCept and Prograf
Progress Note - Wood Machinist Apprentice
Subjective
Date of Service: December 17, 2023
Seen and examined with at bedside. Still short of breath although slightly improved status postthoracentesis. Denies chest pain or pressure. No dizziness. No palpitations
Objective
Labs:
12/17/23 03:40
12/17/23 03:40
Labs
Hgb 7.8 g/dL (13.0-18.0) L 12/17/23 03:40
Hct 24.3 % (39.0-52.0) L 12/17/23 03:40
Plt Count 199 10^3/uL (130-400) 12/17/23 03:40
PT 15.2 Sec (11.4-14.6) H 12/15/23 09:50
INR 1.22 12/15/23 09:50
Sodium 126 mmol/L (135-145) L 12/17/23 03:40
Potassium 5.0 mmol/L (3.5-5.1) 12/17/23 03:40
BUN 35 mg/dl (9-20) H 12/17/23 03:40
Creatinine 3.5 mg/dL (0.7-1.3) H 12/17/23 03:40
Glucose 125 mg/dl (70-99) H 12/17/23 03:40
Vital Signs and I&O:
Vital Signs
Temp Pulse Resp BP Pulse Ox
97.4 F 110 21 118/93 98
12/17/23 19:00 12/17/23 20:16 12/17/23 20:00 12/17/23 20:16 12/17/23 20:00
Vital Signs
Temp Pulse Resp BP Pulse Ox
97.4 F 110 21 118/93 98
12/17/23 19:00 12/17/23 20:16 12/17/23 20:00 12/17/23 20:16 12/17/23 20:00
Intake & Output
12/15/23 12/16/23 12/17/23 12/18/23
06:59 06:59 06:59 06:59
Intake Total 480 / 480 1380 / 1380 180 / 180
Output Total 60 / 60 50 / 50
Balance 480 / 480 1320 / 1320 130 / 130
Physical Exam
Physical Exam
Gen: NAD, AAOx3
HEENT: NC/AT, sclera anicteric
Neck:tunneled HD line in place
CV: RRR, NL s1/s2 2/6 SM
Lungs: Bronchovesicular breath sounds, coarse with decreased at the bases with fine crackles
Abd: Soft, nontender positive bowel sounds
Ext: No LE edema
[2023-12-17 22:29] LABS: Glucose - Point of Care 160 mg/dl (70-99)
[2023-12-18] VITALS (51 sets, daily range): BP systolic 75–135; BP diastolic 44–117
[2023-12-18] MEDS: HEPARIN 5000 UNITS SC ×3 (00:10→17:28)
[2023-12-18] MEDS: SYNTHROID 75 MCG PO (05:11)
[2023-12-18 05:17] LABS: Hematocrit 24.2 % (39.0-52.0); Hemoglobin 7.8 g/dL (13.0-18.0); Mean Corp Hgb Conc. 32.2 g/dL (33.0-37.0); Mean Corpuscular Hgb 28.7 pg (27.0-31.0); Platelet Count 196 10^3/uL (130-400); Red Blood Cell Count 2.72 10^6/uL (4.70-6.10); Red Cell Dist. Width 15.9 % (11.5-14.5)
[2023-12-18 05:36] LABS: White Blood Cell Count 1.3 10^3/uL (4.8-10.8)
[2023-12-18 05:56] LABS: Blood Urea Nitrogen 45 mg/dl (9-20); Calcium 7.8 mg/dl (8.4-10.2); Carbon Dioxide 27 mmol/L (22-30); Chloride 95 mmol/L (98-107); Estimated Creatinine Clearance 14 ml/min; Glucose 122 mg/dl (70-99); Sodium 126 mmol/L (135-145); eGFR 14.47
--- NOTE | 2023-12-18 07:41 | W.PN.HOSP.TC ---
Addendum entered and electronically signed by Ramesh Vazquez MD 12/18/23 17:19:
Patient had sudden onset mental status after he came from thoracentesis this afternoon and agitated this evening so alerted by RN and I came and evaluated him. He is alert but disoriented x3 and also paranoid ideas. His neuro exam unremarkable
except for tremors but no focal neurological deficits and he is a fib rvr.
A/P:
Delirium with acute psychosis--> Ativan 1 mg x 1 and if this is not effective we will do Zyprexa 10 mg IM x 1. One-to-one observation for agitation/safety. Rate control if HR elevated after agitation subsides. I will proceed to further workup with
labs, stat CT of the head, stat ABG, urinalysis and so forth. Updated and RN at bedside.
Original Note:
Today's Communication/Plan
-
Hemodialysis. Amiodarone. Plan for right thoracentesis.
Assessment / Plan
Assessment / Plan
Physical exam:
General: Acutely ill
HEENT: Normocephalic, Atraumatic and Moist Mucous Membranes
Respiratory: Decreased breath sounds bilateral, few crackles in the bases; Negative Wheezes or Rhonchi
Cardiac: Regular Rhythm and S1/S2. Systolic murmur and a diastolic murmur as well.
GI: Soft, Nontender and Nondistended
Musculoskeletal: Bilateral edema. No Clubbing, No Cyanosis
Neuro: Awake, Alert and Oriented, no gross neuro-deficits.
Psych: Calm
Acute on chronic hypoxic respiratory failure:
-Multifactorial etiology, heart failure, a fib, and volume overload related to end-stage renal disease with associated bilateral pleural effusions.
-Received hemodialysis today
-Continue HD per renal
-Continue oxygen supplementation. Currently on 5 L of oxygen. He typically uses 2 to 4 L at home.
-Status post left thoracentesis.
-Plan for right thoracentesis today
-Discussed with IR today 12/17
-Discussed with at bedside today on 12/17
Bilateral pleural effusions:
-Status post left thoracentesis on 12/15 with 2 lt removed.
-Plan for right thoracentesis today
-Discussed with IR today 12/17 and they will perform thoracentesis on the right
Paroxysmal atrial fibrillation:
-Continue rate control, metoprolol tartrate 25 mg twice a day
-Continue antiarrhythmic, amiodarone 200 mg p.o. daily
-He has history of amiodarone induced thyroid toxicity studies to follow closely.
-Not on anticoagulation due to pancytopenia
-Currently remains in normal sinus rhythm.
-Cardiology on board
End-stage renal disease on hemodialysis:
-HD per renal
Liver disease status post orthotopic liver transplant at [facility] in 2020:
-Remains on immunosuppressants, CellCept and Prograf
Pancytopenia:
-WBC 1.3, hemoglobin 7.8, platelet count 196
-No signs of infection or bleeding
-Continue to monitor cell count
-Maintain on neutropenic precautions
Hypothyroidism:
-Maintain on Synthroid 75 mcg p.o. daily (increased due to elevated TSH).
-Repeat TSH within 6 weeks as outpatient or sooner due to history of amiodarone toxicity
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
-Resolved and stable
Hyponatremia:
-Worsening today likely due to excess free fluid from ESRD so monitor after dialysis
-Sodium 126
-Continue to monitor
Diabetes mellitus type II:
-Continue insulin sliding scale
-Off metformin
-Cont to monitor BS
Peripheral vascular disease status post left CEA:
-cont to monitor vascular status
Hypertension:
Continue home antihypertensives.
Monitor blood pressure and adjust medications accordingly.
Hyperlipidemia:
Continue home statins, atorvastatin 20 mg daily
Severe mitral stenosis:
-Not a surgical candidate
-Cont to monitor
DVT prophylaxis:
Heparin SQ
CODE STATUS:
Full code
Total time spent on today's encounter was 52 minutes which included time spent in counseling the patient/family regarding diagnosis and treatment plan as listed above, goals of care, and symptom management. Case was discussed with nursing staff,
specialists, and care coordinators/case management. All labs and imaging personally reviewed by me. Remainder the time spent in detailed review of previous records, lab data, imaging, and other medical provider documentation.
Anticipated Discharge: 24 - 48 hours
Subjective/Interval History
-
Date of Service: December 18, 2023
Patient less shortness of breath today. Receiving hemodialysis at the time of my encounter. No chest pain. Remains in normal sinus rhythm. Afebrile
Objective Data
-
Labs:
Laboratory Results
12/18/23
05:06
WBC 1.3 L*
Hgb 7.8 L
Hct 24.2 L
Plt Count 196
Sodium 126 L
Potassium 5.0
Chloride 95 L
Carbon Dioxide 27
BUN 45 H
Creatinine 4.2 H*
Glucose 122 H
Calcium 7.8 L
Vital Signs:
Vital Signs
Temp Pulse Resp BP Pulse Ox
98.4 F 62 17 127/63 95
12/17/23 22:39 12/18/23 06:00 12/18/23 06:00 12/18/23 06:00 12/18/23 06:00
I&O
12/17/23 12/18/23 12/19/23
06:59 06:59 06:59
Intake Total 1380 / 1380 420 / 420
Output Total 60 / 60 100 / 100
Balance 1320 / 1320 320 / 320
Review of Systems
-
All other systems: Reviewed and negative
[2023-12-18] MEDS: PACERONE 200 MG PO (08:40)
[2023-12-18] MEDS: NOVOLOG FLEXPEN-LOW RESISTANCE 1 UNITS SC (08:41)
[2023-12-18 08:49] LABS: Glucose - Point of Care 190 mg/dl (70-99)
[2023-12-18] MEDS: PHOSLO PO ×2 (09:03→18:30)
[2023-12-18] MEDS: RETACRIT 10000 UNITS IV (09:06)
[2023-12-18] MEDS: MANNITOL 12.5 GRAMS IV (10:37)
[2023-12-18] MEDS: FLEXBUMIN 25% FOR HEMODIALYSIS 12.5 GRAMS IV (10:37)
[2023-12-18] MEDS: HEPARIN 4300 UNITS INTRACATH (11:38)
--- NOTE | 2023-12-18 11:50 | W.PN.CARDCBS ---
Addendum entered and electronically signed by Tray Mosquera DO 12/18/23 12:20:

NOTE:
Pt is in sinus.
Will continue Amiodarone at 200 mg daily.
Will not repeat EKG at this time.
Original Note:
Today's Communication / Plan
-
-Converted to sinus with PAFib. Consider increase Amiodarone 200 mg TID as having PAFib.
-Cont oral Lopressor with hold parameters
-Check EKG as may be back in aFib.
-Historically not anticoagulated due to pancytopenia now with improved platelets
-Currently on aspirin
-Appreciate endocrine input and recommendations on Synthroid management. May need to tolerate some hypothyroidism with amiodarone use.
Volume overload with acute on chronic heart failure with preserved ejection fraction on dialysis
-Status post left thoracentesis 12/16/2023 with 2 L removed
-Evaluate need for right-sided thoracentesis. Recheck chest xray
-Cont HD for volume control as per Nephrology
Severe mitral stenosis, not a surgical candidate
Impression / Plan
-
Primary Cover Cutter: Dr. Singleton
Impression:
Presentation with SOB, LE edema
Acute on chronic HFpEF
ESRD-HD started 11/16/23
s/p LUE AV fistula 10/18/23
Recurrent bilateral pleural effusions
prior thoracentesis August 2023
s/p left thoracentesis 1800 ml removed 11/17/2023
Chronic anemia/pancytopenia
Symptomatic PAF
Not chronically anticoagulated due to pancytopenia
Previously on amiodarone, stopped 11/2023 due to thyroid toxicity, now back on
Mitral stenosis, severe, not surgical candidate
Chronic hyponatremia
PAD
HTN
Hyperlipidemia
DM 2
Orthotopic liver cancer status post liver transplant 11/2020 at [place]
Hepatitis C, treated
pancytopenia
Transfusion dependent anemia of chronic disease
History of L CEA
Former smoker
Hypoalbuminemia
Hyperkalemia
Hyponatremia
ECHO 12/04/23: EF 55 to 60%, mild septal hypertrophy, severe MS with mean gradient 16 mmHg, mild to moderate TR, PAP 65 mmHg, large pleural effusion present, echodensities in pleural effusion measuring as large as 5.7 cm x 4.7 cm, possible
loculations, trace pericardial effusion
Plan:
Paroxysmal atrial fibrillation presented with rapid ventricular response and hypotension
-Converted to sinus with PAFib. Consider increase Amiodarone 200 mg TID as having PAFib.
-Cont oral Lopressor with hold parameters
-Check EKG as may be back in aFib.
-Historically not anticoagulated due to pancytopenia now with improved platelets
-Currently on aspirin
-Appreciate endocrine input and recommendations on Synthroid management. May need to tolerate some hypothyroidism with amiodarone use.
Volume overload with acute on chronic heart failure with preserved ejection fraction on dialysis
-Status post left thoracentesis 12/16/2023 with 2 L removed
-Evaluate need for right-sided thoracentesis. Recheck chest xray
-Cont HD for volume control as per Nephrology
Severe mitral stenosis, not a surgical candidate
Hypothyroidism on Synthroid
-Appreciate endocrine input
Liver cancer status post liver transplant November 2020 at [place]/transfusion dependent anemia and leukopenia.
-Neutropenic precautions
-On CellCept and Prograf
Reviewed with family at bedside.
Progress Note - Cover Cutter
Subjective
Date of Service: December 18, 2023
Pt seen and examined. Breathing better he states.
Objective
Labs:
12/18/23 05:06
12/18/23 05:06
Labs
Hgb 7.8 g/dL (13.0-18.0) L 12/18/23 05:06
Hct 24.2 % (39.0-52.0) L 12/18/23 05:06
Plt Count 196 10^3/uL (130-400) 12/18/23 05:06
PT 15.2 Sec (11.4-14.6) H 12/15/23 09:50
INR 1.22 12/15/23 09:50
Sodium 126 mmol/L (135-145) L 12/18/23 05:06
Potassium 5.0 mmol/L (3.5-5.1) 12/18/23 05:06
BUN 45 mg/dl (9-20) H 12/18/23 05:06
Creatinine 4.2 mg/dL (0.7-1.3) H* 12/18/23 05:06
Glucose 122 mg/dl (70-99) H 12/18/23 05:06
Vital Signs and I&O:
Vital Signs
Temp Pulse Resp BP Pulse Ox
97.8 F 69 12 131/73 99
12/18/23 11:42 12/18/23 08:45 12/18/23 08:45 12/18/23 08:45 12/18/23 09:00
Vital Signs
Temp Pulse Resp BP Pulse Ox
97.8 F 69 12 131/73 99
12/18/23 11:42 12/18/23 08:45 12/18/23 08:45 12/18/23 08:45 12/18/23 09:00
Intake & Output
12/16/23 12/17/23 12/18/23 12/19/23
06:59 06:59 06:59 06:59
Intake Total 480 / 480 1380 / 1380 420 / 420
Output Total 60 / 60 100 / 100
Balance 480 / 480 1320 / 1320 320 / 320
Physical Exam
Physical Exam
General: No acute distress, AAOX3
Neck: Negative JVD
Heart: irregularly irregular, Negative S3 positive S1/S2, Negative S4, No murmur
Lungs: CTA b/l, negative wheezes/rales/rhonchi
Abd: Positive BS, NT/ND, neg rebound/rigidity/guarding
Ext: Negative cyanosis/clubbing/edema
Neuro: nonfocal
[2023-12-18 12:06] LABS: Glucose - Point of Care 114 mg/dl (70-99)
[2023-12-18] MEDS: PHOSLO 667 MG PO (12:17)
[2023-12-18] MEDS: VITAMIN B-12 1000 MCG PO (12:18)
[2023-12-18] MEDS: PROTONIX 40 MG PO (12:18)
[2023-12-18] MEDS: VITAMIN D3 (cholecalciferol) 50 MCG PO (12:18)
[2023-12-18] MEDS: VITAMIN C 500 MG PO (12:18)
[2023-12-18] MEDS: ASPIR LOW (ENTERIC COATED) 81 MG PO (12:19)
[2023-12-18] MEDS: MAGNESIUM OXIDE 500 MG PO (12:19)
[2023-12-18] MEDS: PROGRAF 2 MG PO (12:19)
[2023-12-18] MEDS: CELLCEPT 500 MG PO (12:20)
[2023-12-18] MEDS: CELLCEPT 250 MG PO (12:21)
--- NOTE | 2023-12-18 12:45 | VNURNOTE ---
Patient is current with [facility] since 08/29 w/SN, resumption of care 12/05, will monitor progress and plan at discharge.
[2023-12-18] MEDS: NOVOLOG FLEXPEN-LOW RESISTANCE SC ×2 (13:11→17:42)
[2023-12-18] MEDS: LOPRESSOR PO ×2 (13:11→21:49)
--- NOTE | 2023-12-18 13:18 | PTCARENOTE ---
Pt presents as assessed. Aox3. Tolerated HD with HD RN. VSS. Sating high 90's on 5L NC. Medications administered as ordered. To [facility]AD via stretcher. at bedside and updated on plan of care.
--- NOTE | 2023-12-18 15:05 | W.PN.NEPH.HD ---
Assessment
-
- states that breathing is improved
- planned for thora tomorrow
Progress Note - Hemodialysis
-
Date of Service: December 18, 2023
Duration: 30 minutes and 3 hours
Potassium Bath: 3
Calcium Bath: 2.5
Opti-Dialyzer: 160
Ultrafiltration: Other
Blood Flow: 400
Dialysate Flow: 600
EPO: 10K
[2023-12-18 15:46] LABS: Glucose - Point of Care 193 mg/dl (70-99)
--- NOTE | 2023-12-18 15:46 | PTCARENOTE ---
Addendum entered by Wendy Fang 12/18/23 18:31:
Pt now hypotensive with sbp in the 70's. TT to Dr. Vazquez and cross coverage Dr. Boyd. Orders placed by Dr. Boyd. IVF bolus hung as ordered.
Addendum entered by Wendy Fang 12/18/23 17:47:
IM Zyprexa administered as ordered, pt calmer at this time. Labs obtained and sent.
Addendum entered by Wendy Fang 12/18/23 17:05:
Unable to obtain labs and ABG at this time d/t agitation. Dr. Vazquez aware.
Addendum entered by Wendy Fang 12/18/23 16:50:
Pt noted to be in afib on tele monitor. Dr. Vazquez at bedside. Orders placed by providern.IV Ativan administered as ordered. RT at bedside to obtain ABG. Pt is now a doctor ordered one to one- staff member present at bedside. Pt's tearful,
emotional support provided.
Original Note:
Pt suddenly confused and extremely tremulous. Unable to tell this RN where he was or what day it is, conversation not making sense at times. Pt's at bedside and expressing concern over sudden change in mental status. Bedside glucose 193. VSS.
TT to Dr. Vazquez, awaiting his arrival to examine pt.
[2023-12-18] MEDS: NSS (PRESERVATIVE FREE) 0.5 ML IV (16:41)
[2023-12-18] MEDS: ATIVAN 1 MG IV (16:41)
[2023-12-18] MEDS: LOPRESSOR 5 MG IV (17:18)
[2023-12-18] MEDS: STERILE WATER FOR INJECTION 2.10000000000000009 ML IM (17:19)
[2023-12-18] MEDS: ZYPREXA 10 MG IM (17:19)
[2023-12-18] MEDS: XOPENEX 0.63 MG INHALANT SOLUTION 0.630000000000000004 MG INH (17:50)
[2023-12-18 17:53] LABS: Glucose - Point of Care 133 mg/dl (70-99)
[2023-12-18 18:00] LABS: HCO3 29.5 mmol/L (21-28); O2 Saturation % 93.1 % (94-98); PCO2 56 mmHg (35-48); PO2 64 mmHg (83-108); pH 7.33 (7.35-7.45)
[2023-12-18 18:12] LABS: Ammonia < 9 umol/L (9-30); Lactic Acid 0.7 mmol/L (0.7-2.0)
[2023-12-18 18:13] LABS: Hematocrit 24.9 % (39.0-52.0); Hemoglobin 7.9 g/dL (13.0-18.0); Mean Corp Hgb Conc. 31.7 g/dL (33.0-37.0); Mean Corpuscular Hgb 28.6 pg (27.0-31.0); Mean Corpuscular Volume 90.2 fL (80.0-94.0); Mean Platelet Volume 8.2 fL (7.4-10.4); Platelet Count 224 10^3/uL (130-400); Red Blood Cell Count 2.76 10^6/uL (4.70-6.10); Red Cell Dist. Width 15.9 % (11.5-14.5)
[2023-12-18 18:15] LABS: ALT (SGPT) < 10 U/L (0-50); AST (SGOT) 17 U/L (17-59); Albumin 2.8 g/dl (3.5-5.0); Alkaline Phosphatase 62 U/L (38-126); Blood Urea Nitrogen 23 mg/dl (9-20); Calcium 7.9 mg/dl (8.4-10.2); Carbon Dioxide 33 mmol/L (22-30); Chloride 93 mmol/L (98-107); Estimated Creatinine Clearance 22 ml/min; Glucose 126 mg/dl (70-99); Sodium 130 mmol/L (135-145); Total Bilirubin 0.4 mg/dl (0.2-1.3); Total Protein 5.2 g/dl (6.3-8.2); eGFR 24.59
[2023-12-18 18:16] LABS: White Blood Cell Count 1.4 10^3/uL (4.8-10.8)
[2023-12-18 18:29] LABS: Procalcitonin 0.55 ng/ml (0.0-0.25)
[2023-12-18] MEDS: NSS 250 IV (18:30)
[2023-12-18] MEDS: LIPITOR PO (18:30)
[2023-12-18] MEDS: PROGRAF PO (18:30)
[2023-12-18 18:41] LABS: Band Neutrophils 3 % (0-3); Eosinophils 9 % (0-6); Lymphocytes 37 % (20-51); Metamyelocytes 2 % (-); Monocytes 9 % (2-9); Myelocytes 5 % (-); Platelets Checked Yes; Segmented Neutrophils 35 % (42-75)
[2023-12-18 18:42] LABS: Absolute Neutrophils -Man Diff 0.5 10^3/uL (1.4-6.5); Normal RBC Morphology Yes; Total Cells Counted 100
--- NOTE | 2023-12-18 18:47 | PTCARENOTE ---
Per pt's Maxine, pt's daughter Melanie is NOT to have any information regarding pt's status or plan of care- however she is allowed to visit.
[2023-12-18] MEDS: ZOSYN 50 IV (19:12)
[2023-12-18] MEDS: OFIRMEV 100 IV (21:12)
[2023-12-18 21:16] LABS: Glucose - Point of Care 136 mg/dl (70-99)
--- NOTE | 2023-12-18 21:20 | PTCARENOTE ---
Addendum entered by Queenie Rangel RN 12/19/23 02:55:
Pt restless at times, grabbing at cardiac leads, O2 tubing, pulling gown off, unable to be redirected. Pulse ox 99-100% on 6L. bps 100s/50s-60s. Order for b/l wrist restraints obtained. Continues having bursts of vtach. 2.5 mg IV toprol ordered and
given.
Addendum entered by Queenie Rangel RN 12/18/23 23:02:
Pt lethargic but wakes to verbal stimuli. CT head completed. bps 80s-90s/50s. HR 90s-120s, in and out of afib. 99-100% on 6L. Pt had 11 beat run of vtach. KELLEN Madrigal made aware. Mag ordered for am labs
Original Note:
Assumed care of pt from dayshift. Pt sleeping at this time. Hypotensive with bps 70s-90s/40s-50s. HR 110s-120s in Afib. Axillary temp 99.3. Covering KELLEN Madrigal made aware. Rectal temp 100.1. IV tylenol ordered and given.
[2023-12-18] MEDS: MAGNESIUM OXIDE PO (21:49)
[2023-12-18] MEDS: CELLCEPT PO ×2 (21:49)
[2023-12-19] VITALS (30 sets, daily range): BP systolic 81–123; BP diastolic 46–99; O2SAT 95; BMI 21.2
[2023-12-19] MEDS: HEPARIN 5000 UNITS SC ×4 (00:57→22:56)
[2023-12-19] MEDS: LOPRESSOR 2.5 MG IV (02:31)
[2023-12-19] MEDS: ZOSYN 50 IV ×3 (03:31→19:29)
[2023-12-19 04:37] LABS: Hematocrit 22.6 % (39.0-52.0); Hemoglobin 7.3 g/dL (13.0-18.0); Mean Corp Hgb Conc. 32.3 g/dL (33.0-37.0); Mean Corpuscular Hgb 28.4 pg (27.0-31.0); Mean Corpuscular Volume 87.9 fL (80.0-94.0); Nucleated Red Blood Cells % 0 % (-); Platelet Count 158 10^3/uL (130-400); Red Blood Cell Count 2.57 10^6/uL (4.70-6.10); Red Cell Dist. Width 15.8 % (11.5-14.5)
[2023-12-19 04:52] LABS: Blood Urea Nitrogen 31 mg/dl (9-20); Calcium 7.9 mg/dl (8.4-10.2); Carbon Dioxide 28 mmol/L (22-30); Chloride 96 mmol/L (98-107); Estimated Creatinine Clearance 17 ml/min; Glucose 140 mg/dl (70-99); Magnesium 2.2 mg/dl (1.6-2.3); Potassium 4.2 mmol/L (3.5-5.1); Sodium 130 mmol/L (135-145); eGFR 19.32
[2023-12-19] MEDS: XOPENEX 0.63 MG INHALANT SOLUTION 0.630000000000000004 MG INH ×2 (05:18→18:26)
[2023-12-19] MEDS: SYNTHROID 75 MCG PO (05:49)
--- NOTE | 2023-12-19 05:55 | PTCARENOTE ---
Pt more awake and alert now but disoriented to place asking 'where am I?' when reoriented he states 'this doesn't look like a hospital this looks like a playground with toys all over the place' b/l wrist restraints off, pt agreeable not to pull
anything off.
[2023-12-19 06:35] LABS: White Blood Cell Count 1.5 10^3/uL (4.8-10.8)
[2023-12-19] MEDS: NOVOLOG FLEXPEN-LOW RESISTANCE SC (07:17)
[2023-12-19] MEDS: PACERONE 200 MG PO (07:17)
[2023-12-19] MEDS: LOPRESSOR 25 MG PO ×2 (07:18→19:28)
[2023-12-19] MEDS: VITAMIN B-12 1000 MCG PO (07:19)
[2023-12-19] MEDS: ASPIR LOW (ENTERIC COATED) 81 MG PO (07:19)
[2023-12-19] MEDS: PROGRAF 2 MG PO (07:19)
[2023-12-19] MEDS: CELLCEPT 500 MG PO ×2 (07:19→19:28)
[2023-12-19] MEDS: VITAMIN D3 (cholecalciferol) 50 MCG PO (07:19)
[2023-12-19] MEDS: CELLCEPT 250 MG PO ×2 (07:19→19:28)
[2023-12-19] MEDS: VITAMIN C 500 MG PO (07:19)
[2023-12-19] MEDS: MAGNESIUM OXIDE 500 MG PO ×2 (07:19→19:28)
[2023-12-19] MEDS: PHOSLO 667 MG PO ×3 (07:19→16:44)
[2023-12-19] MEDS: PROTONIX 40 MG PO (07:19)
[2023-12-19 07:25] LABS: Glucose - Point of Care 137 mg/dl (70-99)
[2023-12-19 07:37] LABS: Band Neutrophils 2 % (0-3); Eosinophils 1 % (0-6); Lymphocytes 28 % (20-51); Metamyelocytes 3 % (-); Monocytes 24 % (2-9); Segmented Neutrophils 42 % (42-75)
[2023-12-19 07:38] LABS: Anisocytosis 1+; Macrocytosis 1+; Normal RBC Morphology No; Platelets Checked Yes
[2023-12-19 07:39] LABS: Hypochromasia 2+; Poikilocytosis 1+; Total Cells Counted 100
[2023-12-19 07:40] LABS: Absolute Neutrophils -Man Diff 0.6 10^3/uL (1.4-6.5)
--- NOTE | 2023-12-19 08:08 | W.PN.HOSP.TC ---
Today's Communication/Plan
-
Hemodialysis per renal. IV antibiotics. Continue amiodarone and cardiac monitoring. Monitor mental status.
Assessment / Plan
Assessment / Plan
Physical exam:
General: Acutely ill
HEENT: Normocephalic, Atraumatic and Moist Mucous Membranes
Respiratory: Decreased breath sounds bilateral, few crackles in the bases; Negative Wheezes or Rhonchi
Cardiac: Regular Rhythm and S1/S2. Systolic murmur and a diastolic murmur as well.
GI: Soft, Nontender and Nondistended
Musculoskeletal: Bilateral edema. No Clubbing, No Cyanosis
Neuro: Lethargic, moves spontaneously all 4 extremities, remains encephalopathic.
Psych: Calm today
Acute on chronic hypoxic respiratory failure:
-Multifactorial etiology, heart failure, a fib, and volume overload related to end-stage renal disease with associated bilateral pleural effusions, pneumonia.
-Received hemodialysis yesterday
-Continue HD per renal
-Continue oxygen supplementation. Currently down to 2 L of oxygen. He typically uses 2 to 4 L at home.
-Status post left thoracentesis.
-S/P right thoracentesis
-Discussed with at bedside on 12/18--> continue current plan of care and I also broached the subject of CODE STATUS and she would like to discuss with him once he is out of delirium. Also discussed about hospice care if things continues to get
worse but she tells me that this has been discussed before and he was not in favor of this so we will continue with discussions in light of his guarded prognosis.
Hypotension:
-Likely related to dialysis with removal and infectious process
-Blood pressure improving today
-Will do midodrine 5 mg po tid for now
-Has not required pressors so far
-Continue to monitor
Bilateral pleural effusions:
-Status post left thoracentesis on 12/15 with 2 lt removed.
-S/P right thoracentesis on 12/17 with 2 Lt removed as well
-Discussed with IR today 12/17 and they will perform thoracentesis on the right
Concerns for aspiration pneumonia/sepsis:
-Started on Zosyn empirically since last evening
-Speech therapy for swallow evaluation
Acute toxic metabolic encephalopathy:
-Likely delirium related but could be multifactorial
-Required benzodiazepine/antipsychotics yesterday
-Today he is not agitated but he is lethargic
-CT of the head no acute intracranial abnormalities
Paroxysmal atrial fibrillation:
-Today he is in normal sinus rhythm
-Continue rate control, metoprolol tartrate 25 mg twice a day
-Continue antiarrhythmic, amiodarone 200 mg p.o. daily
-He has history of amiodarone induced thyroid toxicity studies to follow closely.
-Not on anticoagulation due to pancytopenia
-Currently remains in normal sinus rhythm.
-Cardiology on board
End-stage renal disease on hemodialysis:
-HD per renal
Liver disease status post orthotopic liver transplant at [facility] in 2020:
-Remains on immunosuppressants, CellCept and Prograf
Pancytopenia:
-WBC 1.5, hemoglobin 7.3, platelet count 158
-No signs of infection or bleeding
-Continue to monitor cell count
-Maintain on neutropenic precautions
Hypothyroidism:
-Maintain on Synthroid 75 mcg p.o. daily (increased due to elevated TSH).
-Repeat TSH within 6 weeks as outpatient or sooner due to history of amiodarone toxicity
Hypotension TURN LASTER with HD:
-Resolved and stable
Hyponatremia:
-improving
-Sodium 130 today
-Continue to monitor
Diabetes mellitus type II:
-Continue insulin sliding scale
-Off metformin
-Cont to monitor BS
Peripheral vascular disease status post left CEA:
-cont to monitor vascular status
Hypertension:
Continue home antihypertensives.
Monitor blood pressure and adjust medications accordingly.
Hyperlipidemia:
Continue home statins, atorvastatin 20 mg daily
Severe mitral stenosis:
-Not a surgical candidate
-Cont to monitor
DVT prophylaxis:
Heparin SQ
CODE STATUS:
Full code
Total time spent on today's encounter was 52 minutes which included time spent in counseling the patient/family regarding diagnosis and treatment plan as listed above, goals of care, and symptom management. Case was discussed with nursing staff,
specialists, and care coordinators/case management. All labs and imaging personally reviewed by me. Remainder the time spent in detailed review of previous records, lab data, imaging, and other medical provider documentation.
Anticipated Discharge: > 48 hours
Subjective/Interval History
-
Date of Service: December 19, 2023
Blood pressure better today. He is not agitated rather sleepy today. He has been in normal sinus rhythm this morning. Afebrile. On supplemental oxygen
Objective Data
-
Labs:
Laboratory Results
12/19/23
04:14
WBC 1.5 L*
Hgb 7.3 L
Hct 22.6 L
Plt Count 158 D
Sodium 130 L
Potassium 4.2
Chloride 96 L
Carbon Dioxide 28
BUN 31 H
Creatinine 3.3 H
Glucose 140 H
Calcium 7.9 L
Vital Signs:
Vital Signs
Temp Pulse Resp BP Pulse Ox
97.5 F 70 17 112/61 100
12/19/23 03:30 12/19/23 07:18 12/19/23 06:30 12/19/23 07:18 12/19/23 07:56
I&O
12/18/23 12/19/23 12/20/23
06:59 06:59 06:59
Intake Total 420 / 420 370 / 370
Output Total 100 / 100 50 / 50
Balance 320 / 320 320 / 320
--- NOTE | 2023-12-19 08:16 | PTCARENOTE ---
Received pt resting in bed, intermittently restless, drowsy when awake. Oriented to self and place, but still forgetful and with confused conversation. Pt calm, able to take pills safely, ate breakfast, cooperative w/ care. at bedside, update
given. NSR on 60's on monitor. 6L NC oxygen, weaned to 2L NC sating 97%. BP 100/50. Full assessment as documented. Will watch closely.
--- NOTE | 2023-12-19 11:15 | PTOTSP ---
ST Dysphagia Evaluation
Unable to assess solids however reported good appetite for AM meal without any difficulty from RN and spouse. Pharyngeal swallow for thin liquids appears intact at the bedside
Pt received asleep with spouse at the bedside. Per RN and spouse pt ate AM meal of regular solids/thin liquids without difficulty and reported good appetite. HOB raised upright for PO trials of thin liquids. Drank from straw swallow appears prompt.
Unable to take solids d/t drowsiness. No overt s/sx of aspiration observed
Recommend
1. May remain on regular solids/thin liquids, per physician
2. Standard aspiration precautions and feeding assist as needed
3. Meds oral per pt preference and RN discretion
4. AVIATION SAFETY TECHNICIAN signing off please reconsult as needed
[2023-12-19 12:13] LABS: Glucose - Point of Care 183 mg/dl (70-99)
[2023-12-19] MEDS: NOVOLOG FLEXPEN-LOW RESISTANCE 1 UNITS SC (12:18)
--- NOTE | 2023-12-19 15:31 | CM ---
CM met with spouse by nurse's station
SNF recommended by OT today and pt noted with decline from prior eval
Introduced self and role of CM
Explained VN vs SF services
Spouse tearful during meeting
She noted palliative care was discussed her today
She is not ready to make dispo plans at this time
Aware there are SNFs with HD capability nearby if needed
Discharge Disposition- SNF with HD recommended
[2023-12-19 16:28] LABS: Glucose - Point of Care 203 mg/dl (70-99)
--- NOTE | 2023-12-19 16:37 | W.PN.NEPH.PH ---
Today's Communication / Plan
-
HD tomorrow
Assessment/Plan
-
Assessment:
ESRD on HD MWF at [facility] s/p LUE AVF (not matured), has CVC in place now
chronic heart failure with preserved ejection fraction
Bilateral pleural effusions
Acute hypoxic respiratory failure
chronic anemia
Hyponatremia
Paroxysmal atrial fibrillation
Pancytopenia (gets recurrent transfusions)
s/p Liver txp
hepatitis C (treated)
T2DM
hyperphos
Plan:
after HD and thora yesterday, had an acute change in mental status. had to be restrained
we will plan for HD tomorrow with 2L fluid removal
He is already reaccumulating pleural effusions, unclear if he can tolerate both HD and thora on same day
amiodarone per cardiology
Discussed with at length about his poor prognosis. She wants to speak with patient after he is more awake and alert. The patient has extremely poor quality of life and I cannot see how he will manage to stay out of the hospital nursing home.
-
-
Date of Service: December 19, 2023
CC / HPI / ROS
-
Chief Complaint:
ESRD
History of Present Illness:
very sleepy today after sedatives yesterday
BP low
remains leukopenic
Review of Systems:
+SOB
Labs
-
Labs:
WBC 1.5 10^3/uL (4.8-10.8) L* 12/19/23 04:14
RBC 2.57 10^6/uL (4.70-6.10) L 12/19/23 04:14
Hgb 7.3 g/dL (13.0-18.0) L 12/19/23 04:14
Hct 22.6 % (39.0-52.0) L 12/19/23 04:14
Plt Count 158 10^3/uL (130-400) D 12/19/23 04:14
Sodium 130 mmol/L (135-145) L 12/19/23 04:14
Potassium 4.2 mmol/L (3.5-5.1) 12/19/23 04:14
Chloride 96 mmol/L (98-107) L 12/19/23 04:14
Carbon Dioxide 28 mmol/L (22-30) 12/19/23 04:14
BUN 31 mg/dl (9-20) H 12/19/23 04:14
Creatinine 3.3 mg/dL (0.7-1.3) H 12/19/23 04:14
eGFR 19.32 12/19/23 04:14
Glucose 140 mg/dl (70-99) H 12/19/23 04:14
Calcium 7.9 mg/dl (8.4-10.2) L 12/19/23 04:14
Tve-Q-Seowkfcujzv Pept > 68584 pg/ml 12/15/23 09:50
Albumin 2.8 g/dl (3.5-5.0) L 12/18/23 17:33
Physical Exam
-
Vital Signs:
Vital Signs
Temp Pulse Resp BP Pulse Ox
97.5 F 64 18 98/55 93
12/19/23 12:00 12/19/23 13:00 12/19/23 13:00 12/19/23 13:00 12/19/23 11:00
Cardiovascular:: Regular rate and rhythm
Respiratory:: Bilateral: Coarse
Lung Excursion:: Normal
Abdomen:: Nontender and Soft
Bowel Sounds:: Normal
Extremity Edema:: +2: Bilateral:
Taveras Catheter: No
[2023-12-19] MEDS: NOVOLOG FLEXPEN-LOW RESISTANCE 2 UNITS SC (16:42)
[2023-12-19] MEDS: ProAmatine 5 MG PO (18:14)
[2023-12-19] MEDS: PROGRAF 1 MG PO (18:14)
[2023-12-19] MEDS: LIPITOR 20 MG PO (18:14)
--- NOTE | 2023-12-19 18:28 | W.PN.CARDCBS ---
Today's Communication / Plan
-
Plan:
1. pAF:
-Maintaining sinus rhythm. Cont daily 200mg amiodarone.
-Cont oral Lopressor with hold parameters
-Historically not anticoagulated due to pancytopenia now with improved platelets
-Currently on aspirin
-Appreciate endocrine input and recommendations on Synthroid management. May need to tolerate some hypothyroidism with amiodarone use.
2. Volume overload with acute on chronic heart failure with preserved ejection fraction on dialysis
-Status post left thoracentesis 12/16/2023 with 2 L removed
-Evaluate need for right-sided thoracentesis. Recheck chest xray
-Cont HD for volume control as per Nephrology
3. Severe mitral stenosis, not a surgical candidate
4. Hypothyroidism on Synthroid
-Appreciate endocrine input
5. Liver cancer status post liver transplant November 2020 at [place]/transfusion dependent anemia and leukopenia.
-Neutropenic precautions
-On CellCept and Prograf
Overall prognosis is quite guarded
We will sign off from cardiac standpoint. Please call us with any new questions or concerns.
Impression / Plan
-
Primary Ammonia Nitrate Operator: Dr. Singleton
Impression:
Presentation with SOB, LE edema
Acute on chronic HFpEF
ESRD-HD started 11/16/23
s/p LUE AV fistula 10/18/23
Recurrent bilateral pleural effusions
prior thoracentesis August 2023
s/p left thoracentesis 1800 ml removed 11/17/2023
Chronic anemia/pancytopenia
Symptomatic PAF
Not chronically anticoagulated due to pancytopenia
Previously on amiodarone, stopped 11/2023 due to thyroid toxicity, now back on
Mitral stenosis, severe, not surgical candidate
Chronic hyponatremia
PAD
HTN
Hyperlipidemia
DM 2
Orthotopic liver cancer status post liver transplant 11/2020 at [place]
Hepatitis C, treated
pancytopenia
Transfusion dependent anemia of chronic disease
History of L CEA
Former smoker
Hypoalbuminemia
Hyperkalemia
Hyponatremia
ECHO 12/04/23: EF 55 to 60%, mild septal hypertrophy, severe MS with mean gradient 16 mmHg, mild to moderate TR, PAP 65 mmHg, large pleural effusion present, echodensities in pleural effusion measuring as large as 5.7 cm x 4.7 cm, possible
loculations, trace pericardial effusion
Plan:
1. pAF:
-Maintaining sinus rhythm. Cont daily 200mg amiodarone.
-Cont oral Lopressor with hold parameters
-Historically not anticoagulated due to pancytopenia now with improved platelets
-Currently on aspirin
-Appreciate endocrine input and recommendations on Synthroid management. May need to tolerate some hypothyroidism with amiodarone use.
2. Volume overload with acute on chronic heart failure with preserved ejection fraction on dialysis
-Status post left thoracentesis 12/16/2023 with 2 L removed
-Evaluate need for right-sided thoracentesis. Recheck chest xray
-Cont HD for volume control as per Nephrology
3. Severe mitral stenosis, not a surgical candidate
4. Hypothyroidism on Synthroid
-Appreciate endocrine input
5. Liver cancer status post liver transplant November 2020 at [place]/transfusion dependent anemia and leukopenia.
-Neutropenic precautions
-On CellCept and Prograf
Overall prognosis is quite guarded
We will sign off from cardiac standpoint. Please call us with any new questions or concerns.
Progress Note - Ammonia Nitrate Operator
Subjective
Date of Service: December 19, 2023
No major complaints
Objective
Labs:
12/19/23 04:14
12/19/23 04:14
Labs
Hgb 7.3 g/dL (13.0-18.0) L 12/19/23 04:14
Hct 22.6 % (39.0-52.0) L 12/19/23 04:14
Plt Count 158 10^3/uL (130-400) D 12/19/23 04:14
PT 15.2 Sec (11.4-14.6) H 12/15/23 09:50
INR 1.22 12/15/23 09:50
Sodium 130 mmol/L (135-145) L 12/19/23 04:14
Potassium 4.2 mmol/L (3.5-5.1) 12/19/23 04:14
BUN 31 mg/dl (9-20) H 12/19/23 04:14
Creatinine 3.3 mg/dL (0.7-1.3) H 12/19/23 04:14
Glucose 140 mg/dl (70-99) H 12/19/23 04:14
Vital Signs and I&O:
Vital Signs
Temp Pulse Resp BP Pulse Ox
97.5 F 76 12 122/60 98
12/19/23 12:00 12/19/23 18:14 12/19/23 16:00 12/19/23 18:14 12/19/23 16:00
Vital Signs
Temp Pulse Resp BP Pulse Ox
97.5 F 76 12 122/60 98
12/19/23 12:00 12/19/23 18:14 12/19/23 16:00 12/19/23 18:14 12/19/23 16:00
Intake & Output
12/17/23 12/18/23 12/19/23 12/20/23
06:59 06:59 06:59 06:59
Intake Total 1380 / 1380 420 / 420 370 / 370
Output Total 60 / 60 100 / 100 50 / 50
Balance 1320 / 1320 320 / 320 320 / 320
Physical Exam
Physical Exam
General: No acute distress, AAOX3
Neck: Negative JVD
Heart: irregularly irregular, Negative S3 positive S1/S2, Negative S4, No murmur
Lungs: CTA b/l, negative wheezes/rales/rhonchi
Abd: Positive BS, NT/ND, neg rebound/rigidity/guarding
Ext: Negative cyanosis/clubbing/edema
Neuro: nonfocal
[2023-12-19 22:32] LABS: Glucose - Point of Care 120 mg/dl (70-99)
[2023-12-20] VITALS (36 sets, daily range): BP systolic 91–150; BP diastolic 47–98; PULSE 2–98; BMI 22.5
[2023-12-20] MEDS: SYNTHROID 75 MCG PO (03:32)
[2023-12-20] MEDS: ZOSYN 50 IV ×3 (03:32→19:33)
[2023-12-20 04:19] LABS: Hematocrit 22.2 % (39.0-52.0); Hemoglobin 7.1 g/dL (13.0-18.0); Mean Corpuscular Hgb 28.7 pg (27.0-31.0); Mean Corpuscular Volume 89.9 fL (80.0-94.0); Mean Platelet Volume 8.1 fL (7.4-10.4); Nucleated Red Blood Cells % 0 % (-); Platelet Count 204 10^3/uL (130-400); Red Blood Cell Count 2.47 10^6/uL (4.70-6.10)
[2023-12-20 04:22] LABS: White Blood Cell Count 1.7 10^3/uL (4.8-10.8)
--- NOTE | 2023-12-20 04:35 | PTCARENOTE ---
assumed care of patient- pt is AAOx3 but very forgetful. bed alarm in place. on 6L 99%. lungs course, wheezes throughout. PRN nebs given as needed. very SOB on exertion. pt with multiple BM's tonight, using bedpan d/t pt breathing status. pt
outstanding for urine specimen but oliguric. urinal at bedside. foam on sacrum intact, non-blanchable red stage 1 on sacrum. left fistula with good bruit and thrill. for HD today at noon. care ongoing.
[2023-12-20] MEDS: XOPENEX 0.63 MG INHALANT SOLUTION 0.630000000000000004 MG INH ×3 (04:37→20:45)
[2023-12-20 04:45] LABS: Blood Urea Nitrogen 44 mg/dl (9-20); Calcium 8.1 mg/dl (8.4-10.2); Carbon Dioxide 25 mmol/L (22-30); Chloride 94 mmol/L (98-107); Estimated Creatinine Clearance 14 ml/min; Glucose 133 mg/dl (70-99); Potassium 4.5 mmol/L (3.5-5.1); Sodium 126 mmol/L (135-145); eGFR 13.68
[2023-12-20 05:11] LABS: Band Neutrophils 2 % (0-3); Eosinophils 12 % (0-6); Lymphocytes 29 % (20-51); Monocytes 18 % (2-9); Normal RBC Morphology Yes; Platelets Checked Yes; Segmented Neutrophils 39 % (42-75)
[2023-12-20 05:15] LABS: Absolute Neutrophils -Man Diff 0.6 10^3/uL (1.4-6.5)
[2023-12-20 05:16] LABS: Total Cells Counted 100
--- NOTE | 2023-12-20 05:32 | PTCARENOTE ---
pt taking oxygen off at times- oxygen dropping to 69% with good pleth. labored breathing, tachypneic. oxygen placed back on patient- 6L midflow. oxygen recovered after a few seconds.
--- NOTE | 2023-12-20 05:34 | PTCARENOTE ---
critical absolute neutrophils this AM- 0.6. notified covering CITY CARRIER ASSISTANT, no new orders at this time.
[2023-12-20 07:39] LABS: Glucose - Point of Care 179 mg/dl (70-99)
--- NOTE | 2023-12-20 08:30 | PTCARENOTE ---
Patient received from night manager. Patient resting comfortably in bed. AAO but a little confused, VSS. No events noted over night. No complaints of pain. Was scheduled for noon HD but HD nurse starting at 0700. Some meds to be held due to
being dialyzed out. Call watkins in reach.
--- NOTE | 2023-12-20 08:44 | W.PN.NEPH.HD ---
Assessment
-
Patient seen on HD
sbp 125 at current u/f
for blood transfusion given worsening anemia
discussed poor prognosis with
we will not be able to ever effectively dialyze patient as outpatient
Progress Note - Hemodialysis
-
Date of Service: December 20, 2023
Duration: 30 minutes and 3 hours
Potassium Bath: 2
Calcium Bath: 2.5
Opti-Dialyzer: 160
Ultrafiltration: Other (2.5kg as tolerated)
Blood Flow: 400
Dialysate Flow: 600
Heparin: none
EPO: none
[2023-12-20] MEDS: NOVOLOG FLEXPEN-LOW RESISTANCE 1 UNITS SC ×2 (08:51→12:11)
[2023-12-20] MEDS: HEPARIN 5000 UNITS SC ×2 (08:51→17:47)
[2023-12-20] MEDS: VITAMIN C 500 MG PO (08:53)
[2023-12-20] MEDS: VITAMIN D3 (cholecalciferol) 50 MCG PO (08:53)
[2023-12-20] MEDS: MAGNESIUM OXIDE 500 MG PO ×2 (08:53→19:32)
[2023-12-20] MEDS: VITAMIN B-12 1000 MCG PO (08:53)
[2023-12-20] MEDS: ASPIR LOW (ENTERIC COATED) 81 MG PO (08:53)
[2023-12-20] MEDS: PROTONIX 40 MG PO (08:53)
[2023-12-20] MEDS: CELLCEPT 250 MG PO ×2 (08:54→19:32)
[2023-12-20] MEDS: CELLCEPT 500 MG PO ×2 (08:54→19:32)
[2023-12-20] MEDS: PHOSLO 667 MG PO ×3 (08:54→17:46)
[2023-12-20] MEDS: FLEXBUMIN 25% FOR HEMODIALYSIS 12.5 GRAMS IV (09:18)
[2023-12-20] MEDS: MANNITOL 12.5 GRAMS IV (09:43)
[2023-12-20] MEDS: PACERONE 200 MG PO ×2 (10:07→19:33)
--- NOTE | 2023-12-20 10:15 | PTCARENOTE ---
Patient with runs of v-tach (per the monitor alarm reading). Hospitalist and Cardiology made aware. Cardiology stated it is A-fib with aberrancy. Currently on dialysis, Pacerone to be given.
[2023-12-20 11:58] LABS: Glucose - Point of Care 175 mg/dl (70-99)
[2023-12-20] MEDS: ProAmatine 5 MG PO ×2 (12:09→17:46)
[2023-12-20] MEDS: ProAmatine PO (12:09)
[2023-12-20] MEDS: PROGRAF 2 MG PO (12:09)
[2023-12-20] MEDS: LOPRESSOR 25 MG PO ×2 (12:10→19:32)
--- NOTE | 2023-12-20 12:10 | W.PN.HOSP.TC ---
Addendum entered and electronically signed by Alistair Benitez MD 12/20/23 13:55:
Pt expressed to RN-about changing code status.
d/w with spouse at bedside in details.
Pt continues to remain confused with Visual hallucinations. Worsened usually after HD or thoracentesis.
Spouse wants to change code status to DNR/DNI understands it will mean no resuscitation and compression and no shock and no intubation. States family member is a RN and she understands consequences of changing code status.
Original Note:
Today's Communication/Plan
-
repeat CXR post HD
transfuse 1u PRBC
Monitor BP/HR
monitor mentation
wean O2 as tolerated
Assessment / Plan
Assessment / Plan
Physical exam:
General: Acutely ill
HEENT: Normocephalic, Atraumatic and Moist Mucous Membranes
Respiratory: Decreased breath sounds bilateral, few crackles in the bases; Negative Wheezes or Rhonchi
Cardiac: Regular Rhythm and S1/S2. Systolic murmur and a diastolic murmur as well.
GI: Soft, Nontender and Nondistended
Musculoskeletal: Bilateral edema. No Clubbing, No Cyanosis
Neuro: awake and moving all 4 extremities
Psych: Calm today
Acute on chronic hypoxic respiratory failure:
-Multifactorial etiology, heart failure, a fib, and volume overload related to end-stage renal disease with associated bilateral pleural effusions, pneumonia.
-Receiving HD now.
-Continue HD per renal
-Continue oxygen supplementation. Currently up to 6 L of oxygen. He typically uses 2 to 4 L at home.
-Status post left thoracentesis.
-S/P right thoracentesis
-Discussed with at bedside on 12/19
Hypotension:
-Likely related to dialysis with removal and infectious process
-Blood pressure improving today
-Will do midodrine 5 mg po tid for now
-Has not required pressors so far
-Continue to monitor
Bilateral pleural effusions:
-Status post left thoracentesis on 12/15 with 2 lt removed.
-S/P right thoracentesis on 12/17 with 2 Lt removed as well
-repeat CXR post HD today.
Concerns for aspiration pneumonia/sepsis:
-Started on Zosyn empirically since last evening
-Speech therapy for swallow evaluation
Acute toxic metabolic encephalopathy:
-Likely delirium related but could be multifactorial
-Required benzodiazepine/antipsychotics
-CT of the head no acute intracranial abnormalities
-Continue to monitor
Paroxysmal atrial fibrillation:
-in afib with aberrancy
-Continue rate control, metoprolol tartrate 25 mg twice a day
-Continue antiarrhythmic, amiodarone 200 mg p.o. daily
-He has history of amiodarone induced thyroid toxicity studies to follow closely.
-Not on anticoagulation due to pancytopenia
-Cardiology recs
End-stage renal disease on hemodialysis:
-HD per renal
Liver disease status post orthotopic liver transplant at [facility] in 2020:
-Remains on immunosuppressants, CellCept and Prograf
Pancytopenia:
-No signs of infection or bleeding
-Continue to monitor cell count
-Maintain on neutropenic precautions
-Hgb 7.1 and will transfuse 1u PRBC.
-Spouse signed consent.
Hypothyroidism:
-Maintain on Synthroid 75 mcg p.o. daily (increased due to elevated TSH).
-Repeat TSH within 6 weeks as outpatient or sooner due to history of amiodarone toxicity
Hypotension CERTIFIED MEDICAL ASST with HD:
-Resolved and stable
Hyponatremia:
-Continue to monitor. Correction per HD.
Diabetes mellitus type II:
-Continue insulin sliding scale
-Off metformin
-Cont to monitor BS
Peripheral vascular disease status post left CEA:
-cont to monitor vascular status
Hyperlipidemia:
Continue home statins, atorvastatin 20 mg daily
Severe mitral stenosis:
-Not a surgical candidate
-Cont to monitor
DVT prophylaxis:
Heparin SQ
CODE STATUS:
Full code
Anticipated Discharge: > 48 hours
Subjective/Interval History
-
Date of Service: December 20, 2023
awake
seen on HD
in afib
spouse at bedside-states mentation same as yesterday
more awake.
Objective Data
-
Labs:
Laboratory Results
12/20/23
03:36
WBC 1.7 L*
Hgb 7.1 L
Hct 22.2 L
Plt Count 204 D
Sodium 126 L
Potassium 4.5
Chloride 94 L
Carbon Dioxide 25
BUN 44 H
Creatinine 4.4 H*
Glucose 133 H
Calcium 8.1 L
Vital Signs:
Vital Signs
Temp Pulse Resp BP Pulse Ox
97.5 F 113 21 105/80 100
12/20/23 07:25 12/20/23 10:07 12/20/23 06:00 12/20/23 10:07 12/20/23 11:29
I&O
12/19/23 12/20/23 12/21/23
06:59 06:59 06:59
Intake Total 370 / 370 240 / 240
Output Total 50 / 50
Balance 320 / 320 240 / 240
Data Reviewed
-
Total Time Spent with Patient (in minutes): 55
--- NOTE | 2023-12-20 13:20 | W.PN.UPDATE ---
Update Note
Progress Note Update
Cardiology update note
Given patient is having episodes of paroxysmal atrial fibrillation, at times with abberancy, our plan for now is to do a slow amiodarone load with amiodarone 200 mg twice daily for the next 7 days until December 26, 2023. Starting December 27, 2023 he
should be continued on amiodarone 200 mg daily.
Defer management of hypothyroidism to endocrinology and primary team.
Please call us with any new questions or concerns
Talia Singleton MD, FACC, [facility] [place]
[2023-12-20 13:39] LABS: Urine Albumin 3+ (Neg - Trace); Urine Bilirubin 1+ (Negative); Urine Character Slightly Cloudy (Clear); Urine Color Yellow; Urine Glucose Negative (Negative); Urine Ketone Trace (Negative); Urine Leukocyte Trace (Negative); Urine Nitrite Negative (Negative); Urine Occult Blood Negative (Negative); Urine Specific Gravity 1.015 (<1.030); Urine Urobilinogen Negative (Neg - 1+)
[2023-12-20 14:15] LABS: Urine Amorphous Seen; Urine Bacteria Moderate (Negative)
[2023-12-20] MEDS: HALDOL 0.5 MG PO (14:37)
--- NOTE | 2023-12-20 14:40 | PTCARENOTE ---
Patient with restlessness and agitation, order for x1 PO Haldol ordered.
[2023-12-20 16:48] LABS: Glucose - Point of Care 132 mg/dl (70-99)
[2023-12-20] MEDS: DUONEB 3 ML INH (17:21)
[2023-12-20] MEDS: PROGRAF 1 MG PO (17:47)
[2023-12-20] MEDS: LIPITOR 20 MG PO (17:47)
[2023-12-20] MEDS: NOVOLOG FLEXPEN-LOW RESISTANCE SC (17:48)
[2023-12-20] MEDS: ZYPREXA 5 MG IM ×2 (19:07→21:00)
[2023-12-20] MEDS: STERILE WATER FOR INJECTION 2.10000000000000009 ML IM ×2 (19:08→21:00)
--- NOTE | 2023-12-20 19:15 | PTCARENOTE ---
Patient with continued agitation. BiPAP 12/6 attempted due to work of breathing. Patient able to tolerate for a little while then took off. Hospitalist made aware of agitation and x1 5mg Zyprexa ordered.
[2023-12-20 21:25] LABS: Glucose - Point of Care 166 mg/dl (70-99)
[2023-12-20] MEDS: HEPARIN SC (23:01)
[2023-12-21] VITALS: BP 142/52
[2023-12-21 01:00] VITALS: BP 103/46
--- NOTE | 2023-12-21 01:04 | W.PN.UPDATE ---
Addendum entered and electronically signed by KELLEN Iqbal 12/21/23 03:56:
at 3:45am at bedside. requested to discuss comfort care, all questions were answered. /Maxine verbalized what is the meaning of comfort care and she is understanding that all meds will be D/C. decided to start comfort care/morphine
drip.
Addendum entered and electronically signed by KELLEN Iqbal 12/21/23 02:18:
Patient continue to desat to low 80s while on midflow/non rebreather. made aware and she will be coming to see him now.
Original Note:
Update Note
Progress Note Update
Patient is desat to 80s% on 15L midflow and non breather was placed. Patient seems uncomfortable in bed and struggling for breathing. Patient has an order for Bipap but not able to tolerate per the nursing staff. Spoke to the and she agrees to
start the patient on morphine as needed for now and she will decide about comfort care in am.
[2023-12-21 01:06] VITALS: BP 99/88
[2023-12-21] MEDS: HEPARIN 5000 UNITS SC (01:17)
[2023-12-21] MEDS: MORPHINE SULFATE 1 MG IV ×2 (01:17→03:20)
--- NOTE | 2023-12-21 01:21 | PTCARENOTE ---
pt received at start of the shift anxious, restless, trying to get OOB- pt was given IM zyprexa at shift change and it only lasted 30 minutes, pt started trying to climb OOB again. notified covering UTILITY LINEMAN- another 5mg of IM zyprexa given again with
some slight relief. pt with increased work of breathing- wheezes throughout as well as audible wheezes. pt oxygen requirement increasing- up to 15L midflow, still dropping into 80s at times. non-rebreather placed over patient- 91-94%. pt still super
restless at times, pulling off oxygen. notified UTILITY LINEMAN- called placed to . pt given small dose of morphine to help with work of breathing. will assess response.
[2023-12-21 02:00] VITALS: BP 106/66
[2023-12-21 03:00] VITALS: BP 88/35
[2023-12-21] MEDS: SYNTHROID PO (03:13)
[2023-12-21] MEDS: ZOSYN IV (03:26)
[2023-12-21 04:00] VITALS: BP 106/57
[2023-12-21] MEDS: MORPHINE 100 IV (04:56)
--- NOTE | 2023-12-21 05:12 | PTCARENOTE ---
after small dose of morphine, pt still continues to have increased work of breathing, oxygen decreased to low 80s with any movement. METAL ROOM DENTAL TECHNICIAN notified. coming in, comfort care ordered, morphine drip hung, started on step one. at this time pt
remains with oxygen for comfort. at bedside.
[2023-12-21] MEDS: HEPARIN SC (07:33)
--- NOTE | 2023-12-21 10:55 | W.PN.DEATH ---
Pronouncement of
-
Called to see patient to pronounce.
No spontaneous heart tones or respirations noted.
Patient not responsive to verbal stimuli.
Patient is pronounced .
Time of : 10:29
Date of : 12/21/23
Cause of : Acute on chronic hypoxic respiratory failure due to congestive heart failure exacerbation, hypotension, bilateral pleural effusion
Family Notified: Yes (Spouse and daughter at bedside )
--- NOTE | 2023-12-21 10:59 | W.DCSUMMARY ---
Discharge Summary
Discharge Data
Date of Admission: 12/15/23
Date of Discharge: 12/21/23
-
Pending Results: No
Hospital Course
68-year-old male with extensive past medical history of multiple hospitalization presented with hospital with shortness of breath. Patient with past medical history of chronic heart failure, severe mitral stenosis deemed not a surgical candidate,
bilateral pleural effusions, atrial fibrillation, ESRD on hemodialysis, chronic hypotension, status post liver transplant, on chronic immunosuppression, anemia of chronic disease, hyperlipidemia, amiodarone induced hypothyroidism. Patient was
evaluated by nephrology and cardiology during hospitalization. Patient with pleural effusions status post thoracentesis on left and a right side. Patient underwent regular scheduled hemodialysis. Patient also with concern for aspiration pneumonia
and was started on antibiotics. Patient with episode of toxic metabolic encephalopathy and underwent CT of the head which is negative for acute intracranial abnormalities. Patient with severe mitral stenosis and congestive heart failure leading to
bilateral recurrent pleural effusions leading to multiple hospitalization. Due to patient chronic hypotension unable to ultrafiltrate/remove more fluid during hemodialysis leading to complications of fluid overload, hypoxemia and suspected pleural
effusions. Patient continued to require oxygen and his oxygen requirement continue to trended up even with hemodialysis. Patient care was discussed by multiple specialty and patient spouse decided to change CODE STATUS to DNR/DNI. Patient oxygen
requirement continue to trend up and he was not tolerating BiPAP. Remained on mid flow and nonrebreather. Patient continued to feel dyspneic. Spouse stated on 12/20/2023 patient stated to her that he wants to stop with aggressive medical care. Due
to patient's severe tachypnea worsening hypoxemia spouse decided to stop all aggressive medical care and transition patient to comfort measures. Patient case was discussed in detail multiple times on 12/21/23 in the morning with patient spouse and
patient daughter. Spouse stated per patient who expressed his wishes on 12/20/23 she did not want patient to suffer anymore and wanted him to be comfortable and thus she decided to transition patient to comfort measures overnight. Patient was
started on morphine infusion overnight and patient on 12/21/2023 at 10:29 AM. Expressed my condolences to patient's spouse and daughter at bedside.
Discharge Plan
-
Patient Disposition:
Date/Time
Date/Time: 12/21/23 10:29
--- NOTE | 2023-12-21 11:00 | PTCARENOTE ---
Patient has passed. Hospitalist at bedside to pronounce. Family offered pastoral care. Therapeutic communication provided.
--- NOTE | 2023-12-21 11:20 | CHAP ---
Emotional and spiritual support provided for Mr. Long's family at bedside after his . Prayers of commendation shared. Prayer blanket given.
== END 2023-12-21 10:29 | disposition expired | DRG 291 ==
LOC: IMU 11:55
PROVIDERS: Hospitalist; Physician Assistant; Radiology Vascular & Interventional Radiology; Specialist; Student in an Organized Health Care Education/Training Program; ADMITTING PHYSICIAN Internal Medicine; ATTENDING PHYSICIAN Hospitalist; CONSULT PHYSICIAN Specialist; EMERGENCY PHYSICIAN Emergency Medicine; FAMILY PHYSICIAN Family Medicine; OTHER PHYSICIAN Internal Medicine Interventional Cardiology
PROC: 5A1D70Z Performance of Urinary Filtration, Intermittent, Less than 6 Hours Per Day (ICD-10-PCS; 2023-12-15)
PROC: 0W9B3ZX Drainage of Left Pleural Cavity, Percutaneous Approach, Diagnostic (ICD-10-PCS; 2023-12-16)
PROC: 0W993ZZ Drainage of Right Pleural Cavity, Percutaneous Approach (ICD-10-PCS; 2023-12-18)
DX: I13.2 Hypertensive heart and chronic kidney disease with heart failure and with stage 5 chronic kidney disease, or end stage renal disease (principal); I50.33 Acute on chronic diastolic (congestive) heart failure; J96.21 Acute and chronic respiratory failure with hypoxia; N18.6 End stage renal disease; Z94.4 Liver transplant status; D61.818 Other pancytopenia; E87.1 Hypo-osmolality and hyponatremia; Z99.2 Dependence on renal dialysis; E87.5 Hyperkalemia; Z87.891 Personal history of nicotine dependence; D63.8 Anemia in other chronic diseases classified elsewhere; I48.0 Paroxysmal atrial fibrillation; E11.22 Type 2 diabetes mellitus with diabetic chronic kidney disease; E03.9 Hypothyroidism, unspecified; E78.00 Pure hypercholesterolemia, unspecified; I05.8 Other rheumatic mitral valve diseases; I05.0 Rheumatic mitral stenosis; E88.09 Other disorders of plasma-protein metabolism, not elsewhere classified; I95.89 Other hypotension; Z66 Do not resuscitate; Z51.5 Encounter for palliative care; B19.20 Unspecified viral hepatitis C without hepatic coma
CPT/HCPCS: 32555; 36600; 70450; 71045; 71046; 80048; 80053; 81003; 81015; 82140; 82805; 82962; 83605; 83735; 83880; 84145; 84157; 84439; 84443; 85025; 85027; 85610; 86140; 86850; 86900; 86901; 86920; 87015; 87070; 87086; 87205; 89051; 92610; 93005; 94640; 94660; 96374; 97162; 97166; 97530; 99285; G0257; J2358; P9016; P9047; Q5106